=== PATIENT | female | born 1945 | race Caucasian/White ===

== ENCOUNTER → 2020-09-03 08:32 | Outpatient (REF) | payer MEDICARE, MEDICAID, SELFPAY ==
--- NOTE | 2020-09-03 | NM_ITS ---
Lexiscan Myocardial perfusion study Indication: Chest pain, peripheral vascular disease, assess for coronary disease and ischemia Technique: The patient was brought in for a Lexiscan perfusion study on 09/03/2020 and was injected 0.4 mg of Lexiscan intravenously. Within a minute of this injection 25 mCi of sestamibi was given intravenously. Images were obtained using the SPECT gamma camera interlaced with the gating device. Images were obtained in supine position. Resting perfusion study was performed on 09/07/2020. Patient was administered 25 mCi of sestamibi intravenously at rest. Images were then obtained in supine position. Total DLP 62mGy-cm. Images were processed with the software and compared side to side in short axis, horizontal long axis and vertical long axis views. Findings: Raw acquisition was reviewed. The stress perfusion study showed no significant perfusion abnormality. Both uncorrected as well as CT attenuation corrected images were reviewed. In the CT attenuation corrected images, the apex and adjacent anterior and inferior wall appear to have slight reduction in tracer uptake. This is most likely artifactual, as the uncorrected acquisition shows normal perfusion in these areas. The gated study shows normal LV systolic function with calculated LVEF of 72%. LV cavity is normal in size. The gated study shows normal wall thickening and contraction of segments. Resting study shows no significant perfusion abnormality. Gating at rest reveals normal wall motion with ejection fraction at > 75%. The findings are consistent with no reversible or fixed perfusion abnormality. NM/NM naina perf SPECT rest & str Impression: 1. Myocardial perfusion imaging study shows normal myocardial perfusion. No evidence of any ischemia or infarction. 2. Gated LVEF is > 70%. 3. Transient ischemic dilatation not present. EKG component of the test reported separately.
--- NOTE | 2020-09-03 08:53 | CA_ITS ---
Acquisition Time: 2020-09-03 10:38:42 Total Exercise Time: 00:02:00 Test Indications: Chest Pain Medications: ASA SIMVASTATIN OMEPRAZOLE LORATADINE ALBUTEROL Protocol: LEXISCAN Max HR: 123 BPM 83% of Pred: 148 BPM Max BP: 132/072 mmHG Max Work Load: 1.0 METS Pharmacological stress test using Lexiscan while sitting. Pt has a hx of COPD, coughing up white phlemb. Hx of COPD albuterol ordered 2 puffs given before beginning the test. Pt tolerated well, SOB, coughing increased after lexiscan. Pt vasovagal from coughing, mild lightheaded, BP down to 100/40. Improved after Aminophyline 75 mg IV given. Pt's sx improved. EKG without any arrhythmias, non-diagnostic for ischemia. Nuclear images to follow. Test reviewed with DR. Rubio. Referred By: Barber Rubio Overread By: Pio Davey
--- NOTE | 2020-09-03 08:54 | CA_ITS ---
Transthoracic Echocardiogram Patient (Last, First, Middle): Lianne Moreno E Gender: Female Date of : 1945 Age: 75 Procedure Date: 09/03/2020 Procedure Type: Transthoracic Echocardiogram Location: OP Height: 154.94 cm Weight: 60.78 kg BSA: 1.59 m2 Heart Rate: bpm BP: 154 / 62 mmHg Tonal Regulator: Tarah MD: Barber Rubio MD Paginator: Dion Brar MD Symptoms: R07.2 CP Study Quality: Good ECG Rhythm: Sinus Conclusions: - 1. Normal LV systolic function with impaired relaxation filling pattern with mild asymmetric septal hypertrophy without obstruction 2. Mild aortic regurgitation 3. Normal RV systolic pressure 4. No pericardial effusion Findings Left Ventricle Normal left ventricular size, thickness, and systolic function. The visually estimated ejection fraction is between 60-65%. There is no dynamic left ventricular outflow tract obstruction. Spectral Doppler is indicative of an impaired relaxation filling pattern. E/E prime ratio is between 8 and 15 consistent with indeterminate filling pressures. There is mild septal asymmetric hypertrophy. Right Ventricle Normal right ventricular cavity size and systolic function. Atria The left atrium is normal in size. There is no evidence of interatrial shunt. The right atrium is normal in size. Aortic Valve There is mild calcification of the aortic valve. There is no aortic valve stenosis. There is mild aortic valve regurgitation. Mitral Valve There is mild anterior and posterior mitral leaflet thickening. There is mild mitral annular calcification. There is trace mitral valve regurgitation. There is no mitral valve stenosis. Pulmonic Valve The pulmonic valve was not well visualized. Tricuspid Valve Likely normal tricuspid valve structure and function. There is mild tricuspid valve regurgitation. The right ventricular systolic pressure is normal. The right ventricular systolic pressure is 34 mmHg. Normal right atrial pressure. There is no evidence of pulmonary hypertension. Great Vessels All visible segments of the aorta are normal in size. The pulmonary artery was not well visualized. Venous The inferior vena cava is normal in size and collapses greater than 50% with inspiration. Pericardium/Pleural There is no evidence of pericardial effusion. Prior Study Comparison No significant change compared to prior study dated: 02/28/2019. Measurements 2D Linear Measurements RVIDd: 2.58 RVIDd Index: 1.62 IVSd: 0.90 0.6-0.9/0.6-1.0 cm LVIDd: 4.41 3.9-5.3/4.2-5.9 cm LVIDd Index: 2.77 2.4-3.2/2.2-3.1 cm/m2 LVIDs: 3.18 2.0-3.6 cm LVPWd: 1.27 0.7-1.1 cm Ao Root: 2.80 2.1-3.5 cm LA Diam: 3.50 2.7-3.8/3.0-4.0 cm LAIDs Index: 2.20 1.5-2.3 cm/m2 LV Mass: 206.68 67-162/88-224 g LV Mass Index: 129.99 43-95/49-115 g/m2 LVOT Diam: 2.00 3.0+(-)1.3 cm 2D Systolic Function EF 4C: 57.20 >55% EF 2C: 62.80 >55% EF BiP: 60.30 >55% Mitral Valve MV Pk E: 0.74 MV PK A: 0.97 MV Decel Time: 213.00 E/A: 0.80 E'Lateral: 8.49 E'Medial: 5.98 E/E' Med: 12.30 E/E' Lat: 8.70 Aortic Valve AoV Pk Amilcar: 1.42 AoV Mn Amilcar: 1.05 AoV VTI: 0.29 AoV Pk Grad: 8.00 Aov Mn Grad: 5.00 CJ Cont.VTI: 2.55 AI Pk Amilcar: 3.35 AI [place]: 2.85 LVOT LVOT Pk Amilcar: 1.11 LVOT Mn Amilcar: 0.81 LVOT VTI: 0.24 LVOT Pk Grad: 5.00 LVOT Mn Grad: 3.00 LVOT Diam: 2.00 LVOT Area: 3.14 Diastolic Function MV Pk E: 0.74 MV Pk A: 0.97 E/A: 0.80 E'Medial: 5.98 E/E' Med: 12.30 E' Laterial: 8.49 E/E' Lat: 8.70 Tricuspid Valve TR Pk Amilcar: 2.77 TR Pk Grad: 31.00 RA Press: 3.00 RVSP: 34.00 Great Vessels Aorta Ao Root-2D: 2.80 2.0-3.7 cm Ao Asc: 3.10 2.1-3.4 cm Ao Arch: 3.00 Updated in Other Vendor System with Status of Final Dion Brar MD electronically signed on 09/04/2020 12:34:48 PM with status of Final
== END ==
LOC: HO.CARD 08:32
PROVIDERS: Visit Provider Internal Medicine
DX: R07.2 Precordial pain (principal); I73.9 Peripheral vascular disease, unspecified
CPT/HCPCS: 78452; 93017; 93306; A9500; J0280; J2785

== ENCOUNTER 2020-11-27 12:05 | Outpatient (REF) | payer MEDICARE, MEDICAID, SELFPAY ==
--- NOTE | 2020-11-27 12:09 | MM_ITS ---
EXAMINATION: MM SCREENING DIGITAL BREAST TOMOSYNTHESIS, BILATERAL CLINICAL INFORMATION: Screening. Asymptomatic. Status post right breast cancer COMPARISON: Mammography: November 22, 2019 and studies dating back to December 22, 2011 TECHNIQUE: Digital breast tomosynthesis is performed in both the craniocaudal and mediolateral oblique views along with computer-aided detection (CAD). Synthesized 2D images are generated from the tomosynthesis. FINDINGS: The breasts are heterogeneously dense, which may obscure small masses (ACR BI-RADS breast composition Category c). There are no significant masses, abnormal calcifications, or other abnormalities. Postsurgical change again seen within the right breast. MM/MM tomosynthesis screening BI IMPRESSION: There are no significant changes from prior study. ASSESSMENT: BI-RADS 2: Benign RECOMMENDATION: Routine annual mammography screening. This patient's information was entered into a reminder system with a target due date for their next mammogram.
== END 2020-11-27 12:06 | disposition home or self-care (01) ==
LOC: HO.MAMMO 12:05
PROVIDERS: PCP Internal Medicine; Visit Provider Internal Medicine
DX: Z12.31 Encounter for screening mammogram for malignant neoplasm of breast (principal)
CPT/HCPCS: 77063; 77067

== ENCOUNTER 2021-03-08 11:18 | Outpatient (REF) | payer MEDICARE, MEDICAID, SELFPAY ==
[2021-03-08 12:33] LABS: MANUAL DIFF FLAG NO
[2021-03-08 12:40] LABS: Glucose Urine UA NEG (NEG); Leukocyte Esterase Urine 3+ (NEG); Nitrite Urine NEG (NEG); UACC Culture Trigger YES; Urine Blood NEG (NEG); Urine Ketones NEG (NEG); Urine Protein NEG (NEG-TRACE)
[2021-03-08 12:42] LABS: Appearance Urine HAZY; Basophils Percent Auto 0.2 % (0-2); Color Urine YELLOW; Eosinophils Absolute Auto 0.1 X10*3/uL (0.0-0.4); Eosinophils Percent Auto 1.4 % (0-4); Hematocrit 38.9 % (37-47); Hemoglobin 12.8 g/dl (12.0-16.0); Imm Gran Abs Auto 0.02 X10*3/uL (0.00-0.03); Imm Gran Pct Auto 0.4 % (0.0-0.4); Lymphocytes Absolute Auto 1.2 X10*3/uL (1.2-4.9); Lymphocytes Percent Auto 22.8 % (20-40); Mean Corpuscular HGB Conc 32.9 g/dl (31.0-35.0); Mean Corpuscular Hemoglobin 30.2 pg (27.0-33.0); Mean Corpuscular Volume 91.7 fL (80-98); Mean Platelet Volume 8.5 fL (9.4-12.3); Monocytes Absolute Auto 0.5 X10*3/uL (0.1-1.2); Monocytes Percent Auto 10.2 % (2-11); Neutrophils Absolute Auto 3.3 X10*3/uL (2.0-8.3); Platelet Count 293 X10*3/uL (160-400); Red Blood Count 4.24 X10*6/uL (4.20-5.50); Red Cell Distribution Width 12.7 % (11.0-16.0); White Blood Count 5.1 X10*3/uL (4.8-10.8)
[2021-03-08 13:08] LABS: Bacteria Urine TRACE /LPF; RBC Urine 0-2 /HPF (0); Squamous Epithelial Cell Urine TRACE /LPF; WBC Urine 30-49 /HPF (0-4)
[2021-03-08 13:17] LABS: Creatinine Urine 117.51 mg/dL; Microalbum/Creatinine Ratio Ur 8.5 ug/mg cr
[2021-03-08 13:19] LABS: Alanine Aminotransferase 31 U/L (0-31); Albumin Level 4.3 g/dL (3.5-5.0); Alkaline Phosphatase 114 U/L (39-117); Anion Gap 13 (12-20); Aspartate Amino Transferase 25 U/L (5-31); Bilirubin Total 0.9 mg/dL (0.0-1.0); Blood Urea Nitrogen 9 mg/dL (9-16); Calcium 9.4 mg/dL (8.4-10.2); Carbon Dioxide 28 mmol/L (22-29); Chloride 102 mmol/L (96-108); Cholesterol 117 mg/dL; Estimated Glomerular Filt Rate > 60; Glucose Fasting 115 mg/dL (60-99); HDL Cholesterol 46 mg/dL; LDL Cholesterol Calculated 61 mg/dl; Potassium 4.3 mmol/L (3.3-5.1); Sodium 139 mmol/L (135-145); Total Protein 6.7 g/dL (6.5-8.0); Triglycerides 51 mg/dL
[2021-03-08 13:42] LABS: TSH reflex Free T4 0.74 uIU/mL (0.32-4.0); Vitamin D 25-OH Total 26.5 ng/mL (>30)
== END 2021-03-08 11:19 | disposition home or self-care (01) ==
LOC: HO.LAB 11:18
PROVIDERS: PCP Internal Medicine; Visit Provider Internal Medicine
DX: J30.9 Allergic rhinitis, unspecified (principal); E78.00 Pure hypercholesterolemia, unspecified; I10 Essential (primary) hypertension; K21.9 Gastro-esophageal reflux disease without esophagitis; E11.40 Type 2 diabetes mellitus with diabetic neuropathy, unspecified; E55.9 Vitamin D deficiency, unspecified; E66.3 Overweight
CPT/HCPCS: 36415; 80053; 80061; 81001; 81003; 82043; 82306; 84443; 85025; 87086

== ENCOUNTER 2021-03-22 13:48 | Outpatient (REF) | payer MEDICARE, MEDICAID, SELFPAY ==
[2021-03-22 14:07] LABS: COVID-19 Test Negative (Negative)
== END 2021-03-22 13:49 | disposition home or self-care (01) ==
LOC: HO.LAB 13:48
PROVIDERS: Visit Provider Internal Medicine
DX: Z20.822 Contact with and (suspected) exposure to COVID-19 (principal)
CPT/HCPCS: 36415; 87635; C9803

== ENCOUNTER 2021-04-09 14:33 | Outpatient (REF) | payer MEDICARE, MEDICAID, SELFPAY ==
[2021-04-09 15:38] LABS: MANUAL DIFF FLAG NO
[2021-04-09 15:46] LABS: Basophils Percent Auto 0.2 % (0-2); Eosinophils Absolute Auto 0.1 X10*3/uL (0.0-0.4); Eosinophils Percent Auto 1.8 % (0-4); Hematocrit 38.7 % (37-47); Hemoglobin 12.8 g/dl (12.0-16.0); Imm Gran Abs Auto 0.02 X10*3/uL (0.00-0.03); Imm Gran Pct Auto 0.3 % (0.0-0.4); Lymphocytes Absolute Auto 1.3 X10*3/uL (1.2-4.9); Lymphocytes Percent Auto 20.4 % (20-40); Mean Corpuscular HGB Conc 33.1 g/dl (31.0-35.0); Mean Corpuscular Volume 90.8 fL (80-98); Mean Platelet Volume 8.4 fL (9.4-12.3); Monocytes Absolute Auto 0.6 X10*3/uL (0.1-1.2); Monocytes Percent Auto 9.4 % (2-11); Neutrophils Absolute Auto 4.2 X10*3/uL (2.0-8.3); Neutrophils Percent Auto 67.9 % (45-73); Platelet Count 290 X10*3/uL (160-400); Red Blood Count 4.26 X10*6/uL (4.20-5.50); Red Cell Distribution Width 12.6 % (11.0-16.0); White Blood Count 6.1 X10*3/uL (4.8-10.8)
== END 2021-04-09 14:34 | disposition home or self-care (01) ==
LOC: HO.LAB 14:33
PROVIDERS: PCP Internal Medicine; Visit Provider Internal Medicine Pulmonary Disease
DX: J45.909 Unspecified asthma, uncomplicated (principal); J84.9 Interstitial pulmonary disease, unspecified; Z91.09 Other allergy status, other than to drugs and biological substances
CPT/HCPCS: 36415; 82785; 85025; 86003; 99202

== ENCOUNTER 2021-04-26 13:15 | Outpatient (REF) | payer MEDICARE, MEDICAID, SELFPAY ==
--- NOTE | ~2021-04-26 | CT_ITS ---
EXAMINATION: CT CHEST WITHOUT CONTRAST CLINICAL INFORMATION: Interstitial lung disease COMPARISON: None TECHNIQUE: Multidetector volumetric CT imaging of the chest was done. Axial MIP volume rendering provided. Sagittal and coronal reformatted images were obtained. This CT examination was performed using dose optimization techniques as appropriate, variously including the following: *Automated exposure control *Adjustment of mA and/or kV according to patient size (this includes techniques or standardized protocols for targeted exams where dose is matched to indication/reason for exam; i.e. extremities or head) *Use of iterative reconstruction technique DLP: 113 mGy-cm FINDINGS: LUNGS: There are are unremarkable small bilateral pulmonary nodules. Largest pulmonary nodule measures 5 mm in the left lower lobe along the diaphragmatic pleural surface axial image 137 series 11. There are focal increased peripheral interstitial markings seen in the anterior right upper lobe and right middle lobe. Suggestive of changes from previous chest wall radiation. No other evidence of interstitial lung disease is seen. There is no bronchiectasis or emphysema. MEDIASTINUM: The visualized thyroid gland is unremarkable. The heart does not appear enlarged. There is coronary artery and aortic valve calcification. There is no pericardial effusion. There are no enlarged hilar or mediastinal lymph nodes. PLEURA: There is no pleural effusion. No pleural mass or thickening. There is a small left posterior diaphragmatic hernia containing fat. AXILLA: No enlarged axillary lymph nodes are seen. There are postsurgical changes to the right breast. UPPER ABDOMEN: The gallbladder has been removed. OSSEOUS STRUCTURES: There are degenerative changes of the spine. CT/CT chest wo con IMPRESSION: Innumerable small bilateral pulmonary nodules. The largest measures 5 mm in the left lower lobe. Infectious, inflammatory and neoplastic processes should be considered. Probable post radiation change to the peripheral right upper and right middle lobes. Coronary artery and aortic valve calcified lesion. Postsurgical changes to the right breast.
== END 2021-04-26 13:16 | disposition home or self-care (01) ==
LOC: HO.CT 13:15
PROVIDERS: Visit Provider Internal Medicine Pulmonary Disease
DX: J84.9 Interstitial pulmonary disease, unspecified (principal)
CPT/HCPCS: 71250

== ENCOUNTER → 2021-04-30 14:37 | Outpatient (BNVA) | payer MEDICARE, MEDICAID, SELFPAY | PROVIDERS: PCP Internal Medicine; Visit Provider Internal Medicine Pulmonary Disease | DX: J45.909 Unspecified asthma, uncomplicated (principal); J84.9 Interstitial pulmonary disease, unspecified; Z88.0 Allergy status to penicillin; Z88.7 Allergy status to serum and vaccine; Z88.8 Allergy status to other drugs, medicaments and biological substances; Z88.4 Allergy status to anesthetic agent; Z91.030 Bee allergy status; Z91.09 Other allergy status, other than to drugs and biological substances | CPT/HCPCS: 99212 ==

== ENCOUNTER 2021-05-28 09:08 | Outpatient (REF) | payer MEDICARE, MEDICAID, SELFPAY | END 2021-05-28 09:09 | disposition home or self-care (01) | LOC: HO.MDS 09:08 | PROVIDERS: PCP Internal Medicine; Visit Provider Internal Medicine Pulmonary Disease | DX: J45.50 Severe persistent asthma, uncomplicated (principal) | CPT/HCPCS: 96372; J2357 ==

== ENCOUNTER 2021-06-25 14:21 | Outpatient (REF) | payer MEDICARE, MEDICAID, SELFPAY | END 2021-06-25 14:22 | disposition home or self-care (01) | LOC: HO.MDS 14:21 | PROVIDERS: PCP Internal Medicine; Visit Provider Internal Medicine Pulmonary Disease | DX: J45.50 Severe persistent asthma, uncomplicated (principal) | CPT/HCPCS: 96372; J2357 ==

== ENCOUNTER 2021-07-16 14:13 | Outpatient (REF) | payer MEDICARE, MEDICAID, SELFPAY ==
--- NOTE | ~2021-07-16 | MM_ITS ---
EXAMINATION: BONE DENSITOMETRY CLINICAL INDICATION: Asymptomatic menopausal state. COMPARISON: None (current study represents initial baseline exam). TECHNIQUE: Using a [employer] DXA System (software version: 13.1) manufactured by [employer], dual-energy x-ray absorptiometry was performed of the lumbar spine and left hip. The images are of good technical quality. Summary results are attached. FINDINGS: AP SPINE L1-L4: BMD 0.791 g/cm2, Z-score -1.4, T-score -3.2, osteoporosis. LEFT FEMUR, NECK: BMD 0.654 g/cm2, Z-score -0.8, T-score -2.8, osteoporosis. LEFT FEMUR, TOTAL: BMD 0.736 g/cm2, Z-score -0.3, T-score -2.2, osteopenia. IDENTIFIED RISK FACTORS: Rheumatoid arthritis, height loss, secondary osteoporosis, menopause, hysterectomy, bilateral oophorectomy. HISTORY OF FRACTURE: None listed. MEDICATIONS: Vitamin D. MM/XR DEXA axial skeleton IMPRESSION: 1. DIAGNOSIS: Osteoporosis based on the lowest T-score value of -3.2 in the lumbar spine applying World Health Organization criteria. 2. 10-YEAR FRACTURE RISK PREDICTION, FRAX: Major osteoporotic fracture (clinical spine, forearm, hip or shoulder) 14.6%. Hip fracture 5.5%. 3. Treatment Recommendations: NOF guidelines recommend consideration for treatment in postmenopausal women and men age 50 and older presenting with the following: -A hip or vertebral (clinical or morphometric) fracture. -T-score less than or equal to -2.5 at the femoral neck or spine after appropriate evaluation to exclude secondary causes. -Low bone mass at the hip or spine and a 10-year fracture probability by FRAX of greater than or equal to 3% for hip fracture or greater than or equal to 20% for major osteoporotic fracture based on the [place] adapted WHO algorithm. 4. Other Recommendations: All treatment decisions require clinical judgment and consideration of individual patient factors, including patient preferences, comorbidities, previous drug use, risk factors not captured in the FRAX model (e.g. frailty, falls, vitamin D deficiency, increased bone turnover, interval significant decline in bone density) and possible under or overestimation of fracture risk by FRAX. Additional medical evaluation for secondary cause of low bone mineral density may be appropriate. FUTURE SCAN RECOMMENDATION: People with diagnosed cases of osteoporosis or at high risk for fracture should have regular bone mineral density tests. For patients eligible for Medicare, routine testing is allowed once every 2 years. The testing frequency can be increased to one year for patients who have rapidly progressing disease, those who are receiving or discontinuing medical therapy to restore bone mass, or have additional risk factors.
== END 2021-07-16 14:14 | disposition home or self-care (01) ==
LOC: HO.MAMMO 14:13
PROVIDERS: PCP Internal Medicine; Visit Provider Nurse Practitioner Family
DX: Z13.820 Encounter for screening for osteoporosis (principal); M81.0 Age-related osteoporosis without current pathological fracture; M05.9 Rheumatoid arthritis with rheumatoid factor, unspecified; Z78.0 Asymptomatic menopausal state; Z98.890 Other specified postprocedural states; Z90.722 Acquired absence of ovaries, bilateral; Z79.899 Other long term (current) drug therapy
CPT/HCPCS: 77080

== ENCOUNTER 2021-07-26 13:59 | Outpatient (REF) | payer MEDICARE, MEDICAID, SELFPAY | END 2021-07-26 14:00 | disposition home or self-care (01) | LOC: HO.MDS 13:59 | PROVIDERS: PCP Internal Medicine; Visit Provider Internal Medicine Pulmonary Disease | DX: J45.50 Severe persistent asthma, uncomplicated (principal) | CPT/HCPCS: 96372; J2357 ==

== ENCOUNTER 2021-08-23 14:30 | Outpatient (REF) | payer MEDICARE, MEDICAID, SELFPAY | END 2021-08-23 14:31 | disposition home or self-care (01) | LOC: HO.MDS 14:30 | PROVIDERS: PCP Internal Medicine; Visit Provider Internal Medicine Pulmonary Disease | DX: J45.50 Severe persistent asthma, uncomplicated (principal) | CPT/HCPCS: 96372; 96375; J2357 ==

== ENCOUNTER → 2021-09-06 14:55 | Outpatient (BNVA) | payer MEDICARE, MEDICAID, SELFPAY | PROVIDERS: PCP Internal Medicine; Visit Provider Internal Medicine Pulmonary Disease | DX: J45.909 Unspecified asthma, uncomplicated (principal); Z91.09 Other allergy status, other than to drugs and biological substances | CPT/HCPCS: 99212 ==

== ENCOUNTER 2021-09-20 14:02 | Outpatient (REF) | payer MEDICARE, MEDICAID, SELFPAY | END 2021-09-20 14:03 | disposition home or self-care (01) | LOC: HO.MDS 14:02 | PROVIDERS: PCP Internal Medicine; Visit Provider Internal Medicine Pulmonary Disease | DX: J45.50 Severe persistent asthma, uncomplicated (principal) | CPT/HCPCS: 96372; J2357 ==

== ENCOUNTER 2021-10-21 10:59 | Outpatient (REF) | payer MEDICARE, MEDICAID, SELFPAY | END 2021-10-21 11:00 | disposition home or self-care (01) | LOC: HO.MDS 10:59 | PROVIDERS: PCP Internal Medicine; Visit Provider Internal Medicine Pulmonary Disease | DX: J45.50 Severe persistent asthma, uncomplicated (principal) | CPT/HCPCS: 96372; J2357 ==

== ENCOUNTER 2021-11-19 13:09 | Outpatient (REF) | payer MEDICARE, MEDICAID, SELFPAY | END 2021-11-19 13:10 | disposition home or self-care (01) | LOC: HO.MDS 13:09 | PROVIDERS: PCP Internal Medicine; Visit Provider Internal Medicine Pulmonary Disease | DX: J45.50 Severe persistent asthma, uncomplicated (principal) | CPT/HCPCS: 96372; J2357 ==

== ENCOUNTER 2021-12-08 10:00 | Outpatient (REF) | payer MEDICARE, MEDICAID, SELFPAY ==
[2021-12-08 10:31] LABS: MANUAL DIFF FLAG NO
[2021-12-08 11:09] LABS: Basophils Percent Auto 0.2 % (0-2); Eosinophils Absolute Auto 0.1 X10*3/uL (0.0-0.4); Hematocrit 37.7 % (37.0-47.0); Hemoglobin 12.4 g/dl (12.0-16.0); Imm Gran Abs Auto 0.01 X10*3/uL (0.00-0.03); Imm Gran Pct Auto 0.2 % (0.0-0.4); Lymphocytes Absolute Auto 0.9 X10*3/uL (1.2-4.9); Lymphocytes Percent Auto 17.1 % (20-40); Mean Corpuscular HGB Conc 32.9 g/dl (31.0-35.0); Mean Corpuscular Hemoglobin 29.7 pg (27.0-33.0); Mean Corpuscular Volume 90.4 fL (80.0-98.0); Mean Platelet Volume 8.8 fL (9.4-12.3); Monocytes Absolute Auto 0.4 X10*3/uL (0.1-1.2); Monocytes Percent Auto 8.3 % (2-11); Neutrophils Absolute Auto 3.8 x10*3/uL (2.0-8.3); Neutrophils Percent Auto 73.2 % (45-73); Platelet Count 285 X10*3/uL (160-400); Red Blood Count 4.17 X10*6/uL (4.20-5.50); Red Cell Distribution Width 12.6 % (11.0-16.0); White Blood Count 5.2 X10*3/uL (4.8-10.8)
[2021-12-08 11:11] LABS: Appearance Urine CLEAR; Color Urine YELLOW; Glucose Urine UA NEG (NEG); Leukocyte Esterase Urine 1+ (NEG); Nitrite Urine NEG (NEG); Specific Gravity - Urine 1.015 (1.005-1.025); UACC Culture Trigger YES; Urine Blood NEG (NEG); Urine Ketones NEG (NEG); Urine Protein NEG (NEG-TRACE)
[2021-12-08 12:01] LABS: Mucus Urine 1+ /LPF; RBC Urine 0 /HPF (0); Squamous Epithelial Cell Urine 1+ /LPF
[2021-12-08 12:35] LABS: Creatinine Urine 94.28 mg/dL; Microalbum/Creatinine Ratio Ur 8.4 ug/mg cr
[2021-12-08 13:12] LABS: TSH reflex Free T4 0.83 uIU/mL (0.32-4.0); Vitamin D 25-OH Total 25.1 ng/mL (>30)
[2021-12-08 13:30] LABS: Alanine Aminotransferase 21 U/L (0-31); Albumin Level 4.3 g/dL (3.5-5.0); Alkaline Phosphatase 118 U/L (39-117); Anion Gap 13 (12-20); Aspartate Amino Transferase 19 U/L (5-31); Bilirubin Total 0.6 mg/dL (0.0-1.0); Carbon Dioxide 25 mmol/L (22-29); Chloride 103 mmol/L (96-108); Cholesterol 115 mg/dL; Estimated Glomerular Filt Rate > 60; Glucose Fasting 138 mg/dL (60-99); HDL Cholesterol 45 mg/dL; LDL Cholesterol Calculated 61 mg/dl; Sodium 136 mmol/L (135-145); Total Protein 6.9 g/dL (6.5-8.0); Triglycerides 45 mg/dL
[2021-12-08 15:27] LABS: Estimated Average Glucose 148 mg/dL; Hemoglobin A1c % 6.8 %
[2021-12-08 16:05] LABS: Blood Urea Nitrogen 5 mg/dL (9-16); Calcium 9.8 mg/dL (8.4-10.2); Potassium 4.8 mmol/L (3.3-5.1)
== END 2021-12-08 10:01 | disposition home or self-care (01) ==
LOC: HO.LAB 10:00
PROVIDERS: PCP Internal Medicine; Visit Provider Internal Medicine
DX: E78.00 Pure hypercholesterolemia, unspecified (principal); E11.9 Type 2 diabetes mellitus without complications; E55.9 Vitamin D deficiency, unspecified; I10 Essential (primary) hypertension
CPT/HCPCS: 36415; 80053; 80061; 81001; 82043; 82306; 83036; 84443; 85025; 87086

== ENCOUNTER 2022-02-15 13:24 | Outpatient (REF) | payer MEDICARE, MEDICAID, SELFPAY | END 2022-02-15 13:25 | disposition home or self-care (01) | LOC: HO.MDS 13:24 | PROVIDERS: PCP Internal Medicine; Visit Provider Internal Medicine Pulmonary Disease | DX: J45.50 Severe persistent asthma, uncomplicated (principal) | CPT/HCPCS: 96372; J2357 ==

== ENCOUNTER → 2022-03-09 14:57 | Outpatient (BNVA) | payer MEDICARE, MEDICAID, SELFPAY | PROVIDERS: PCP Internal Medicine; Visit Provider Internal Medicine Pulmonary Disease | DX: J45.909 Unspecified asthma, uncomplicated (principal); Z91.09 Other allergy status, other than to drugs and biological substances | CPT/HCPCS: 99212 ==

== ENCOUNTER 2022-03-15 12:59 | Outpatient (REF) | payer MEDICARE, MEDICAID, SELFPAY | END 2022-03-15 13:00 | disposition home or self-care (01) | LOC: HO.MDS 12:59 | PROVIDERS: PCP Internal Medicine; Visit Provider Internal Medicine Pulmonary Disease | DX: J45.50 Severe persistent asthma, uncomplicated (principal) | CPT/HCPCS: 96372; J2357 ==

== ENCOUNTER 2022-04-19 09:55 | Outpatient (REF) | payer MEDICARE, MEDICAID, SELFPAY ==
[2022-04-19 10:08] LABS: MANUAL DIFF FLAG NO
[2022-04-19 11:45] LABS: Basophils Percent Auto 0.2 % (0-2); Eosinophils Absolute Auto 0.1 X10*3/uL (0.0-0.4); Eosinophils Percent Auto 1.3 % (0-4); Hematocrit 37.6 % (37.0-47.0); Hemoglobin 12.4 g/dl (12.0-16.0); Imm Gran Abs Auto 0.02 X10*3/uL (0.00-0.03); Imm Gran Pct Auto 0.4 % (0.0-0.4); Lymphocytes Percent Auto 18.9 % (20-40); Mean Corpuscular Hemoglobin 30.5 pg (27.0-33.0); Mean Corpuscular Volume 92.6 fL (80.0-98.0); Mean Platelet Volume 8.8 fL (9.4-12.3); Monocytes Absolute Auto 0.5 X10*3/uL (0.1-1.2); Monocytes Percent Auto 8.9 % (2-11); Neutrophils Absolute Auto 3.8 x10*3/uL (2.0-8.3); Neutrophils Percent Auto 70.3 % (45-73); Platelet Count 314 X10*3/uL (160-400); Red Blood Count 4.06 X10*6/uL (4.20-5.50); Red Cell Distribution Width 13.1 % (11.0-16.0); White Blood Count 5.4 X10*3/uL (4.8-10.8)
[2022-04-19 11:51] LABS: Appearance Urine CLEAR; Color Urine YELLOW; Glucose Urine UA NEG (NEG); Leukocyte Esterase Urine TRACE (NEG); Nitrite Urine NEG (NEG); PH 7.5 (5.0-8.0); Urine Blood NEG (NEG); Urine Ketones NEG (NEG); Urine Protein NEG (NEG-TRACE)
[2022-04-19 12:08] LABS: RBC Urine 0 /HPF (0); Squamous Epithelial Cell Urine TRACE /LPF; WBC Urine 0-2 /HPF (0-4)
[2022-04-19 12:19] LABS: Creatinine Urine 113.59 mg/dL; Microalbum/Creatinine Ratio Ur 5.2 ug/mg cr
[2022-04-19 12:42] LABS: Vitamin D 25-OH Total 26.6 ng/mL (>30)
[2022-04-19 13:40] LABS: Alanine Aminotransferase 18 U/L (0-31); Albumin Level 4.2 g/dL (3.5-5.0); Alkaline Phosphatase 113 U/L (39-117); Anion Gap 12 (12-20); Aspartate Amino Transferase 16 U/L (5-31); Bilirubin Total 0.4 mg/dL (0.0-1.0); Blood Urea Nitrogen 6 mg/dL (9-16); Calcium 8.9 mg/dL (8.4-10.2); Carbon Dioxide 25 mmol/L (22-29); Chloride 103 mmol/L (96-108); Cholesterol 113 mg/dL; Estimated Glomerular Filt Rate > 60; Glucose Fasting 118 mg/dL (60-99); HDL Cholesterol 49 mg/dL; LDL Cholesterol Calculated 57 mg/dl; Potassium 4.3 mmol/L (3.3-5.1); Sodium 136 mmol/L (135-145); Total Protein 6.6 g/dL (6.5-8.0); Triglycerides 37 mg/dL
[2022-04-19 13:45] LABS: Estimated Average Glucose 146 mg/dL; Hemoglobin A1c % 6.7 %
== END 2022-04-19 09:56 | disposition home or self-care (01) ==
LOC: HO.LAB 09:55
PROVIDERS: PCP Internal Medicine; Visit Provider Internal Medicine
DX: E78.00 Pure hypercholesterolemia, unspecified (principal); E11.9 Type 2 diabetes mellitus without complications; E55.9 Vitamin D deficiency, unspecified; I10 Essential (primary) hypertension
CPT/HCPCS: 36415; 80053; 80061; 81001; 82043; 82306; 83036; 84443; 85025

== ENCOUNTER 2022-06-03 12:31 | Outpatient (REF) | payer MEDICARE, MEDICAID, SELFPAY | END 2022-06-03 12:32 | disposition home or self-care (01) | LOC: HO.MDS 12:31 | PROVIDERS: Visit Provider Internal Medicine Pulmonary Disease | DX: J45.50 Severe persistent asthma, uncomplicated (principal) | CPT/HCPCS: 96372; J2357 ==

== ENCOUNTER 2022-06-25 18:21 | Emergency (ER) | payer MEDICARE, MEDICAID, SELFPAY ==
--- NOTE | ~2022-06-25 | CT_ITS ---
EXAMINATION: CT ABDOMEN AND PELVIS WITH CONTRAST CLINICAL INFORMATION: Left lower quadrant abdominal pain COMPARISON: Chest CT 04/26/2021 TECHNIQUE: Multidetector volumetric images were obtained from the superior aspect of the liver through the pubic symphysis following administration 85 mL of Omnipaque 350 intravenous contrast. Sagittal and coronal reformatted images were obtained on the technologist's workstation. Oral contrast: No This CT examination was performed using dose optimization techniques as appropriate, variously including the following: *Automated exposure control *Adjustment of mA and/or kV according to patient size (this includes techniques or standardized protocols for targeted exams where dose is matched to indication/reason for exam; i.e. extremities or head) *Use of iterative reconstruction technique DLP: 371 mGy-cm FINDINGS: LUNG BASES: Multiple small sub-6 mm bibasilar pulmonary nodules, similar to chest CT 04/18/2021. Mild subsegmental atelectasis at the lung bases and small fat-containing left-sided Bochdalek hernia. Small hiatal hernia. LIVER, GALLBLADDER, AND BILIARY TREE: Normal attenuation. No liver lesion. Status post cholecystectomy. Extra hepatic bile duct is nondilated. Slight prominence of intrahepatic bile ducts likely normal for this patient postcholecystectomy. PANCREAS: Unremarkable. SPLEEN: Unremarkable. ADRENAL GLANDS: Unremarkable. KIDNEYS AND URETERS: Symmetric nephrograms. No renal lesion or calculi. Mild right hydronephrosis and proximal to mid ureterectasis. The distal ureters nondilated. No ureteral calculus. No perinephric stranding or collection. BLADDER: Unremarkable. GASTROINTESTINAL TRACT: Sigmoid diverticulosis. No evidence of acute diverticulitis. No dilated bowel loops. No bowel wall thickening. Moderate amount of formed stool throughout the nondilated colon. Redundancy of the transverse colon looped into the pelvis. Normal appendix. No ascites or free air. ABDOMINAL WALL: Healed midline lower abdominal incision. No hernia. LYMPH NODES: No lymphadenopathy. VASCULAR: Moderate vascular calcifications. No caliber abdominal aorta. PELVIC VISCERA: Status post hysterectomy. OSSEOUS STRUCTURES: No acute fracture or suspicious osseous lesion. Mild multilevel degenerative disc disease. Minimal grade 1 anterolisthesis at L4-L5. Lower lumbar facet arthrosis. CT/CT abdomen pelvis w con IMPRESSION: 1. Sigmoid diverticulosis. No evidence of acute diverticulitis or other acute intra-abdominal process. 2. Moderate amount of formed stool seen throughout the colon. Correlate clinically with signs or symptoms of constipation. 3. Mild dilation the right renal collecting system and proximal to mid right ureter without appreciable obstructing ureteral stone. 4. Numerous small sub-6 mm bilateral pulmonary nodules, similar in appearance to prior chest CT 04/18/2021 suggesting benign etiology.
[2022-06-25 18:28] VITALS: BP 178/65; BP 181/80; PULSE 65; PULSE 67; RESP 16; TEMP 36.9; O2SAT 97; BMI 21.2
--- NOTE | 2022-06-25 19:02 | ED.ABDPAIN ---
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 Although she does report that she was recently on antibiotics on 06/20/2022 for UTI and finished them 2 days ago. She denies any other symptoms related to this. She denies any fevers, chills, dizziness, headache, neck pain/stiffness, trouble swallowing or breathing, chest pain or shortness of breath, dyspnea on exertion, orthopnea, palpitations, paresthesias, radiation of the abdominal pain, flank pain, back pain, dysuria, hematuria, abnormal vaginal discharge, black or bloody stools, diarrhea constipation, rashes or recent travel or sick contacts or any other symptoms complaints or concerns at this time. MD elicited complaint: abdominal pain Onset (ago): hour(s) (Started this morning) Pain Consistency: constant Location: LLQ Severity: moderate Quality: aching and sharp Radiation: none Migration to: no migration Exacerbating factors: nothing Relieving factors: nothing Associated symptoms: denies other symptoms Related Data Home Medications Medication Instructions Recorded Confirmed aspirin 81 mg chewable tablet 1 tab PO DAILY 09/01/20 05/01/22 cholecalciferol (vitamin D3) 50 50 mcg PO DAILY 09/01/20 05/01/22 mcg (2,000 unit) capsule fluticasone propionate 50 1 spray intranasal DAILY 09/01/20 05/01/22 mcg/actuation nasal spray,suspension loratadine 10 mg tablet 10 mg PO DAILY PRN allergy symptoms 09/01/20 05/01/22 tizanidine 4 mg tablet 4 mg PO BEDTIME 09/01/20 05/01/22 albuterol sulfate 2.5 mg/3 mL 2.5 mg continuous nebulization Q6H 03/12/21 05/01/22 (0.083 %) solution for nebulization PRN shortness of breath or wheezing latanoprost 0.005 % eye drops 1 drp ophthalmic (eye) BEDTIME 03/12/21 05/01/22 blood-glucose meter (FreeStyle 04/29/22 05/01/22 Lite Meter kit) Previous Rx's Medication Instructions Recorded albuterol sulfate 90 mcg/actuation 2 puff inhalation Q6H PRN 01/22/21 aerosol inhaler (Ventolin HFA) shortness of breath or wheezing 30 days #8.5 grams omalizumab 150 mg subcutaneous 300 mg subcut Q4W 28 days #1 ea 04/27/21 solution (Xolair) omeprazole 20 mg capsule,delayed 20 mg PO DAILY PRN GERD #90 caps 09/15/21 release tramadol 50 mg tablet 50 mg PO BID-TID PRN pain 30 days 09/15/21 #90 tabs lancets 28 gauge (FreeStyle 28 gauge miscellaneous BID #100 ea 09/19/21 Lancets) FreeStyle TEST STRIPS #100 ea 11/25/21 atorvastatin 40 mg tablet 40 mg PO BEDTIME #90 tabs 01/25/22 blood-glucose meter (FreeStyle #1 ea 04/29/22 Lite Meter kit) sennosides 8.6 mg tablet (Senna See Rx Instructions PO DAILY PRN 04/29/22 Lax) constipation 30 days #60 tabs FreeStyle LANCETS #100 ea 05/01/22 blood sugar diagnostic (FreeStyle #100 ea 05/01/22 Test strips) fluticasone 500 mcg-salmeterol 50 1 ea PO BID #60 ea 05/01/22 mcg/dose blistr powdr for inhalation (Advair Diskus) valacyclovir 500 mg tablet 500 mg PO DAILY #90 tabs 05/01/22 clonazepam 0.25 mg disintegrating 0.25 mg PO BEDTIME PRN anxiety 30 05/18/22 tablet days #30 tabs phenazopyridine 200 mg tablet 200 mg PO TID 3 days #9 tabs 06/20/22 (Pyridium) sulfamethoxazole 800 1 tab PO BID 5 days #10 tabs 06/20/22 mg-trimethoprim 160 mg tablet (Bactrim DS) Allergies Allergy/AdvReac Type Severity Reaction Status Date / Time meperidine [From DEMEROL] Allergy Severe HYPOTENSION Verified 06/20/22 13:13 Penicillins [PENICILLINS] Allergy Severe HIVES,SWELL Verified 06/20/22 13:13 ING influenza virus vaccine, AdvReac Intermediate ASTHMA Verified 06/20/22 13:13 specific EXACERBATION [Influenza Virus Vacc,Specific] Anesthetic Maximum Strength Allergy Severe anaphylaxis Uncoded 06/20/22 13:13 Bee Sting Allergy Unknown unknown Uncoded 06/20/22 13:13 Review of Systems Review of Systems Constitutional : No Weight loss, No Fever, No Chills, No Night Sweats, No Fatigue, No Malaise ENT/Mouth : No Hearing loss, No Ear Pain, No Nasal Congestion, No Sinus Pain, No Hoarseness, No sore throat, No Rhinorrhea, No Swallowing Difficulty Eyes: No Eye Pain, No Swelling, No Redness, No Foreign Body, No Discharge, No Vision Changes Cardiovascular : No Chest Pain, No SOB, No Dyspnea on Exertion, No Orthopnea, No Edema, No Palpitations Respiratory : No Cough, No Sputum, No Wheezing, No Smoke Exposure, No Dyspnea Gastrointestinal : + abdominal pain, No Nausea, No Vomiting, No Diarrhea, No Constipation, No Hematochezia, No Melena Genitourinary : no irregular bleeding, No Dysuria, No Urinary Frequency, No Hematuria, No Urinary Incontinence, No Urgency, No Flank Pain, No Urinary Flow Changes, No Hesitancy Musculoskeletal : No joint pain, No Myalgias, No Joint Swelling Skin : No Skin Lesions, No rash Neuro : No Weakness, No Numbness, No Paresthesias, No Loss of Consciousness, No Dizziness, No Headache Psych : No Anxiety/Panic, No Depression, No SI/HI/AH/VH, No Social Issues, Heme/Lymph: No Bruising, No Bleeding,No Lymphadenopathy Endocrine : No Polyuria, No Polydipsia, No Temperature Intolerance Yes all other systems are reviewed and are negative [facility] Past Medical History Attestation statement: The following information was validated with the patient. Source: old records reviewed, obtained from family and nursing notes reviewed Medical History Allergic rhinitis Anxiety Benign essential hypertension Cellulitis COPD (chronic obstructive pulmonary disease) Depression Diabetes mellitus Diabetic neuropathy Ductal carcinoma in situ of right breast Genital herpes in women GERD (gastroesophageal reflux disease) Nocturnal leg cramps Osteoarthritis of knee Osteoporosis Overweight (BMI 25.0-29.9) Post-menopausal Pure hypercholesterolemia Vitamin D deficiency Surgical History H/O breast surgery History of colonoscopy History of total hysterectomy Family History Family History Father CVD (cardiovascular disease) Stroke Mother Cancer Other Mental health disorder Social History Social History Housing: Apartment Alcohol intake: never Patient Tobacco Use Status: Never used Tobacco Second Hand Smoke Exposure: Yes Advance Directives: No Advance Directives Information Provided: Yes service: No Current occupational status: disabled Cognitive needs: No Hearing needs: Yes Vision needs: Yes Physical Exam ED Vital Signs: Vital Signs - 24 hr 06/25/22 18:28 Temperature 98.4 F Pulse Rate 65 Respiratory Rate 16 Blood Pressure 178/65 H Pulse Oximetry 97 Oxygen Delivery Method Room Air BMI result Body Mass Index 21.2 vital signs have been reviewed as normal and appeared to be correct. Blood pressure 176/65. Heart rate normal. Respiration rate normal. Temperature normal. Oxygen saturation normal. Appearance: Alert. Oriented X3. No acute distress. Head: Normal external exam. Normocephalic. Atraumatic. Eyes: PERRLA. EOMI. Conjunctiva and sclera normal. Eyelids normal. ENT: Pharynx normal. Uvula midline. Moist mucous membranes. No lesions/ulcerations or masses noted on the tongue. Normal voice. No trismus noted. No drooling noted. No muffled voice noted. Neck: Normal inspection. Neck supple. FROM. No adenopathy. Thyroid Normal. No meningeal signs. No neck mass noted. CVS: Normal heart rate and rhythm. Heart sound normal. Pulses normal throughout. No murmurs/rales/gallops. Respiratory: No respiratory distress. Painless inspiration. Breath sounds normal. No wheezes/rales/rhonchi noted. Chest nontender. No accessory muscle usage noted or decreased air movement noted. Abdomen: Soft and moderate tenderness up patient to the left lower quadrant with guarding. Bowel sounds normal in all 4 quadrants. No distention noted. No organomegaly noted. No visible injury noted. Negative Rovsing test. Negative obturator's test. Negative psoas test. Negative Corado's test. Back: No CVA tenderness. Full range of motion noted. Nontender. No signs of trauma. Patient neuro intact bilaterally and distally on all 4 extremities. Patient's reflexes intact bilaterally and distally on all 4 extremities. No rashes/lesion/induration/fluctuance or signs of infection noted. Skin: Skin warm and dry. Normal skin color. Normal skin turgor. No rashes/lesions/lacerations noted. Extremities: No lower extremity edema. No calf tenderness is noted. Extremities exhibit normal range of motion and nontender. Neuro: Oriented X 3. No motor deficit. No sensory deficit. Reflexes normal. Normal steady gait. No focal neuro deficits noted. CN's II-XII intact bilaterally? Vascular: + radial pulses/+ 2 distal pedal pulses/+2 dorsalis pedis b/l. Normal cap refill. No cyanosis noted to upper extremity nails and lower extremity toes nails. 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 Although she does report that she was recently on antibiotics on 06/20/2022 for UTI and finished them 2 days ago. Plan: Labs, UA, COVID swab, CT scan abdomen pelvis with IV contrast. Provide a L of IV fluids with 4 mg of Zofran and some Toradol and re-evaluate. Reevaluation(s) Reevaluation #1: - labs reviewed patient with white blood cell count 4000. - Mild anemia with an H&H of 11.9/34.2. - sodium 126. - chloride 95. - BUN 6. - random glucose 123 - Otherwise all other labs are within normal limits. - UA within normal limits no evidence of UTI. - CT scan of abdomen and pelvis with IV contrast pending at this time. - will recheck basic metabolic panel at this time. - Sign out to LEANN Carbone pending repeat basic metabolic panel and CT scan of abdomen and pelvis with IV contrast pending. Time: 21:13 MDM - Abdominal Pain Medical Records Attestation: I reviewed the patient's medical records. Lab Data Attestation: I reviewed the patient's lab results. Result diagrams: 06/25/22 19:22 06/25/22 19:22 Labs: Lab Results 06/25/22 06/25/22 06/25/22 Range/Units 19:22 19:22 19:22 WBC 4.4 L (4.8-10.8) X10*3/uL RBC 3.94 L (4.20-5.50) X10*6/uL Hgb 11.9 L (12.0-16.0) g/dl Hct 34.2 L (37.0-47.0) % MCV 86.8 (80.0-98.0) fL MCH 30.2 (27.0-33.0) pg MCHC 34.8 (31.0-35.0) g/dl RDW 12.4 (11.0-16.0) % Plt Count 292 (160-400) X10*3/uL MPV 7.9 L (9.4-12.3) fL Immature Gran % (Auto) 0.7 H (0.0-0.4) % Neut % (Auto) 54.8 (45-73) % Lymph % (Auto) 24.7 (20-40) % [place] % (Auto) 17.6 H (2-11) % Eos % (Auto) 2.0 (0-4) % Baso % (Auto) 0.2 (0-2) % Lymph # (Auto) 1.1 L (1.2-4.9) X10*3/uL [place] # (Auto) 0.8 (0.1-1.2) X10*3/uL Eos # (Auto) 0.1 (0.0-0.4) X10*3/uL Baso # (Auto) 0.0 (0.0-0.2) X10*3/uL Abs Immat Gran (auto) 0.03 (0.00-0.03) X10*3/uL Absolute Neuts (auto) 2.4 (2.0-8.3) x10*3/uL Absolute Nucleated RBC 0.000 (0.0-0.012) X10*3/uL Nucleated RBC % (auto) 0.0 (0.0-0.2) /100WBC PT 10.9 (10.0-13.1) SEC INR 1.0 (0.9-1.1) Sodium 126 L (135-145) mmol/L Potassium 4.1 (3.3-5.1) mmol/L Chloride 95 L (96-108) mmol/L Carbon Dioxide 22 (22-29) mmol/L Anion Gap 13 (12-20) BUN 6 L (9-16) mg/dL Creatinine 0.64 (0.5-1.4) mg/dL Estim Creat Clear Calc 64.5 Estimated GFR > 60 Random Glucose 123 H (60-115) mg/dL Calcium 8.8 (8.4-10.2) mg/dL Magnesium 2.0 (1.6-2.6) mg/dL Total Bilirubin 0.5 (0.0-1.0) mg/dL AST 18 (5-31) U/L ALT 16 (0-31) U/L Alkaline Phosphatase 110 (39-117) U/L Total Protein 6.5 (6.5-8.0) g/dL Albumin 4.2 (3.5-5.0) g/dL Lipase 30 (8-78) U/L Urine Color Urine Appearance Urine pH (5.0-8.0) Ur Specific [place] (1.005-1.025) Urine Protein (Neg-Trace) mg/dL Urine Glucose (UA) (Negative) mg/dL Urine Ketones (Negative) mg/dL Urine Blood (Negative) Urine Nitrite (Negative) Ur Leukocyte Esterase (Negative) 06/25/22 Range/Units 19:22 WBC (4.8-10.8) X10*3/uL RBC (4.20-5.50) X10*6/uL Hgb (12.0-16.0) g/dl Hct (37.0-47.0) % MCV (80.0-98.0) fL MCH (27.0-33.0) pg MCHC (31.0-35.0) g/dl RDW (11.0-16.0) % Plt Count (160-400) X10*3/uL MPV (9.4-12.3) fL Immature Gran % (Auto) (0.0-0.4) % Neut % (Auto) (45-73) % Lymph % (Auto) (20-40) % Lawrence % (Auto) (2-11) % Eos % (Auto) (0-4) % Baso % (Auto) (0-2) % Lymph # (Auto) (1.2-4.9) X10*3/uL [place] # (Auto) (0.1-1.2) X10*3/uL Eos # (Auto) (0.0-0.4) X10*3/uL Baso # (Auto) (0.0-0.2) X10*3/uL Abs Immat Gran (auto) (0.00-0.03) X10*3/uL Absolute Neuts (auto) (2.0-8.3) x10*3/uL Absolute Nucleated RBC (0.0-0.012) X10*3/uL Nucleated RBC % (auto) (0.0-0.2) /100WBC PT (10.0-13.1) SEC INR (0.9-1.1) Sodium (135-145) mmol/L Potassium (3.3-5.1) mmol/L Chloride (96-108) mmol/L Carbon Dioxide (22-29) mmol/L Anion Gap (12-20) BUN (9-16) mg/dL Creatinine (0.5-1.4) mg/dL Estim Creat Clear Calc Estimated GFR Random Glucose (60-115) mg/dL Calcium (8.4-10.2) mg/dL Magnesium (1.6-2.6) mg/dL Total Bilirubin (0.0-1.0) mg/dL AST (5-31) U/L ALT (0-31) U/L Alkaline Phosphatase (39-117) U/L Total Protein (6.5-8.0) g/dL Albumin (3.5-5.0) g/dL Lipase (8-78) U/L Urine Color Yellow Urine Appearance Clear Urine pH 7.0 (5.0-8.0) Ur Specific [place] <= 1.005 (1.005-1.025) Urine Protein Negative (Neg-Trace) mg/dL Urine Glucose (UA) Negative (Negative) mg/dL Urine Ketones Negative (Negative) mg/dL Urine Blood Negative (Negative) Urine Nitrite Negative (Negative) Ur Leukocyte Esterase Negative (Negative) Critical Care Time Critical Care Time Critical Care Time: Yes Total Critical Care Time: 60 Attestation: I personally attest to this time spent taking care of the patient Discharge Plan Discharge Clinical Impression: Abdominal pain, acute, left lower quadrant, Acute hyponatremia Patient Disposition: Still a Patient Prescriptions: No Action albuterol sulfate [Ventolin HFA] 90 mcg/actuation HFA aerosol inhaler 2 puff inhalation Q6H PRN (Reason: shortness of breath or wheezing) 30 Days Qty: 8.5 5RF Xolair 150 mg recon soln 300 mg subcut Q4W 28 Days Qty: 1 12RF Rx Instructions: requires multiple injection sites; do not exceed 150 mg per injection site (DME) FreeStyle TEST STRIPS See Rx Instructions .Route .MEDSUPPLY Qty: 100 12RF Rx Instructions: As directed atorvastatin 40 mg tablet 40 mg PO BEDTIME Qty: 90 1RF clonazepam 0.25 mg tablet,disintegrating 0.25 mg PO BEDTIME PRN (Reason: anxiety) 30 Days Qty: 30 0RF Rx Instructions: administer 30 minutes before bedtime latanoprost 0.005 % drops 1 drp ophthalmic (eye) BEDTIME tramadol 50 mg tablet 50 mg PO BID-TID PRN (Reason: pain) 30 Days Qty: 90 0RF Rx Instructions: Take ONLY NEEDED for pain omeprazole 20 mg capsule,delayed release(DR/EC) 20 mg PO DAILY PRN (Reason: GERD) Qty: 90 3RF lancets [FreeStyle Lancets] 28 gauge misc 28 gauge miscellaneous BID Qty: 100 3RF tizanidine 4 mg tablet 4 mg PO BEDTIME aspirin 81 mg tablet,chewable 1 tab PO DAILY loratadine 10 mg tablet 10 mg PO DAILY PRN (Reason: allergy symptoms) cholecalciferol (vitamin D3) 50 mcg (2,000 unit) capsule 50 mcg PO DAILY fluticasone propionate 50 mcg/actuation spray,suspension 1 spray intranasal DAILY Rx Instructions: administer into each nostril albuterol sulfate 2.5 mg /3 mL (0.083 %) solution for nebulization 2.5 mg continuous nebulization Q6H PRN (Reason: shortness of breath or wheezing) (DME) blood-glucose meter [FreeStyle Lite Meter] Kit See Rx Instructions .Route Rx Instructions: As directed- To test Blood sugar sennosides [Senna Lax] 8.6 mg tablet See Rx Instructions PO DAILY PRN (Reason: constipation) 30 Days Qty: 60 3RF Rx Instructions: Take 1 to 2 tablets orally daily PRN; (DME) blood-glucose meter [FreeStyle Lite Meter] Kit See Rx Instructions .ROUTE .MEDSUPPLY Qty: 1 0RF Rx Instructions: As directed TWICE A DAY (DME) FreeStyle Test Strip See Rx Instructions .Route Qty: 100 3RF Rx Instructions: test bs twice a day fluticasone propion-salmeterol [Advair Diskus] 500-50 mcg/dose blister with device 1 ea PO BID Qty: 60 6RF (DME) FreeStyle LANCETS See Rx Instructions .Route .MEDSUPPLY Qty: 100 12RF Rx Instructions: As directed valacyclovir 500 mg tablet 500 mg PO DAILY Qty: 90 0RF sulfamethoxazole-trimethoprim [Bactrim DS] 800-160 mg tablet 1 tab PO BID 5 Days Qty: 10 0RF phenazopyridine [Pyridium] 200 mg tablet 200 mg PO TID 3 Days Qty: 9 0RF
[2022-06-25 19:35] LABS: MANUAL DIFF FLAG NO
[2022-06-25 19:39] LABS: Basophils Percent Auto 0.2 % (0-2); Eosinophils Absolute Auto 0.1 X10*3/uL (0.0-0.4); Hematocrit 34.2 % (37.0-47.0); Hemoglobin 11.9 g/dl (12.0-16.0); Imm Gran Abs Auto 0.03 X10*3/uL (0.00-0.03); Imm Gran Pct Auto 0.7 % (0.0-0.4); Lymphocytes Absolute Auto 1.1 X10*3/uL (1.2-4.9); Lymphocytes Percent Auto 24.7 % (20-40); Mean Corpuscular HGB Conc 34.8 g/dl (31.0-35.0); Mean Corpuscular Hemoglobin 30.2 pg (27.0-33.0); Mean Corpuscular Volume 86.8 fL (80.0-98.0); Mean Platelet Volume 7.9 fL (9.4-12.3); Monocytes Absolute Auto 0.8 X10*3/uL (0.1-1.2); Monocytes Percent Auto 17.6 % (2-11); Neutrophils Absolute Auto 2.4 x10*3/uL (2.0-8.3); Neutrophils Percent Auto 54.8 % (45-73); Platelet Count 292 X10*3/uL (160-400); Red Blood Count 3.94 X10*6/uL (4.20-5.50); Red Cell Distribution Width 12.4 % (11.0-16.0); White Blood Count 4.4 X10*3/uL (4.8-10.8)
[2022-06-25 19:41] LABS: Appearance Urine Clear; Color Urine Yellow; Glucose Urine UA Negative (Negative); Leukocyte Esterase Urine Negative (Negative); Nitrite Urine Negative (Negative); Specific Gravity - Urine <= 1.005 (1.005-1.025); Urine Blood Negative (Negative); Urine Ketones Negative (Negative); Urine Protein Negative (Neg-Trace)
[2022-06-25 19:44] LABS: Prothrombin Time 10.9 SEC (10.0-13.1)
[2022-06-25] MEDS: 0.9 % Sodium Chloride 1,000 ML 999 ML IVCONT (19:48)
[2022-06-25] MEDS: ondansetron HCL 4 MG/2 ML VIAL IVPUSH (19:48)
[2022-06-25] MEDS: Ketorolac Tromethamine 30 MG/ML VIAL IVPUSH (19:48)
[2022-06-25 19:58] LABS: Alanine Aminotransferase 16 U/L (0-31); Albumin Level 4.2 g/dL (3.5-5.0); Alkaline Phosphatase 110 U/L (39-117); Anion Gap 13 (12-20); Aspartate Amino Transferase 18 U/L (5-31); Bilirubin Total 0.5 mg/dL (0.0-1.0); Blood Urea Nitrogen 6 mg/dL (9-16); Calcium 8.8 mg/dL (8.4-10.2); Carbon Dioxide 22 mmol/L (22-29); Chloride 95 mmol/L (96-108); Creatinine Clr Calc Pharmacy 64.5; Estimated Glomerular Filt Rate > 60; Glucose Random 123 mg/dL (60-115); Lipase 30 U/L (8-78); Potassium 4.1 mmol/L (3.3-5.1); Sodium 126 mmol/L (135-145); Total Protein 6.5 g/dL (6.5-8.0)
[2022-06-25] MEDS: iohexoL 350 MG/ML 100 ML INFUS..BTL IV (20:38)
[2022-06-25 21:52] LABS: COVID-19 Test Negative (Negative); IDNOW Serial# 55D5AD1C
[2022-06-26 01:06] LABS: Anion Gap 12 (12-20); Blood Urea Nitrogen 4 mg/dL (9-16); Calcium 8.5 mg/dL (8.4-10.2); Carbon Dioxide 21 mmol/L (22-29); Chloride 103 mmol/L (96-108); Creatinine Clr Calc Pharmacy 67.7; Estimated Glomerular Filt Rate > 60; Glucose Random 116 mg/dL (60-115); Potassium 4.3 mmol/L (3.3-5.1); Sodium 132 mmol/L (135-145)
[2022-06-26] MEDS: polyethylene glycoL 3350 17 GM POWD.PACK PO (02:56)
[2022-06-26 02:59] VITALS: BP 142/91; PULSE 63; RESP 18; O2SAT 97
== END 2022-06-26 03:03 | disposition home or self-care (01) ==
PROVIDERS: Physician Assistant Medical; Emergency Provider Emergency Medicine
DX: K59.00 Constipation, unspecified (principal); R10.32 Left lower quadrant pain; E87.1 Hypo-osmolality and hyponatremia; Z20.822 Contact with and (suspected) exposure to COVID-19; E11.9 Type 2 diabetes mellitus without complications; I10 Essential (primary) hypertension
CPT/HCPCS: 36415; 74177; 80048; 80053; 81003; 83690; 83735; 85025; 85610; 87635; 96361; 96374; 96375; 99284; J1885; J2405; Q9967

== ENCOUNTER 2022-07-01 12:30 | Outpatient (REF) | payer MEDICARE, MEDICAID, SELFPAY | END 2022-07-01 12:31 | disposition home or self-care (01) | LOC: HO.MDS 12:30 | PROVIDERS: Visit Provider Internal Medicine Pulmonary Disease | DX: J45.50 Severe persistent asthma, uncomplicated (principal) | CPT/HCPCS: 96372; J2357 ==

== ENCOUNTER 2022-08-05 11:35 | Outpatient (REF) | payer MEDICARE, MEDICAID, SELFPAY | END 2022-08-05 11:36 | disposition home or self-care (01) | LOC: HO.MDS 11:35 | PROVIDERS: Visit Provider Internal Medicine Pulmonary Disease | DX: J45.50 Severe persistent asthma, uncomplicated (principal) | CPT/HCPCS: 96372; J2357 ==

== ENCOUNTER 2022-08-19 14:09 | Emergency (ER) | payer MEDICARE, MEDICAID, SELFPAY ==
--- NOTE | ~2022-08-19 | XR_ITS ---
EXAMINATION: XR CHEST CLINICAL INFORMATION: Chest pain. COMPARISON: None TECHNIQUE: Frontal view of the chest was obtained. FINDINGS: The lungs are well-expanded and clear acute process. The heart size and pulmonary vascularity is normal no gross pulmonary abnormality seen. XR/XR chest 1V IMPRESSION: Unremarkable chest exam.
--- NOTE | 2022-08-19 14:21 | ECG_ITS ---
Test Reason : JOSE PAIN Blood Pressure : / mmHG Vent. Rate : 064 BPM Atrial Rate : 064 BPM P-R Int : 162 ms QRS Dur : 086 ms QT Int : 372 ms P-R-T Axes : 070 032 050 degrees QTc Int : 383 ms Normal sinus rhythm Normal ECG When compared with ECG of 26-FEB-2019 15:49, No significant change was found Referred By: Krystal Santo Electronically Signed By:TERRENCE CHRISTY MD
--- NOTE | 2022-08-19 14:23 | ED.CHESTPAIN ---
HPI - Chest Pain General Chief Complaint: Chest Pain Stated Complaint: chest pain Time Seen by Provider: 08/19/22 14:21 Source: patient and EMS Mode of arrival: EMS Limitations: no limitations History of Present Illness HPI narrative: 77 yo female with history of DM with neuropathy, GERD, COPD, depression, anxiety, HTN, HLD, GERD who presents to the ER from home via EMS c/o sharp, non-radiating left sided chest pain that started this morning at 7am when she woke up. She states she also has had a slight cough today and SOB. She states the pain has been constant since she woke up. It is worse with palpation and deep breaths. No nausea, diaphoresis, abdominal pain, fever, chills, sick contact. She received ASA en route. MD complaint: chest pain Onset (ago): hour(s) (8) Timing of current episode: constant Onset: during rest Pain location: left chest Pain radiation: none Severity: moderate Pain scale (0-10): 6 Quality: sharp Relieving factors: nothing Exacerbating factors: inspiration and other (palpation) Associated symptoms: dyspnea and cough Treatment prior to arrival: aspirin Risk Factors Coronary artery disease risk factors: diabetes, hyperlipidemia and hypertension Thoracic aortic dissection risk factors: none Related Data Home Medications Medication Instructions Recorded Confirmed aspirin 81 mg chewable tablet 1 tab PO DAILY 09/01/20 05/01/22 cholecalciferol (vitamin D3) 50 50 mcg PO DAILY 09/01/20 05/01/22 mcg (2,000 unit) capsule fluticasone propionate 50 1 spray intranasal DAILY 09/01/20 05/01/22 mcg/actuation nasal spray,suspension loratadine 10 mg tablet 10 mg PO DAILY PRN allergy symptoms 09/01/20 05/01/22 tizanidine 4 mg tablet 4 mg PO BEDTIME 09/01/20 05/01/22 albuterol sulfate 2.5 mg/3 mL 2.5 mg continuous nebulization Q6H 03/12/21 05/01/22 (0.083 %) solution for nebulization PRN shortness of breath or wheezing latanoprost 0.005 % eye drops 1 drp ophthalmic (eye) BEDTIME 03/12/21 05/01/22 blood-glucose meter (FreeStyle 04/29/22 05/01/22 Lite Meter kit) Previous Rx's Medication Instructions Recorded albuterol sulfate 90 mcg/actuation 2 puff inhalation Q6H PRN 01/22/21 aerosol inhaler (Ventolin HFA) shortness of breath or wheezing 30 days #8.5 grams omalizumab 150 mg subcutaneous 300 mg subcut Q4W 28 days #1 ea 04/27/21 solution (Xolair) omeprazole 20 mg capsule,delayed 20 mg PO DAILY PRN GERD #90 caps 09/15/21 release tramadol 50 mg tablet 50 mg PO BID-TID PRN pain 30 days 09/15/21 #90 tabs lancets 28 gauge (FreeStyle 28 gauge miscellaneous BID #100 ea 09/19/21 Lancets) FreeStyle TEST STRIPS #100 ea 11/25/21 blood-glucose meter (FreeStyle #1 ea 04/29/22 Lite Meter kit) sennosides 8.6 mg tablet (Senna See Rx Instructions PO DAILY PRN 04/29/22 Lax) constipation 30 days #60 tabs FreeStyle LANCETS #100 ea 05/01/22 blood sugar diagnostic (FreeStyle #100 ea 05/01/22 Test strips) fluticasone 500 mcg-salmeterol 50 1 ea PO BID #60 ea 05/01/22 mcg/dose blistr powdr for inhalation (Advair Diskus) valacyclovir 500 mg tablet 500 mg PO DAILY #90 tabs 05/01/22 phenazopyridine 200 mg tablet 200 mg PO TID 3 days #9 tabs 06/20/22 (Pyridium) sulfamethoxazole 800 1 tab PO BID 5 days #10 tabs 06/20/22 mg-trimethoprim 160 mg tablet (Bactrim DS) polyethylene glycol 3350 17 17 g PO DAILY 30 days #510 grams 06/26/22 gram/dose oral powder (Miralax) clonazepam 0.25 mg disintegrating 0.25 mg PO BEDTIME PRN anxiety 30 07/20/22 tablet days #30 tabs atorvastatin 40 mg tablet 40 mg PO BEDTIME #90 tabs 07/25/22 Allergies Allergy/AdvReac Type Severity Reaction Status Date / Time meperidine [From DEMEROL] Allergy Severe HYPOTENSION Verified 06/20/22 13:13 Penicillins [PENICILLINS] Allergy Severe HIVES,SWELL Verified 06/20/22 13:13 ING influenza virus vaccine, AdvReac Intermediate ASTHMA Verified 06/20/22 13:13 specific EXACERBATION [Influenza Virus Vacc,Specific] Anesthetic Maximum Strength Allergy Severe anaphylaxis Uncoded 06/20/22 13:13 Bee Sting Allergy Unknown unknown Uncoded 06/20/22 13:13 Review of Systems Review of Systems: Constitutional: No Fever, No Chills ENT/Mouth: No sore throat, No Rhinorrhea, No Swallowing Difficulty Cardiovascular: + Chest Pain, + SOB, No Orthopnea, No Edema Respiratory: No Cough, No Sputum, No Wheezing, No dyspnea Gastrointestinal: No Nausea, No Vomiting, No Diarrhea, No abdominal Pain, No Hematochezia, No Melena Musculoskeletal: No joint pain, No Myalgias Skin: No Skin Lesions, No rash Neuro: No Weakness, No Numbness, No Dizziness, No Headache Psych: No Anxiety/Panic, No Depression Heme/Lymph: No Bruising, No Lymphadenopathy Endocrine: No Polyuria, No Polydipsia PMFSH Past Medical History Medical History Allergic rhinitis Anxiety Benign essential hypertension Cellulitis COPD (chronic obstructive pulmonary disease) Depression Diabetes mellitus Diabetic neuropathy Ductal carcinoma in situ of right breast Genital herpes in women GERD (gastroesophageal reflux disease) Nocturnal leg cramps Osteoarthritis of knee Osteoporosis Overweight (BMI 25.0-29.9) Post-menopausal Pure hypercholesterolemia Vitamin D deficiency Surgical History H/O breast surgery History of colonoscopy History of total hysterectomy Family History Family History Father CVD (cardiovascular disease) Stroke Mother Cancer Other Mental health disorder Social History Social History Housing: Apartment Alcohol intake: never Patient Tobacco Use Status: Never used Tobacco Second Hand Smoke Exposure: Yes Advance Directives: No Advance Directives Information Provided: Yes service: No Current occupational status: disabled Cognitive needs: No Hearing needs: Yes Vision needs: Yes Physical Exam Vital Signs: Vital Signs: Last Vital Signs Temp 98 F 08/19/22 14:25 Pulse 62 08/19/22 15:58 Resp 16 08/19/22 15:58 BP 190/69 H 08/19/22 15:58 Pulse Ox 96 10/21/22 15:58 O2 Del Method 08/19/22 15:58 BMI result Body Mass Index 25.1 Appearance: Alert. Oriented X3. No acute distress. Eyes: Pupils equal, round and reactive to light. ENT: Pharynx normal. Neck: Normal inspection. Neck supple. CVS: Normal heart rate and rhythm. Pulses normal. Respiratory: No respiratory distress. Breath sounds normal. Tenderness under left breast over lower ribs, no crepitus. no rash or skin changes. Abdomen: Soft and nontender. +BS x4 Skin: Skin warm and dry. Normal skin color. Normal skin turgor. No rashes. Extremities: No lower extremity edema. Neuro: Oriented X 3. No motor deficit. No sensory deficit. Course Course Course Narrative: 77 yo female with history of HTN, HLD, DM w/ neuropathy who presents to the ER with constant 6/10, non-radiating left sided chest pain that started this morning. Reproducible on exam. EKG wtihout ischemic changes. Will get labs and XR. Tylenol ordered for suspected MSK pain. Doubt ACS or PE. Reevaluation(s) Reevaluation #1: Troponin <3.5. Pain started 8 hours ago, no need to repeat. On reassessment her pain is much improved after tylenol. Most likely musculoskeletal pain, stable for d/c home. return precautions discussed. MDM - Chest Pain Medical Records Data Attestation: I reviewed the patient's medical records. Lab Data Attestation: I reviewed the patient's lab results. Result diagrams: 08/19/22 14:57 08/19/22 14:57 Labs: Lab Results 08/19/22 08/19/22 08/19/22 Range/Units 14:57 14:57 14:57 WBC 5.2 (4.8-10.8) X10*3/uL RBC 3.99 L (4.20-5.50) X10*6/uL Hgb 12.1 (12.0-16.0) g/dl Hct 36.6 L (37.0-47.0) % MCV 91.7 (80.0-98.0) fL MCH 30.3 (27.0-33.0) pg MCHC 33.1 (31.0-35.0) g/dl RDW 13.0 (11.0-16.0) % Plt Count 253 (160-400) X10*3/uL MPV 8.1 L (9.4-12.3) fL Immature Gran % (Auto) 0.4 (0.0-0.4) % Neut % (Auto) 71.8 (45-73) % Lymph % (Auto) 16.4 L (20-40) % [place] % (Auto) 10.0 (2-11) % Eos % (Auto) 1.2 (0-4) % Baso % (Auto) 0.2 (0-2) % Lymph # (Auto) 0.9 L (1.2-4.9) X10*3/uL [place] # (Auto) 0.5 (0.1-1.2) X10*3/uL Eos # (Auto) 0.1 (0.0-0.4) X10*3/uL Baso # (Auto) 0.0 (0.0-0.2) X10*3/uL Abs Immat Gran (auto) 0.02 (0.00-0.03) X10*3/uL Absolute Neuts (auto) 3.7 (2.0-8.3) x10*3/uL Absolute Nucleated RBC 0.000 (0.0-0.012) X10*3/uL Nucleated RBC % (auto) 0.0 (0.0-0.2) /100WBC PT (10.0-13.1) SEC INR (0.9-1.1) APTT (26.0-36.4) SEC Sodium 136 (135-145) mmol/L Potassium 4.7 (3.3-5.1) mmol/L Chloride 100 (96-108) mmol/L Carbon Dioxide 27 (22-29) mmol/L Anion Gap 14 (12-20) BUN 9 D (9-16) mg/dL Creatinine 0.65 (0.5-1.4) mg/dL Estim Creat Clear Calc 61.4 Estimated GFR > 60 Random Glucose 125 H (60-115) mg/dL Calcium 9.2 D (8.4-10.2) mg/dL Magnesium 2.2 (1.6-2.6) mg/dL Total Bilirubin 0.4 (0.0-1.0) mg/dL Direct Bilirubin 0.2 (0.0-0.5) mg/dL AST 13 (5-31) U/L ALT 14 (0-31) U/L Alkaline Phosphatase 114 (39-117) U/L Troponin I High Sens (<3.5-17.0) ng/L B-Natriuretic Peptide (<100) pg/mL Total Protein 6.4 L (6.5-8.0) g/dL Albumin 4.1 (3.5-5.0) g/dL COVID-19 ([facility]AYA) Negative (Negative) COVID-19 Clin Com See Note 08/19/22 08/19/22 Range/Units 14:57 14:57 WBC (4.8-10.8) X10*3/uL RBC (4.20-5.50) X10*6/uL Hgb (12.0-16.0) g/dl Hct (37.0-47.0) % MCV (80.0-98.0) fL MCH (27.0-33.0) pg MCHC (31.0-35.0) g/dl RDW (11.0-16.0) % Plt Count (160-400) X10*3/uL MPV (9.4-12.3) fL Immature Gran % (Auto) (0.0-0.4) % Neut % (Auto) (45-73) % Lymph % (Auto) (20-40) % [place] % (Auto) (2-11) % Eos % (Auto) (0-4) % Baso % (Auto) (0-2) % Lymph # (Auto) (1.2-4.9) X10*3/uL [place] # (Auto) (0.1-1.2) X10*3/uL Eos # (Auto) (0.0-0.4) X10*3/uL Baso # (Auto) (0.0-0.2) X10*3/uL Abs Immat Gran (auto) (0.00-0.03) X10*3/uL Absolute Neuts (auto) (2.0-8.3) x10*3/uL Absolute Nucleated RBC (0.0-0.012) X10*3/uL Nucleated RBC % (auto) (0.0-0.2) /100WBC PT 11.5 (10.0-13.1) SEC INR 1.0 (0.9-1.1) APTT 29.1 (26.0-36.4) SEC Sodium (135-145) mmol/L Potassium (3.3-5.1) mmol/L Chloride (96-108) mmol/L Carbon Dioxide (22-29) mmol/L Anion Gap (12-20) BUN (9-16) mg/dL Creatinine (0.5-1.4) mg/dL Estim Creat Clear Calc Estimated GFR Random Glucose (60-115) mg/dL Calcium (8.4-10.2) mg/dL Magnesium (1.6-2.6) mg/dL Total Bilirubin (0.0-1.0) mg/dL Direct Bilirubin (0.0-0.5) mg/dL AST (5-31) U/L ALT (0-31) U/L Alkaline Phosphatase (39-117) U/L Troponin I High Sens < 3.5 (<3.5-17.0) ng/L B-Natriuretic Peptide 43 (<100) pg/mL Total Protein (6.5-8.0) g/dL Albumin (3.5-5.0) g/dL COVID-19 ([facility]ORAYA) (Negative) COVID-19 Clin Com ECG Data ECG #1: Attestation: I personally reviewed and interpreted this ECG as follows: ECG interpretation date: 08/19/22 ECG interpretation time: 15:07 Prior ECG tracings: available for review Interpretation: Normal sinus rhythm, ventricular rate 64 beats per minute, normal OR interval, normal QTC, no ST segment elevations or depressions. No T-wave inversions or ischemic changes. Scores Heart Score History: -0- slightly suspicious ECG: -0- normal Age: -2- > or = 65 Risk factory: -1- 1 or 2 risk factors Troponin: -0- < or = normal limit Score: 3 Risk: 1.7% Discharge Plan Discharge Clinical Impression: Atypical chest pain Patient Disposition: Home, Self-Care Instructions: Chest Pain (ED), Chest Pain (DC) Additional Instructions: Your chest x-ray was normal. Your EKG was normal. Your lab workup was normal. Your pain is most likely muscular given how tender it is. It is unlikely to be cardiac. Recommend tylenol and motrin for the pain Follow up with your doctor next week. If you develop new or worsening symptoms call 911 or come back to the ER for further evaluation. Prescriptions: No Action albuterol sulfate [Ventolin HFA] 90 mcg/actuation HFA aerosol inhaler 2 puff inhalation Q6H PRN (Reason: shortness of breath or wheezing) 30 Days Qty: 8.5 5RF Xolair 150 mg recon soln 300 mg subcut Q4W 28 Days Qty: 1 12RF Rx Instructions: requires multiple injection sites; do not exceed 150 mg per injection site (DME) FreeStyle TEST STRIPS See Rx Instructions .Route .MEDSUPPLY Qty: 100 12RF Rx Instructions: As directed clonazepam 0.25 mg tablet,disintegrating 0.25 mg PO BEDTIME PRN (Reason: anxiety) 30 Days Qty: 30 0RF Rx Instructions: administer 30 minutes before bedtime atorvastatin 40 mg tablet 40 mg PO BEDTIME Qty: 90 1RF polyethylene glycol 3350 [Miralax] 17 gram/dose powder 17 g PO DAILY 30 Days Qty: 510 2RF latanoprost 0.005 % drops 1 drp ophthalmic (eye) BEDTIME tramadol 50 mg tablet 50 mg PO BID-TID PRN (Reason: pain) 30 Days Qty: 90 0RF Rx Instructions: Take ONLY NEEDED for pain omeprazole 20 mg capsule,delayed release(DR/EC) 20 mg PO DAILY PRN (Reason: GERD) Qty: 90 3RF lancets [FreeStyle Lancets] 28 gauge misc 28 gauge miscellaneous BID Qty: 100 3RF tizanidine 4 mg tablet 4 mg PO BEDTIME aspirin 81 mg tablet,chewable 1 tab PO DAILY loratadine 10 mg tablet 10 mg PO DAILY PRN (Reason: allergy symptoms) cholecalciferol (vitamin D3) 50 mcg (2,000 unit) capsule 50 mcg PO DAILY fluticasone propionate 50 mcg/actuation spray,suspension 1 spray intranasal DAILY Rx Instructions: administer into each nostril albuterol sulfate 2.5 mg /3 mL (0.083 %) solution for nebulization 2.5 mg continuous nebulization Q6H PRN (Reason: shortness of breath or wheezing) (DME) blood-glucose meter [FreeStyle Lite Meter] Kit See Rx Instructions .Route Rx Instructions: As directed- To test Blood sugar sennosides [Senna Lax] 8.6 mg tablet See Rx Instructions PO DAILY PRN (Reason: constipation) 30 Days Qty: 60 3RF Rx Instructions: Take 1 to 2 tablets orally daily PRN; (DME) blood-glucose meter [FreeStyle Lite Meter] Kit See Rx Instructions .ROUTE .MEDSUPPLY Qty: 1 0RF Rx Instructions: As directed TWICE A DAY (DME) FreeStyle Test Strip See Rx Instructions .Route Qty: 100 3RF Rx Instructions: test bs twice a day fluticasone propion-salmeterol [Advair Diskus] 500-50 mcg/dose blister with device 1 ea PO BID Qty: 60 6RF (DME) FreeStyle LANCETS See Rx Instructions .Route .MEDSUPPLY Qty: 100 12RF Rx Instructions: As directed valacyclovir 500 mg tablet 500 mg PO DAILY Qty: 90 0RF sulfamethoxazole-trimethoprim [Bactrim DS] 800-160 mg tablet 1 tab PO BID 5 Days Qty: 10 0RF phenazopyridine [Pyridium] 200 mg tablet 200 mg PO TID 3 Days Qty: 9 0RF Referrals: Jose Juan Rendon MD [Primary Care Provider] -
[2022-08-19 14:25] VITALS: BP 155/51; PULSE 70; RESP 14; TEMP 36.6; O2SAT 97; BMI 25.1
[2022-08-19 15:05] LABS: MANUAL DIFF FLAG NO
[2022-08-19 15:08] LABS: Basophils Percent Auto 0.2 % (0-2); Eosinophils Absolute Auto 0.1 X10*3/uL (0.0-0.4); Eosinophils Percent Auto 1.2 % (0-4); Hematocrit 36.6 % (37.0-47.0); Hemoglobin 12.1 g/dl (12.0-16.0); Imm Gran Abs Auto 0.02 X10*3/uL (0.00-0.03); Imm Gran Pct Auto 0.4 % (0.0-0.4); Lymphocytes Absolute Auto 0.9 X10*3/uL (1.2-4.9); Lymphocytes Percent Auto 16.4 % (20-40); Mean Corpuscular HGB Conc 33.1 g/dl (31.0-35.0); Mean Corpuscular Hemoglobin 30.3 pg (27.0-33.0); Mean Corpuscular Volume 91.7 fL (80.0-98.0); Mean Platelet Volume 8.1 fL (9.4-12.3); Monocytes Absolute Auto 0.5 X10*3/uL (0.1-1.2); Neutrophils Absolute Auto 3.7 x10*3/uL (2.0-8.3); Neutrophils Percent Auto 71.8 % (45-73); Platelet Count 253 X10*3/uL (160-400); Red Blood Count 3.99 X10*6/uL (4.20-5.50); White Blood Count 5.2 X10*3/uL (4.8-10.8)
[2022-08-19 15:12] LABS: Prothrombin Time 11.5 SEC (10.0-13.1)
[2022-08-19 15:15] LABS: Partial Thromboplastin Time 29.1 SEC (26.0-36.4)
[2022-08-19 15:27] LABS: Alanine Aminotransferase 14 U/L (0-31); Albumin Level 4.1 g/dL (3.5-5.0); Alkaline Phosphatase 114 U/L (39-117); Anion Gap 14 (12-20); Aspartate Amino Transferase 13 U/L (5-31); Bilirubin Direct 0.2 mg/dL (0.0-0.5); Bilirubin Total 0.4 mg/dL (0.0-1.0); Blood Urea Nitrogen 9 mg/dL (9-16); Calcium 9.2 mg/dL (8.4-10.2); Carbon Dioxide 27 mmol/L (22-29); Chloride 100 mmol/L (96-108); Creatinine Clr Calc Pharmacy 61.4; Estimated Glomerular Filt Rate > 60; Glucose Random 125 mg/dL (60-115); Magnesium 2.2 mg/dL (1.6-2.6); Potassium 4.7 mmol/L (3.3-5.1); Sodium 136 mmol/L (135-145); Total Protein 6.4 g/dL (6.5-8.0)
[2022-08-19 15:30] LABS: COVID-19 Test Negative (Negative)
[2022-08-19 15:34] LABS: B Type Natriuretic Peptide 43 pg/mL (<100); Troponin-I High Sensitivity < 3.5 ng/L (<3.5-17.0)
[2022-08-19] MEDS: Acetaminophen 325 MG TABLET 975 MG PO (15:53)
[2022-08-19 15:58] VITALS: BP 190/69; PULSE 62; RESP 16; O2SAT 96
[2022-08-19 17:46] VITALS: BP 166/74; PULSE 71; RESP 18; O2SAT 97
== END 2022-08-19 17:47 | disposition home or self-care (01) ==
PROVIDERS: Physician Assistant; Emergency Provider Emergency Medicine; PCP Internal Medicine
DX: R07.89 Other chest pain (principal); I10 Essential (primary) hypertension; E78.5 Hyperlipidemia, unspecified; R06.02 Shortness of breath; Z20.822 Contact with and (suspected) exposure to COVID-19; Z79.82 Long term (current) use of aspirin; Z79.899 Other long term (current) drug therapy; Z79.02 Long term (current) use of antithrombotics/antiplatelets
CPT/HCPCS: 36415; 71045; 80048; 80076; 83735; 83880; 84484; 85025; 85610; 85730; 87635; 93005; 99284; 99285

== ENCOUNTER 2022-09-02 13:47 | Outpatient (REF) | payer MEDICARE, MEDICAID, SELFPAY | END 2022-09-02 13:48 | disposition home or self-care (01) | LOC: HO.MDS 13:47 | PROVIDERS: Visit Provider Internal Medicine Pulmonary Disease | DX: J45.50 Severe persistent asthma, uncomplicated (principal) | CPT/HCPCS: 96372; J2357 ==

== ENCOUNTER 2022-09-30 13:37 | Outpatient (REF) | payer MEDICARE, MEDICAID, SELFPAY | END 2022-09-30 13:38 | disposition home or self-care (01) | LOC: HO.MDS 13:37 | PROVIDERS: Visit Provider Internal Medicine Pulmonary Disease | DX: J45.50 Severe persistent asthma, uncomplicated (principal) | CPT/HCPCS: 96372; J2357 ==

== ENCOUNTER → 2022-10-11 15:18 | Outpatient (BNVA) | payer MEDICARE, MEDICAID, SELFPAY | PROVIDERS: PCP Internal Medicine; Visit Provider Internal Medicine Pulmonary Disease | DX: J45.909 Unspecified asthma, uncomplicated (principal); Z91.09 Other allergy status, other than to drugs and biological substances; Z79.899 Other long term (current) drug therapy | CPT/HCPCS: 99212 ==

== ENCOUNTER 2022-10-28 13:41 | Outpatient (REF) | payer MEDICARE, MEDICAID, SELFPAY | END 2022-10-28 13:42 | disposition home or self-care (01) | LOC: HO.MDS 13:41 | PROVIDERS: Visit Provider Internal Medicine Pulmonary Disease | DX: J45.50 Severe persistent asthma, uncomplicated (principal) | CPT/HCPCS: 96372; J2357 ==

== ENCOUNTER 2022-11-30 08:29 | Outpatient (REF) | payer MEDICARE, MEDICAID, SELFPAY ==
[2022-11-30 08:49] LABS: MANUAL DIFF FLAG NO
[2022-11-30 09:18] LABS: Basophils Percent Auto 0.4 % (0-2); Eosinophils Absolute Auto 0.1 X10*3/uL (0.0-0.4); Hematocrit 38.8 % (37.0-47.0); Hemoglobin 12.8 g/dl (12.0-16.0); Imm Gran Abs Auto 0.05 X10*3/uL (0.00-0.03); Imm Gran Pct Auto 0.9 % (0.0-0.4); Lymphocytes Absolute Auto 0.9 X10*3/uL (1.2-4.9); Lymphocytes Percent Auto 16.2 % (20-40); Mean Corpuscular Hemoglobin 29.9 pg (27.0-33.0); Mean Corpuscular Volume 90.7 fL (80.0-98.0); Mean Platelet Volume 8.7 fL (9.4-12.3); Monocytes Absolute Auto 0.5 X10*3/uL (0.1-1.2); Monocytes Percent Auto 8.7 % (2-11); Neutrophils Percent Auto 71.8 % (45-73); Platelet Count 283 X10*3/uL (160-400); Red Blood Count 4.28 X10*6/uL (4.20-5.50); Red Cell Distribution Width 12.3 % (11.0-16.0); White Blood Count 5.5 X10*3/uL (4.8-10.8)
[2022-11-30 09:31] LABS: Estimated Average Glucose 137 mg/dL; Hemoglobin A1c % 6.4 %
[2022-11-30 09:37] LABS: Appearance Urine Clear; Color Urine Yellow; Glucose Urine UA Negative (Negative); Leukocyte Esterase Urine Trace (Negative); Nitrite Urine Negative (Negative); Specific Gravity - Urine 1.015 (1.005-1.025); UMIC TRIGGER UACC YES; Urine Blood Negative (Negative); Urine Ketones Negative (Negative); Urine Protein Negative (Neg-Trace)
[2022-11-30 09:42] LABS: Bacteria Urine None Seen (None Seen); Hyaline Casts Urine 0-2 /LPF (0-2); RBC Urine 0-2 /HPF (0-2); Squamous Epithelial Cell Urine 0-2 /HPF (0-2); WBC Urine 0-5 /HPF (0-5)
[2022-11-30 09:52] LABS: Creatinine Urine 95.77 mg/dL; Microalbumin Urine < 5.0 mg/L
[2022-11-30 09:52] LABS: Alanine Aminotransferase 15 U/L (0-31); Albumin Level 4.1 g/dL (3.5-5.0); Alkaline Phosphatase 115 U/L (39-117); Anion Gap 13 (12-20); Aspartate Amino Transferase 17 U/L (5-31); Bilirubin Total 0.8 mg/dL (0.0-1.0); Blood Urea Nitrogen 9 mg/dL (9-16); Calcium 9.3 mg/dL (8.4-10.2); Carbon Dioxide 25 mmol/L (22-29); Chloride 102 mmol/L (96-108); Cholesterol 128 mg/dL; Estimated Glomerular Filt Rate > 60; Glucose Fasting 124 mg/dL (60-99); HDL Cholesterol 45 mg/dL; LDL Cholesterol Calculated 73 mg/dl; Potassium 4.7 mmol/L (3.3-5.1); Sodium 135 mmol/L (135-145); Total Protein 6.7 g/dL (6.5-8.0); Triglycerides 52 mg/dL
[2022-11-30 10:09] LABS: TSH reflex Free T4 0.75 uIU/mL (0.32-4.0); Vitamin D 25-OH Total 29.4 ng/mL (>30)
== END 2022-11-30 08:30 | disposition home or self-care (01) ==
LOC: HO.LAB 08:29
PROVIDERS: PCP Internal Medicine; Visit Provider Internal Medicine
DX: I10 Essential (primary) hypertension (principal); E11.9 Type 2 diabetes mellitus without complications; E55.9 Vitamin D deficiency, unspecified; E78.00 Pure hypercholesterolemia, unspecified
CPT/HCPCS: 36415; 80053; 80061; 81001; 82043; 82306; 83036; 84443; 85025

== ENCOUNTER 2022-12-01 13:27 | Outpatient (REF) | payer MEDICARE, MEDICAID, SELFPAY | END 2022-12-01 13:28 | disposition home or self-care (01) | LOC: HO.MDS 13:27 | PROVIDERS: Visit Provider Internal Medicine Pulmonary Disease | DX: J45.50 Severe persistent asthma, uncomplicated (principal) | CPT/HCPCS: 96372; J2357 ==

== ENCOUNTER 2023-01-02 13:36 | Outpatient (REF) | payer MEDICARE, MEDICAID, SELFPAY | END 2023-01-02 13:37 | disposition home or self-care (01) | LOC: HO.MDS 13:36 | PROVIDERS: Visit Provider Internal Medicine Pulmonary Disease | DX: J45.50 Severe persistent asthma, uncomplicated (principal) | CPT/HCPCS: 96372; J2357 ==

== ENCOUNTER 2023-01-30 14:48 | Outpatient (REF) | payer MEDICARE, MEDICAID, SELFPAY | END 2023-01-30 14:49 | disposition home or self-care (01) | LOC: HO.MDS 14:48 | PROVIDERS: Visit Provider Internal Medicine Pulmonary Disease | DX: J45.50 Severe persistent asthma, uncomplicated (principal) | CPT/HCPCS: 96372; J2357 ==

== ENCOUNTER 2023-03-07 09:57 | Outpatient (REF) | payer MEDICARE, MEDICAID, SELFPAY ==
[2023-03-07 10:08] LABS: MANUAL DIFF FLAG NO
[2023-03-07 10:33] LABS: Basophils Percent Auto 0.2 % (0-2); Eosinophils Absolute Auto 0.2 X10*3/uL (0.0-0.4); Eosinophils Percent Auto 3.1 % (0-4); Hematocrit 40.7 % (37.0-47.0); Hemoglobin 13.3 g/dl (12.0-16.0); Imm Gran Abs Auto 0.02 X10*3/uL (0.00-0.03); Imm Gran Pct Auto 0.3 % (0.0-0.4); Lymphocytes Percent Auto 17.4 % (20-40); Mean Corpuscular HGB Conc 32.7 g/dl (31.0-35.0); Mean Corpuscular Hemoglobin 29.8 pg (27.0-33.0); Mean Corpuscular Volume 91.3 fL (80.0-98.0); Mean Platelet Volume 8.4 fL (9.4-12.3); Monocytes Absolute Auto 0.5 X10*3/uL (0.1-1.2); Monocytes Percent Auto 8.4 % (2-11); Neutrophils Absolute Auto 4.1 x10*3/uL (2.0-8.3); Neutrophils Percent Auto 70.6 % (45-73); Platelet Count 308 X10*3/uL (160-400); Red Blood Count 4.46 X10*6/uL (4.20-5.50); Red Cell Distribution Width 12.6 % (11.0-16.0); White Blood Count 5.9 X10*3/uL (4.8-10.8)
[2023-03-07 11:00] LABS: Estimated Average Glucose 134 mg/dL; Hemoglobin A1c % 6.3 %
[2023-03-07 11:20] LABS: Appearance Urine Clear; Color Urine Yellow; Glucose Urine UA Negative (Negative); Leukocyte Esterase Urine Small (1+) (Negative); Nitrite Urine Positive (Negative); PH 7.5 (5.0-9.0); UMIC TRIGGER UACC YES; Urine Blood Negative (Negative); Urine Ketones Negative (Negative); Urine Protein Negative (Neg-Trace)
[2023-03-07 11:25] LABS: Bacteria Urine 4+ (None Seen); Hyaline Casts Urine 0-2 /LPF (0-2); RBC Urine 0-2 /HPF (0-2); Squamous Epithelial Cell Urine 0-2 /HPF (0-2); UACC Culture Trigger YES; WBC Urine 21-50 /HPF (0-5)
[2023-03-07 12:45] LABS: Alanine Aminotransferase 21 U/L (0-31); Albumin Level 4.2 g/dL (3.5-5.0); Alkaline Phosphatase 103 U/L (39-117); Anion Gap 10 (12-20); Aspartate Amino Transferase 18 U/L (5-31); Bilirubin Total 0.6 mg/dL (0.0-1.0); Blood Urea Nitrogen 6 mg/dL (9-16); Calcium 9.4 mg/dL (8.4-10.2); Carbon Dioxide 29 mmol/L (22-29); Chloride 103 mmol/L (96-108); Cholesterol 123 mg/dL; Estimated Glomerular Filt Rate > 60; Glucose Fasting 117 mg/dL (60-99); HDL Cholesterol 48 mg/dL; LDL Cholesterol Calculated 62 mg/dl; Potassium 4.8 mmol/L (3.3-5.1); Sodium 137 mmol/L (135-145); TSH reflex Free T4 1.07 uIU/mL (0.32-4.0); Total Protein 6.6 g/dL (6.5-8.0); Triglycerides 66 mg/dL; Vitamin D 25-OH Total 31.9 ng/mL (>30)
[2023-03-07 12:55] LABS: Creatinine Urine 57.01 mg/dL; Microalbumin Urine < 5.0 mg/L
== END 2023-03-07 09:58 | disposition home or self-care (01) ==
LOC: HO.LAB 09:57
PROVIDERS: PCP Internal Medicine; Visit Provider Internal Medicine
DX: E11.9 Type 2 diabetes mellitus without complications (principal); I10 Essential (primary) hypertension; E55.9 Vitamin D deficiency, unspecified; E78.00 Pure hypercholesterolemia, unspecified; R82.90 Unspecified abnormal findings in urine
CPT/HCPCS: 36415; 80053; 80061; 81001; 82043; 82306; 83036; 84443; 85025; 87086; 87088; 87186

== ENCOUNTER 2023-03-24 14:37 | Outpatient (REF) | payer MEDICARE, MEDICAID, SELFPAY | END 2023-03-24 14:38 | disposition home or self-care (01) | LOC: HO.MDS 14:37 | PROVIDERS: Visit Provider Internal Medicine Pulmonary Disease | DX: J45.50 Severe persistent asthma, uncomplicated (principal) | CPT/HCPCS: 96372; J2357 ==

== ENCOUNTER → 2023-04-04 13:52 | Outpatient (BNVA) | payer MEDICARE, MEDICAID, SELFPAY | PROVIDERS: PCP Internal Medicine; Visit Provider Nurse Practitioner Family | DX: J45.909 Unspecified asthma, uncomplicated (principal); Z91.09 Other allergy status, other than to drugs and biological substances; Z79.899 Other long term (current) drug therapy | CPT/HCPCS: 99212 ==

== ENCOUNTER 2023-04-21 13:03 | Outpatient (REF) | payer MEDICARE, MEDICAID, SELFPAY | END 2023-04-21 13:04 | disposition home or self-care (01) | LOC: HO.MDS 13:03 | PROVIDERS: Visit Provider Internal Medicine Pulmonary Disease | DX: J45.50 Severe persistent asthma, uncomplicated (principal) | CPT/HCPCS: 96372; J2357 ==

== ENCOUNTER 2023-05-19 12:43 | Outpatient (REF) | payer MEDICARE, MEDICAID, SELFPAY | END 2023-05-19 12:44 | disposition home or self-care (01) | LOC: HO.MDS 12:43 | PROVIDERS: Visit Provider Internal Medicine Pulmonary Disease | DX: J45.50 Severe persistent asthma, uncomplicated (principal) | CPT/HCPCS: 96372; J2357 ==

== ENCOUNTER 2023-06-30 13:15 | Outpatient (REF) | payer MEDICARE, MEDICAID, SELFPAY | END 2023-06-30 13:16 | disposition home or self-care (01) | LOC: HO.MDS 13:15 | PROVIDERS: Visit Provider Internal Medicine Pulmonary Disease | DX: J45.50 Severe persistent asthma, uncomplicated (principal) | CPT/HCPCS: 96372; J2357 ==

== ENCOUNTER 2023-07-18 15:48 | Outpatient (AMB) | payer MEDICARE, MEDICAID, SELFPAY ==
--- NOTE | 2023-07-18 15:49 | MHC.PC.OV ---
Vital Signs 07/18/23 15:50 Height 5 ft 1 in Weight 121 lb 6 oz BMI 22.9 BP 144/82 H Blood Pressure Location Lt brachial Position Sitting Pulse 65 Pulse Source Pulse Oximeter Pulse Oximetry (%) 97 Oxygen Delivery Method Room Air Intake Visit Reasons: 4 MONTH F/U Manager Gallery Required: No Accompanied by: Self / Same As Patient Allergies meperidine [From DEMEROL] Allergy (Severe, Verified 07/18/23 16:16) HYPOTENSION Penicillins [PENICILLINS] Allergy (Severe, Verified 07/18/23 16:16) HIVES,SWELLING influenza virus vaccine, specific [Influenza Virus Vacc,Specific] Adverse Reaction (Intermediate, Verified 07/18/23 16:16) ASTHMA EXACERBATION Anesthetic Maximum Strength Allergy (Severe, Uncoded 07/18/23 16:16) anaphylaxis Bee Sting Allergy (Unknown, Uncoded 07/18/23 16:16) unknown Medication List - Last Reconciled 07/18/23 by Jose Juan Rendon MD albuterol sulfate 2.5 mg continuous nebulization Q6H PRN albuterol sulfate 90 mcg/actuation (Ventolin HFA) 2 puffs inhalation Q6H PRN 30 days aspirin 1 tab PO DAILY atorvastatin 40 mg PO BEDTIME blood pressure monitor As directed blood sugar diagnostic (FreeStyle Test strips) test bs once a day blood-glucose meter (FreeStyle Lite Meter kit) As directed- To test Blood sugar blood-glucose meter (FreeStyle Lite Meter kit) As directed ONCE A DAY cholecalciferol (vitamin D3) 50 mcg PO DAILY clonazepam 0.25 mg PO BEDTIME PRN 30 days fluticasone propion-salmeterol 500-50 mcg/dose (Advair Diskus) 1 ea PO BID fluticasone propionate 50 mcg/actuation 1 spray intranasal DAILY [FreeStyle LANCETS As directed] [FreeStyle TEST STRIPS As directed] lancets (FreeStyle Lancets) 28 gauge miscellaneous .QD latanoprost 0.005% 1 drp ophthalmic (eye) BEDTIME loratadine 10 mg PO DAILY PRN omalizumab (Xolair) 300 mg subcut Q4W 28 days omeprazole 20 mg PO DAILY PRN polyethylene glycol 3350 (Miralax) 17 grams PO DAILY 30 days sennosides (Senna Lax) Take 1 to 2 tablets orally daily PRN; 30 days valacyclovir 500 mg PO DAILY Tobacco use date assessed: 07/18/23 Fall risk assessment: 1 Fall in past year Last assessed Fall Risk: 07/18/23 Dental Screening Dental Screen Date: 07/18/23 Did you have a dental visit in the last 12 months?: No Did you have a dental problem in the last 6 months where you did not have access to dental care?: No Was dental information given to patient?: No HPI 4 MONTH F/U HPI Details Patient comes in today for her follow up visit States that she feels okay She denies any headaches or dizziness at present - states that she gets dizzy only when she gets up too fast so she usually gets up and holds onto something to steady herself and wait for a few seconds before she starts moving Denies any chest pains, no SOB No nausea/vomiting, no abdominal pain No change in bowel habits noted Patient did not get her follow up labs done prior to her visit today as she supposedly had a lot of labs done when she was admitted overnight for observation at [facility] last month when she was brought to the ER there following an episode of increased dizziness leading to a fall Recalls that she felt very dizzy when she stood up too quickly and ended up falling with her chest wall hitting the back of a commode She ended up getting a head CT and CTA as well and all of her tests supposedly came back normal She was also reportedly advised at the time to stop taking her Atorvastatin but no one is able to provide information on why this medication was stopped Also relates experiencing increased sharp pains often on her right hand/palm at the base of the 4th (ring) finger; does not recall any recent injury or trauma to her hand Will need her Clonazepam Rx refilled today [facility] Medical History Osteoporosis Post-menopausal Cellulitis Overweight (BMI 25.0-29.9) Depression Anxiety Nocturnal leg cramps Vitamin D deficiency Genital herpes in women Ductal carcinoma in situ of right breast Osteoarthritis of knee GERD (gastroesophageal reflux disease) Allergic rhinitis Diabetic neuropathy COPD (chronic obstructive pulmonary disease) Benign essential hypertension Pure hypercholesterolemia Diabetes mellitus Surgical History History of colonoscopy History of total hysterectomy H/O breast surgery Family History Father CVD (cardiovascular disease) Stroke Mother Cancer Other Mental health disorder Social History Housing: Apartment Alcohol intake: never Patient Tobacco Use Status: Never used Tobacco e-Cigarette/Vaping Use: Never Used Second Hand Smoke Exposure: Yes service: No Current occupational status: disabled Cognitive needs: No Hearing needs: Yes Vision needs: Yes Questionnaire PHQ-9 Over the last 2 weeks, how often have you been bothered by any of the following problems? 1. Little interest or pleasure in doing things: not at all 2. Feeling down, depressed, or hopeless: not at all 3. Trouble falling or staying asleep, or sleeping too much: not at all 4. Feeling tired or having little energy: not at all 5. Poor appetite or overeating: not at all 6. Feeling bad about yourself - or that you are a failure or have let yourself or your family down: not at all 7. Trouble concentrating on things, such as reading the newspaper or watching television: not at all 8. Moving or speaking so slowly that other people could have noticed. Or the opposite - being so fidgety or restless that you have been moving around a lot more than usual: not at all 9. Thoughts that you would be better off or of hurting yourself in some way: not at all Total score: 0 Depression Screening Interpretation: Negative 28811 - PHQ-9 Billing: Yes Source: Developed by Drs. Leonides Hamm, Rehana Tello, Harjinder Buitrago and colleagues, with an educational ronel from [employer]. Thrive Questionnaire Date Thrive assessed: 07/18/23 I am a: Patient What is your living situation today?: I have a steady place to live Within the past 12 months, did the food you bought not last and you didn't have the money to get more?: Never true Within the past 12 months, did you worry whether your food would run out before you got money to buy more?: Never true Do you have trouble paying for medicines?: No Do you have trouble getting transportation to medical appointments?: No Do you have trouble paying your heating and electricity bill?: No Do you have trouble taking care of your child, family member or friend?: No Do you have trouble with day-to-day activities such as bathing, preparing meals, shopping, managing finances, etc.?: No Are you currently unemployed and looking for a job?: No Are you interested in more education?: No Please select the resources that you would like help with: None Currently or been in a relationship where the following occur: no concerns reported AUDIT C Alcohol Use Questionnaire (AUDIT-C) 1. How often do you have a drink containing alcohol?: Never 3. How often do you have six or more drinks on one occasion?: Never Total Score: 0 Score Reviewed/Action Taken: Yes ESTEBAN-7 AMB Questionnaire ESTEBAN-7 Date ESTEBAN - 7 assessed: 07/18/23 Feeling nervous, anxious, or on edge: 0 = Not at all Not being able to stop or control worryin = Not at all Worrying too much about different things: 0 = Not at all Trouble relaxin = Not at all Being so restless that it is hard to sit still: 0 = Not at all Becoming easily annoyed or irritable: 0 = Not at all Feeling afraid as if something awful might happen: 0 = Not at all Total ESTEBAN-7 score (0-4 normal; 5-9 mild; 10-14 moderate; 15-21 severe): 0 Source: Developed by Drs. Leonides Hamm, Rehana Tello, Harjinder Buitrago and colleagues, with an educational roenl from [employer]. Review of Systems Const Reports fatigue, Denies fever(s) and Denies headache(s) ENT Denies dysphagia, Reports dizziness (only when she gets up too quickly), Denies otalgia, Denies headache(s), Denies neck pain, Denies odynophagia and Denies sore throat Card Denies chest pain, Denies palpitations and Denies dyspnea Resp Denies cough and Denies dyspnea GI Denies abdominal pain, Reports constipation (on and off), Denies dysphagia, Denies heartburn, Denies diarrhea, Denies nausea, Denies odynophagia and Denies vomiting Denies difficulty voiding, Denies nocturia and Denies dysuria Musc Reports arthralgias (on right hand, at the base of the 4th finger) and Denies neck pain Skin/Breast Denies rash Neuro Reports dizziness (only when she gets up too quickly) and Denies headache(s) Endo Reports fatigue and Denies palpitations Physical exam (Primary Care) Vital Signs: Last Vital Signs Pulse 65 07/18/23 15:50 BP 144/82 H 07/18/23 15:50 Pulse Ox 97 07/18/23 15:50 Oxygen Delivery Method Room Air 07/18/23 15:50 BMI result Body Mass Index 22.9 Tobacco/Smoking Status: Tobacco use Status Tobacco use date assessed 07/18/23 07/18/23 15:57 Patient Tobacco Use Status Never used Tobacco 07/18/23 15:50 e-Cigarette/Vaping Use Never Used 07/18/23 15:50 PHQ-9: PHQ-9 Score PHQ-9: Total score 0 07/18/23 16:20 Depression Screening Interpretation: Negative Thrive Assessment: Date of Thrive Assessment Date Thrive assessed 07/18/23 07/18/23 15:57 Currently or been in a relationship where the following occur: no concerns reported Const General: no acute distress and alert HENMT Ears: TM's normal bilaterally and EAC's normal Throat: Yes posterior oropharynx normal and Yes tonsils normal (no TP congestion) Neck Neck: Yes no lymphadenopathy and Yes supple Resp Auscultation: clear to auscultation bilaterally, no rales and no wheezes Cardio Rate: regular rate Rhythm: regular rhythm Heart sounds: no murmurs GI Palpation (GI): Soft to palpation and nontender Auscultation: normal bowel sounds Extrem General: Yes no clubbing, cyanosis or edema Right upper extremity: Extremity exam: right hand Details: tenderness Location: of the 4th digit Location: at the MCP joint Assessment and Plan Assessment & Plan (1) Pure hypercholesterolemia: Code(s): E78.00 - Pure hypercholesterolemia, unspecified Plan: Did not get her follow up labs done for this visit as she was admitted briefly to [facility] a few weeks ago and states that she had a lot of blood tests done back then Reinforced low cholesterol diet Continue Atorvastatin 40 mg QD Will recheck her labs and fasting lipids in 4 months for follow-up (2) Diabetes mellitus: Code(s): E11.9 - Type 2 diabetes mellitus without complications Qualifiers: Diabetes mellitus complication detail: with polyneuropathy Diabetes mellitus complication status: with neurologic complications Diabetes mellitus exterminator termite insulin use: without skilled nursing use Diabetes mellitus type: type 2 Qualified Code(s): E11.42 - Type 2 diabetes mellitus with diabetic polyneuropathy Plan: HgbA1c was at 6.3% when last checked a few months ago in February 2023 - goal is <7.0% Reinforced diabetic diet Patient is still not on any medications for her diabetes and prefers to keep it that way; would like to continue with diet modification alone (3) Benign essential hypertension: Code(s): I10 - Essential (primary) hypertension Plan: Reinforced low-sodium diet - goal is systolic BP of at least 130 to 140 mm or less Patient is reminded to continue monitoring her blood pressure regularly (4) COPD (chronic obstructive pulmonary disease): Code(s): J44.9 - Chronic obstructive pulmonary disease, unspecified Qualifiers: COPD type: unspecified COPD Qualified Code(s): J44.9 - Chronic obstructive pulmonary disease, unspecified Plan: Continue Advair Diskus 500-50 mcg 1 inhalation BID. ProAir HFA 2 puffs 4 times a day as needed and Xolair injections 300 mg Q 4 weeks Patient also has Albuterol solution that she uses with her updraft machine when needed Patient states that her symptoms have improved significantly with Xolair injections 300 mg SQ every 4 weeks Follow-up with pulmonary as scheduled (5) Diabetic neuropathy: Code(s): E11.40 - Type 2 diabetes mellitus with diabetic neuropathy, unspecified Qualifiers: Diabetes mellitus complication detail: diabetic polyneuropathy Diabetes mellitus type: type 2 Qualified Code(s): E11.42 - Type 2 diabetes mellitus with diabetic polyneuropathy Plan: States that her neuropathic symptoms have remained stable and tolerable - no intervention is needed for now (6) Allergic rhinitis: Code(s): J30.9 - Allergic rhinitis, unspecified Qualifiers: Allergic rhinitis seasonality: unspecified Allergic rhinitis trigger: unspecified Qualified Code(s): J30.9 - Allergic rhinitis, unspecified Plan: Continue Fluticasone 50 mcg nasal spray QD PRN and Loratadine 10 mg QD PRN (7) GERD (gastroesophageal reflux disease): Code(s): K21.9 - Gastro-esophageal reflux disease without esophagitis Qualifiers: Esophagitis presence: without esophagitis Qualified Code(s): K21.9 - Gastro-esophageal reflux disease without esophagitis Plan: Dietary? restrictions reinforced Continue Omeprazole 20 mg QD (8) Osteoarthritis of knee: Code(s): M17.10 - Unilateral primary osteoarthritis, unspecified knee Qualifiers: Laterality: unspecified laterality Osteoarthritis type: primary Qualified Code(s): M17.10 - Unilateral primary osteoarthritis, unspecified knee Plan: Continue Tramadol 50 mg TID PRN Follow-up with Orthopedics as scheduled (9) Right hand pain: Code(s): M79.641 - Pain in right hand Plan: Advised that the painful area on her right hand may likely be due to osteoarthritis changes or may be due to Dupuytren's contracture Will send her for x-rays of the right hand for further evaluation Advised that we may need to refer her to orthopedics for further management depending on how her x-rays come out and if her symptoms get worse (10) 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 Code(s): D05.11 - Intraductal carcinoma in situ of right breast Plan: S/P Tx with Tamoxifen x 5 years Follow-up with Oncology as scheduled for continuing surveillance (11) Osteoporosis: Code(s): M81.0 - Age-related osteoporosis without current pathological fracture Qualifiers: Osteoporosis type: age-related Presence of current pathological fracture: without current pathological fracture Qualified Code(s): M81.0 - Age-related osteoporosis without current pathological fracture Plan: BMD done in June 2021 revealed (+) osteoporosis, with a T score of -3.2 Patient encouraged to continue with daily calcium and vitamin-D supplements Reinforced fall precautions To consider treatment of her osteoporosis with oral bisphosphonates but patient is concerned about side effects due to her pre-existing GI issues, including GERD; is also concerned about other treatment options and the potential side effects - would like to think about this for now and hold off on Rx (12) Vitamin D deficiency: Code(s): E55.9 - Vitamin D deficiency, unspecified Plan: Continue Vitamin D3 2000 units QD (13) Nocturnal leg cramps: Code(s): G47.62 - Sleep related leg cramps Plan: Continue Tizanidine 4 mg daily at bedtime as needed (14) Constipation: Code(s): K59.00 - Constipation, unspecified Qualifiers: Constipation type: unspecified constipation type Qualified Code(s): K59.00 - Constipation, unspecified Plan: Reinforced increased oral fluids and dietary fiber Continue Senna 8.6 mg 1 to 2 tablets QD PRN (15) Genital herpes in women: Code(s): A60.09 - Herpesviral infection of other urogenital tract Plan: She remains on chronic suppressive Tx with Valacyclovir 500mg QD - 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 0.25 mg 1/2 to 1 tablet once a day at bedtime as needed (17) Depression: Code(s): F32.9 - Major depressive disorder, single episode, unspecified Qualifiers: Depression Type: unspecified Qualified Code(s): F32.A - Depression, unspecified Plan: Folow up with Psychiatry as scheduled Plan Follow up in 4 months Orders: Orders XR hand RT min 3V Today M79.641 - Pain in right hand Comprehensive [place]. Panel Fast 4 Months E78.00 - Pure hypercholesterolemia, unspecified Lipid Panel 4 Months E78.00 - Pure hypercholesterolemia, unspecified TSH reflex Free T4 4 Months E78.00 - Pure hypercholesterolemia, unspecified Microalbumin, Random (w Creat) 4 Months E11.9 - Type 2 diabetes mellitus without complications Hemoglobin A1c 4 Months E11.9 - Type 2 diabetes mellitus without complications Complete Blood Count Auto Diff 4 Months I10 - Essential (primary) hypertension UA CC w/rflx Micro + Cult 4 Months R30.0 - Dysuria Vitamin D 25-OH Total 4 Months E55.9 - Vitamin D deficiency, unspecified Medications: Refilled clonazepam administer 30 minutes before bedtime 0.25 mg PO BEDTIME 30 days PRN 30 tabs 1RF anxiety F41.9 - Anxiety disorder, unspecified Coding Level of Care Code Est Pt Level 4 (17355) Diagnoses Pure hypercholesterolemia E78.00 Type 2 diabetes mellitus with diabetic polyneuropathy, without long-term current use of insulin E11.42 Diabetes mellitus complication detail: with polyneuropathy Diabetes mellitus complication status: with neurologic complications Diabetes mellitus skilled nursing insulin use: without exterminator termite use Diabetes mellitus type: type 2 Benign essential hypertension I10 Chronic obstructive pulmonary disease, unspecified COPD type J44.9 COPD type: unspecified COPD Diabetic polyneuropathy associated with type 2 diabetes mellitus E11.42 Diabetes mellitus complication detail: diabetic polyneuropathy Diabetes mellitus type: type 2 Allergic rhinitis, unspecified seasonality, unspecified trigger J30.9 Allergic rhinitis seasonality: unspecified Allergic rhinitis trigger: unspecified Gastroesophageal reflux disease without esophagitis K21.9 Esophagitis presence: without esophagitis Primary osteoarthritis of knee, unspecified laterality M17.10 Laterality: unspecified laterality Osteoarthritis type: primary Right hand pain M79.641 Ductal carcinoma in situ of right breast D05.11 Age-related osteoporosis without current pathological fracture M81.0 Osteoporosis type: age-related Presence of current pathological fracture: without current pathological fracture Vitamin D deficiency E55.9 Nocturnal leg cramps G47.62 Constipation, unspecified constipation type K59.00 Constipation type: unspecified constipation type Genital herpes in women A60.09 Anxiety F41.9 Depression, unspecified depression type F32.A Depression Type: unspecified
[2023-07-18 15:50] VITALS: BP 144/82; PULSE 65; O2SAT 97; BMI 22.9
== END 2023-07-18 16:28 | disposition home or self-care (01) ==
PROVIDERS: PCP Internal Medicine; Visit Provider Internal Medicine
DX: E78.00 Pure hypercholesterolemia, unspecified (principal); E11.42 Type 2 diabetes mellitus with diabetic polyneuropathy; I10 Essential (primary) hypertension; K21.9 Gastro-esophageal reflux disease without esophagitis
CPT/HCPCS: 99214

== ENCOUNTER 2023-07-28 13:30 | Outpatient (REF) | payer MEDICARE, MEDICAID, SELFPAY | END 2023-07-28 13:31 | disposition home or self-care (01) | LOC: HO.MDS 13:30 | PROVIDERS: Visit Provider Internal Medicine Pulmonary Disease | DX: J45.50 Severe persistent asthma, uncomplicated (principal) | CPT/HCPCS: 96372; J2357 ==

== ENCOUNTER 2023-08-22 17:00 | Outpatient (AMB) | payer MEDICARE, MEDICAID, SELFPAY ==
[2023-08-22 17:01] VITALS: BP 124/78; PULSE 85; O2SAT 97; BMI 22.9
--- NOTE | 2023-08-22 17:01 | MHC.PC.OV ---
Vital Signs 08/22/23 17:01 Height 5 ft 1 in Weight 121 lb 6 oz BMI 22.9 BP 124/78 Blood Pressure Location Lt brachial Position Sitting Pulse 85 Pulse Source Pulse Oximeter Pulse Oximetry (%) 97 Oxygen Delivery Method Room Air Intake Visit Reasons: Janell 08/18/23 Fall Injured Head Cotton Chopper Required: No Accompanied by: Self / Same As Patient Allergies meperidine [From DEMEROL] Allergy (Severe, Verified 08/23/23 03:34) HYPOTENSION Penicillins [PENICILLINS] Allergy (Severe, Verified 08/23/23 03:34) HIVES,SWELLING influenza virus vaccine, specific [Influenza Virus Vacc,Specific] Adverse Reaction (Intermediate, Verified 08/23/23 03:34) ASTHMA EXACERBATION Anesthetic Maximum Strength Allergy (Severe, Uncoded 08/23/23 03:34) anaphylaxis Bee Sting Allergy (Unknown, Uncoded 08/23/23 03:34) unknown Medication List - Last Reconciled 08/23/23 by Jose Juan Rendon MD albuterol sulfate 2.5 mg continuous nebulization Q6H PRN albuterol sulfate 90 mcg/actuation (Ventolin HFA) 2 puffs inhalation Q6H PRN 30 days aspirin 1 tab PO DAILY atorvastatin 40 mg PO BEDTIME blood pressure monitor As directed blood sugar diagnostic (FreeStyle Test strips) test bs once a day blood-glucose meter (FreeStyle Lite Meter kit) As directed- To test Blood sugar blood-glucose meter (FreeStyle Lite Meter kit) As directed ONCE A DAY cholecalciferol (vitamin D3) 50 mcg PO DAILY clonazepam 0.25 mg PO BEDTIME PRN 30 days fluticasone propion-salmeterol 500-50 mcg/dose (Advair Diskus) 1 ea PO BID fluticasone propionate 50 mcg/actuation 1 spray intranasal DAILY [FreeStyle LANCETS As directed] [FreeStyle TEST STRIPS As directed] lancets (FreeStyle Lancets) 28 gauge miscellaneous .QD latanoprost 0.005% 1 drp ophthalmic (eye) BEDTIME loratadine 10 mg PO DAILY PRN omalizumab (Xolair) 300 mg subcut Q4W 28 days omeprazole 20 mg PO DAILY PRN polyethylene glycol 3350 (Miralax) 17 grams PO DAILY 30 days sennosides (Senna Lax) Take 1 to 2 tablets orally daily PRN; 30 days valacyclovir 500 mg PO DAILY Tobacco use date assessed: 08/22/23 Fall risk assessment: 2 + Falls in past year Last assessed Fall Risk: 08/22/23 Dental Screening Dental Screen Date: 08/22/23 Did you have a dental visit in the last 12 months?: No Did you have a dental problem in the last 6 months where you did not have access to dental care?: No Was dental information given to patient?: Patient has dentist HPI Applegénesis 08/18/23 Fall Injured Head HPI Details Patient comes in today for her HDF follow up visit She reportedly tripped and fell, hitting the left side of her forehead a few days ago while trying to go up some stairs and EMS was called Patient was brought to the ER and underwent some workups, including CT of the head and cervical spine, as well as some labs, all of which came back normal Imaging studies did not show any acute injury It was noted that the patient has had several recent falls and reports experiencing intermittent dizziness for some time now She was discharged back home after her negative workups, was reinforced on fall precautions and instructed to follow-up with her PCP UVALDO as patient did not wish to stay overnight at the hospital for observation Patient's family was also asked to work with her PCP on helping to increase patient's RESEARCH ASSISTANT MEMBER hours at nighttime as she still lives alone in her own apartment and has expressed her wishes in the past that she does not want to move into an assisted living facility or a snf - she currently receives RESEARCH ASSISTANT MEMBER help for 18 hours during the day and 2 hours at night Patient's daughter adds that they have reminded patient multiple times to not use the stairs unassisted but states that she often keeps forgetting to do so States that her mother has been getting more more forgetful lately She is currently reportedly still experiencing occasional dizziness and some lingering pain over the left side of her forehead where she hit her head when she fell but otherwise feels okay Denies any chest pains, no shortness of breath No nausea/ vomiting, no abdominal pain No change in bowel habits noted [facility] Medical History Osteoporosis Post-menopausal Cellulitis Overweight (BMI 25.0-29.9) Depression Anxiety Nocturnal leg cramps Vitamin D deficiency Genital herpes in women Ductal carcinoma in situ of right breast Osteoarthritis of knee GERD (gastroesophageal reflux disease) Allergic rhinitis Diabetic neuropathy COPD (chronic obstructive pulmonary disease) Benign essential hypertension Pure hypercholesterolemia Diabetes mellitus Surgical History History of colonoscopy History of total hysterectomy H/O breast surgery Family History Father CVD (cardiovascular disease) Stroke Mother Cancer Other Mental health disorder Social History Housing: Apartment Alcohol intake: never Patient Tobacco Use Status: Never used Tobacco e-Cigarette/Vaping Use: Never Used Second Hand Smoke Exposure: Yes service: No Current occupational status: disabled Cognitive needs: No Hearing needs: Yes Vision needs: Yes Questionnaire PHQ-9 Over the last 2 weeks, how often have you been bothered by any of the following problems? 1. Little interest or pleasure in doing things: not at all 2. Feeling down, depressed, or hopeless: not at all 3. Trouble falling or staying asleep, or sleeping too much: not at all 4. Feeling tired or having little energy: not at all 5. Poor appetite or overeating: not at all 6. Feeling bad about yourself - or that you are a failure or have let yourself or your family down: not at all 7. Trouble concentrating on things, such as reading the newspaper or watching television: not at all 8. Moving or speaking so slowly that other people could have noticed. Or the opposite - being so fidgety or restless that you have been moving around a lot more than usual: not at all 9. Thoughts that you would be better off or of hurting yourself in some way: not at all Total score: 0 Depression Screening Interpretation: Negative Depression Screening Done: Yes 20515 - PHQ-9 Billing: Yes Source: Developed by Drs. Leonides Hamm, Rehana Tello, Harjinder Buitrago and colleagues, with an educational ronel from [employer]. Thrive Questionnaire Date Thrive assessed: 08/22/23 I am a: Patient What is your living situation today?: I have a steady place to live Within the past 12 months, did the food you bought not last and you didn't have the money to get more?: Never true Within the past 12 months, did you worry whether your food would run out before you got money to buy more?: Never true Do you have trouble paying for medicines?: No Do you have trouble getting transportation to medical appointments?: No Do you have trouble paying your heating and electricity bill?: No Do you have trouble taking care of your child, family member or friend?: No Do you have trouble with day-to-day activities such as bathing, preparing meals, shopping, managing finances, etc.?: No Are you currently unemployed and looking for a job?: No Are you interested in more education?: No Please select the resources that you would like help with: None Currently or been in a relationship where the following occur: no concerns reported AUDIT C Alcohol Use Questionnaire (AUDIT-C) 1. How often do you have a drink containing alcohol?: Never 3. How often do you have six or more drinks on one occasion?: Never Total Score: 0 Score Reviewed/Action Taken: Yes ESTEBAN-7 AMB Questionnaire ESTEBAN-7 Date ESTEBAN - 7 assessed: 08/22/23 Feeling nervous, anxious, or on edge: 0 = Not at all Not being able to stop or control worryin = Not at all Worrying too much about different things: 0 = Not at all Trouble relaxin = Not at all Being so restless that it is hard to sit still: 0 = Not at all Becoming easily annoyed or irritable: 0 = Not at all Feeling afraid as if something awful might happen: 0 = Not at all Total ESTEBAN-7 score (0-4 normal; 5-9 mild; 10-14 moderate; 15-21 severe): 0 Source: Developed by Drs. Leonides Hamm, Rehana Tello, Harjinder Buitrago and colleagues, with an educational ronel from [employer]. Review of Systems Const Denies chills, Reports fatigue, Denies fever(s) and Reports headache(s) (on the left side of her forehead) ENT Denies dysphagia, Reports dizziness (when she gets up too quickly), Denies otalgia, Reports headache(s) (on the left side of her forehead), Denies neck pain, Denies odynophagia and Denies sore throat Card Denies chest pain, Denies palpitations and Denies dyspnea Resp Denies cough and Denies dyspnea GI Denies abdominal pain, Reports constipation (on and off), Denies dysphagia, Denies diarrhea, Denies nausea, Denies odynophagia and Denies vomiting Denies difficulty voiding, Denies nocturia and Denies dysuria Musc Reports arthralgias (on right hand, at the base of the 4th finger) and Denies neck pain Skin/Breast Denies rash Neuro Reports dizziness (when she gets up too quickly) and Reports headache(s) (on the left side of her forehead) Endo Reports fatigue and Denies palpitations Physical exam (Primary Care) Vital Signs: Last Vital Signs Pulse 85 08/22/23 17:01 BP 124/78 08/22/23 17:01 Pulse Ox 97 08/22/23 17:01 Oxygen Delivery Method Room Air 08/22/23 17:01 BMI result Body Mass Index 22.9 Tobacco/Smoking Status: Tobacco use Status Tobacco use date assessed 08/22/23 08/22/23 17:11 Patient Tobacco Use Status Never used Tobacco 08/22/23 17:11 e-Cigarette/Vaping Use Never Used 08/22/23 17:11 PHQ-9: PHQ-9 Score PHQ-9: Total score 0 08/22/23 17:30 Depression Screening Interpretation: Negative Thrive Assessment: Date of Thrive Assessment Date Thrive assessed 08/22/23 08/22/23 17:11 Currently or been in a relationship where the following occur: no concerns reported Const General: no acute distress and alert [facility] Head: Yes normal to inspection, No contusion and No hematoma Ears: TM's normal bilaterally and EAC's normal Throat: Yes posterior oropharynx normal and Yes tonsils normal (no TP congestion) Neck Neck: Yes no lymphadenopathy and Yes supple Resp Auscultation: clear to auscultation bilaterally, no rales and no wheezes Cardio Rate: regular rate Rhythm: regular rhythm Heart sounds: no murmurs GI Palpation (GI): Soft to palpation and nontender Auscultation: normal bowel sounds Extrem General: Yes no clubbing, cyanosis or edema Right upper extremity: Extremity exam: right hand Details: tenderness Location: of the 4th digit Location: at the MCP joint Assessment and Plan Assessment & Plan (1) Status post fall: Comment: occurred on 08/18/2023 Code(s): Z91.81 - History of falling Plan: Fall occurred a few days ago on 08/18/2023 Patient was brought by EMS to the ER at [facility] for further evaluation following her fall Workups done in the ER, including CT of the head and cervical spine, chest x-rays and labs, all came back normal/ negative for acute injuries Patient reportedly hit the left side of her forehead when she fell but exam was normal with no significant findings, and she is currently only experiencing some minimal tenderness over the left side of the forehead with no other acute symptoms (2) Unsteady gait: Code(s): R26.81 - Unsteadiness on feet Plan: Patient has been noted to be very unsteady over the past few years and has fallen a few times recently - this is most likely multifactorial, including her neuropathy, age, frailty and overall generalized weakness She uses a walker all the time now when ambulating and has been advised by family multiple times not to try navigating stairs on her own but patient reportedly often forgets her instructions She currently has RESEARCH ASSISTANT MEMBER services of 18 hours during the day and 2 hours at night and her daughters are looking to try to get her more hours at night as patient lives alone in her own apartment and does not wish to move out to an assisted living facility or a snf Have discussed with patient's daughter that despite patient's wishes, if she continues to experience frequent falls, it may be getting to a point were patient is no longer safe to be living on her own even with RESEARCH ASSISTANT MEMBER services Fall precautions reinforced to family Will refer her to Neurology for further evaluation and management of her unsteady gait, frequent falls and apparently progressing memory impairment (3) Orthostasis: Code(s): I95.1 - Orthostatic hypotension Plan: Have reminded patient and her daughter to make sure that she stays adequately hydrated to help minimize her symptoms Have also reminded patient to avoid abrupt and rapid changes in position, which can trigger her symptoms often She is currently not on any medications that can affect her blood pressure (4) Memory impairment: Code(s): R41.3 - Other amnesia Plan: Will refer patient to neurology for further evaluation and management Plan Follow up as scheduled in October 2023 Orders: Referrals Neurology Referral R26.81 - Unsteadiness on feet, R29.6 - Repeated falls, R41.3 - Other amnesia Coding Level of Care Code Est Pt Level 3 (67652) Diagnoses Status post fall Z91.81 Unsteady gait R26.81 Orthostasis I95.1 Memory impairment R41.3
== END 2023-08-22 17:32 | disposition home or self-care (01) ==
PROVIDERS: PCP Internal Medicine; Visit Provider Internal Medicine
DX: Z91.81 History of falling (principal); R26.81 Unsteadiness on feet; I95.1 Orthostatic hypotension; R41.3 Other amnesia
CPT/HCPCS: 99213

== ENCOUNTER 2023-08-25 13:21 | Outpatient (REF) | payer MEDICARE, MEDICAID, SELFPAY | END 2023-08-25 13:22 | disposition home or self-care (01) | LOC: HO.MDS 13:21 | PROVIDERS: Visit Provider Internal Medicine Pulmonary Disease | DX: J45.50 Severe persistent asthma, uncomplicated (principal) | CPT/HCPCS: 96372; J2357 ==

== ENCOUNTER 2023-10-11 12:25 | Outpatient (REF) | payer MEDICARE, MEDICAID, SELFPAY | END 2023-10-11 12:26 | disposition home or self-care (01) | LOC: HO.MDS 12:25 | PROVIDERS: Visit Provider Internal Medicine Pulmonary Disease | DX: J45.50 Severe persistent asthma, uncomplicated (principal) | CPT/HCPCS: 96372; J2357 ==

== ENCOUNTER 2023-10-18 13:22 | Outpatient (AMB) | payer MEDICARE, MEDICAID, SELFPAY ==
[2023-10-18 13:44] VITALS: BP 132/72; PULSE 71; O2SAT 97; BMI 23.5
--- NOTE | 2023-10-18 13:44 | A.OFFVIS_ITS ---
Intake Vital Signs 10/18/23 13:44 Height 5 ft 1 in Weight 124 lb 8.979 oz BMI 23.5 BP 132/72 Blood Pressure Location Rt brachial Position Sitting Pulse 71 Pulse Source Doppler Pulse Oximetry (%) 97 Oxygen Delivery Method Room Air Intake Visit Reasons: asthma Allergies meperidine [From DEMEROL] Allergy (Severe, Verified 10/18/23 13:48) HYPOTENSION Penicillins [PENICILLINS] Allergy (Severe, Verified 10/18/23 13:48) HIVES,SWELLING influenza virus vaccine, specific [Influenza Virus Vacc,Specific] Adverse Reaction (Intermediate, Verified 10/18/23 13:48) ASTHMA EXACERBATION Anesthetic Maximum Strength Allergy (Severe, Uncoded 08/23/23 03:34) anaphylaxis Bee Sting Allergy (Unknown, Uncoded 08/23/23 03:34) unknown HPI asthma HPI Details 78-year-old lady, lifetime nonsmoker, fo llowed for underlying 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 She continues to use Xolair, Advair 500, and duo nebs with good control of her symptoms. No significant changes since the last visit. She denies any exacerbations. [facility] Medical History Osteoporosis Post-menopausal Cellulitis Overweight (BMI 25.0-29.9) Depression Anxiety Nocturnal leg cramps Vitamin D deficiency Genital herpes in women Ductal carcinoma in situ of right breast Osteoarthritis of knee GERD (gastroesophageal reflux disease) Allergic rhinitis Diabetic neuropathy COPD (chronic obstructive pulmonary disease) Benign essential hypertension Pure hypercholesterolemia Diabetes mellitus Surgical History History of colonoscopy History of total hysterectomy H/O breast surgery Family History Father CVD (cardiovascular disease) Stroke Mother Cancer Other Mental health disorder Social History Housing: Apartment Alcohol intake: never Patient Tobacco Use Status: Never used Tobacco e-Cigarette/Vaping Use: Never Used Second Hand Smoke Exposure: Yes service: No Current occupational status: disabled Cognitive needs: No Hearing needs: Yes Vision needs: Yes Review of Systems Const Denies daytime sleepiness, Denies excessive sweating, Denies fatigue, Denies fever(s), Denies lethargy, Denies malaise, Denies night sweats, Denies snoring and Denies weight loss Eyes Denies blurry vision and Denies itchy eyes ENT Denies nasal congestion, Denies post nasal drip, Denies sinus pain, Denies sinus pressure and Denies other ( Thrush) Card Denies chest pain, Denies pedal edema, Denies dyspnea, Denies orthopnea and Denies paroxysmal nocturnal dyspnea Resp Denies cough, Denies hemoptysis, Denies excessive phlegm production, Denies dyspnea, Denies snoring and Denies wheezing GI Denies abdominal pain and Denies heartburn Musc Denies myalgias, Denies arthralgias and Denies joint swelling Skin/Breast Denies rash Neuro Denies memory loss and Denies seizure-like activity Psych Denies abnormal sleep pattern, Denies anxiety and Denies memory loss Endo Denies excessive sweating, Denies fatigue and Denies heat intolerance Iggy/Lymph Denies easy bruising Aller/Immun Denies itchy eyes, Denies seasonal rhinorrhea and Denies wheezing Physical Exam Vital Signs: Last Vital Signs Pulse 71 10/18/23 13:44 BP 132/72 10/18/23 13:44 Pulse Ox 97 10/18/23 13:44 Oxygen Delivery Method Room Air 10/18/23 13:44 BMI result Body Mass Index 23.5 Const General: no acute distress and alert Nutritional Appearance: not obese Orientation/consciousness: Other orientation findings ( oriented) HEENT Head: Yes atraumatic Eyes General: appearance normal, both eyes and all related structures Sclerae: sclerae normal EOM: EOMs intact bilaterally Neck Neck: Yes supple Lymphatic: no lymphadenopathy noted Resp Effort & Inspection: normal respiratory effort and no use of accessory muscles Auscultation: clear to auscultation bilaterally Cardio Rate: regular rate Rhythm: regular rhythm Heart sounds: no gallops, no murmurs and no rubs Skin General skin exam: other ( warm) Extrem General: No clubbing, No cyanosis and No edema Assessment & Plan Assessment & Plan (1) Asthma: Code(s): J45.909 - Unspecified asthma, uncomplicated Plan: Well controlled on Xolair, Advair, and albuterol MDI. Continue current regimen. (2) Environmental allergies: Code(s): Z91.09 - Other allergy status, other than to drugs and biological substances Plan: Excellent control on Xolair. Continue current regimen. Coding Level of Care Code Est Pt Level 4 (11657) Diagnoses Asthma J45.909 Environmental allergies Z91.09
== END 2023-10-18 13:58 | disposition home or self-care (01) ==
PROVIDERS: PCP Internal Medicine; Visit Provider Internal Medicine Pulmonary Disease
DX: J45.909 Unspecified asthma, uncomplicated (principal); Z91.09 Other allergy status, other than to drugs and biological substances
CPT/HCPCS: 99214

== ENCOUNTER → 2023-10-18 13:22 | Outpatient (BNVA) | payer MEDICARE, MEDICAID, SELFPAY | PROVIDERS: PCP Internal Medicine; Visit Provider Internal Medicine Pulmonary Disease | DX: J45.909 Unspecified asthma, uncomplicated (principal); Z91.09 Other allergy status, other than to drugs and biological substances | CPT/HCPCS: 99212 ==

== ENCOUNTER 2023-11-02 09:32 | Outpatient (AMB) | payer MEDICARE, MEDICAID, SELFPAY ==
--- NOTE | 2023-11-02 10:11 | MHC.OFFVIS ---
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 Automotive Tire Technician Required: Yes Automotive Tire Technician Name: Daughter- Angelica Allergies meperidine [From DEMEROL] Allergy (Severe, Verified 11/02/23 10:11) HYPOTENSION Penicillins [PENICILLINS] Allergy (Severe, Verified 11/02/23 10:11) HIVES,SWELLING influenza virus vaccine, specific [Influenza Virus Vacc,Specific] Adverse Reaction (Intermediate, Verified 11/02/23 10:11) ASTHMA EXACERBATION Anesthetic Maximum Strength Allergy (Severe, Uncoded 11/02/23 10:11) anaphylaxis Bee Sting Allergy (Unknown, Uncoded 11/02/23 10:11) unknown HPI HPI Comments History of Present Illness Details 78 y/o female patient presents for new in-person visit for memory loss. Pt's daughter reports that patient has increased forgetfulness. It has been many years and her memory has been worsened. She keeps forgetting the conversation, asking same question over and over. Pt can be anxious because she feels she is going to be lost. She has smart TV, and sometimes she thinks that the TV talking to her. She also saw an victoria in the [place] and tried to take a picture, but it happened one time. Pt has hx of depression and anxiety. 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 Pt does not drive, she left car in in the parking lot with engine running, and also felt she is not confident to drive. Pt has high blood pressure, but not all the time. She mostly stay in her home, not socially active. She has arthritis and does not move or exercise. She sleeps ok, but sometimes having disrupted sleep, wakes up several times at night. She snores sometimes. Lab result reviewed. [facility] Medical History Osteoporosis Post-menopausal Cellulitis Overweight (BMI 25.0-29.9) Depression Anxiety Nocturnal leg cramps Vitamin D deficiency Genital herpes in women Ductal carcinoma in situ of right breast Osteoarthritis of knee GERD (gastroesophageal reflux disease) Allergic rhinitis Diabetic neuropathy COPD (chronic obstructive pulmonary disease) Benign essential hypertension Pure hypercholesterolemia Diabetes mellitus Surgical History History of colonoscopy History of total hysterectomy H/O breast surgery Family History Father CVD (cardiovascular disease) Stroke Mother Cancer Other Mental health disorder Social History Housing: Apartment Alcohol intake: never Patient Tobacco Use Status: Never used Tobacco e-Cigarette/Vaping Use: Never Used Second Hand Smoke Exposure: Yes service: No Current occupational status: disabled Cognitive needs: No Hearing needs: Yes Vision needs: Yes Review of Systems Const All systems reviewed & are unremarkable except as noted in HPI and below Physical Exam Vital Signs: Last Vital Signs Pulse 75 11/02/23 10:12 Resp 17 11/02/23 10:12 BP 138/76 11/02/23 10:12 Pulse Ox 96 11/02/23 10:12 Oxygen Delivery Method Room Air 11/02/23 10:12 BMI result Body Mass Index 23.5 Const General: cooperative Nutritional Appearance: average body habitus Limitations: ambulation with cane Neck Neck: Yes full ROM and Yes supple Resp Effort & Inspection: normal respiratory effort and able to speak in complete sentences Neuro General: moves all extremities Gait exam (Neuro): Assisted gait required Motor exam (neuro): 5/5 motor strength present throughout, Pronator motor function not present and no tremor noted Deep tendon reflexes (DTR's): Right brachioradialis reflex intensity grade: 3+, Left brachioradialis reflex intensity grade: 3+, Right patellar reflex intensity grade: 3+ and Left patellar reflex intensity grade: 2+ Orientation Where are we (state) (county) (town or city) (hospital) (floor)?: state, town or city and hospital/clinic Registration Name of 3 unrelated objects clearly and slowly, then ask patient to repeat all 3 of them. (1st repeat determines score. Make sure they can repeat all three): object 1 and object 2 Language Show patient a wristwatch & ask what it is. Repeat for pencil.: watch and pencil Ask the patient to repeat the phrase 'No ifs, ands, or buts' after you.: incorrect Ask the patient to 'take a piece of paper with their right hand' 'fold paper in half' 'place paper on floor': take paper in right hand, fold paper in half and place paper on floor Print the sentence 'CLOSE YOUR EYES' on a piece. If patient actually closes eyes then score.: followed written direction Give patient a blank piece of paper & ask to write a sentence. Score if it contains a noun & verb.: sentence contains subject and verb Score Score: 12 Assessment & Plan Assessment & Plan (1) Memory impairment: Code(s): R41.3 - Other amnesia Plan Advised patient to start memantine taper. Start memantine 7 mg, daily for two weeks and increase 7 mg every two weeks until reach to 28 mg. Encouraged patient to increase social, physical and cognitive activities and well balanced diet. Medications: New memantine Start after finishing memantine 14 mg. 21 mg PO DAILY 14 ea 0RF 14 days memantine Start after finishing memantine 21 mg. 28 mg PO DAILY 90 ea 1RF 90 days memantine 7 mg PO DAILY 14 ea 0RF 14 days memantine Start after finishing memantine 7 mg. 14 mg PO DAILY 14 ea 0RF 14 days Coding Level of Care Code New Pt Level 4 (55651) Diagnoses Memory impairment R41.3
[2023-11-02 10:12] VITALS: BP 138/76; PULSE 75; RESP 17; O2SAT 96; BMI 23.5
== END 2023-11-02 10:58 | disposition home or self-care (01) ==
PROVIDERS: PCP Internal Medicine; Visit Provider Nurse Practitioner Family
DX: R41.3 Other amnesia (principal)
CPT/HCPCS: 99204

== ENCOUNTER → 2023-11-02 09:32 | Outpatient (BNVA) | payer MEDICARE, MEDICAID, SELFPAY | PROVIDERS: PCP Internal Medicine; Visit Provider Nurse Practitioner Family | DX: R41.3 Other amnesia (principal) | CPT/HCPCS: 99202 ==

== ENCOUNTER 2023-11-10 11:25 | Outpatient (REF) | payer MEDICARE, MEDICAID, SELFPAY ==
--- NOTE | ~2023-11-10 | XR_ITS ---
EXAMINATION: XR HAND, RIGHT CLINICAL INFORMATION: Right hand pain COMPARISON: None available. TECHNIQUE: PA, lateral, and oblique views of the right hand. FINDINGS: Diffuse demineralization. Diffuse mild interphalangeal joint space narrowings. Benign-appearing sclerotic density for proximal phalanx distally. Alignment is maintained. No fractures or dislocations. XR/XR hand RT min 3V IMPRESSION:. Mild degenerative type changes. No acute bony pathology.
[2023-11-10 11:51] LABS: MANUAL DIFF FLAG NO
[2023-11-10 13:34] LABS: Basophils Percent Auto 0.3 % (0-2); Eosinophils Absolute Auto 0.2 X10*3/uL (0.0-0.4); Eosinophils Percent Auto 2.1 % (0-4); Hematocrit 38.8 % (37.0-47.0); Imm Gran Abs Auto 0.02 X10*3/uL (0.00-0.03); Imm Gran Pct Auto 0.2 % (0.0-0.4); Lymphocytes Absolute Auto 1.5 X10*3/uL (1.2-4.9); Mean Corpuscular HGB Conc 33.5 g/dl (31.0-35.0); Mean Corpuscular Hemoglobin 30.9 pg (27.0-33.0); Mean Corpuscular Volume 92.2 fL (80.0-98.0); Mean Platelet Volume 8.6 fL (9.4-12.3); Monocytes Absolute Auto 0.7 X10*3/uL (0.1-1.2); Monocytes Percent Auto 8.1 % (2-11); Neutrophils Absolute Auto 6.6 x10*3/uL (2.0-8.3); Neutrophils Percent Auto 73.3 % (45-73); Platelet Count 338 X10*3/uL (160-400); Red Blood Count 4.21 X10*6/uL (4.20-5.50); Red Cell Distribution Width 12.8 % (11.0-16.0)
[2023-11-10 14:02] LABS: Appearance Urine Cloudy; Color Urine Yellow; Glucose Urine UA Negative (Negative); Leukocyte Esterase Urine Small (1+) (Negative); Nitrite Urine Positive (Negative); UMIC TRIGGER UACC YES; Urine Blood Negative (Negative); Urine Ketones Negative (Negative); Urine Protein Negative (Neg-Trace)
[2023-11-10 14:16] LABS: Estimated Average Glucose 123 mg/dL; Hemoglobin A1c % 5.9 % (<6.0)
[2023-11-10 14:20] LABS: Bacteria Urine 4+ (None Seen); Hyaline Casts Urine 0-2 /LPF (0-2); RBC Urine 0-2 /HPF (0-2); Squamous Epithelial Cell Urine 0-2 /HPF (0-2); UACC Culture Trigger YES
[2023-11-10 14:34] LABS: Alanine Aminotransferase 16 U/L (0-31); Albumin Level 4.3 g/dL (3.5-5.0); Alkaline Phosphatase 88 U/L (39-117); Anion Gap 10 (12-20); Aspartate Amino Transferase 14 U/L (5-31); Bilirubin Total 0.5 mg/dL (0.0-1.0); Blood Urea Nitrogen 8 mg/dL (9-16); Calcium 9.4 mg/dL (8.4-10.2); Carbon Dioxide 29 mmol/L (22-29); Chloride 100 mmol/L (96-108); Cholesterol 220 mg/dL (<200); Estimated Glomerular Filt Rate > 60; Glucose Fasting 104 mg/dL (60-99); HDL Cholesterol 55 mg/dL (>40); LDL Cholesterol Calculated 148 mg/dL (<100); Potassium 4.2 mmol/L (3.3-5.1); Sodium 135 mmol/L (135-145); Total Protein 7.1 g/dL (6.5-8.0); Triglycerides 88 mg/dL (<150)
[2023-11-10 14:49] LABS: Creatinine Urine 138.12 mg/dL; Microalbum/Creatinine Ratio Ur 7.2 ug/mg cr (<30)
[2023-11-10 14:52] LABS: TSH reflex Free T4 1.04 uIU/mL (0.32-4.0); Vitamin D 25-OH Total 32.4 ng/mL (>30)
== END 2023-11-10 11:26 | disposition home or self-care (01) ==
LOC: HO.XRAY 11:25
PROVIDERS: PCP Internal Medicine; Visit Provider Internal Medicine
DX: M79.641 Pain in right hand (principal); I10 Essential (primary) hypertension; E78.00 Pure hypercholesterolemia, unspecified; E11.9 Type 2 diabetes mellitus without complications; E55.9 Vitamin D deficiency, unspecified; R30.0 Dysuria
CPT/HCPCS: 36415; 73130; 80053; 80061; 81001; 81003; 82043; 82306; 82570; 83036; 84443; 85025; 87086; 87088; 87186

== ENCOUNTER 2023-11-22 12:23 | Outpatient (AMB) | payer MEDICARE, MEDICAID, SELFPAY ==
[2023-11-22 12:33] VITALS: BP 138/64; PULSE 87; O2SAT 98; BMI 23.0
--- NOTE | 2023-11-22 12:33 | A.OFFPC_ITS ---
Vital Signs 11/22/23 12:33 Height 5 ft 1 in Weight 122 lb BMI 23.0 BP 138/64 Blood Pressure Location Lt brachial Position Sitting Pulse 87 Pulse Source Pulse Oximeter Pulse Oximetry (%) 98 Oxygen Delivery Method Room Air Intake Visit Reasons: 4 month f/u Wage Hand Required: No Accompanied by: Self / Same As Patient Allergies meperidine [From DEMEROL] Allergy (Severe, Verified 11/22/23 12:53) HYPOTENSION Penicillins [PENICILLINS] Allergy (Severe, Verified 11/22/23 12:53) HIVES,SWELLING influenza virus vaccine, specific [Influenza Virus Vacc,Specific] Adverse Reaction (Intermediate, Verified 11/22/23 12:53) ASTHMA EXACERBATION Anesthetic Maximum Strength Allergy (Severe, Uncoded 11/22/23 12:53) anaphylaxis Bee Sting Allergy (Unknown, Uncoded 11/22/23 12:53) unknown Medication List - Last Reconciled 11/22/23 by Jose Juan Rendon MD albuterol sulfate 2.5 mg continuous nebulization Q6H PRN albuterol sulfate 90 mcg/actuation 2 puffs PO Q6H PRN aspirin 1 tab PO DAILY atorvastatin 40 mg PO BEDTIME blood pressure monitor As directed blood sugar diagnostic (FreeStyle Test strips) test bs once a day blood-glucose meter (FreeStyle Lite Meter kit) As directed- To test Blood sugar blood-glucose meter (FreeStyle Lite Meter kit) As directed ONCE A DAY cholecalciferol (vitamin D3) 50 mcg PO DAILY clonazepam 0.25 mg PO BEDTIME PRN 30 days fluticasone propion-salmeterol 500-50 mcg/dose (Advair Diskus) 1 ea PO BID fluticasone propionate 50 mcg/actuation 1 spray intranasal DAILY [FreeStyle LANCETS As directed] [FreeStyle TEST STRIPS As directed] lancets (FreeStyle Lancets) 28 gauge miscellaneous .QD latanoprost 0.005% 1 drp ophthalmic (eye) BEDTIME loratadine 10 mg PO DAILY PRN memantine 21 mg PO DAILY 14 days memantine 28 mg PO DAILY 90 days memantine 7 mg PO DAILY 14 days memantine 14 mg PO DAILY 14 days omalizumab (Xolair) 300 mg subcut Q4W 28 days omeprazole 20 mg PO DAILY PRN polyethylene glycol 3350 (Miralax) 17 grams PO DAILY 30 days sennosides (Senna Lax) Take 1 to 2 tablets orally daily PRN; 30 days valacyclovir 500 mg PO DAILY Tobacco use date assessed: 11/22/23 Fall risk assessment: No Falls in past year Last assessed Fall Risk: 11/22/23 Dental Screening Dental Screen Date: 11/22/23 Did you have a dental visit in the last 12 months?: No Did you have a dental problem in the last 6 months where you did not have access to dental care?: No Was dental information given to patient?: No HPI 4 month f/u HPI Details Patient comes in today for her follow up visit States that she feels okay Still has occasional headaches (often left-sided) and on and off dizziness She denies any chest pains, no increased SOB No nausea/vomiting, no abdominal pain No change in bowel habits noted Her daughter states that she needs all of her Rx refilled Patient was seen by neurology a couple of weeks ago and was started on Memantine Had her follow up labs done a couple of weeks ago - to discuss her results [facility] Medical History Osteoporosis Post-menopausal Cellulitis Overweight (BMI 25.0-29.9) Depression Anxiety Nocturnal leg cramps Vitamin D deficiency Genital herpes in women Ductal carcinoma in situ of right breast Osteoarthritis of knee GERD (gastroesophageal reflux disease) Allergic rhinitis Diabetic neuropathy COPD (chronic obstructive pulmonary disease) Benign essential hypertension Pure hypercholesterolemia Diabetes mellitus Surgical History History of colonoscopy History of total hysterectomy H/O breast surgery Family History Father CVD (cardiovascular disease) Stroke Mother Cancer Other Mental health disorder Social History Housing: Apartment Alcohol intake: never Patient Tobacco Use Status: Never used Tobacco e-Cigarette/Vaping Use: Never Used Second Hand Smoke Exposure: Yes service: No Current occupational status: disabled Cognitive needs: No Hearing needs: Yes Vision needs: Yes Questionnaire PHQ-9 Over the last 2 weeks, how often have you been bothered by any of the following problems? 1. Little interest or pleasure in doing things: not at all 2. Feeling down, depressed, or hopeless: not at all 3. Trouble falling or staying asleep, or sleeping too much: not at all 4. Feeling tired or having little energy: not at all 5. Poor appetite or overeating: not at all 6. Feeling bad about yourself - or that you are a failure or have let yourself or your family down: not at all 7. Trouble concentrating on things, such as reading the newspaper or watching television: not at all 8. Moving or speaking so slowly that other people could have noticed. Or the opposite - being so fidgety or restless that you have been moving around a lot more than usual: not at all 9. Thoughts that you would be better off or of hurting yourself in some way: not at all Total score: 0 Depression Screening Interpretation: Negative Depression Screening Done: Yes 98613 - PHQ-9 Billing: Yes Source: Developed by Drs. Leonides Hamm, Rehana Tello, Harjinder Buitrago and colleagues, with an educational ronel from [employer]. Thrive Questionnaire Date Thrive assessed: 11/22/23 I am a: Patient What is your living situation today?: I have a steady place to live Within the past 12 months, did the food you bought not last and you didn't have the money to get more?: Never true Within the past 12 months, did you worry whether your food would run out before you got money to buy more?: Never true Do you have trouble paying for medicines?: No Do you have trouble getting transportation to medical appointments?: No Do you have trouble paying your heating and electricity bill?: No Do you have trouble taking care of your child, family member or friend?: No Do you have trouble with day-to-day activities such as bathing, preparing meals, shopping, managing finances, etc.?: No Are you currently unemployed and looking for a job?: No Are you interested in more education?: No Please select the resources that you would like help with: None Currently or been in a relationship where the following occur: no concerns reported THRIVE Score: 0 AUDIT C Alcohol Use Questionnaire (AUDIT-C) 1. How often do you have a drink containing alcohol?: Never 3. How often do you have six or more drinks on one occasion?: Never Total Score: 0 Score Reviewed/Action Taken: Yes ESTEBAN-7 AMB Questionnaire ESTEBAN-7 Date ESTEBAN - 7 assessed: 11/22/23 Feeling nervous, anxious, or on edge: 0 = Not at all Not being able to stop or control worryin = Not at all Worrying too much about different things: 0 = Not at all Trouble relaxin = Not at all Being so restless that it is hard to sit still: 0 = Not at all Becoming easily annoyed or irritable: 0 = Not at all Feeling afraid as if something awful might happen: 0 = Not at all Total ESTEBAN-7 score (0-4 normal; 5-9 mild; 10-14 moderate; 15-21 severe): 0 Source: Developed by Drs. Leonides Hamm, Rehana Tello, Harjinder Buitrago and colleagues, with an educational ronel from [employer]. Review of Systems Const Denies chills, Reports fatigue, Denies fever(s) and Reports headache(s) (occasionally, on the left side of her forehead) ENT Denies dysphagia, Reports dizziness (when she gets up too quickly), Denies otalgia, Reports headache(s) (occasionally, on the left side of her forehead), Denies neck pain, Denies odynophagia and Denies sore throat Card Denies chest pain, Denies palpitations and Denies dyspnea Resp Denies cough and Denies dyspnea GI Denies abdominal pain, Reports constipation (on and off), Denies dysphagia, Denies diarrhea, Denies nausea, Denies odynophagia and Denies vomiting Denies difficulty voiding, Denies nocturia and Denies dysuria Musc Reports arthralgias (on right hand, at the base of the 4th finger) and Denies neck pain Skin/Breast Denies rash Neuro Reports confusion (on and off), Reports dizziness (when she gets up too quickly), Reports headache(s) (occasionally, on the left side of her forehead) and Reports memory loss Psych Reports confusion (on and off), Reports auditory hallucinations, Reports memory loss and Reports visual hallucinations Endo Reports fatigue and Denies palpitations Physical exam (Primary Care) Vital Signs: Last Vital Signs Pulse 87 11/22/23 12:33 BP 138/64 01/24/24 12:33 Pulse Ox 98 11/22/23 12:33 Oxygen Delivery Method Room Air 11/22/23 12:33 BMI result Body Mass Index 23.0 Tobacco/Smoking Status: Tobacco use Status Tobacco use date assessed 11/22/23 11/22/23 12:34 Patient Tobacco Use Status Never used Tobacco 11/22/23 12:34 e-Cigarette/Vaping Use Never Used 11/22/23 12:34 PHQ-9: PHQ-9 Score PHQ-9: Total score 0 11/27/23 12:12 Depression Screening Interpretation: Negative Thrive Assessment: Date of Thrive Assessment Date Thrive assessed 11/22/23 11/22/23 12:34 Currently or been in a relationship where the following occur: no concerns reported Const General: confusion (on and off) Orientation/consciousness: confusion (on and off) HENMT Ears: TM's normal bilaterally and EAC's normal Throat: Yes posterior oropharynx normal and Yes tonsils normal (no TP congestion) Neck Neck: Yes no lymphadenopathy and Yes supple Resp Auscultation: clear to auscultation bilaterally, no rales and no wheezes Cardio Rate: regular rate Rhythm: regular rhythm Heart sounds: no murmurs GI Palpation (GI): Soft to palpation and nontender Auscultation: normal bowel sounds General: Yes no CVA tenderness Back/Spine/Pelvis Back: no CVA tenderness Skin Rashes: no rashes Neuro General: confusion (on and off) Extrem General: Yes no clubbing, cyanosis or edema Right upper extremity: Extremity exam: right hand Details: tenderness Location: of the 4th digit Location: at the MCP joint Results Reviewed Results Reviewed: Laboratory Tests 03/07/23 03/07/23 03/07/23 10:06 10:06 10:06 WBC Hgb Hct Plt Count Sodium Potassium Creatinine Estimated GFR Fasting Glucose Hemoglobin A1c % Calcium AST ALT Triglycerides 66 Cholesterol 123 LDL Cholesterol, Calc 62 HDL Cholesterol 48 25-OH Vitamin D Total TSH Ur Specific [place] Urine Protein Urine Glucose (UA) Urine Blood Urine Nitrite Ur Leukocyte Esterase Microalb/Creat Ratio 11/10/23 11/10/23 11/10/23 11:41 11:48 11:48 WBC 9.0 Hgb 13.0 Hct 38.8 Plt Count 338 Sodium 135 Potassium 4.2 Creatinine 0.60 Estimated GFR > 60 Fasting Glucose 104 H Hemoglobin A1c % 5.9 Calcium 9.4 AST 14 ALT 16 Triglycerides 88 Cholesterol 220 H LDL Cholesterol, Calc 148 H HDL Cholesterol 25-OH Vitamin D Total TSH Ur Specific [place] 1.020 Urine Protein Negative Urine Glucose (UA) Negative Urine Blood Negative Urine Nitrite Positive H Ur Leukocyte Esterase Small (1+) H Microalb/Creat Ratio 7.2 11/10/23 11/10/23 11:48 11:48 WBC Hgb Hct Plt Count Sodium Potassium Creatinine Estimated GFR Fasting Glucose Hemoglobin A1c % Calcium AST ALT Triglycerides Cholesterol LDL Cholesterol, Calc HDL Cholesterol 55 25-OH Vitamin D Total 32.4 TSH 1.04 Ur Specific [place] Urine Protein Urine Glucose (UA) Urine Blood Urine Nitrite Ur Leukocyte Esterase Microalb/Creat Ratio Assessment and Plan Assessment & Plan (1) Pure hypercholesterolemia: Code(s): E78.00 - Pure hypercholesterolemia, unspecified Plan: Results of her labs done a couple of weeks ago reviewed and discussed with patient - have cautioned patient and her daughter that patient's cholesterol levels have increased significantly from previous with her LDL cholesterol now at 148 mg/dl (was at 62 mg/dl back in February 2023) Reinforced low cholesterol diet She was on Atorvastatin 40 mg QD previously but this was apparently stopped by [facility] last year - unclear why but I assume it is either to help address her polypharmacy or they surmise that Atorvastatin was contributing to her frequent falls Will start her back for now on Atorvastatin 20 mg QD Will recheck her labs and fasting lipids in 4 months for follow-up (2) Diabetes mellitus: Code(s): E11.9 - Type 2 diabetes mellitus without complications Qualifiers: Diabetes mellitus complication detail: with polyneuropathy Diabetes mellitus complication status: with neurologic complications Diabetes mellitus terminal gauger supervisor insulin use: without terminal gauger supervisor use Diabetes mellitus type: type 2 Qualified Code(s): E11.42 - Type 2 diabetes mellitus with diabetic polyneuropathy Plan: HgbA1c was at 5.9% on her labs done a couple of weeks ago (was at 6.3% back in February 2023 - goal is <7.0% Reinforced diabetic diet Patient is still not on any medications for her diabetes and prefers to keep it that way; would like to continue with diet modification alone (3) Benign essential hypertension: Code(s): I10 - Essential (primary) hypertension Plan: Reinforced low-sodium diet - goal is systolic BP of at least 130 to 140 mm or less Patient's daughter is reminded to continue monitoring patient's blood pressure regularly (4) COPD (chronic obstructive pulmonary disease): Code(s): J44.9 - Chronic obstructive pulmonary disease, unspecified Qualifiers: COPD type: unspecified COPD Qualified Code(s): J44.9 - Chronic obstructive pulmonary disease, unspecified Plan: Continue Advair Diskus 500-50 mcg 1 inhalation BID. ProAir HFA 2 puffs 4 times a day as needed and Xolair injections 300 mg Q 4 weeks Patient also has Albuterol solution that she uses with her [employer] machine when needed Patient states that her symptoms have improved significantly with Xolair injections 300 mg SQ every 4 weeks Follow-up with pulmonary as scheduled (5) Diabetic neuropathy: Code(s): E11.40 - Type 2 diabetes mellitus with diabetic neuropathy, unspecified Qualifiers: Diabetes mellitus complication detail: diabetic polyneuropathy Diabetes mellitus type: type 2 Qualified Code(s): E11.42 - Type 2 diabetes mellitus with diabetic polyneuropathy Plan: States that her neuropathic symptoms have remained stable and tolerable - no additional intervention is needed at this time (6) Allergic rhinitis: Code(s): J30.9 - Allergic rhinitis, unspecified Qualifiers: Allergic rhinitis seasonality: unspecified Allergic rhinitis trigger: unspecified Qualified Code(s): J30.9 - Allergic rhinitis, unspecified Plan: Continue Fluticasone 50 mcg nasal spray QD PRN and Loratadine 10 mg QD PRN (7) GERD (gastroesophageal reflux disease): Code(s): K21.9 - Gastro-esophageal reflux disease without esophagitis Qualifiers: Esophagitis presence: without esophagitis Qualified Code(s): K21.9 - Gastro-esophageal reflux disease without esophagitis Plan: Dietary? restrictions reinforced Continue Omeprazole 20 mg QD (8) Osteoarthritis of knee: Code(s): M17.10 - Unilateral primary osteoarthritis, unspecified knee Qualifiers: Laterality: unspecified laterality Osteoarthritis type: primary Qualified Code(s): M17.10 - Unilateral primary osteoarthritis, unspecified knee Plan: Continue Tramadol 50 mg TID PRN Follow-up with Orthopedics as scheduled (9) Right hand pain: Code(s): M79.641 - Pain in right hand Plan: X-rays of the right hand done a couple of weeks ago revealed (+) OA changes Advised that we can consider referring her to orthopedics for further management if her symptoms get worse but advised that there is really not much else that can be done for OA of smaller joints other than cortisone injections, which may not be appropriate for her hand (10) 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 Code(s): D05.11 - Intraductal carcinoma in situ of right breast Plan: S/P Tx with Tamoxifen x 5 years Follow-up with Oncology as scheduled for continuing surveillance (11) Osteoporosis: Code(s): M81.0 - Age-related osteoporosis without current pathological fracture Qualifiers: Osteoporosis type: age-related Presence of current pathological fracture: without current pathological fracture Qualified Code(s): M81.0 - Age- related osteoporosis without current pathological fracture Plan: BMD done in June 2021 revealed (+) osteoporosis, with a T score of -3.2 Patient encouraged to continue with daily calcium and vitamin-D supplements Reinforced fall precautions To consider treatment of her osteoporosis with oral bisphosphonates but patient is concerned about side effects due to her pre-existing GI issues, including GERD; is also concerned about other treatment options and the potential side effects - would like to hold off on Rx (12) Vitamin D deficiency: Code(s): E55.9 - Vitamin D deficiency, unspecified Plan: Continue Vitamin D3 2000 units QD (13) Nocturnal leg cramps: Code(s): G47.62 - Sleep related leg cramps Plan: Continue Tizanidine 4 mg daily at bedtime as needed (14) Constipation: Code(s): K59.00 - Constipation, unspecified Qualifiers: Constipation type: unspecified constipation type Qualified Code(s): K59.00 - Constipation, unspecified Plan: Reinforced increased oral fluids and dietary fiber Continue Senna 8.6 mg 1 to 2 tablets QD PRN (15) Genital herpes in women: Code(s): A60.09 - Herpesviral infection of other urogenital tract Plan: She remains on chronic suppressive Tx with Valacyclovir 500mg QD - 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 (16) Unsteady gait: Code(s): R26.81 - Unsteadiness on feet Plan: Patient has been noted to be very unsteady over the past few years and has fallen a few times recently - this is most likely multifactorial, including her neuropathy, age, frailty and overall generalized weakness She uses a walker all the time now when ambulating and has been advised by family multiple times not to try navigating stairs on her own but patient reportedly often forgets her instructions She 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 has COUNT ROOM CLERK services of 18 hours during the day and 2 hours at night Patient lives alone in her own apartment and does not wish to move out to an assisted living facility or a retirement Fall precautions reinforced to family She has been referred to Neurology for further evaluation and management of her unsteady gait, frequent falls and apparently progressing memory impairment but it does not look like she has been seen yet (17) Orthostasis: Code(s): I95.1 - Orthostatic hypotension Plan: Have reminded patient and her daughter to make sure that she stays adequately hydrated to help minimize her symptoms Have also reminded patient to avoid abrupt and rapid changes in position, which can trigger her symptoms often She is currently not on any medications that can affect her blood pressure (18) Anxiety: Code(s): F41.9 - Anxiety disorder, unspecified Plan: Continue Clonazepam? 0.25 mg 1/2 to 1 tablet once a day at bedtime as needed (19) Depression: Code(s): F32.9 - Major depressive disorder, single episode, unspecified Qualifiers: Depression Type: unspecified Qualified Code(s): F32.A - Depression, unspecified Plan: Folow up with Psychiatry as scheduled Plan Follow up in 4 months Orders: Orders Complete Blood Count Auto Diff 4 Months D64.9 - Anemia, unspecified Lipid Panel 4 Months E78.00 - Pure hypercholesterolemia, unspecified TSH reflex Free T4 4 Months E78.00 - Pure hypercholesterolemia, unspecified UA CC w/rflx Micro + Cult 4 Months R30.0 - Dysuria Microalbumin, Random (w Creat) 4 Months E11.9 - Type 2 diabetes mellitus without complications Vitamin D 25-OH Total 4 Months E55.9 - Vitamin D deficiency, unspecified Comprehensive [place]. Panel Fast 4 Months E78.00 - Pure hypercholesterolemia, unspecified Hemoglobin A1c 4 Months E11.9 - Type 2 diabetes mellitus without complications Vitamin B12 and Folate 4 Months E53.8 - Deficiency of other specified B group vitamins Medications: Changed From atorvastatin 40 mg PO BEDTIME 90 tabs 1RF To atorvastatin 20 mg PO BEDTIME 90 days 90 tabs 1RF Coding Level of Care Code Est Pt Level 4 (41711) Diagnoses Pure hypercholesterolemia E78.00 Type 2 diabetes mellitus with diabetic polyneuropathy, without long-term current use of insulin E11.42 Diabetes mellitus complication detail: with polyneuropathy Diabetes mellitus complication status: with neurologic complications Diabetes mellitus intermediate insulin use: without intermediate use Diabetes mellitus type: type 2 Benign essential hypertension I10 Chronic obstructive pulmonary disease, unspecified COPD type J44.9 COPD type: unspecified COPD Diabetic polyneuropathy associated with type 2 diabetes mellitus E11.42 Diabetes mellitus complication detail: diabetic polyneuropathy Diabetes mellitus type: type 2 Allergic rhinitis, unspecified seasonality, unspecified trigger J30.9 Allergic rhinitis seasonality: unspecified Allergic rhinitis trigger: unspecified Gastroesophageal reflux disease without esophagitis K21.9 Esophagitis presence: without esophagitis Primary osteoarthritis of knee, unspecified laterality M17.10 Laterality: unspecified laterality Osteoarthritis type: primary Right hand pain M79.641 Ductal carcinoma in situ of right breast D05.11 Age-related osteoporosis without current pathological fracture M81.0 Osteoporosis type: age-related Presence of current pathological fracture: without current pathological fracture Vitamin D deficiency E55.9 Nocturnal leg cramps G47.62 Constipation, unspecified constipation type K59.00 Constipation type: unspecified constipation type Genital herpes in women A60.09 Unsteady gait R26.81 Orthostasis I95.1 Anxiety F41.9 Depression, unspecified depression type F32.A Depression Type: unspecified
== END 2023-11-22 13:26 | disposition home or self-care (01) ==
PROVIDERS: PCP Internal Medicine; Visit Provider Internal Medicine
DX: E78.00 Pure hypercholesterolemia, unspecified (principal); E11.42 Type 2 diabetes mellitus with diabetic polyneuropathy; I10 Essential (primary) hypertension; J44.9 Chronic obstructive pulmonary disease, unspecified; J30.9 Allergic rhinitis, unspecified; K21.9 Gastro-esophageal reflux disease without esophagitis; M17.10 Unilateral primary osteoarthritis, unspecified knee; M79.641 Pain in right hand; D05.11 Intraductal carcinoma in situ of right breast; M81.0 Age-related osteoporosis without current pathological fracture; E55.9 Vitamin D deficiency, unspecified; G47.62 Sleep related leg cramps; K59.00 Constipation, unspecified; A60.09 Herpesviral infection of other urogenital tract; R26.81 Unsteadiness on feet; I95.1 Orthostatic hypotension; F41.9 Anxiety disorder, unspecified; F32.A Depression, unspecified
CPT/HCPCS: 99214

== ENCOUNTER 2023-11-23 11:47 | Outpatient (REF) | payer MEDICARE, MEDICAID, SELFPAY | END 2023-11-23 11:48 | disposition home or self-care (01) | LOC: HO.MDS 11:47 | PROVIDERS: Visit Provider Internal Medicine Pulmonary Disease | DX: J45.50 Severe persistent asthma, uncomplicated (principal) | CPT/HCPCS: 96372; J2357 ==

== ENCOUNTER 2023-12-21 14:30 | Outpatient (REF) | payer MEDICARE, MEDICAID, SELFPAY | END 2023-12-21 14:31 | disposition home or self-care (01) | LOC: HO.MDS 14:30 | PROVIDERS: Visit Provider Internal Medicine Pulmonary Disease | DX: J45.50 Severe persistent asthma, uncomplicated (principal) | CPT/HCPCS: 96372; J2357 ==

== ENCOUNTER 2024-01-18 13:31 | Outpatient (REF) | payer MEDICARE, MEDICAID, SELFPAY ==
[2024-01-18 13:34] VITALS: BP 185/81; PULSE 90; RESP 16; TEMP 36.8; O2SAT 98
[2024-01-18] MEDS: Omalizumab 150 MG/ML SYRINGE 300 MG SUBCUT (13:37)
== END 2024-01-18 13:32 | disposition home or self-care (01) ==
LOC: HO.MDS 13:31
PROVIDERS: Visit Provider Internal Medicine Pulmonary Disease
DX: J45.50 Severe persistent asthma, uncomplicated (principal)
CPT/HCPCS: 96372; J2357

== ENCOUNTER 2024-02-28 15:17 | Outpatient (AMB) | payer MEDICARE, MEDICAID, SELFPAY ==
[2024-02-28 15:20] VITALS: BP 140/60; PULSE 75; O2SAT 96; BMI 22.9
--- NOTE | 2024-02-28 15:20 | MHC.PC.OV ---
Vital Signs 02/28/24 15:20 Height 5 ft Weight 117 lb 8.102 oz BMI 22.9 BP 140/60 H Blood Pressure Location Lt brachial Position Sitting Pulse 75 Pulse Source Pulse Oximeter Pulse Oximetry (%) 96 Oxygen Delivery Method Room Air Intake Visit Reasons: 02/17 [facility] chest pain Intake Note: Patient is here to follow-up after a visit the emergency department at [facility] on 02/18/24 for chest pain Building Service Worker Required: No Allergies meperidine [From DEMEROL] Allergy (Severe, Verified 02/28/24 16:08) HYPOTENSION Penicillins [PENICILLINS] Allergy (Severe, Verified 02/28/24 16:08) HIVES,SWELLING influenza virus vaccine, specific [Influenza Virus Vacc,Specific] Adverse Reaction (Intermediate, Verified 02/28/24 16:08) ASTHMA EXACERBATION Anesthetic Maximum Strength Allergy (Severe, Uncoded 02/28/24 16:08) anaphylaxis Bee Sting Allergy (Unknown, Uncoded 02/28/24 16:08) unknown Medication List - Last Reconciled 02/28/24 by Jose Juan Rendon MD albuterol sulfate 2.5 mg continuous nebulization Q6H PRN albuterol sulfate 90 mcg/actuation 2 puffs PO Q6H PRN aspirin 1 tab PO DAILY atorvastatin 20 mg PO BEDTIME 90 days blood pressure monitor As directed blood sugar diagnostic (FreeStyle Test strips) test bs once a day blood-glucose meter (FreeStyle Lite Meter kit) As directed- To test Blood sugar blood-glucose meter (FreeStyle Lite Meter kit) As directed ONCE A DAY cholecalciferol (vitamin D3) 50 mcg PO DAILY clonazepam 0.25 mg PO BEDTIME PRN 30 days fluticasone propion-salmeterol 500-50 mcg/dose (Advair Diskus) 1 ea PO BID fluticasone propionate 50 mcg/actuation 1 spray intranasal DAILY [FreeStyle LANCETS As directed] [FreeStyle TEST STRIPS As directed] lancets (FreeStyle Lancets) 28 gauge miscellaneous .QD latanoprost 0.005% 1 drp ophthalmic (eye) BEDTIME loratadine 10 mg PO DAILY PRN memantine 21 mg PO DAILY 14 days memantine 28 mg PO DAILY 90 days memantine 7 mg PO DAILY 14 days memantine 14 mg PO DAILY 14 days omalizumab (Xolair) 300 mg subcut Q4W 28 days omeprazole 20 mg PO DAILY PRN polyethylene glycol 3350 (Miralax) 17 grams PO DAILY 30 days sennosides (Senna Lax) Take 1 to 2 tablets orally daily PRN; 30 days valacyclovir 500 mg PO DAILY Tobacco use date assessed: 02/28/24 Fall risk assessment: No Falls in past year Last assessed Fall Risk: 02/28/24 Dental Screening Dental Screen Date: 11/22/23 HPI 02/17 [facility] chest pain HPI Details Patient comes in today for her HDF follow up visit She was apparently brought to the ER at [facility] early last week after reportedly waking up around 4 am in the morning that day with chest pressure and discomfort that was radiating into her left arm as well as some associated SOB Work ups done in the ER, including labs and EKG, were all negative and patient was discharged back home with instructions to follow up with her PCP Patient states that she has not had any further recurrence of her symptoms since her ER visit and that she currently feels okay Her ACCOUNTING CLERK states that patient still has on and off episodes of confusion and according to patient's daughter, she has been exhibiting some unusual behaviors more and more often, wherein she would empty out her closets and pile up her clothes in front of her closet Her family also feels that her dementia is slowly getting worse, as she is now getting more and more forgetful, repeats the same questions over and over during conversations and often gets lost on the topic of the conversation She also seems to always be afraid of getting lost so she rarely goes out of her house and never on her own She also has not been driving for a while now, since she left her car running in the parking lot about 1 to 2 years ago and she has lost confidence in her own driving since Her daughter us requesting for a letter from our office indicating that her mother has dementia as she would like to use this to file a report with her local police department to alert them that her mother has dementia, in case assistance is needed from the local authorities in the future Paitent denies any headaches or dizziness Denies any SOB No nausea/vomiting, no abdominal pain No change in bowel habits noted She needs her Valacyclovir Rx refilled [facility] Medical History (Updated 02/29/24 @ 06:15 by Jose Juan Rendon MD) Dementia Osteoporosis Post-menopausal Cellulitis Overweight (BMI 25.0-29.9) Depression Anxiety Nocturnal leg cramps Vitamin D deficiency Genital herpes in women Ductal carcinoma in situ of right breast Osteoarthritis of knee GERD (gastroesophageal reflux disease) Allergic rhinitis Diabetic neuropathy COPD (chronic obstructive pulmonary disease) Benign essential hypertension Pure hypercholesterolemia Diabetes mellitus Surgical History History of colonoscopy History of total hysterectomy H/O breast surgery Family History Father CVD (cardiovascular disease) Stroke Mother Cancer Other Mental health disorder Social History Housing: Apartment Alcohol intake: never Patient Tobacco Use Status: Never used Tobacco e-Cigarette/Vaping Use: Never Used Second Hand Smoke Exposure: Yes service: No Current occupational status: disabled Cognitive needs: No Hearing needs: Yes Vision needs: Yes Questionnaire Thrive Questionnaire Date Thrive assessed: 11/22/23 AUDIT C Alcohol Use Questionnaire (AUDIT-C) 1. How often do you have a drink containing alcohol?: Never 3. How often do you have six or more drinks on one occasion?: Never Total Score: 0 Score Reviewed/Action Taken: Yes ESTEBAN-7 AMB Questionnaire ESTEBAN-7 Date ESTEBAN - 7 assessed: 11/22/23 Source: Developed by Drs. Leonides Hamm, Rehana Tello, Harjinder Buitrago and colleagues, with an educational ronel from [employer]. Review of Systems Const Denies chills, Reports fatigue, Denies fever(s) and Denies headache(s) ENT Denies dysphagia, Denies dizziness, Denies otalgia, Denies headache(s), Denies neck pain, Denies odynophagia and Denies sore throat Card Denies chest pain, Denies palpitations and Denies dyspnea Resp Denies cough and Denies dyspnea GI Denies abdominal pain, Reports constipation (on and off), Denies dysphagia, Denies diarrhea, Denies nausea, Denies odynophagia and Denies vomiting Denies difficulty voiding, Denies nocturia and Denies dysuria Musc Denies back pain, Reports arthralgias (on right hand, at the base of the 4th finger) and Denies neck pain Skin/Breast Denies rash Neuro Reports as per HPI, Reports behavioral changes, Reports confusion (on and off but per family, has been progressing), Denies dizziness, Denies headache(s) and Reports memory loss Psych Reports as per HPI, Reports anxiety, Reports behavioral changes, Reports confusion (on and off but per family, has been progressing), Reports auditory hallucinations, Reports memory loss and Reports visual hallucinations Endo Reports fatigue and Denies palpitations Physical exam (Primary Care) Vital Signs: Last Vital Signs Pulse 75 02/28/24 15:20 BP 140/60 H 02/28/24 15:20 Pulse Ox 96 02/28/24 15:20 Oxygen Delivery Method Room Air 02/28/24 15:20 BMI result Body Mass Index 22.9 Tobacco/Smoking Status: Tobacco use Status Tobacco use date assessed 02/28/24 02/28/24 15:22 Patient Tobacco Use Status Never used Tobacco 02/28/24 15:22 e-Cigarette/Vaping Use Never Used 02/28/24 15:22 Thrive Assessment: Date of Thrive Assessment Date Thrive assessed 11/22/23 02/28/24 15:22 Const General: confusion (on and off but per family, has been progressing) Orientation/consciousness: confusion (on and off but per family, has been progressing) HENMT Ears: TM's normal bilaterally and EAC's normal Throat: Yes posterior oropharynx normal and Yes tonsils normal (no TP congestion) Neck Neck: Yes no lymphadenopathy and Yes supple Resp Auscultation: clear to auscultation bilaterally, no rales and no wheezes Cardio Rate: regular rate Rhythm: regular rhythm Heart sounds: no murmurs GI Palpation (GI): Soft to palpation and nontender Auscultation: normal bowel sounds General: Yes no CVA tenderness Back/Spine/Pelvis Back: no CVA tenderness Skin Rashes: no rashes Neuro General: confusion (on and off but per family, has been progressing) Extrem General: Yes no clubbing, cyanosis or edema Right upper extremity: Extremity exam: right hand Details: tenderness Location: of the 4th digit Location: at the MCP joint Results AMB Hemoglobin A1c AMB Hemoglobin A1c 6.7 % Last Edit by JACQUES Obrien on 02/28/24 15:36 Results Reviewed Results Reviewed: Laboratory Last Values Hgb A1c (Clinic) 6.7 % (4.0-6.0) H 02/28/24 15:06 Assessment and Plan Assessment & Plan (1) Chest pressure: Code(s): R07.89 - Other chest pain Plan: Her recent symptoms were unlikely cardiac in origin as her work ups done at the ER at [facility] were all negative Patient states that she has not had any recurrence of her symptoms since (2) Dementia: Code(s): F03.90 - Unspecified dementia, unspecified severity, without behavioral disturbance, psychotic disturbance, mood disturbance, and anxiety Qualifiers: Dementia type: unspecified type Dementia severity: moderate Dementia behavioral or psychological symptom: with other behavioral disturbance Qualified Code(s): F03.B18 - Unspecified dementia, moderate, with other behavioral disturbance Plan: Likely Alzheimer's, based on her current symptoms She was seen by neurology back in October 2023 and scored a 12 on her Mini-mental exam, consistent with moderate to severe dementia and has been started on a trial of Memantine taper, which in patient's case, is likely not going to help much She no longer drives, has a ACCOUNTING CLERK who helps with most of her ADLs and daily needs, and patient's family is aware that she is not to be left on her own attended for any period of time Follow up with neurology as scheduled (3) Pure hypercholesterolemia: Code(s): E78.00 - Pure hypercholesterolemia, unspecified Plan: Reinforced low cholesterol diet She was on Atorvastatin 40 mg QD previously but this was apparently stopped by [facility] last year - unclear why but I assume it is either to help address her polypharmacy or they surmise that Atorvastatin was contributing to her frequent falls She was started back on Atorvastatin 20 mg QD at her last visit Will recheck her labs and fasting lipids as scheduled in a few weeks for follow-up (4) Diabetes mellitus: Code(s): E11.9 - Type 2 diabetes mellitus without complications Qualifiers: Diabetes mellitus type: type 2 Diabetes mellitus superintendent marine [employer] insulin use: without assisted use Diabetes mellitus complication status: with neurologic complications Diabetes mellitus complication detail: with polyneuropathy Qualified Code(s): E11.42 - Type 2 diabetes mellitus with diabetic polyneuropathy Plan: In-office HgbA1c done today is at 6.7% Her HgbA1c was at 5.9% on her labs done a few months ago and was at 6.3% last year in February 2023 - goal is <7.0% Reinforced diabetic diet Patient is still not on any medications for her diabetes and prefers to keep it that way; would like to continue with diet modification alone (5) Benign essential hypertension: Code(s): I10 - Essential (primary) hypertension Plan: Reinforced low-sodium diet - goal is systolic BP of at least 130 to 140 mm or less Patient's daughter is reminded to continue monitoring patient's blood pressure regularly (6) COPD (chronic obstructive pulmonary disease): Code(s): J44.9 - Chronic obstructive pulmonary disease, unspecified Qualifiers: COPD type: unspecified COPD Qualified Code(s): J44.9 - Chronic obstructive pulmonary disease, unspecified Plan: Continue Advair Diskus 500-50 mcg 1 inhalation BID. ProAir HFA 2 puffs 4 times a day as needed and Xolair injections 300 mg Q 4 weeks Patient also has Albuterol solution that she uses with her updraft machine when needed Patient states that her symptoms have improved significantly with Xolair injections 300 mg SQ every 4 weeks Follow-up with pulmonary as scheduled (7) Allergic rhinitis: Code(s): J30.9 - Allergic rhinitis, unspecified Qualifiers: Allergic rhinitis trigger: unspecified Allergic rhinitis seasonality: unspecified Qualified Code(s): J30.9 - Allergic rhinitis, unspecified Plan: Continue Fluticasone 50 mcg nasal spray QD PRN and Loratadine 10 mg QD PRN (8) GERD (gastroesophageal reflux disease): Code(s): K21.9 - Gastro-esophageal reflux disease without esophagitis Qualifiers: Esophagitis presence: without esophagitis Qualified Code(s): K21.9 - Gastro-esophageal reflux disease without esophagitis Plan: Dietary? restrictions reinforced Continue Omeprazole 20 mg QD (9) Osteoarthritis of knee: Code(s): M17.10 - Unilateral primary osteoarthritis, unspecified knee Qualifiers: Osteoarthritis type: primary Laterality: unspecified laterality Qualified Code(s): M17.10 - Unilateral primary osteoarthritis, unspecified knee Plan: Continue Tramadol 50 mg TID PRN Follow-up with Orthopedics as scheduled (10) 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 Code(s): D05.11 - Intraductal carcinoma in situ of right breast Plan: S/P Tx with Tamoxifen x 5 years Follow-up with Oncology as scheduled for continuing surveillance (11) Osteoporosis: Code(s): M81.0 - Age-related osteoporosis without current pathological fracture Qualifiers: Osteoporosis type: age-related Presence of current pathological fracture: without current pathological fracture Qualified Code(s): M81.0 - Age-related osteoporosis without current pathological fracture Plan: BMD done in June 2021 revealed (+) osteoporosis, with a T score of -3.2 Patient encouraged to continue with daily calcium and vitamin-D supplements Reinforced fall precautions To consider treatment of her osteoporosis with oral bisphosphonates but patient was concerned about side effects due to her pre-existing GI issues, including GERD; she was also concerned about other treatment options and the potential side effects and asked to hold off on Rx (12) Vitamin D deficiency: Code(s): E55.9 - Vitamin D deficiency, unspecified Plan: Continue Vitamin D3 2000 units QD (13) Nocturnal leg cramps: Code(s): G47.62 - Sleep related leg cramps Plan: Continue Tizanidine 4 mg daily at bedtime as needed (14) Constipation: Code(s): K59.00 - Constipation, unspecified Qualifiers: Constipation type: unspecified constipation type Qualified Code(s): K59.00 - Constipation, unspecified Plan: Reinforced increased oral fluids and dietary fiber Continue Senna 8.6 mg 1 to 2 tablets QD PRN (15) Genital herpes in women: Code(s): A60.09 - Herpesviral infection of other urogenital tract Plan: She remains on chronic suppressive Tx with Valacyclovir 500mg QD - 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 (16) Unsteady gait: Code(s): R26.81 - Unsteadiness on feet Plan: Patient has been noted to be very unsteady over the past few years and has fallen a few times recently - this is most likely multifactorial, including her neuropathy, age, frailty and overall generalized weakness She uses a walker all the time now when ambulating and has been advised by family multiple times not to try navigating stairs on her own but patient reportedly often forgets her instructions She currently has ACCOUNTING CLERK services of 18 hours during the day and 2 hours at night Patient lives alone in her own apartment and does not wish to move out to an assisted living facility or a halfway Fall precautions reinforced to family (17) Anxiety: Code(s): F41.9 - Anxiety disorder, unspecified Plan: Continue Clonazepam? 0.25 mg 1/2 to 1 tablet once a day at bedtime as needed (18) Depression: Code(s): F32.9 - Major depressive disorder, single episode, unspecified Qualifiers: Depression Type: unspecified Qualified Code(s): F32.A - Depression, unspecified Plan: Folow up with Psychiatry as scheduled Plan Follow up as scheduled in a few weeks Orders: Orders AMB Hemoglobin A1c 02/28/24 E11.42 - Type 2 diabetes mellitus with diabetic polyneuropathy Medications: Refilled valacyclovir 500 mg PO DAILY 90 tabs 1RF Coding Level of Care Code Est Pt Level 4 (76811) Diagnoses Chest pressure R07.89 Moderate dementia with other behavioral disturbance, unspecified dementia type F03.B18 Dementia type: unspecified type Dementia severity: moderate Dementia behavioral or psychological symptom: with other behavioral disturbance Pure hypercholesterolemia E78.00 Type 2 diabetes mellitus with diabetic polyneuropathy, without long-term current use of insulin E11.42 Diabetes mellitus type: type 2 Diabetes mellitus superintendent [employer] insulin use: without assisted use Diabetes mellitus complication status: with neurologic complications Diabetes mellitus complication detail: with polyneuropathy Benign essential hypertension I10 Chronic obstructive pulmonary disease, unspecified COPD type J44.9 COPD type: unspecified COPD Allergic rhinitis, unspecified seasonality, unspecified trigger J30.9 Allergic rhinitis trigger: unspecified Allergic rhinitis seasonality: unspecified Gastroesophageal reflux disease without esophagitis K21.9 Esophagitis presence: without esophagitis Primary osteoarthritis of knee, unspecified laterality M17.10 Osteoarthritis type: primary Laterality: unspecified laterality Ductal carcinoma in situ of right breast D05.11 Age-related osteoporosis without current pathological fracture M81.0 Osteoporosis type: age-related Presence of current pathological fracture: without current pathological fracture Vitamin D deficiency E55.9 Nocturnal leg cramps G47.62 Constipation, unspecified constipation type K59.00 Constipation type: unspecified constipation type Genital herpes in women A60.09 Unsteady gait R26.81 Anxiety F41.9 Depression, unspecified depression type F32.A Depression Type: unspecified
== END 2024-02-28 16:10 | disposition home or self-care (01) ==
PROVIDERS: PCP Internal Medicine; Visit Provider Internal Medicine
DX: R07.89 Other chest pain (principal); F03.B18 Unspecified dementia, moderate, with other behavioral disturbance; E11.42 Type 2 diabetes mellitus with diabetic polyneuropathy; J44.9 Chronic obstructive pulmonary disease, unspecified; E78.00 Pure hypercholesterolemia, unspecified; I10 Essential (primary) hypertension; J30.9 Allergic rhinitis, unspecified; K21.9 Gastro-esophageal reflux disease without esophagitis; D05.11 Intraductal carcinoma in situ of right breast; M81.0 Age-related osteoporosis without current pathological fracture
CPT/HCPCS: 83036; 99214

== ENCOUNTER 2024-03-22 09:09 | Outpatient (REF) | payer MEDICARE, MEDICAID, SELFPAY ==
[2024-03-22 09:28] LABS: MANUAL DIFF FLAG NO
[2024-03-22 09:39] LABS: Basophils Percent Auto 0.1 % (0-2); Eosinophils Absolute Auto 0.2 X10*3/uL (0.0-0.4); Eosinophils Percent Auto 1.9 % (0-4); Hematocrit 41.2 % (37.0-47.0); Hemoglobin 13.9 g/dl (12.0-16.0); Imm Gran Abs Auto 0.02 X10*3/uL (0.00-0.03); Imm Gran Pct Auto 0.3 % (0.0-0.4); Lymphocytes Absolute Auto 1.3 X10*3/uL (1.2-4.9); Lymphocytes Percent Auto 15.9 % (20-40); Mean Corpuscular HGB Conc 33.7 g/dl (31.0-35.0); Mean Corpuscular Hemoglobin 31.1 pg (27.0-33.0); Mean Corpuscular Volume 92.2 fL (80.0-98.0); Monocytes Absolute Auto 0.6 X10*3/uL (0.1-1.2); Monocytes Percent Auto 7.7 % (2-11); Neutrophils Absolute Auto 5.8 x10*3/uL (2.0-8.3); Neutrophils Percent Auto 74.1 % (45-73); Platelet Count 283 X10*3/uL (160-400); Red Blood Count 4.47 X10*6/uL (4.20-5.50); Red Cell Distribution Width 12.7 % (11.0-16.0); White Blood Count 7.8 X10*3/uL (4.8-10.8)
[2024-03-22 10:02] LABS: Estimated Average Glucose 143 mg/dL; Hemoglobin A1c % 6.6 % (<6.0)
[2024-03-22 10:26] LABS: Alanine Aminotransferase 23 U/L (0-31); Albumin Level 4.4 g/dL (3.5-5.0); Alkaline Phosphatase 96 U/L (39-117); Anion Gap 13 (12-20); Aspartate Amino Transferase 16 U/L (5-31); Bilirubin Total 0.7 mg/dL (0.0-1.0); Blood Urea Nitrogen 9 mg/dL (9-16); Calcium 9.9 mg/dL (8.4-10.2); Carbon Dioxide 28 mmol/L (22-29); Chloride 100 mmol/L (96-108); Cholesterol 141 mg/dL (<200); Estimated Glomerular Filt Rate > 60; Glucose Fasting 138 mg/dL (60-99); HDL Cholesterol 52 mg/dL (>40); LDL Cholesterol Calculated 72 mg/dL (<100); Potassium 4.6 mmol/L (3.3-5.1); Sodium 136 mmol/L (135-145); Total Protein 7.3 g/dL (6.5-8.0); Triglycerides 87 mg/dL (<150)
[2024-03-22 10:42] LABS: TSH reflex Free T4 0.92 uIU/mL (0.32-4.0); Vitamin D 25-OH Total 28.6 ng/mL (>30)
[2024-03-22 10:52] LABS: Appearance Urine Cloudy; Color Urine Yellow; Glucose Urine UA Negative (Negative); Leukocyte Esterase Urine Large (3+) (Negative); Nitrite Urine Positive (Negative); PH 7.5 (5.0-9.0); UMIC TRIGGER UACC YES; Urine Blood Negative (Negative); Urine Ketones Negative (Negative); Urine Protein Negative (Neg-Trace)
[2024-03-22 11:11] LABS: Bacteria Urine 4+ (None Seen); Hyaline Casts Urine 0-2 /LPF (0-2); RBC Urine 0-2 /HPF (0-2); Squamous Epithelial Cell Urine 0-2 /HPF (0-2); UACC Culture Trigger YES; WBC Urine 21-50 /HPF (0-5)
[2024-03-22 11:11] LABS: Folate 13.7 ng/mL (> or = 4.0); Vitamin B12 991 pg/mL (200-900)
[2024-03-22 11:18] LABS: Microalbum/Creatinine Ratio Ur 9.3 ug/mg cr (<30)
== END 2024-03-22 09:10 | disposition home or self-care (01) ==
LOC: HO.LAB 09:09
PROVIDERS: PCP Internal Medicine; Visit Provider Internal Medicine
DX: E78.00 Pure hypercholesterolemia, unspecified (principal); E11.9 Type 2 diabetes mellitus without complications; E53.8 Deficiency of other specified B group vitamins; D64.9 Anemia, unspecified; E55.9 Vitamin D deficiency, unspecified; R30.0 Dysuria
CPT/HCPCS: 36415; 80053; 80061; 81001; 82043; 82306; 82570; 82607; 82746; 83036; 84443; 85025; 87086; 87088; 87186

== ENCOUNTER 2024-05-22 13:56 | Outpatient (AMB) | payer MEDICARE, MEDICAID, SELFPAY ==
[2024-05-22 14:09] VITALS: BP 150/70; PULSE 67; O2SAT 98; BMI 22.1
--- NOTE | 2024-05-22 14:09 | MHC.PC.OV ---
Vital Signs 05/22/24 14:09 Height 5 ft Weight 113 lb BMI 22.1 BP 150/70 H Blood Pressure Location Lt brachial Position Sitting Pulse 67 Pulse Source Pulse Oximeter Pulse Oximetry (%) 98 Oxygen Delivery Method Room Air Intake Visit Reasons: 4 month f/u Color Mixer: Present Accompanied by: Daughter Allergies meperidine [From DEMEROL] Allergy (Severe, Verified 05/22/24 14:45) HYPOTENSION Penicillins [PENICILLINS] Allergy (Severe, Verified 05/22/24 14:45) HIVES,SWELLING influenza virus vaccine, specific [Influenza Virus Vacc,Specific] Adverse Reaction (Intermediate, Verified 05/22/24 14:45) ASTHMA EXACERBATION Anesthetic Maximum Strength Allergy (Severe, Uncoded 05/22/24 14:45) anaphylaxis Bee Sting Allergy (Unknown, Uncoded 05/22/24 14:45) unknown Medication List - Last Reconciled 05/22/24 by Jose Juan Rendon MD albuterol sulfate 2.5 mg continuous nebulization Q6H PRN albuterol sulfate 90 mcg/actuation 2 puffs PO Q6H PRN aspirin 81 mg PO DAILY atorvastatin 20 mg PO BEDTIME 90 days blood pressure monitor As directed blood sugar diagnostic (FreeStyle Test strips) test bs once a day blood-glucose meter (FreeStyle Lite Meter kit) As directed- To test Blood sugar blood-glucose meter (FreeStyle Lite Meter kit) As directed ONCE A DAY cholecalciferol (vitamin D3) 50 mcg PO DAILY clonazepam 0.25 mg PO BEDTIME PRN 30 days fluticasone propion-salmeterol 500-50 mcg/dose (Advair Diskus) 1 ea PO BID fluticasone propionate 50 mcg/actuation 1 spray intranasal DAILY [FreeStyle LANCETS As directed] [FreeStyle TEST STRIPS As directed] lancets (FreeStyle Lancets) 28 gauge miscellaneous .QD latanoprost 0.005% 1 drp ophthalmic (eye) BEDTIME loratadine 10 mg PO DAILY PRN memantine 28 mg PO DAILY 90 days omalizumab (Xolair) 300 mg subcut Q4W 28 days omeprazole 20 mg PO DAILY PRN polyethylene glycol 3350 (Miralax) 17 grams PO DAILY 30 days sennosides (Senna Lax) Take 1 to 2 tablets orally daily PRN; 30 days valacyclovir 500 mg PO DAILY Tobacco use date assessed: 02/28/24 Fall risk assessment: No Falls in past year Last assessed Fall Risk: 05/22/24 Dental Screening Dental Screen Date: 11/22/23 HPI 4 month f/u HPI Details Patient comes in today for her follow up visit - is accompanied as usual by her daughter today States that she currently feels okay Her daughter states that patient still has on and off confusion but her previous erratic behaviors appear to have subsided somewhat over the past few months Patient denies any headaches or dizziness Denies any chest pains on increased SOB lately No nausea/vomiting, no abdominal pain No change in bowel habits noted Needs her Clonazepam Rx refilled today; also needs a new Rx for adult pull-ups She had her follow up labs done a couple of months ago - to discuss her results FOR[facility] Medical History Dementia Osteoporosis Post-menopausal Cellulitis Overweight (BMI 25.0-29.9) Depression Anxiety Nocturnal leg cramps Vitamin D deficiency Genital herpes in women Ductal carcinoma in situ of right breast Osteoarthritis of knee GERD (gastroesophageal reflux disease) Allergic rhinitis Diabetic neuropathy COPD (chronic obstructive pulmonary disease) Benign essential hypertension Pure hypercholesterolemia Diabetes mellitus Surgical History History of colonoscopy History of total hysterectomy H/O breast surgery Family History Father CVD (cardiovascular disease) Stroke Mother Cancer Other Mental health disorder Social History Housing: Apartment Alcohol intake: never Patient Tobacco Use Status: Never used Tobacco e-Cigarette/Vaping Use: Never Used Second Hand Smoke Exposure: Yes service: No Current occupational status: disabled Cognitive needs: No Hearing needs: Yes Vision needs: Yes Questionnaire Thrive Questionnaire Date Thrive assessed: 11/22/23 ESTEBAN-7 AMB Questionnaire ESTEBAN-7 Date ESTEBAN - 7 assessed: 11/22/23 Source: Developed by Drs. Leonides Hamm, Rehana Tello, Harjinder Buitrago and colleagues, with an educational ronel from [employer]. Review of Systems Const Denies chills, Reports fatigue, Denies fever(s) and Denies headache(s) ENT Denies dysphagia, Denies dizziness, Denies otalgia, Denies headache(s), Denies neck pain, Denies odynophagia and Denies sore throat Card Denies chest pain, Denies palpitations and Denies dyspnea Resp Denies cough and Denies dyspnea GI Denies abdominal pain, Reports constipation (on and off), Denies dysphagia, Reports fecal incontinence (at times, per daughter), Denies diarrhea, Denies nausea, Denies odynophagia and Denies vomiting Denies difficulty voiding, Denies nocturia, Denies dysuria and Reports urinary incontinence Musc Denies back pain, Denies arthralgias and Denies neck pain Skin/Breast Denies rash Neuro Reports as per HPI, Reports behavioral changes (although these have improved from previous), Reports confusion (on and off ), Denies dizziness, Denies headache(s) and Reports memory loss Psych Reports as per HPI, Reports anxiety, Reports behavioral changes (although these have improved from previous), Reports confusion (on and off ), Reports auditory hallucinations, Reports memory loss and Reports visual hallucinations Endo Reports fatigue and Denies palpitations Physical exam (Primary Care) Vital Signs: Last Vital Signs Pulse 67 05/22/24 14:09 BP 150/70 H 05/22/24 14:09 Pulse Ox 98 05/22/24 14:09 Oxygen Delivery Method Room Air 05/22/24 14:09 BMI result Body Mass Index 22.1 Tobacco/Smoking Status: Tobacco use Status Tobacco use date assessed 02/28/24 05/22/24 14:10 Patient Tobacco Use Status Never used Tobacco 05/22/24 14:10 e-Cigarette/Vaping Use Never Used 05/22/24 14:10 Thrive Assessment: Date of Thrive Assessment Date Thrive assessed 11/22/23 05/22/24 14:10 Const General: comfortable, no acute distress and confusion (on and off ) Orientation/consciousness: confusion (on and off ) HENMT Ears: TM's normal bilaterally and EAC's normal Throat: Yes posterior oropharynx normal and Yes tonsils normal (no TP congestion) Neck Neck: Yes no lymphadenopathy and Yes supple Thyroid: Thyroid normal Resp Auscultation: clear to auscultation bilaterally, no rales and no wheezes Cardio Rate: regular rate Rhythm: regular rhythm Heart sounds: no murmurs GI Palpation (GI): Soft to palpation and nontender Auscultation: normal bowel sounds General: Yes no CVA tenderness Back/Spine/Pelvis Back: no CVA tenderness Thoracic/Lumbar Spine: No lumbar spinal tenderness Skin Rashes: no rashes Neuro General: confusion (on and off ) Extrem General: Yes no clubbing, cyanosis or edema Results Reviewed Results Reviewed: Laboratory Tests 03/22/24 03/22/24 09:27 09:30 WBC 7.8 Hgb 13.9 Hct 41.2 Plt Count 283 Sodium 136 Potassium 4.6 Creatinine 0.63 Estimated GFR > 60 Fasting Glucose 138 H Hemoglobin A1c % 6.6 H Calcium 9.9 AST 16 ALT 23 Triglycerides 87 Cholesterol 141 LDL Cholesterol, Calc 72 HDL Cholesterol 52 Vitamin B12 991 H 25-OH Vitamin D Total 28.6 L TSH 0.92 Ur Specific [place] 1.010 Urine Protein Negative Urine Glucose (UA) Negative Urine Blood Negative Urine Nitrite Positive H Ur Leukocyte Esterase Large (3+) H Microalb/Creat Ratio 9.3 Assessment and Plan Assessment & Plan (1) Pure hypercholesterolemia: Code(s): E78.00 - Pure hypercholesterolemia, unspecified Plan: Results of her labs done a couple of months ago reviewed and discussed with patient and her daughter - her cholesterol numbers have improved again significantly from previous now that she is back on her meds (her Atorvastatin 40 mg QD was apparently stopped by [facility] last year) Continue Atorvastatin 20 mg QD Will recheck her labs and fasting lipids in 4 months for follow-up (2) Diabetes mellitus: Code(s): E11.9 - Type 2 diabetes mellitus without complications Qualifiers: Diabetes mellitus type: type 2 Diabetes mellitus ferry terminal supervisor insulin use: without ferry terminal supervisor use Diabetes mellitus complication status: with neurologic complications Diabetes mellitus complication detail: with polyneuropathy Qualified Code(s): E11.42 - Type 2 diabetes mellitus with diabetic polyneuropathy Plan: Her HgbA1c was at 6.6% on her labs done a couple of months ago (was at 5.9% earlier this year) - goal is <7.0% Reinforced diabetic diet Patient is still not on any medications for her diabetes and would like to continue with diet modification alone for now Have advised them that her HgbA1c has been progressively increasing over the past year - she was at 5.3% about a year ago and is now at 6.6% Advised that if this goes up further at her next appt, then we will really need to consider starting her on Rx for her blood sugar Will recheck her FBS and HgbA1c in 4 months for follow up (3) Benign essential hypertension: Code(s): I10 - Essential (primary) hypertension Plan: Reinforced low-sodium diet - goal is systolic BP of at least 130 to 140 mm or less Patient's daughter is reminded to continue monitoring patient's blood pressure regularly (4) COPD (chronic obstructive pulmonary disease): Code(s): J44.9 - Chronic obstructive pulmonary disease, unspecified Qualifiers: COPD type: unspecified COPD Qualified Code(s): J44.9 - Chronic obstructive pulmonary disease, unspecified Plan: Continue Advair Diskus 500-50 mcg 1 inhalation BID. ProAir HFA 2 puffs 4 times a day as needed; she was also on Xolair injections 300 mg Q 4 weeks but patient has refused to go get her shots recently Patient also has Albuterol solution that she uses with her [employer] machine when needed Her respiratory symptoms have improved significantly with Xolair injections 300 mg SQ every 4 weeks over the past couple of years and patient is advised to REconsider getting them again regularly Follow-up with pulmonary as scheduled (5) Diabetic neuropathy: Code(s): E11.40 - Type 2 diabetes mellitus with diabetic neuropathy, unspecified Qualifiers: Diabetes mellitus type: type 2 Diabetes mellitus complication detail: diabetic polyneuropathy Qualified Code(s): E11.42 - Type 2 diabetes mellitus with diabetic polyneuropathy Plan: States that her neuropathic symptoms have remained stable and tolerable - no additional intervention is needed at this time (6) Dementia: Code(s): F03.90 - Unspecified dementia, unspecified severity, without behavioral disturbance, psychotic disturbance, mood disturbance, and anxiety Qualifiers: Dementia type: unspecified type Dementia severity: moderate Dementia behavioral or psychological symptom: with other behavioral disturbance Qualified Code(s): F03.B18 - Unspecified dementia, moderate, with other behavioral disturbance Plan: She was referred to and seen by neurology a few months ago and has been started on Memantine ER - is currently on Memantine ER 28 mg QD She was also experiencing some visual and auditory hallucinations a few months ago with her declining cognition but these seem to have calmed down a lot recently Follow up [facility] as scheduled (7) Allergic rhinitis: Code(s): J30.9 - Allergic rhinitis, unspecified Qualifiers: Allergic rhinitis trigger: unspecified Allergic rhinitis seasonality: unspecified Qualified Code(s): J30.9 - Allergic rhinitis, unspecified Plan: Continue Fluticasone 50 mcg nasal spray QD PRN and Loratadine 10 mg QD PRN (8) GERD (gastroesophageal reflux disease): Code(s): K21.9 - Gastro-esophageal reflux disease without esophagitis Qualifiers: Esophagitis presence: without esophagitis Qualified Code(s): K21.9 - Gastro-esophageal reflux disease without esophagitis Plan: Dietary? restrictions reinforced Continue Omeprazole 20 mg QD (9) Osteoarthritis of knee: Code(s): M17.10 - Unilateral primary osteoarthritis, unspecified knee Qualifiers: Osteoarthritis type: primary Laterality: unspecified laterality Qualified Code(s): M17.10 - Unilateral primary osteoarthritis, unspecified knee Plan: Continue Tramadol 50 mg TID PRN Follow-up with Orthopedics as scheduled (10) 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 Code(s): D05.11 - Intraductal carcinoma in situ of right breast Plan: S/P Tx with Tamoxifen x 5 years Follow-up with Oncology as scheduled for continuing surveillance (11) Osteoporosis: Code(s): M81.0 - Age-related osteoporosis without current pathological fracture Qualifiers: Osteoporosis type: age-related Presence of current pathological fracture: without current pathological fracture Qualified Code(s): M81.0 - Age-related osteoporosis without current pathological fracture Plan: BMD done in June 2021 revealed (+) osteoporosis, with a T score of -3.2 Patient encouraged to continue with daily calcium and vitamin-D supplements Reinforced fall precautions To consider treatment of her osteoporosis with oral bisphosphonates but patient is concerned about side effects due to her pre-existing GI issues, including GERD; is also concerned about other treatment options and the potential side effects - would like to hold off on Rx (12) Vitamin D deficiency: Code(s): E55.9 - Vitamin D deficiency, unspecified Plan: Continue Vitamin D3 2000 units QD (13) Nocturnal leg cramps: Code(s): G47.62 - Sleep related leg cramps Plan: Continue Tizanidine 4 mg daily at bedtime as needed (14) Constipation: Code(s): K59.00 - Constipation, unspecified Qualifiers: Constipation type: unspecified constipation type Qualified Code(s): K59.00 - Constipation, unspecified Plan: Reinforced increased oral fluids and dietary fiber Continue Senna 8.6 mg 1 to 2 tablets QD PRN (15) Genital herpes in women: Code(s): A60.09 - Herpesviral infection of other urogenital tract Plan: She remains on chronic suppressive Tx with Valacyclovir 500mg QD - 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 (16) Unsteady gait: Code(s): R26.81 - Unsteadiness on feet Plan: Patient has been noted to be very unsteady over the past few years and has fallen a few times recently - this is most likely multifactorial, including her neuropathy, age, frailty and overall generalized weakness She uses a walker all the time now when ambulating and has been advised by family multiple times not to try navigating stairs on her own but patient reportedly often forgets her instructions She currently has [employer] services of 18 hours during the day and 2 hours at night Patient lives alone in her own apartment and does not wish to move out to an assisted living facility or a alf Fall precautions reinforced to family (17) Orthostasis: Code(s): I95.1 - Orthostatic hypotension Plan: Have reminded patient and her daughter to make sure that she stays adequately hydrated to help minimize her symptoms Have also reminded patient to avoid abrupt and rapid changes in position, which can trigger her symptoms often She is currently not on any medications that can affect her blood pressure (18) Anxiety: Code(s): F41.9 - Anxiety disorder, unspecified Plan: Continue Clonazepam? 0.25 mg 1/2 to 1 tablet once a day at bedtime as needed - Rx refilled (19) Depression: Code(s): F32.9 - Major depressive disorder, single episode, unspecified Qualifiers: Depression Type: unspecified Qualified Code(s): F32.A - Depression, unspecified Plan: Folow up with Psychiatry as scheduled Plan Follow up in 4 months Orders: Orders Hemoglobin A1c 4 Months E11.9 - Type 2 diabetes mellitus without complications TSH reflex Free T4 4 Months E78.00 - Pure hypercholesterolemia, unspecified Vitamin B12 and Folate 4 Months E53.8 - Deficiency of other specified B group vitamins Erythrocyte Sedimentation Rate 4 Months M79.7 - Fibromyalgia Complete Blood Count Auto Diff 4 Months D64.9 - Anemia, unspecified Lipid Panel 4 Months E78.00 - Pure hypercholesterolemia, unspecified Comprehensive [place]. Panel Fast 4 Months E78.00 - Pure hypercholesterolemia, unspecified UA CC w/rflx Micro + Cult 4 Months R30.0 - Dysuria Microalbumin, Random (w Creat) 4 Months E11.9 - Type 2 diabetes mellitus without complications Vitamin D 25-OH Total 4 Months E55.9 - Vitamin D deficiency, unspecified Medications: New [ADULT PULL-UPS (medium)] As directed 100 ea 12RF F03.B18 - Unspecified dementia, moderate, with other behavioral disturbance, R15.9 - Full incontinence of feces, R32 - Unspecified urinary incontinence Refilled clonazepam administer 30 minutes before bedtime 0.25 mg PO BEDTIME 30 days PRN 30 tabs 1RF anxiety F41.9 - Anxiety disorder, unspecified Coding Level of Care Code Est Pt Level 4 (20837) Complex EM visit Add On G2211 Diagnoses Pure hypercholesterolemia E78.00 Type 2 diabetes mellitus with diabetic polyneuropathy, without long-term current use of insulin E11.42 Diabetes mellitus type: type 2 Diabetes mellitus ferry terminal supervisor insulin use: without ferry terminal supervisor use Diabetes mellitus complication status: with neurologic complications Diabetes mellitus complication detail: with polyneuropathy Benign essential hypertension I10 Chronic obstructive pulmonary disease, unspecified COPD type J44.9 COPD type: unspecified COPD Diabetic polyneuropathy associated with type 2 diabetes mellitus E11.42 Diabetes mellitus type: type 2 Diabetes mellitus complication detail: diabetic polyneuropathy Moderate dementia with other behavioral disturbance, unspecified dementia type F03.B18 Dementia type: unspecified type Dementia severity: moderate Dementia behavioral or psychological symptom: with other behavioral disturbance Allergic rhinitis, unspecified seasonality, unspecified trigger J30.9 Allergic rhinitis trigger: unspecified Allergic rhinitis seasonality: unspecified Gastroesophageal reflux disease without esophagitis K21.9 Esophagitis presence: without esophagitis Primary osteoarthritis of knee, unspecified laterality M17.10 Osteoarthritis type: primary Laterality: unspecified laterality Ductal carcinoma in situ of right breast D05.11 Age-related osteoporosis without current pathological fracture M81.0 Osteoporosis type: age-related Presence of current pathological fracture: without current pathological fracture Vitamin D deficiency E55.9 Nocturnal leg cramps G47.62 Constipation, unspecified constipation type K59.00 Constipation type: unspecified constipation type Genital herpes in women A60.09 Unsteady gait R26.81 Orthostasis I95.1 Anxiety F41.9 Depression, unspecified depression type F32.A Depression Type: unspecified
== END 2024-05-22 14:56 | disposition home or self-care (01) ==
PROVIDERS: PCP Internal Medicine; Visit Provider Internal Medicine
DX: E78.00 Pure hypercholesterolemia, unspecified (principal); E11.42 Type 2 diabetes mellitus with diabetic polyneuropathy; J44.9 Chronic obstructive pulmonary disease, unspecified; F03.B18 Unspecified dementia, moderate, with other behavioral disturbance; I10 Essential (primary) hypertension; J30.9 Allergic rhinitis, unspecified; K21.9 Gastro-esophageal reflux disease without esophagitis; D05.11 Intraductal carcinoma in situ of right breast; M81.0 Age-related osteoporosis without current pathological fracture; E55.9 Vitamin D deficiency, unspecified; G47.62 Sleep related leg cramps
CPT/HCPCS: 99214; G2211

== ENCOUNTER 2024-07-04 14:24 | Outpatient (AMB) | payer MEDICARE, MEDICAID, SELFPAY ==
[2024-07-04 14:27] VITALS: BP 132/67; PULSE 74; O2SAT 98; BMI 22.8
--- NOTE | 2024-07-04 14:27 | MHC.OFFVIS ---
Vital Signs 07/04/24 14:27 Height 5 ft Weight 116 lb 13.52 oz BMI 22.8 BP 132/67 Blood Pressure Location Rt brachial Position Sitting Pulse 74 Pulse Source Doppler Pulse Oximetry (%) 98 Oxygen Delivery Method Room Air Intake Visit Reasons: asthma Allergies meperidine [From DEMEROL] Allergy (Severe, Verified 05/22/24 14:45) HYPOTENSION Penicillins [PENICILLINS] Allergy (Severe, Verified 05/22/24 14:45) HIVES,SWELLING influenza virus vaccine, specific [Influenza Virus Vacc,Specific] Adverse Reaction (Intermediate, Verified 05/22/24 14:45) ASTHMA EXACERBATION Anesthetic Maximum Strength Allergy (Severe, Uncoded 05/22/24 14:45) anaphylaxis Bee Sting Allergy (Unknown, Uncoded 05/22/24 14:45) unknown HPI HPI asthma: Details: 79-year-old lady, lifetime nonsmoker, followed for underlying 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 She previously has been using Xolair, Advair 500, and duo nebs with good control of her symptoms, however over the last 2 months secondary to depressive episode she did not want to get out of the house and stop his Xolair injections with worsening control her symptoms. At this time she wants to restart her Xolair. She denies any acute exacerbations. [facility] Medical History Dementia Osteoporosis Post-menopausal Cellulitis Overweight (BMI 25.0-29.9) Depression Anxiety Nocturnal leg cramps Vitamin D deficiency Genital herpes in women Ductal carcinoma in situ of right breast Osteoarthritis of knee GERD (gastroesophageal reflux disease) Allergic rhinitis Diabetic neuropathy COPD (chronic obstructive pulmonary disease) Benign essential hypertension Pure hypercholesterolemia Diabetes mellitus Surgical History History of colonoscopy History of total hysterectomy H/O breast surgery Family History Father CVD (cardiovascular disease) Stroke Mother Cancer Other Mental health disorder Social History Housing: Apartment Alcohol intake: never Patient Tobacco Use Status: Never used Tobacco e-Cigarette/Vaping Use: Never Used Second Hand Smoke Exposure: Yes service: No Current occupational status: disabled Cognitive needs: No Hearing needs: Yes Vision needs: Yes Review of Systems Const Denies daytime sleepiness, Denies excessive sweating, Denies fatigue, Denies fever(s), Denies lethargy, Denies malaise, Denies night sweats, Denies snoring and Denies weight loss Eyes Denies blurry vision and Denies itchy eyes ENT Denies nasal congestion, Denies post nasal drip, Denies sinus pain, Denies sinus pressure and Denies other ( Thrush) Card Denies chest pain, Denies pedal edema, Denies dyspnea, Reports dyspnea on exertion, Denies orthopnea and Denies paroxysmal nocturnal dyspnea Resp Denies cough, Denies hemoptysis, Denies excessive phlegm production, Denies dyspnea, Reports dyspnea on exertion, Denies snoring and Denies wheezing GI Denies abdominal pain and Denies heartburn Musc Denies myalgias, Denies arthralgias and Denies joint swelling Skin/Breast Denies rash Neuro Denies memory loss and Denies seizure-like activity Psych Denies abnormal sleep pattern, Denies anxiety and Denies memory loss Endo Denies excessive sweating, Denies fatigue and Denies heat intolerance Iggy/Lymph Denies easy bruising Aller/Immun Denies itchy eyes, Denies seasonal rhinorrhea and Denies wheezing Physical Exam Vital Signs: Last Vital Signs Pulse 74 07/04/24 14:27 BP 132/67 07/04/24 14:27 Pulse Ox 98 07/04/24 14:27 Oxygen Delivery Method Room Air 07/04/24 14:27 BMI result Body Mass Index 22.8 Const General: no acute distress and alert Nutritional Appearance: not obese Orientation/consciousness: Other orientation findings ( oriented) HEENT Head: Yes atraumatic Eyes General: appearance normal, both eyes and all related structures Sclerae: sclerae normal EOM: EOMs intact bilaterally Neck Neck: Yes supple Lymphatic: no lymphadenopathy noted Resp Effort & Inspection: normal respiratory effort and no use of accessory muscles Auscultation: clear to auscultation bilaterally Cardio Rate: regular rate Rhythm: regular rhythm Heart sounds: no gallops, no murmurs and no rubs Skin General skin exam: other ( warm) Extrem General: No clubbing, No cyanosis and No edema Assessment & Plan Assessment & Plan (1) Asthma: Code(s): Galina45.909 - Unspecified asthma, uncomplicated Category: Medical Plan: Suboptimally controlled of Xolair. Restart Xolair. Continue Advair and albuterol MDI/nebs. (2) Environmental allergies: Code(s): Z91.09 - Other allergy status, other than to drugs and biological substances Category: Medical Plan: Poor control of Xolair. Expect to improve after restarting Xolair. Coding Level of Care Code Est Pt Level 4 (84202) Diagnoses Asthma J45.909 Environmental allergies Z91.09
== END 2024-07-04 14:42 | disposition home or self-care (01) ==
PROVIDERS: PCP Internal Medicine; Visit Provider Internal Medicine Pulmonary Disease
DX: J45.909 Unspecified asthma, uncomplicated (principal); Z91.09 Other allergy status, other than to drugs and biological substances
CPT/HCPCS: 99214

== ENCOUNTER → 2024-07-04 14:24 | Outpatient (BNVA) | payer MEDICARE, MEDICAID, SELFPAY | PROVIDERS: PCP Internal Medicine; Visit Provider Internal Medicine Pulmonary Disease | DX: J45.909 Unspecified asthma, uncomplicated (principal); Z91.09 Other allergy status, other than to drugs and biological substances | CPT/HCPCS: 99212 ==

== ENCOUNTER 2024-07-15 14:00 | Outpatient (AMB) | payer MEDICARE, MEDICAID, SELFPAY ==
[2024-07-15 14:03] VITALS: PULSE 75; O2SAT 98; BMI 22.7
--- NOTE | 2024-07-15 14:03 | A.OFFVIS_ITS ---
Vital Signs 07/15/24 14:03 Height 5 ft Weight 116 lb BMI 22.7 Pulse 75 Pulse Source Pulse Oximeter Pulse Oximetry (%) 98 Oxygen Delivery Method Room Air Intake Visit Reasons: Follow Up Intake Note: Patient presents for follow up. Patient forgets everything she forgets she leaves stove on. Allergies meperidine [From DEMEROL] Allergy (Severe, Verified 07/15/24 14:07) HYPOTENSION Penicillins [PENICILLINS] Allergy (Severe, Verified 07/15/24 14:07) HIVES,SWELLING influenza virus vaccine, specific [Influenza Virus Vacc,Specific] Adverse Reaction (Intermediate, Verified 07/15/24 14:07) ASTHMA EXACERBATION Anesthetic Maximum Strength Allergy (Severe, Uncoded 07/15/24 14:07) anaphylaxis Bee Sting Allergy (Unknown, Uncoded 07/15/24 14:07) unknown Medication List - Last Reconciled 07/15/24 by SOFIE Gonzalez [ADULT PULL-UPS (medium) As directed] albuterol sulfate 2.5 mg continuous nebulization Q6H PRN albuterol sulfate 90 mcg/actuation 2 puffs PO Q6H PRN aspirin 81 mg PO DAILY atorvastatin 20 mg PO BEDTIME 90 days blood pressure monitor As directed blood sugar diagnostic (FreeStyle Test strips) test bs once a day blood-glucose meter (FreeStyle Lite Meter kit) As directed- To test Blood sugar blood-glucose meter (FreeStyle Lite Meter kit) As directed ONCE A DAY cholecalciferol (vitamin D3) 50 mcg PO DAILY clonazepam 0.25 mg PO BEDTIME PRN 30 days fluticasone propion-salmeterol 500-50 mcg/dose (Advair Diskus) 1 ea PO BID fluticasone propionate 50 mcg/actuation 1 spray intranasal DAILY [FreeStyle LANCETS As directed] [FreeStyle TEST STRIPS As directed] lancets (FreeStyle Lancets) 28 gauge miscellaneous .QD latanoprost 0.005% 1 drp ophthalmic (eye) BEDTIME loratadine 10 mg PO DAILY PRN memantine 28 mg PO DAILY omalizumab (Xolair) 300 mg subcut Q4W 28 days omeprazole 20 mg PO DAILY PRN polyethylene glycol 3350 (Miralax) 17 grams PO DAILY 30 days sennosides (Senna Lax) Take 1 to 2 tablets orally daily PRN; 30 days valacyclovir 500 mg PO DAILY HPI Comments Details: 79-yr-old female presents for f/u visit. Pt is accompanied by her dtr Angelica, who asists w/ hsitory. Dtr notes that pt has had memory issues ofr many yrs, sicne atleats 1999, however the memory issues are becoming worse. Pt and dtr note she is easily forgetting things, repeating herself. Pt has started telling her dtr stories that do not make sense- as if she is mixing up other family member's stories w/ her own. Pt told her dtr she was a twin- but dtr is confident that she was not- states she was a full-term 9lb baby. Pt may try to cook while no one is with her, but she still tries to cook and will forget that she is cooking. She will forget that her dtr has asked her to wait before trying to walk down her stairs. 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 She is having difficulty swallowing her meds- opening up capsules or chewing her pills. States difficulty with swallowing foods and solids as well. Has been losing weight. Dtr has cameras to supervise her. Dtr clarifies previous mention of seizure dx- pt had a fall which was possible attributed to seizure. Pt also is prone to not right in space dizziness with movement. Tried vestibular tx ~ 4 yrs ago but worsened dizziness so stopped. After a fall last yr, work-up revealed a chronic right cerebellar lacunar infarct. Pt's mother and her siblings all have memory difficulties. 05/2023, MRI Brain W/O Contrast, 1. No acute/subacute infarct, mass, hemorrhage, or other acute intracranial abnormality. 2. Possible small chronic lacunar infarct in the right cerebellar hemisphere. Mild scattered T2/FLAIR hyperintense foci in the white matter, nonspecific but most likely reflecting chronic small vessel disease. 05/2023, CT Angio Head Hyperacute Stroke, CT Angio Neck Hyperacute Stroke, 1. There is no large vessel occlusion or high-grade stenosis in the [place]. 2. Narrowing of both subclavian artery origins, moderate on the right and severe on the left. 3. Nonspecific right upper lobe lung nodule. [facility] Medical History Dementia Osteoporosis Post-menopausal Cellulitis Overweight (BMI 25.0-29.9) Depression Anxiety Nocturnal leg cramps Vitamin D deficiency Genital herpes in women Ductal carcinoma in situ of right breast Osteoarthritis of knee GERD (gastroesophageal reflux disease) Allergic rhinitis Diabetic neuropathy COPD (chronic obstructive pulmonary disease) Benign essential hypertension Pure hypercholesterolemia Diabetes mellitus Surgical History History of colonoscopy History of total hysterectomy H/O breast surgery Family History Father CVD (cardiovascular disease) Stroke Mother Cancer Other Mental health disorder Social History Housing: Apartment Alcohol intake: never Patient Tobacco Use Status: Never used Tobacco e-Cigarette/Vaping Use: Never Used Second Hand Smoke Exposure: Yes service: No Current occupational status: disabled Cognitive needs: No Hearing needs: Yes Vision needs: Yes Physical Exam Vital Signs: Last Vital Signs Pulse 75 07/15/24 14:03 Pulse Ox 98 07/15/24 14:03 Oxygen Delivery Method Room Air 07/15/24 14:03 BMI result Body Mass Index 22.7 Const General: cooperative and no acute distress Orientation/consciousness: oriented to person Resp Effort & Inspection: normal respiratory effort and able to speak in complete sentences Neuro Other: Pt unable to state date or whwere we are or what this type of building/clinic is for. Dizziness upon standing. General: oriented to person Cranial nerves: Yes CN's II-XII intact bilaterally Psych Appearance: grossly normal Mental Status: mental status grossly normal Speech and movement: Normal speech and movement present Affect: normal affect Attitude: cooperative Assessment & Plan Assessment & Plan (1) Dementia: Code(s): F03.90 - Unspecified dementia, unspecified severity, without behavioral disturbance, psychotic disturbance, mood disturbance, and anxiety Category: Medical Qualifiers: Dementia type: unspecified type Dementia severity: moderate Dementia behavioral or psychological symptom: with other behavioral disturbance Qualified Code(s): F03.B18 - Unspecified dementia, moderate, with other behavioral disturbance (2) Difficulty swallowing: Code(s): R13.10 - Dysphagia, unspecified Category: Medical (3) Vertigo: Code(s): R42 - Dizziness and giddiness Category: Medical Plan Continue supportive care- pt likely needs more DIALYSIS CHIEF EQUIPMENT TECHNICIAN hrs or supervised care. Pt should not cook on her own. Continue Menatine ER 28mg qd. EEG to assess for epileptic etiologies of cognitive difficulties. Labs to round out cognitive dysfunction work-up. Will refer for Fl barium swallow and STORES DESPATCH HAND eval & tx for difficulty swallowing. Upon review/completion of above- consider referring abck for vestibular eval & tx. Pt to follow-up in 6 months or sooner prn. Orders: Orders HIV Ab/Ag Today F03.B18 - Unspecified dementia, moderate, with other behavioral disturbance FL barium swallow Today F03.B18 - Unspecified dementia, moderate, with other behavioral disturbance, R13.10 - Dysphagia, unspecified EEG electroencephalogram Today F03.B18 - Unspecified dementia, moderate, with other behavioral disturbance CRP High Sensitivity Today F03.B18 - Unspecified dementia, moderate, with other behavioral disturbance Syphilis Screen Today F03.B18 - Unspecified dementia, moderate, with other behavioral disturbance Referrals Speech and Hearing Referral F03.B18 - Unspecified dementia, moderate, with other behavioral disturbance, R13.10 - Dysphagia, unspecified Coding Level of Care Code Est Pt Level 4 (60087) Diagnoses Moderate dementia with other behavioral disturbance, unspecified dementia type F03.B18 Dementia type: unspecified type Dementia severity: moderate Dementia behavioral or psychological symptom: with other behavioral disturbance Difficulty swallowing R13.10 Vertigo R42
== END 2024-07-15 15:19 | disposition home or self-care (01) ==
PROVIDERS: PCP Internal Medicine; Visit Provider Nurse Practitioner Family
DX: F03.B18 Unspecified dementia, moderate, with other behavioral disturbance (principal); R13.10 Dysphagia, unspecified; R42 Dizziness and giddiness
CPT/HCPCS: 99214

== ENCOUNTER → 2024-07-15 14:00 | Outpatient (BNVA) | payer MEDICARE, MEDICAID, SELFPAY | PROVIDERS: PCP Internal Medicine; Visit Provider Nurse Practitioner Family | DX: F03.B18 Unspecified dementia, moderate, with other behavioral disturbance (principal); R42 Dizziness and giddiness; R13.10 Dysphagia, unspecified | CPT/HCPCS: 99212 ==

== ENCOUNTER 2024-09-02 13:59 | Outpatient (REF) | payer MEDICARE, MEDICAID, SELFPAY ==
--- NOTE | ~2024-09-02 | FL_ITS ---
EXAMINATION: Modified Barium Swallow CLINICAL INFORMATION: Dysphagia COMPARISON: None TECHNIQUE: Modified barium swallow was performed under lateral fluoroscopy with patient in standing position. Barium mixed with solids and liquids of different consistencies was administered by the speech pathologist. Examination was recorded in the fluoroscopy suite. FINDINGS: No laryngeal penetration or aspiration was observed during this examination. FLUOROSCOPY TIME: 3 minutes 18 seconds Number of Spot Images: N/A DOSE AREA PRODUCT: 1751 uGy-m2 (microgray-meter squared) FL/FL Modified Barium Swallow IMPRESSION: No laryngeal penetration or aspiration was observed during this examination. Refer to the speech therapy report for further clarification This procedure was performed by Jamie Sam PA-C, and supervised by Dr. Kerr Electronically signed by: Chris Kerr MD 09/03/2024 12:40 PM [facility]
--- NOTE | 2024-09-03 11:23 | MHC.SL.IMP ---
Date of Plan of Treatment: 09/02/24 Onset of Symptoms/Illness: 09/02/23 Date Treatment Started: 09/02/24 Admitting Diagnosis: Dysphagia Primary Speech & Language Diagnosis: R13.12 Oropharyngeal Phase Dysphagia Reason for Today's Visit: 37973 Modified Barium Swallow Study Pre-evaluation Dietary Consistencies: Regular Pre-evaluation Liquid Consistency: Thin Pre-evaluation Medication Administration: Opening capsules/chewing pills Medical History: Modified Barium Swallow Study Fluoroscopic Evaluation of Swallowing Function CPT Code 33145 Evaluation Year: 2023 Reason for Study: Difficulty swallowing Referring Physician: Melia CARRIZALES Evaluating Clinician: Rula Paniagua MA, CCC-SR. SOCIAL MEDIA & MOBILE MANAGER Study Number: 1 Patient Name: Lianne Perkins Status: Outpatient, Ambulatory/Assisted Age: 79 Gender: Female Medical History Medical History Dementia Osteoporosis Post-menopausal Cellulitis Overweight (BMI 25.0-29.9) Depression Anxiety Nocturnal leg cramps Vitamin D deficiency Genital herpes in women Ductal carcinoma in situ of right breast Osteoarthritis of knee GERD (gastroesophageal reflux disease) Allergic rhinitis Diabetic neuropathy COPD (chronic obstructive pulmonary disease) Benign essential hypertension Pure hypercholesterolemia Diabetes mellitus Surgical History History of colonoscopy History of total hysterectomy H/O breast surgery Current (pre-evaluation) Intake/Diet: Route: PO Diet Grade: Regular Liquid Consistencies: Thin Pre-Study Functional Oral Intake Scale (FOIS): 7- Total oral intake with no restrictions Pain: None reported at time of study SUBJECTIVE: Patient is a 79 year old female referred for a modified barium swallow study by Melia CARRIZALES from the [facility] in [place]. Patient was accompanied to this exam by her daughter, Angelica, who assisted in providing background information. Patient reports she has been losing weight unintentionally and has difficulty swallowing her meds. She has been chewing her meds and opening capsules in order to swallow them. She also reports choking on solids and liquids, with her daughter adding that patient has a tendency to ?eat quickly? and ?needs to slow down.? Patient denies odynophagia, but describes discomfort and globus sensation in her throat after swallowing. Patient is on a cardiac diet, but does not otherwise modify textures. Patient and her daughter report these difficulties have been present for over a year and deny having been seen by a speech pathologist in the past for this concern. Pertinent medical history includes dementia, COPD, GERD, allergic rhinitis, and diabetes mellitus. Food and Liquid Trials: Oral Impairment: Lip Closure: 0=No labial escape Oral Impairment: Tongue Control During Bolus Hold: Did not test Oral Impairment: Bolus Preparation/Mastication: 1=Slow prolonged chewing/mashing with complete re-collection Oral Impairment: Bolus Transport/Lingual Motion: 2=Slowed tongue motion Oral Impairment: Oral Residue: 2=Residue collection on oral structures Oral Impairment:Initiation of Pharyngeal Swallow: 1=Bolus head in valleculae Pharyngeal Impairment: Soft Palate Elevation: 0=No bolus between soft palate (SP)/pharyngeal wall (PW) Pharyngeal Impairment: Laryngeal Elevation: 1=Partial thyroid cartilage/arytenoids to epiglottic petiole movement Pharyngeal Impairment: Anterior Hyoid Excursion: 1=Partial anterior movement Pharyngeal Impairment: Epiglottic Movement: 0=Complete inversion Pharyngeal Impairment: Laryngeal Vestibular Closure:: 0=Complete: no air/contrast in laryngeal vestibule Pharyngeal Impairment: Pharyngeal Stripping Wave: 0=Present: complete Pharyngeal Impairment: Pharyngeal Contraction: Did not test Pharyngeal Impairment: Pharyngoesophageal Segment Openin=Partial distention/partial duration: partial obstruction of flow Pharyngeal Impairment: Tongue Base (TB) Retraction: 2=Narrow column of contrast/air between TB and posterior PW Pharyngeal Impairment: Pharyngeal Residue: 2=Collection of residue within or on pharyngeal structures Pharyngeal Impairment: Esophageal Clearance Upright Position: Did not test Impressions and Recommendations Clinical Observations: OBJECTIVE: Time-out: performed at 15:00 Evaluation Start: 14:30; Stop: 14:35 Patient Positioning: Seated 70-90 degrees Viewing Planes: LATERAL ONLY Contrast: MBSImP? Standardized Protocol using commercially prepared, standardized Barium viscosities, including: Varibar? THIN LIQUID (40% w/v, <15 cps) , Varibar? PUDDING (40% w/v, <2386-5337 cps) , 1/2 Shortbread Cookie (1 x1 x.25 ) MBSImP ID: [id number] MBSImP Results: Lip closure for intraoral bolus containment resulted in no labial escape. Tongue control during bolus hold could not be assessed due to logistical reasons not related to physiologic impairment. Bolus preparation and mastication resulted in slow, prolonged chewing/mashing but with complete re-collection. Bolus transport/lingual motion was with slowed tongue motion. Oral residue was a collection on oral structures. Initiation of the pharyngeal swallow occurred when the bolus head was in the valleculae. Soft palate elevation resulted in no bolus between the soft palate and the pharyngeal wall. Laryngeal elevation was decreased, with partial superior movement of the thyroid cartilage/partial approximation of the arytenoids to the epiglottic petiole. Anterior hyoid excursion demonstrated partial anterior movement. Epiglottic movement resulted in complete inversion. Laryngeal vestibular closure was complete, as indicated by no air or contrast within the laryngeal vestibule at the height of the swallow. Pharyngeal stripping wave was present and complete. Pharyngeal contraction could not be determined due to logistical reasons not related to physiologic impairment. Pharyngoesophageal segment opening demonstrated partial distension/partial duration, with partial obstruction of bolus flow. Tongue base retraction allowed a narrow column of contrast or air between the retracted tongue base and the posterior pharyngeal wall. Pharyngeal residue was a collection of residue within or on pharyngeal structures. Esophageal clearance in the upright position could not be assessed due to logistical reasons not related to physiologic impairment. Oral Impairment Score: 6 (absence of score, component 2) Pharyngeal Impairment Score: 7 (absence of score, component 13) Esophageal Impairment Score: --- (absence of score, component 17) Laryngeal Penetration and Aspiration: Neither penetration nor aspiration was observed in today's study with Cookie, Pudding-thick, Thin. ASSESSMENT: Clinician Assessment: This exam was conducted by the speech pathologist and the radiologist. Patient was seated upright at 90 degrees for lateral view only. She trialed thin (individual cup sips, rapid cup sips), puree, soft solid, and regular solid textures. Patient demonstrated adequate labial seal with no anterior escape. Mastication was slowed and prolonged. Posterior lingual movement also slowed at times as well. There was mild lingual residue, which was reduced with dry swallows or a liquid wash. Pharyngeal swallow trigger initiated as the bolus head reached the valleculae. No evidence of nasopharyngeal reflux. Partial laryngeal elevation. Complete epiglottic inversion. Complete laryngeal vestibular closure with good airway protection. No evidence of aspiration or penetration during this exam. There was mild collection of residue on the tongue base and in the valleculae, which effectively cleared with liquid wash. Partial distention and partial duration noted through the pharyngoesophageal segment opening. Patient refused to swallow whole barium pill, stated, she?d ?have to chew it? and ?cannot do it.? Patient coughing throughout trials with exam showing no evidence of aspiration or penetration. Patient also complained of globus at the end of the exam, though she evidenced good oral and pharyngeal clearance with strategies. The following compensatory strategies have not been used until today's study, but when employed, improved swallowing function: Liquid Wash decreased Oral Residue, Pharyngeal Residue Additional Swallow(s) per Bolus decreased Oral Residue, Pharyngeal Residue Liquid Intake Recommendation: Thin Liquid Intake Strategies: Small Sips, Double Swallow Dietary Recommendations: Regular Medication Administration: Crushed with Puree Please contact the pharmacy regarding appropriate crushable or liquid drug formulations that are available whenever modified delivery is recommended. Compensatory Strategies Recommended: Sitting Upright (90 deg), Double Swallow, Small Bites and Sips, Alternate Liquids/Solids, Rate of Ingestion Change, Avoid Specific Foods Recommendation for Speech Therapy: NA:Typical Evaluation Text Comment: Intake Recommendations: Route: PO Diet Grade: Regular Liquid Consistencies: Thin Post-Study Functional Oral Intake Scale (FOIS): 6- Total oral intake with no special preparation, but must avoid specific foods or liquid items Mildly slowed oral phase. Good airway protection. No evidence of aspiration or penetration during this exam. Mild residue in the oral and pharyngeal cavities mostly cleared with dry swallows and liquid wash. Recommend patient continue on regular texture diet, but avoid foods which are tougher or more difficult to chew, thin liquids, with pills crushed in puree. Patient is advised to take small bites, chew food well, employ dry swallow between bites and alternate with sips of liquid. Patient to remain upright during PO intake and for at least 30 minutes afterwards as a precaution to suspected esophageal dysphagia. Patient may benefit from consult with Lorri given her history of GERD and complaints of globus sensation. Recommendations discussed with the patient and her daughter. Suggested Referrals: The patient might benefit from a referral to: Gastroenterology Reason: Esophageal Dysphagia, Hx GERD, c/o globus Therapy Recommendations: Therapy will be discontinued. Patient is recommended to continue monitoring her dysphagia. If there are any changes or persisting symptoms, consult referring provider, at which point a repeat-assessment may be warranted. Prognosis for Improvement: The prognosis for the patient to meet nutritional needs by mouth is good based on degree of impairment, support system. Timeline to reassess: PRN Clinician - Supplemental, Miscellaneous Communication: It is important to note MBSS objective studies are snapshots in time and Patient function might vary with factors such as time of day or concomitant medical conditions. For this reason, the final treatment plan for this patient should rest with their medical care team. Additional recommendations should be considered with the totality of the Patient in mind. Thank for the opportunity to participate in the care of this patient. If you have any questions about the content of this report, please contact the [facility] at [facility]. Education: Education regarding findings from today's study and plans for therapy were provided to Patient and family/caregiver through Verbal Instruction. Understanding was expressed by the Patient and family/caregiver. Acute Care Registered Nurse Clinician/Clinical Fellow: No Supervisory Statement: N/A Speech Language Pathologist: Rula Paniagua M.A., CCC-SR. SOCIAL MEDIA & MOBILE MANAGER
== END 2024-09-02 14:00 | disposition home or self-care (01) ==
LOC: HO.XRAY 13:59
PROVIDERS: PCP Internal Medicine; Visit Provider Nurse Practitioner Family
DX: R13.10 Dysphagia, unspecified (principal)
CPT/HCPCS: 74230; 92611

== ENCOUNTER → 2024-09-02 14:30 | Outpatient (BNV) | payer MEDICARE, MEDICAID, SELFPAY | PROVIDERS: PCP Internal Medicine; Visit Provider Physician Assistant Surgical | DX: R13.10 Dysphagia, unspecified (principal) | CPT/HCPCS: 74230 ==

== ENCOUNTER 2024-09-19 09:46 | Outpatient (REF) | payer MEDICARE, MEDICAID, SELFPAY ==
--- NOTE | ~2024-09-19 | FL_ITS ---
EXAMINATION: XR FLUOROSCOPY UPPER GI WITH AIR CLINICAL INFORMATION: Dysphagia. Reflux. COMPARISON: None TECHNIQUE: Fluoroscopic air contrast upper GI examination was performed utilizing standard techniques with thin and thick barium and effervescent granules. Numerous spot images were obtained. FINDINGS: Lateral cine images of the oropharynx and hypopharynx demonstrate normal swallow mechanism with normal epiglottic inversion and soft palate elevation. No tracheal penetration, glottic or subglottic aspiration identified. No nasopharyngeal reflux present. Hypopharyngeal structures appear normal without evidence of mass or diverticulum. There was no significant cricopharyngeal achalasia. Dual and single contrast images of the esophagus demonstrate a normal caliber and contour. There is a granular appearance of the esophageal mucosa, suggestive of esophagitis. 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 No masses or ulcerations are seen. Esophageal peristalsis is moderately disorganized. No evidence of hiatus hernia identified. No significant gastroesophageal reflux was seen during the course of the examination and on reflux views. Surgical clips are present in the right upper quadrant. Limited dual contrast contrast images of the stomach demonstrated a normal contour. The gastric rugal folds have a thickened appearance, suggestive of gastritis. Additional imaging of the stomach could not be performed due to patient's inability to lie flat without experiencing severe coughing. Contrast freely passed into the gastric antrum and duodenal bulb without delay. Single and air-contrast images of the duodenal bulb demonstrate no abnormality. The duodenal sweep has a normal appearance, course, and mucosal fold appearance. The imaged proximal jejunum has a normal fold pattern and caliber. FLUOROSCOPY TIME: 3 minutes 5 seconds Number of Spot Images: 7 Number of Cine: 9 DOSE AREA PRODUCT: 1429 uGy-m2 (microgray-meter squared) FL/FL barium swallow with air IMPRESSION: 1. Granular appearance of the esophageal mucosa, suggestive of esophagitis. Recommend correlation with EGD. 2. 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 3. Limited evaluation of esophageal motility demonstrates moderately disorganized peristalsis. 4. Limited evaluation of the stomach due to patient's inability to lie flat without experiencing severe coughing. No obvious hiatal hernia or gastroesophageal reflux was observed. The gastric rugal folds have a thickened appearance, suggestive of gastritis. 5. Status post cholecystectomy. This procedure was performed by Jamie Sam PA-C, and supervised by Dr. Kerr Electronically signed by: Chris Kerr MD 09/19/2024 02:42 [facility]
== END 2024-09-19 09:47 | disposition home or self-care (01) ==
LOC: HO.XRAY 09:46
PROVIDERS: PCP Internal Medicine; Visit Provider Nurse Practitioner Family
DX: R13.10 Dysphagia, unspecified (principal); F03.B18 Unspecified dementia, moderate, with other behavioral disturbance
CPT/HCPCS: 74221

== ENCOUNTER → 2024-09-19 09:48 | Outpatient (BNV) | payer MEDICARE, MEDICAID, SELFPAY | PROVIDERS: PCP Internal Medicine; Visit Provider Physician Assistant Surgical | DX: R13.10 Dysphagia, unspecified (principal) | CPT/HCPCS: 74221 ==

== ENCOUNTER 2024-09-20 12:26 | Outpatient (AMB) | payer MEDICARE, MEDICAID, SELFPAY ==
[2024-09-20 12:51] VITALS: BP 122/62; PULSE 74; O2SAT 96; BMI 22.6
--- NOTE | 2024-09-20 12:51 | MHC.OFFVIS ---
Vital Signs 09/20/24 12:51 Height 5 ft Weight 115 lb 11.883 oz BMI 22.6 BP 122/62 Blood Pressure Location Rt brachial Position Sitting Pulse 74 Pulse Source Doppler Pulse Oximetry (%) 96 Oxygen Delivery Method Room Air Intake Visit Reasons: Asthma Allergies meperidine [From DEMEROL] Allergy (Severe, Verified 07/15/24 14:07) HYPOTENSION Penicillins [PENICILLINS] Allergy (Severe, Verified 07/15/24 14:07) HIVES,SWELLING influenza virus vaccine, specific [Influenza Virus Vacc,Specific] Adverse Reaction (Intermediate, Verified 07/15/24 14:07) ASTHMA EXACERBATION Anesthetic Maximum Strength Allergy (Severe, Uncoded 07/15/24 14:07) anaphylaxis Bee Sting Allergy (Unknown, Uncoded 07/15/24 14:07) unknown HPI HPI Asthma: Details: 79-year-old lady, lifetime nonsmoker, followed for underlying 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 After the last office visit patient was restarted on Xolair with significantly improved symptom control. She also continues to use her Advair and albuterol MDI. She denies any recent exacerbations. [facility], [facility] Medical History Dementia Osteoporosis Post-menopausal Cellulitis Overweight (BMI 25.0-29.9) Depression Anxiety Nocturnal leg cramps Vitamin D deficiency Genital herpes in women Ductal carcinoma in situ of right breast Osteoarthritis of knee GERD (gastroesophageal reflux disease) Allergic rhinitis Diabetic neuropathy COPD (chronic obstructive pulmonary disease) Benign essential hypertension Pure hypercholesterolemia Diabetes mellitus Surgical History History of colonoscopy History of total hysterectomy H/O breast surgery Family History Father CVD (cardiovascular disease) Stroke Mother Cancer Other Mental health disorder Social History Housing: Apartment Alcohol intake: never Patient Tobacco Use Status: Never used Tobacco e-Cigarette/Vaping Use: Never Used Second Hand Smoke Exposure: Yes service: No Current occupational status: disabled Cognitive needs: No Hearing needs: Yes Vision needs: Yes Review of Systems Const Denies daytime sleepiness, Denies excessive sweating, Denies fatigue, Denies fever(s), Denies lethargy, Denies malaise, Denies night sweats, Denies snoring and Denies weight loss Eyes Denies blurry vision and Denies itchy eyes ENT Denies nasal congestion, Denies post nasal drip, Denies sinus pain, Denies sinus pressure and Denies other ( Thrush) Card Denies chest pain, Denies pedal edema, Denies dyspnea, Denies orthopnea and Denies paroxysmal nocturnal dyspnea Resp Denies cough, Denies hemoptysis, Denies excessive phlegm production, Denies dyspnea, Denies snoring and Denies wheezing GI Denies abdominal pain and Denies heartburn Musc Denies myalgias, Denies arthralgias and Denies joint swelling Skin/Breast Denies rash Neuro Denies memory loss and Denies seizure-like activity Psych Denies abnormal sleep pattern, Denies anxiety and Denies memory loss Endo Denies excessive sweating, Denies fatigue and Denies heat intolerance Iggy/Lymph Denies easy bruising Aller/Immun Denies itchy eyes, Denies seasonal rhinorrhea and Denies wheezing Physical Exam Vital Signs: Last Vital Signs Pulse 74 09/20/24 12:51 BP 122/62 09/20/24 12:51 Pulse Ox 96 09/20/24 12:51 Oxygen Delivery Method Room Air 09/20/24 12:51 BMI result Body Mass Index 22.6 Const General: no acute distress and alert Nutritional Appearance: not obese Orientation/consciousness: Other orientation findings ( oriented) HEENT Head: Yes atraumatic Eyes General: appearance normal, both eyes and all related structures Sclerae: sclerae normal EOM: EOMs intact bilaterally Neck Neck: Yes supple Lymphatic: no lymphadenopathy noted Resp Effort & Inspection: normal respiratory effort and no use of accessory muscles Auscultation: clear to auscultation bilaterally Cardio Rate: regular rate Rhythm: regular rhythm Heart sounds: no gallops, no murmurs and no rubs Skin General skin exam: other ( warm) Extrem General: No clubbing, No cyanosis and No edema Assessment & Plan Assessment & Plan (1) Severe persistent asthma: Code(s): J45.50 - Severe persistent asthma, uncomplicated Category: Medical Plan: Well controlled on current regimen of Xolair, Advair, and albuterol MDI. Continue current regimen. (2) Environmental allergies: Code(s): Z91.09 - Other allergy status, other than to drugs and biological substances Category: Medical Plan: Well controlled on Xolair and Singulair. Continue current regimen. Coding Level of Care Code Est Pt Level 4 (90828) Diagnoses Severe persistent asthma J45.50 Environmental allergies Z91.09
== END 2024-09-20 13:03 | disposition home or self-care (01) ==
PROVIDERS: PCP Internal Medicine; Visit Provider Internal Medicine Pulmonary Disease
DX: J45.50 Severe persistent asthma, uncomplicated (principal); Z91.09 Other allergy status, other than to drugs and biological substances
CPT/HCPCS: 99214

== ENCOUNTER → 2024-09-20 12:26 | Outpatient (BNVA) | payer MEDICARE, MEDICAID, SELFPAY | PROVIDERS: PCP Internal Medicine; Visit Provider Internal Medicine Pulmonary Disease | DX: J45.50 Severe persistent asthma, uncomplicated (principal); Z91.09 Other allergy status, other than to drugs and biological substances | CPT/HCPCS: 99212 ==

== ENCOUNTER 2024-11-15 09:47 | Outpatient (REF) | payer MEDICARE, MEDICAID, SELFPAY ==
[2024-11-15 10:26] LABS: MANUAL DIFF FLAG NO
[2024-11-15 11:04] LABS: Basophils Percent Auto 0.4 % (0-2); Eosinophils Absolute Auto 0.1 X10*3/uL (0.0-0.4); Eosinophils Percent Auto 2.1 % (0-4); Hematocrit 38.9 % (37.0-47.0); Hemoglobin 12.9 g/dl (12.0-16.0); Imm Gran Abs Auto 0.02 X10*3/uL (0.00-0.03); Imm Gran Pct Auto 0.4 % (0.0-0.4); Mean Corpuscular HGB Conc 33.2 g/dl (31.0-35.0); Mean Corpuscular Volume 93.5 fL (80.0-98.0); Mean Platelet Volume 8.4 fL (9.4-12.3); Monocytes Absolute Auto 0.5 X10*3/uL (0.1-1.2); Monocytes Percent Auto 8.2 % (2-11); Neutrophils Percent Auto 70.9 % (45-73); Platelet Count 289 X10*3/uL (160-400); Red Blood Count 4.16 X10*6/uL (4.20-5.50); White Blood Count 5.6 X10*3/uL (4.8-10.8)
[2024-11-15 11:06] LABS: Estimated Average Glucose 128 mg/dL; Hemoglobin A1c % 6.1 % (<6.0); Total Hemoglobin (HGBA1C) 3376.5759 umol/L
[2024-11-15 11:15] LABS: Appearance Urine Cloudy; Color Urine Dark Yellow; Glucose Urine UA Negative (Negative); Leukocyte Esterase Urine Large (3+) (Negative); Nitrite Urine Positive (Negative); PH 6.5 (5.0-9.0); UMIC TRIGGER UACC YES; Urine Blood Negative (Negative); Urine Ketones Trace mg/dL (Negative); Urine Protein Trace mg/dL (Neg-Trace)
[2024-11-15 11:18] LABS: Bacteria Urine 4+ (None Seen); RBC Urine 0-2 /HPF (0-2); Squamous Epithelial Cell Urine 0-2 /HPF (0-2); UACC Culture Trigger YES; WBC Urine >50 /HPF (0-5)
[2024-11-15 11:33] LABS: Microalbum/Creatinine Ratio Ur 12.1 ug/mg cr (<30)
[2024-11-15 11:45] LABS: Alanine Aminotransferase 20 U/L (0-31); Albumin Level 4.1 g/dL (3.5-5.0); Alkaline Phosphatase 92 U/L (39-117); Anion Gap 9 (12-20); Aspartate Amino Transferase 18 U/L (5-31); Bilirubin Total 0.5 mg/dL (0.0-1.0); Blood Urea Nitrogen 6 mg/dL (9-16); Calcium 9.4 mg/dL (8.4-10.2); Carbon Dioxide 28 mmol/L (22-29); Chloride 105 mmol/L (96-108); Cholesterol 202 mg/dL (<200); Estimated Glomerular Filt Rate > 60; Glucose Fasting 106 mg/dL (60-99); HDL Cholesterol 52 mg/dL (>40); LDL Cholesterol Calculated 124 mg/dL (<100); Potassium 4.1 mmol/L (3.3-5.1); Sodium 138 mmol/L (135-145); Total Protein 7.3 g/dL (6.5-8.0); Triglycerides 130 mg/dL (<150)
[2024-11-15 11:48] LABS: Erythrocyte Sedimentation Rate 9 MM/HR (0-20)
[2024-11-15 11:58] LABS: Syphilis Screen Nonreactive (Nonreactive)
[2024-11-15 11:59] LABS: HIV AB/AG Nonreactive (Nonreactive); HIV Num 1 0.05 S/CO (0.00-0.99)
[2024-11-15 12:03] LABS: TSH reflex Free T4 0.87 uIU/mL (0.32-4.0)
[2024-11-15 12:09] LABS: Folate 16.6 ng/mL (> or = 4.0); Vitamin B12 938 pg/mL (200-900)
[2024-11-18 10:50] LABS: CRP High Sensitivity 0.9 mg/L
== END 2024-11-15 09:48 | disposition home or self-care (01) ==
LOC: HO.LAB 09:47
PROVIDERS: Nurse Practitioner Family; PCP Internal Medicine; Visit Provider Internal Medicine
DX: F03.B18 Unspecified dementia, moderate, with other behavioral disturbance (principal); E78.00 Pure hypercholesterolemia, unspecified; E11.9 Type 2 diabetes mellitus without complications; E53.8 Deficiency of other specified B group vitamins; M79.7 Fibromyalgia; D64.9 Anemia, unspecified; E55.9 Vitamin D deficiency, unspecified; R30.0 Dysuria
CPT/HCPCS: 36415; 80053; 80061; 81001; 81003; 82043; 82306; 82570; 82607; 82746; 83036; 84443; 85025; 85652; 86141; 86780; 87086; 87088; 87186; 87389

== ENCOUNTER 2024-11-19 12:35 | Outpatient (AMB) | payer MEDICARE, MEDICAID, SELFPAY ==
[2024-11-19 12:40] VITALS: BP 180/90; PULSE 97; O2SAT 94; BMI 21.3
--- NOTE | 2024-11-19 12:40 | MHC.PC.OV ---
Vital Signs 11/19/24 12:40 11/19/24 13:17 Height 5 ft Weight 109 lb 4 oz BMI 21.3 BP 180/90 H 170/98 H Blood Pressure Location Lt brachial Lt brachial Position Sitting Sitting Pulse 97 Pulse Source Pulse Oximeter Pulse Oximetry (%) 94 Oxygen Delivery Method Room Air Intake Visit Reasons: 4mth f/u Payroll Officer Required: No Accompanied by: Self / Same As Patient Allergies meperidine [From DEMEROL] Allergy (Severe, Verified 11/19/24 13:13) HYPOTENSION Penicillins [PENICILLINS] Allergy (Severe, Verified 11/19/24 13:13) HIVES,SWELLING influenza virus vaccine, specific [Influenza Virus Vacc,Specific] Adverse Reaction (Intermediate, Verified 11/19/24 13:13) ASTHMA EXACERBATION Anesthetic Maximum Strength Allergy (Severe, Uncoded 11/19/24 13:13) anaphylaxis Bee Sting Allergy (Unknown, Uncoded 11/19/24 13:13) unknown Medication List - Last Reconciled 11/19/24 by Jose Juan Rendon MD [ADULT PULL-UPS (medium) As directed] albuterol sulfate 2.5 mg continuous nebulization Q6H PRN albuterol sulfate 90 mcg/actuation 2 puffs PO Q6H PRN aspirin 81 mg PO DAILY atorvastatin 20 mg PO BEDTIME 90 days blood pressure monitor As directed blood sugar diagnostic (FreeStyle Test strips) test bs once a day blood-glucose meter (FreeStyle Lite Meter kit) As directed- To test Blood sugar blood-glucose meter (FreeStyle Lite Meter kit) As directed ONCE A DAY cholecalciferol (vitamin D3) 50 mcg PO DAILY clonazepam 0.25 mg PO BEDTIME PRN 30 days fluticasone propion-salmeterol 500-50 mcg/dose (Advair Diskus) 1 ea PO BID fluticasone propionate 50 mcg/actuation 1 spray intranasal DAILY [FreeStyle LANCETS As directed] [FreeStyle TEST STRIPS As directed] lancets (FreeStyle Lancets) 28 gauge miscellaneous .QD latanoprost 0.005% 1 drp ophthalmic (eye) BEDTIME loratadine 10 mg PO DAILY PRN memantine 28 mg PO DAILY omalizumab (Xolair) 300 mg subcut Q4W 28 days omeprazole 20 mg PO DAILY PRN polyethylene glycol 3350 (Miralax) 17 grams PO DAILY 30 days sennosides (Senna Lax) Take 1 to 2 tablets orally daily PRN; 30 days valacyclovir 500 mg PO DAILY Tobacco use date assessed: 11/19/24 Fall risk assessment: No Falls in past year Last assessed Fall Risk: 11/19/24 Dental Screening Dental Screen Date: 11/19/24 Did you have a dental visit in the last 12 months?: No Did you have a dental problem in the last 6 months where you did not have access to dental care?: No Was dental information given to patient?: No HPI 4mth f/u HPI Details Patient comes in today for her follow up visit States that she feels okay although she has been complaining of on and off headaches for a few months now She denies any dizziness She denies any chest pains, no increased SOB No nausea/vomiting, no abdominal pain No change in bowel habits noted Her OVERHEAD CLEANER MAINTAINER states that patient ran out of her Atorvastatin Rx a couple of weeks ago and for unclear reasons, could not get it refilled from her local pharmacy She had her follow up labs done a few days ago - to discuss her results [facility] Medical History Dementia Osteoporosis Post-menopausal Cellulitis Overweight (BMI 25.0-29.9) Depression Anxiety Nocturnal leg cramps Vitamin D deficiency Genital herpes in women Ductal carcinoma in situ of right breast Osteoarthritis of knee GERD (gastroesophageal reflux disease) Allergic rhinitis Diabetic neuropathy COPD (chronic obstructive pulmonary disease) Benign essential hypertension Pure hypercholesterolemia Diabetes mellitus Surgical History History of colonoscopy History of total hysterectomy H/O breast surgery Family History Father CVD (cardiovascular disease) Stroke Mother Cancer Other Mental health disorder Social History Housing: Apartment Alcohol intake: never Patient Tobacco Use Status: Never used Tobacco e-Cigarette/Vaping Use: Never Used Second Hand Smoke Exposure: Yes service: No Current occupational status: disabled Cognitive needs: No Hearing needs: Yes Vision needs: Yes Questionnaire PHQ-9 Over the last 2 weeks, how often have you been bothered by any of the following problems? 1. Little interest or pleasure in doing things: not at all 2. Feeling down, depressed, or hopeless: not at all 3. Trouble falling or staying asleep, or sleeping too much: not at all 4. Feeling tired or having little energy: not at all 5. Poor appetite or overeating: not at all 6. Feeling bad about yourself - or that you are a failure or have let yourself or your family down: not at all 7. Trouble concentrating on things, such as reading the newspaper or watching television: not at all 8. Moving or speaking so slowly that other people could have noticed. Or the opposite - being so fidgety or restless that you have been moving around a lot more than usual: not at all 9. Thoughts that you would be better off or of hurting yourself in some way: not at all Total score: 0 Depression Screening Interpretation: Negative Depression Screening Done: Yes 78500 - PHQ-9 Billing: Yes Source: Developed by Drs. Leonides Hamm, Rehana Tello, Harjinder Buitrago and colleagues, with an educational ronel from [employer]. Thrive Questionnaire Date Thrive assessed: 11/19/24 I am a: Patient What is your living situation today?: I have a steady place to live Within the past 12 months, did the food you bought not last and you didn't have the money to get more?: Never true Within the past 12 months, did you worry whether your food would run out before you got money to buy more?: Never true Do you have trouble paying for medicines?: No Do you have trouble getting transportation to medical appointments?: No Do you have trouble paying your heating and electricity bill?: No Do you have trouble taking care of your child, family member or friend?: No Do you have trouble with day-to-day activities such as bathing, preparing meals, shopping, managing finances, etc.?: No Are you currently unemployed and looking for a job?: No Are you interested in more education?: No Please select the resources that you would like help with: None Currently or been in a relationship where the following occur: No concerns reported THRIVE Score: 0 AUDIT C Alcohol Use Questionnaire (AUDIT-C) 1. How often do you have a drink containing alcohol?: Never 3. How often do you have six or more drinks on one occasion?: Never Total Score: 0 Score Reviewed/Action Taken: Yes ESTEBAN-7 AMB Questionnaire ESTEBAN-7 Date ESTEBAN - 7 assessed: 11/19/24 Feeling nervous, anxious, or on edge: 0 = Not at all Not being able to stop or control worryin = Not at all Worrying too much about different things: 0 = Not at all Trouble relaxin = Not at all Being so restless that it is hard to sit still: 0 = Not at all Becoming easily annoyed or irritable: 0 = Not at all Feeling afraid as if something awful might happen: 0 = Not at all Total ESTEBAN-7 score (0-4 normal; 5-9 mild; 10-14 moderate; 15-21 severe): 0 Source: Developed by Drs. Leonides Hamm, Rehana Tello, Harjinder Buitrago and colleagues, with an educational ronel from [employer]. Review of Systems Const Denies chills, Reports fatigue, Denies fever(s) and Reports headache(s) (on and off) ENT Denies dysphagia, Denies dizziness, Denies otalgia, Reports headache(s) (on and off), Denies neck pain, Denies odynophagia and Denies sore throat Card Denies chest pain, Denies palpitations and Denies dyspnea Resp Denies chest congestion, Denies cough and Denies dyspnea GI Denies abdominal pain, Reports constipation (on and off), Denies dysphagia, Reports fecal incontinence (at times, per daughter), Denies diarrhea, Denies nausea, Denies odynophagia and Denies vomiting Denies difficulty voiding, Denies nocturia, Denies dysuria and Reports urinary incontinence Musc Denies back pain, Denies arthralgias and Denies neck pain Skin/Breast Denies rash Neuro Reports as per HPI, Reports behavioral changes (but improved from previous), Reports confusion (on and off ), Denies dizziness, Reports headache(s) (on and off) and Reports memory loss Psych Reports anxiety, Reports behavioral changes (but improved from previous), Reports confusion (on and off ), Reports auditory hallucinations, Reports memory loss and Reports visual hallucinations Endo Reports fatigue and Denies palpitations Physical exam (Primary Care) Vital Signs: Last Vital Signs Pulse 97 11/19/24 12:40 BP 170/98 H 11/19/24 13:17 Pulse Ox 94 11/19/24 12:40 Oxygen Delivery Method Room Air 11/19/24 12:40 BMI result Body Mass Index 21.3 Tobacco/Smoking Status: Tobacco use Status Tobacco use date assessed 11/19/24 11/19/24 12:44 Patient Tobacco Use Status Never used Tobacco 11/19/24 12:44 e-Cigarette/Vaping Use Never Used 11/19/24 12:44 PHQ-9: PHQ-9 Score PHQ-9: Total score 0 11/19/24 13:43 Depression Screening Interpretation: Negative Thrive Assessment: Date of Thrive Assessment Date Thrive assessed 11/19/24 11/19/24 12:44 Currently or been in a relationship where the following occur: No concerns reported Const General: no acute distress and confusion (on and off ) Orientation/consciousness: confusion (on and off ) HENMT Ears: TM's normal bilaterally and EAC's normal Throat: Yes posterior oropharynx normal and Yes tonsils normal (no TP congestion) Neck Neck: Yes supple and No lymphadenopathy Thyroid: Thyroid normal Resp Auscultation: clear to auscultation bilaterally, no rales and no wheezes Cardio Rate: regular rate Rhythm: regular rhythm Heart sounds: no murmurs GI Palpation (GI): Soft to palpation and nontender Auscultation: normal bowel sounds General: Yes no CVA tenderness Back/Spine/Pelvis Back: no CVA tenderness Thoracic/Lumbar Spine: No lumbar spinal tenderness Skin Rashes: no rashes Neuro General: confusion (on and off ) Extrem General: Yes no clubbing, cyanosis or edema Results Reviewed Results Reviewed: Laboratory Tests 11/15/24 11/15/24 10:22 10:23 WBC 5.6 Hgb 12.9 Hct 38.9 Plt Count 289 ESR 9 Sodium 138 Potassium 4.1 Creatinine 0.64 Estimated GFR > 60 Fasting Glucose 106 H Hemoglobin A1c % 6.1 H Calcium 9.4 AST 18 ALT 20 Triglycerides 130 Cholesterol 202 H LDL Cholesterol, Calc 124 H HDL Cholesterol 52 Vitamin B12 938 H 25-OH Vitamin D Total 37.0 TSH 0.87 Ur Specific [place] 1.020 Urine Protein Trace Urine Glucose (UA) Negative Urine Nitrite Positive H Ur Leukocyte Esterase Large (3+) H Urine RBC 0-2 Urine WBC >50 H Microalb/Creat Ratio 12.1 Coding Level of Care Code Est Pt Level 4 (97283) Complex EM visit Add On G2211 Diagnoses Pure hypercholesterolemia E78.00 Type 2 diabetes mellitus with diabetic polyneuropathy, without long-term current use of insulin E11.42 Diabetes mellitus complication detail: with polyneuropathy Diabetes mellitus complication status: with neurologic complications Diabetes mellitus extermination supervisor insulin use: without halfway use Diabetes mellitus type: type 2 Benign essential hypertension I10 Chronic obstructive pulmonary disease, unspecified COPD type J44.9 COPD type: unspecified COPD Diabetic polyneuropathy associated with type 2 diabetes mellitus E11.42 Diabetes mellitus complication detail: diabetic polyneuropathy Diabetes mellitus type: type 2 Moderate dementia with other behavioral disturbance, unspecified dementia type F03.B18 Dementia behavioral or psychological symptom: with other behavioral disturbance Dementia severity: moderate Dementia type: unspecified type Allergic rhinitis, unspecified seasonality, unspecified trigger J30.9 Allergic rhinitis seasonality: unspecified Allergic rhinitis trigger: unspecified Gastroesophageal reflux disease without esophagitis K21.9 Esophagitis presence: without esophagitis Primary osteoarthritis of knee, unspecified laterality M17.10 Laterality: unspecified laterality Osteoarthritis type: primary Ductal carcinoma in situ of right breast D05.11 Age-related osteoporosis without current pathological fracture M81.0 Osteoporosis type: age-related Presence of current pathological fracture: without current pathological fracture Vitamin D deficiency E55.9 Severe persistent asthma, unspecified whether complicated J45.50 Asthma severity: severe Asthma persistence: persistent Asthma complication type: unspecified Nocturnal leg cramps G47.62 Constipation, unspecified constipation type K59.00 Constipation type: unspecified constipation type Genital herpes in women A60.09 Unsteady gait R26.81 Orthostasis I95.1 Anxiety F41.9 Depression, unspecified depression type F32.A Depression Type: unspecified Additional Codes PHQ-9 - 07077 - PHQ-9 Billing: Yes ([id number]) Assessment & Plan Assessment & Plan (1) Pure hypercholesterolemia: Code(s): E78.00 - Pure hypercholesterolemia, unspecified Category: Medical Plan: Results of her labs done a few days ago reviewed and discussed with patient - she is cautioned that her cholesterol levels have increased significantly from previous Patient reportedly ran out of her Rx a couple of weeks ago and for unclear reasons, could not get her Rx refilled Will start her back on Atorvastatin 20 mg QD - new Rx sent Will have her recheck her labs and fasting lipids in 3 months for follow up (2) Diabetes mellitus: Code(s): E11.9 - Type 2 diabetes mellitus without complications Category: Medical Qualifiers: Diabetes mellitus complication detail: with polyneuropathy Diabetes mellitus complication status: with neurologic complications Diabetes mellitus halfway insulin use: without extermination supervisor use Diabetes mellitus type: type 2 Qualified Code(s): E11.42 - Type 2 diabetes mellitus with diabetic polyneuropathy Plan: Her HgbA1c was at 6.1% on her recent labs (was at 6.6% a few months ago) - goal is at least <7.0% but ideally <6.5% Reinforced diabetic diet Patient is still not on any medications for her diabetes and would like to continue with diet modification alone for now Have reminded them that her HgbA1c has increased over the past couple of years - she was at 5.3% a couple of years ago and is now at 6.1% Advised that if this goes up any further, we will need to reconsider her stance regarding Tx for her blood sugar Will recheck her FBS and HgbA1c in 3 months for follow up (3) Benign essential hypertension: Code(s): I10 - Essential (primary) hypertension Category: Medical Plan: Reinforced low-sodium diet - goal is systolic BP of at least 130 to 140 mm or less Her blood pressure appears significantly elevated more often than not over the past 6 months so we will go ahead and start her on Amlodipine 2.5 mg QD Patient's daughter is reminded to continue monitoring patient's blood pressure regularly (4) COPD (chronic obstructive pulmonary disease): Code(s): J44.9 - Chronic obstructive pulmonary disease, unspecified Category: Medical Qualifiers: COPD type: unspecified COPD Qualified Code(s): J44.9 - Chronic obstructive pulmonary disease, unspecified Plan: Continue Advair Diskus 500-50 mcg 1 inhalation BID. ProAir HFA 2 puffs 4 times a day as needed; she was also on Xolair injections 300 mg Q 4 weeks but patient has refused to go get her shots recently Patient also has Albuterol solution that she uses with her [employer] machine when needed Her respiratory symptoms have improved significantly with Xolair injections 300 mg SQ every 4 weeks over the past couple of years and patient is advised to REconsider getting them again regularly Follow-up with pulmonary as scheduled (5) Diabetic neuropathy: Code(s): E11.40 - Type 2 diabetes mellitus with diabetic neuropathy, unspecified Category: Medical Qualifiers: Diabetes mellitus complication detail: diabetic polyneuropathy Diabetes mellitus type: type 2 Qualified Code(s): E11.42 - Type 2 diabetes mellitus with diabetic polyneuropathy Plan: Patient states that her neuropathic symptoms have remained stable and tolerable and no additional intervention is needed at this time (6) Dementia: Code(s): F03.90 - Unspecified dementia, unspecified severity, without behavioral disturbance, psychotic disturbance, mood disturbance, and anxiety Category: Medical Qualifiers: Dementia behavioral or psychological symptom: with other behavioral disturbance Dementia severity: moderate Dementia type: unspecified type Qualified Code(s): F03.B18 - Unspecified dementia, moderate, with other behavioral disturbance Plan: She was referred to and seen by neurology a few months ago and was started on Memantine ER - she is currently still on Memantine ER 28 mg QD She was also experiencing some visual and auditory hallucinations a few months ago with her declining cognition but these seem to have calmed down a lot lately Follow up [facility] neurology as scheduled (7) Allergic rhinitis: Code(s): J30.9 - Allergic rhinitis, unspecified Category: Medical Qualifiers: Allergic rhinitis seasonality: unspecified Allergic rhinitis trigger: unspecified Qualified Code(s): J30.9 - Allergic rhinitis, unspecified Plan: Continue Fluticasone 50 mcg nasal spray QD PRN and Loratadine 10 mg QD PRN (8) GERD (gastroesophageal reflux disease): Code(s): K21.9 - Gastro-esophageal reflux disease without esophagitis Category: Medical Qualifiers: Esophagitis presence: without esophagitis Qualified Code(s): K21.9 - Gastro-esophageal reflux disease without esophagitis Plan: Dietary? 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 Code(s): D05.11 - Intraductal carcinoma in situ of right breast Category: Medical Plan: S/P Tx with Tamoxifen x 5 years Follow-up with Oncology as scheduled for continuing surveillance (11) Osteoporosis: Code(s): M81.0 - Age-related osteoporosis without current pathological fracture Category: Medical Qualifiers: Osteoporosis type: age-related Presence of current pathological fracture: without current pathological fracture Qualified Code(s): M81.0 - Age-related osteoporosis without current pathological fracture Plan: BMD done in June 2021 revealed (+) osteoporosis, with a T score of -3.2 Patient is again encouraged to continue with daily calcium and vitamin-D supplements Reinforced fall precautions To consider treatment of her osteoporosis with oral bisphosphonates but patient is concerned about side effects due to her pre-existing GI issues, including GERD; is also concerned about other treatment options and the potential side effects - would like to hold off on Rx She will need repeat BMD ordered at her next follow up appt in the spring (12) Vitamin D deficiency: Code(s): E55.9 - Vitamin D deficiency, unspecified Category: Medical Plan: Continue Vitamin D3 2000 units QD (13) Asthma: Code(s): J45.909 - Unspecified asthma, uncomplicated Category: Medical Qualifiers: Asthma severity: severe Asthma persistence: persistent Asthma complication type: unspecified Qualified Code(s): J45.50 - Severe persistent asthma, uncomplicated Plan: Patient's asthma appears well controlled on her current regimen that includes Xolair injections 300 mg Q 4 weeks, Advair Diskus 500-50 mcg 1 inhalation BID and Albuterol inhaler PRN Follow up with pulmonary as scheduled (14) Nocturnal leg cramps: Code(s): G47.62 - Sleep related leg cramps Category: Medical Plan: Continue Tizanidine 4 mg daily at bedtime as needed (15) Constipation: Code(s): K59.00 - Constipation, unspecified Category: Medical Qualifiers: Constipation type: unspecified constipation type Qualified Code(s): K59.00 - Constipation, unspecified Plan: Reinforced increased oral fluids and dietary fiber Continue Senna 8.6 mg 1 to 2 tablets QD PRN (16) Genital herpes in women: Code(s): A60.09 - Herpesviral infection of other urogenital tract Category: Medical Plan: 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 She remains on chronic suppressive Tx with Valacyclovir 500mg QD (17) Unsteady gait: Code(s): R26.81 - Unsteadiness on feet Category: Medical Plan: Patient has been noted to be very unsteady over the past few years and has fallen a few times recently - this is most likely multifactorial, including her neuropathy, age, frailty and overall generalized weakness She uses a walker all the time now when ambulating and has been advised by her family multiple times not to try navigating stairs on her own but patient reportedly often forgets her instructions She currently has OVERHEAD CLEANER MAINTAINER services for 18 hours during the day and 2 hours at night Patient lives alone in her own apartment and does not wish to move out to an assisted living facility or a senior living Fall precautions reinforced to family (18) Orthostasis: Code(s): I95.1 - Orthostatic hypotension Category: Medical Plan: Have reminded patient and her daughter to make sure that she stays adequately hydrated to help minimize her symptoms Have also reminded patient to avoid abrupt and rapid changes in position, which can trigger her symptoms often (19) Anxiety: Code(s): F41.9 - Anxiety disorder, unspecified Category: Medical Plan: Continue Clonazepam? 0.25 mg 1/2 to 1 tablet once a day at bedtime as needed (20) Depression: Code(s): F32.9 - Major depressive disorder, single episode, unspecified Category: Medical Qualifiers: Depression Type: unspecified Qualified Code(s): F32.A - Depression, unspecified Plan: Folow up with Psychiatry as scheduled Plan Follow up in 3 months Orders: Orders Complete Blood Count Auto Diff 3 Months D64.9 - Anemia, unspecified Vitamin D 25-OH Total 3 Months E55.9 - Vitamin D deficiency, unspecified Hemoglobin A1c 3 Months E11.9 - Type 2 diabetes mellitus without complications Comprehensive [place]. Panel Fast 3 Months E78.00 - Pure hypercholesterolemia, unspecified Lipid Panel 3 Months E78.00 - Pure hypercholesterolemia, unspecified TSH reflex Free T4 3 Months E78.00 - Pure hypercholesterolemia, unspecified Microalbumin, Random (w Creat) 3 Months E11.9 - Type 2 diabetes mellitus without complications UA CC w/rflx Micro + Cult 3 Months R30.0 - Dysuria Medications: New amlodipine 2.5 mg PO DAILY 90 days 90 tabs 1RF Refilled atorvastatin 20 mg PO BEDTIME 90 days 90 tabs 3RF
[2024-11-19 13:17] VITALS: BP 170/98
--- OUTSIDE RECORDS SUMMARY | 2024-11-19 14:10 | XMS_ITS | Encounter Summary ---
Author Organization [facility] Address [address] [place] [address] Care Team Providers Care Chief Operator Synthesis Name Role Phone Unavailable Primary Care Provider Unavailabl e Encounter Details Date Type Department Care Team (Latest Contact Info) Description 06/18/2019 Abstract [facility] CONVERSIONS Dental, Provider, DDS Social History Tobacco Use Types Packs/Day Years Used Date Smoking Tobacco: Never Assessed Comments Unknown Sex and Gender Information Value Date Recorded Sex Assigned at Female 08/29/2022 10:16 AM EDT Legal Sex Female 10:16 AM EDT Gender Identity Female 08/29/2022 10:16 AM EDT Sexual Orientation Straight 08/29/2022 10 :16 AM EDT documented as of this encounter Plan of Treatment Not on file documented as of this encounter Visit Diagnoses Not on filedocumented in this encounter
--- OUTSIDE RECORDS SUMMARY | 2024-11-19 14:10 | XMS_ITS | Clinical Summary ---
Author Organization [employer] [facility] ity Address [address] [place] [address] Care Team Providers Care Creative Services Specialist Name Role Phone Jose Juan Rendon MD Primary Care Provider Social History Tobacco Use Types Packs/Day Years Used Date Smoking Tobacco: Never Smokeless Tobacco: Never Alcohol Use Standard Drinks/Week Comments Not Asked 0 (1 standard drink = 0.6 oz pur e alcohol) Sex and Gender Information Value Date Recorded Sex Assigned at Not on file Gender Identity Not on file Sexual Orientation Not on file Obstetrics History Last Filed Vital Signs Vital Sign Reading Time Taken Comments Blood Pressure 146/70 12/25/2023 9:06 AM EST Pulse 64 12/25/2023 9:06 AM EST Temperature - - Respiratory Rate - - Oxygen Saturation - - Inhaled Oxygen Concentration - - Weight 54.4 kg (120 lb) 12/25/2023 9:06 AM EST Height 152.4 cm (5') 12/25/2023 9:06 AM EST Body Mass Index 23.44 12/25/2023 9:06 AM EST Plan of Treatment Health Maintenance Due Date Last Done Comments Diabetes: Annual GFR (Glomer ular Filtration Rate) 1946 Diabetes: Annual Foot Exam 1956 Diabetes: Annual Retina Eye Exam 1956 DTaP,Tdap,and Td Vaccines (1 - Tdap) 1965 Zoster Vaccines (1 of 2) 1996 Pneumococcal Vaccine: 65+ Ye ars (1 of 1 - PCV) 2011 RSV Immunization Patients 60 + Years Old (1 - 1-dose 75+ series) 2021 Cholesterol Screening (Lipid Panel) 11/24/2023 Depression Screening 11/24/2023 Falls Risk Assessment 11/24/2023 Hepatitis C Screening 11/24/2023 Osteoporosis Screening (Bone Density Screening) 11/24/2023 Social Influencers of Health Screening 11/24/2023 Diabetes: Annual Urine Albumin-Creatinine Ratio (uACR) 05/23/2024 Diabetes: Blood Sugar Contro l Test (HGBA1C) 05/23/2024 COVID-19 Vaccine ( - 2023-2 5 season) 2024 Influenza Vaccine (#1) 2024 HIB Vaccines Aged Out No longer eligi ble based on patient's age to complete this topic HPV Vaccines Aged Out No longer eligi ble based on patient's age to complete this topic Hepatitis A Vaccines Aged Out No long er eligible based on patient's age to complete this topic Hepatitis B Vaccines Aged Out No long er eligible based on patient's age to complete this topic IPV Vaccines Aged Out No longer eligi ble based on patient's age to complete this topic MMR Vaccines Aged Out No longer eligi ble based on patient's age to complete this topic Meningococcal ACWY Vaccine Aged Out N o longer eligible based on patient's age to complete this topic RSV Immunization Patients Un shwetha 20 months Aged Out No longer eligible b ased on patient's age to complete this topic Varicella Vaccines Aged Out No longer eligible based on patient's age to complete this topic Advance Directives Documents on File Type Date Recorded 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
--- OUTSIDE RECORDS SUMMARY | 2024-11-19 14:10 | XMS_ITS | Encounter Summary ---
Author Organization [facility] Address [address] [facility] 7t [place] [address] Care Team Providers Care Encapsulator Name Role Phone Unavailable Primary Care Provider Unavailabl e Encounter Details Date Type Department Care Team (Latest Contact Info) Description 08/02/2021 Abstract HHC CONVERSIONS Dental, Provider, DDS Social [...]
--- OUTSIDE RECORDS SUMMARY | 2024-11-19 14:10 | XMS_ITS | Clinical Summary ---
Author Organization [employer] [facility] Address [address] [facility] 7[address] [place] [address] Care Team Providers Care Dean For Student Affairs Name Role Phone Unavailable Primary Care Provider Unavailabl e Social History Tobacco Use Types Packs/Day Years Used Date Smoking Tobacco: Never Assessed Comments Unknown Sex and Gender Information Value Date Recorded Sex Assigned at Female 08/29/2022 10:16 AM EDT Legal Sex Female 10:16 AM EDT Gender Identity Female 08/29/2022 10:16 AM EDT Sexual Orientation Straight 08/29/2022 10 :16 AM EDT Plan of Treatment Health Maintenance Due Date Last Done Comments Depression Screening 1946 Alcohol/Substance Use Screening 1958 Tobacco Screening 1958 DTaP/Tdap/Td Vaccines (1 - Tdap) 1965 Zoster Vaccines (1 of 2) 1996 Pneumococcal Vaccine: 65+ Ye ars (1 of 1 - PCV) 2011 RSV Patients and Pa tients Aged 60 years or older (1 - 1-dose 75+ series) 2021 COVID-19 Vaccine ( - 2023-2 5 season) [...] patient's age to complete this topic Meningococcal Vaccine Aged Out No edgar alexander eligible based on patient's age to complete this topic RSV under 20 months Aged Out No longe r eligible based on patient's age to complete this topic Rotavirus Vaccines Aged Out No longer eligible based on patient's age to complete this topic
== END 2024-11-19 13:24 | disposition home or self-care (01) ==
PROVIDERS: PCP Internal Medicine; Visit Provider Internal Medicine
DX: E78.00 Pure hypercholesterolemia, unspecified (principal); E11.42 Type 2 diabetes mellitus with diabetic polyneuropathy; I10 Essential (primary) hypertension; J44.9 Chronic obstructive pulmonary disease, unspecified; F03.B18 Unspecified dementia, moderate, with other behavioral disturbance; J30.9 Allergic rhinitis, unspecified; K21.9 Gastro-esophageal reflux disease without esophagitis; M17.10 Unilateral primary osteoarthritis, unspecified knee; D05.11 Intraductal carcinoma in situ of right breast; M81.0 Age-related osteoporosis without current pathological fracture; E55.9 Vitamin D deficiency, unspecified; J45.50 Severe persistent asthma, uncomplicated; G47.62 Sleep related leg cramps; K59.00 Constipation, unspecified; A60.09 Herpesviral infection of other urogenital tract; R26.81 Unsteadiness on feet; I95.1 Orthostatic hypotension; F41.9 Anxiety disorder, unspecified; F32.A Depression, unspecified

== ENCOUNTER → 2024-11-19 12:35 | Outpatient (BNVA) | payer MEDICARE, MEDICAID, SELFPAY | PROVIDERS: PCP Internal Medicine; Visit Provider Internal Medicine | DX: E78.00 Pure hypercholesterolemia, unspecified (principal); E11.42 Type 2 diabetes mellitus with diabetic polyneuropathy; I10 Essential (primary) hypertension; J44.9 Chronic obstructive pulmonary disease, unspecified; F03.B18 Unspecified dementia, moderate, with other behavioral disturbance; J30.9 Allergic rhinitis, unspecified; K21.9 Gastro-esophageal reflux disease without esophagitis; M17.10 Unilateral primary osteoarthritis, unspecified knee; D05.11 Intraductal carcinoma in situ of right breast; M81.0 Age-related osteoporosis without current pathological fracture; E55.9 Vitamin D deficiency, unspecified; J45.50 Severe persistent asthma, uncomplicated; G47.62 Sleep related leg cramps; A60.09 Herpesviral infection of other urogenital tract; R26.81 Unsteadiness on feet; I95.1 Orthostatic hypotension; F41.9 Anxiety disorder, unspecified; F32.A Depression, unspecified | CPT/HCPCS: 96127; 99212 ==

== ENCOUNTER 2024-12-18 13:39 | Outpatient (AMB) | payer MEDICARE, MEDICAID, SELFPAY ==
--- OUTSIDE RECORDS SUMMARY | 2024-12-18 14:01 | XMS_ITS | Encounter Summary ---
Author Organization [facility] Address [address] [facility] [address] [place] [address] Care Team Providers Care Night Auditor Name Role Phone Unavailable Primary Care Provider [...]
--- OUTSIDE RECORDS SUMMARY | 2024-12-18 14:01 | XMS_ITS | Clinical Summary ---
Author Organization [facility] [employer] [facility] Address [address] [facility] 7[address] [place] [address] Care Team Providers Care Foot Cutter Name Role Phone Unavailable Primary Care Provider [...] 1958 DTaP/Tdap/Td Vaccines (1 - Tdap) 1965 Pneumococcal Vaccine: 50+ Ye ars (1 of 1 - PCV) 1996 Zoster Vaccines (1 of 2) 1996 RSV Patients and Pa tients Aged 60 years or older (1 - 1-dose 75+ series) 2021 COVID-19 Vaccine (2023-2 5 season) 2024 Influenza Vaccine (#1) 2024 [...]
--- OUTSIDE RECORDS SUMMARY | 2024-12-18 14:01 | XMS_ITS | Encounter Summary ---
Author Organization [facility] Address [address] [facility] [address] [place] [address] Care Team Providers Care Staff Analyst Name Role Phone Unavailable Primary Care Provider [...]
--- OUTSIDE RECORDS SUMMARY | 2024-12-18 14:02 | XMS_ITS | Encounter Summary ---
Author Organization [facility] Address [address] [place] [address] Care Team Providers Care Windows Server Specialist Name Role Phone Jose Juan Rendon MD Primary Care Provider + [phone] Encounter Details Date Type Department Care Team (Latest Contact Info) Description 11/26/2024 Lab Requisition [facility] - Main Lab [address] [facility] [place] [address] Eva Ivan MD [address] [place] [phone] Other seizures (CMS/HCC); Type 2 diabetes mellitus without complications (CMS/HCC); Unspecified convulsions (CMS/HCC); Chronic obstructive pulmonary disease, unspecified (CMS/HCC); Essential (primary) hypertension Social History Tobacco Use Types Packs/Day Years Used Date Smoking Tobacco: Never Smokeless Tobacco: Never Alcohol Use Standard Drinks/Week Comments Not Asked 0 (1 standard drink = 0.6 oz pur e alcohol) Comments Unknown Sex and Gender Information Value Date Recorded Sex Assigned at Female 11/23/2024 7:49 AM EST Legal Sex Female 9:14 PM EST Gender Identity Female 11/23/2024 7:49 AM EST Sexual Orientation Straight 11/23/2024 7: 49 AM EST documented as of this encounter Functional Status * Are you deaf or do you have serious difficulty hearing? Answer Date of Assessment Author No 11/23/2024 5:33 AM EST Jena Aguayo RN * Are you blind or do you have serious difficulty seeing, even when wearing glasses? Answer Date of Assessment Author No 11/23/2024 5:33 AM EST Jena Aguayo RN * Do you have serious difficulty walking or climbing stairs? Answer Date of Assessment Author No 11/23/2024 5:33 AM Jena Kwon RN * Do you have serious difficulty dressing or bathing? Answer Date of Assessment Author No 11/23/2024 5:33 AM Jena Kwon RN * Because of a physical, mental, or emotional condition, do you have serious difficulty doing errandsalone such as visiting the doctor? Answer Date of Assessment Author No 11/23/2024 5:33 AM Jena Kwon RN documented as of this encounter Mental Status * Because of a physical, mental, or emotional condition, do you have serious difficulty concentrating, remembering, or making decisions? (5 years old or older) Answer Entry Date Author No 11/23/2024 5:33 AM Jena Kwon RN documented in this encounter Plan of Treatment Not on file documented as of this encounter Procedures Procedure Name Priority Date/Time Associated Diagnosis Comments COMPLETE BLOOD COUNT Routine 11/26/2024 5:00 AM EST Other seizures (CMS/HCC) Type 2 diabetes mellitus without complications (CMS/HCC) Unspecified convulsions (CMS/HCC) Chronic obstructive pulmonary disease, unspecified (CMS/HCC) Essential (primary) hypertension HEMOGLOBIN A1C Routine 11/26/2024 5:00 AM EST Other seizures (CMS/HCC) Type 2 diabetes mellitus without complications (CMS/HCC) Unspecified convulsions (CMS/HCC) Chronic obstructive pulmonary disease, unspecified (CMS/HCC) Essential (primary) hypertension BASIC METABOLIC PANEL Routine 11/26/2024 5:00 AM EST Other seizures (CMS/HCC) Type 2 diabetes mellitus without complications (CMS/HCC) Unspecified convulsions (CMS/HCC) Chronic obstructive pulmonary disease, unspecified (CMS/HCC) Essential (primary) hypertension documented in this encounter Results * Hemoglobin A1c (11/26/2024 5:00 AM EST) [facility] Signature Hemoglobin A1C 6.3 <6.5 % LAB CHEMISTRY METHOD 11/26/2024 1:54 PM EST [facility] Mean Bld Glu Estim. 134 mg/dL LAB CHEMISTRY METHOD 11/26/2024 1:54 PM [facility] Blood Venous blood specimen / Unknown Venipuncture / Unknown 11/26/2024 5:00 AM EST 11/26/2024 10:13 AM EST us Eva Ivan MD LAB BLOOD ORDERABLES Final Resu lt [facility] [address] [place] [address], [place] [phone] * (ABNORMAL) Basic metabolic panel (11/26/2024 5:00 AM EST) Sodium 132(L) 133 - 145 mmol/L LAB CHEMISTRY METHOD 11/26/2024 10:58 AM [facility] Potassium 5.1 3.5 - 5.5 mmol/L LAB CHEMISTRY METHOD 11/26/2024 10:58 AM [facility] Chloride 101 96 - 110 mmol/L LAB CHEMISTRY METHOD 11/26/2024 10:58 AM [facility] CO2 28 21 - 32 mmol/L LAB CHEMISTRY METHOD 11/26/2024 10:58 AM [facility] Anion Gap 3 3 - 11 LAB CHEMISTRY METHOD 11/26/2024 10:58 AM [facility] Glucose 102(H) 70 - 100 mg/dL LAB CHEMISTRY METHOD 11/26/2024 10:58 AM [facility] BUN 10 5 - 25 mg/dL LAB CHEMISTRY METHOD 11/26/2024 10:58 AM [facility] Creatinine 0.52 0.50 - 1.10 mg/dL LAB CHEMISTRY METHOD 11/26/2024 10:58 AM [facility] eGFR 95 >=60 mL/min/1. 73m2 LAB CHEMISTRY METHOD 11/26/2024 10:58 AM [facility] Comment:Calculation based on the??Chronic Kidney Disease Epidemiology Collaboration (CKD-EPI) equation refit??without adjustment for race. BUN/Creatinine Ratio 19.2 LAB CHEMISTRY METHOD 11/26/2024 10:58 AM [facility] Calcium 8.5 8.5 - 10.5 mg/dL LAB CHEMISTRY METHOD 11/26/2024 10:58 AM [facility] Blood Venous blood specimen / Unknown Venipuncture / Unknown 11/26/2024 5:00 AM EST 11/26/2024 10:13 AM EST us Eva Ivan MD LAB BLOOD ORDERABLES Final Resu lt [facility] [address] [place] [address], [place] [phone] * (ABNORMAL) Complete blood count (11/26/2024 5:00 AM EST) WBC 4.9 4.8 - 10.8 K/mcL LAB HEMETOLOGY METHOD 11/26/2024 11:11 AM [facility] RBC 3.70(L) 3.80 - 4.80 M/mcL LAB HEMETOLOGY METHOD 11/26/2024 11:11 AM [facility] Hemoglobin 11.4(L) 11.5 - 16.0 g/dL LAB HEMETOLOGY METHOD 11/26/2024 11:11 AM [facility] Hematocrit 35.5 35.0 - 47.0 % LAB HEMETOLOGY METHOD 11/26/2024 11:11 AM [facility] MCV 96.2 79.0 - 98.0 FL LAB HEMETOLOGY METHOD 11/26/2024 11:11 AM [facility] MCH 30.9 27.0 - 32.0 pcg LAB HEMETOLOGY METHOD 11/26/2024 11:11 AM [facility] MCHC 32.1 32.0 - 37.0 g/dL LAB HEMETOLOGY METHOD 11/26/2024 11:11 AM EST [facility] RDW 13.0 11.0 - 15.0 % LAB HEMETOLOGY METHOD 11/26/2024 11:11 AM [facility] Platelets 269 130 - 400 K/mcL LAB HEMETOLOGY METHOD 11/26/2024 11:11 AM [facility] MPV 9.1 7.0 - 11.0 FL LAB HEMETOLOGY METHOD 11/26/2024 11:11 AM EST [facility] NRBC 0.0 <1.0 % LAB HEMETOLOGY METHOD 11/26/2024 11:11 AM [facility] NRBC Absolute 0.00 <0.10 K/mcL LAB HEMETOLOGY METHOD 11/26/2024 11:11 AM [facility] Blood Venous blood specimen / Unknown Venipuncture / Unknown 11/26/2024 5:00 AM EST 11/26/2024 10:13 AM EST us Eva Ivan MD LAB BLOOD ORDERABLES Final Resu lt [facility] [address] [place] [address], documented in this encounter Visit Diagnoses Diagnosis Other seizures (CMS/HCC) Type 2 diabetes mellitus without complications (CMS/HCC) Unspecified convulsions (CMS/HCC) Chronic obstructive pulmonary disease, unspecified (CMS/HCC) Essential (primary) hypertension Unspecified essential hypertension documented in this encounter Care Teams Windows Server Specialist Relationship Specialty Start Date End Date Jose Juan Rendon MD [address] [place] [address] [facility] [place] PCP - General 01/29/24 documented as of this encounter
--- OUTSIDE RECORDS SUMMARY | 2024-12-18 14:02 | XMS_ITS | Clinical Summary ---
Author Organization [facility] Address [address] [place] [address] Phone Care Team Providers Care Dial Lathe Operator Name Role Phone Jose Juan Rendon MD Primary Care Provider + [phone] Allergies Active Allergy Reactions Criticality Noted Date Comments Meperidine Low blood pressure 11/23/2024 Penicillins Unknown 11/23/2024 Medications amLODIPine (NORVASC) 2.5 mg tablet Take 1 tablet (2.5 mg total) by mouth 1 (one) time each day. for 90 days 11/19/19 25 Active atorvastatin (LIPITOR) 20 mg tablet Take 1 tablet (20 mg total) by mouth at bedtime. 11/19/19 25 Active clonazePAM (KlonoPIN) 0.25 mg disintegrating tablet Dissolve 1 tablet (0.25 mg total) on top of the tongue at bedtime. 30 min before bedtime. Max Daily Amount: 0.25 mg Active omalizumab (XOLAIR) 150 mg injection Inject 150 mg under the skin every 28 (twenty-eight) days. Per daughter Angelica Active albuterol HFA (PROAIR HFA ; PROVENTIL HFA ; VENTOLIN HFA) 90 mcg/actuation inhaler Inhale 2 puffs by mouth every 6 (six) hours if needed for wheezing. Per daughter Angelica Active memantine (NAMENDA XR) 28 mg extended release capsule Take 1 capsule (28 mg total) by mouth 1 (one) time each day. 09/28/20 24 Active valACYclovir (VALTREX) 500 mg tablet Take 1 tablet (500 mg total) by mouth 1 (one) time each day. Per daughter Angelica Active omeprazole (PriLOSEC) [address] capsule Take 1 capsule (20 mg total) by mouth 1 (one) time each day. Per daughter Angelica 10/04/20 24 Active aspirin 81 mg EC tablet Take 1 tablet (81 mg total) by mouth 1 (one) time each day. Active cholecalciferol (VITAMIN D-3) 50 mcg (2,000 unit) tabletIndications: vitamin D deficiency Take 1 tablet (2,000 Units total) by mouth 1 (one) time each day. Per daughter Angelica Active latanoprost (XALATAN) 0.005 % ophthalmic solution Administer 1 drop into both eyes at bedtime. at bedtime 09/12/20 24 Active cephalexin (KEFLEX) 500 mg capsule Take 1 capsule (500 mg total) by mouth 3 (three) times a day for 4 days. 12 capsule 11/25/19 25 025 Encounters Date Type Department Care Team Description 11/26/2024 Lab Requisition [facility] - Main Lab [address] [place] [id number] Eva Ivan MD Other seizures (CMS/HCC); Type 2 diabetes mellitus without complications (CMS/HCC); Unspecified convulsions (CMS/HCC); Chronic obstructive pulmonary disease, unspecified (CMS/HCC); Essential (primary) hypertension 11/23/2024 4:07 AM EST - 11/25/2024 3:24 PM EST [facility] Emergency [address] [place] [id number] Tim Saleem MD Patel, Parth B, MD Dunbar, Kevin F, MD Cheng, Megan Hearn, DO Failure to thrive in adult (Primary Dx); Acute UTI (urinary tract infection) Discharge Disposition: Home or Self Care from Last 3 Months Surgical History Surgery Date Site/Laterality Comments HYSTERECTOMY GALLBLADDER SURGERY N/A Medical History Medical History Date Comments Arthritis Vascular dementia (CMS/HCC) Asthma Diabetes mellitus (CMS/HCC) Hypertension Osteoarthritis COPD (chronic obstructive pulmonary disease) (CM S/HCC) Seizures (CMS/HCC) Stroke (CMS/HCC) Cancer (CMS/HCC) Depression Anxiety Social History Tobacco Use Types Packs/Day Years [...] Orientation Straight 11/23/2024 7: 49 AM EST Obstetrics History Last Filed Vital Signs Vital Sign Reading Time Taken Comments Blood Pressure 127/59 11/25/2024 9:25 AM EST Pulse 77 11/25/2024 9:25 AM EST Temperature 36.7 ??C (98.1 ??F) 11/25/2024 9:25 AM ES T Respiratory Rate 16 11/25/2024 9:25 AM EST Oxygen Saturation 97% 11/25/2024 9:25 AM EST Inhaled Oxygen Concentration - - Weight 56.7 kg (125 lb) 11/23/2024 9:40 AM EST Height 152.4 cm (5') 11/23/2024 9:40 AM EST Body Mass Index 24.41 11/23/2024 9:40 AM EST Plan of Treatment Health Maintenance Due Date Last Done Comments Diabetes: Annual Foot Exam 1956 Diabetes: Annual Retina Eye Exam 1955 Pneumococcal Vaccine: 50+ Years (1 of 2 - PCV) 1965 Zoster Vaccines (1 of 2) 1996 RSV Immunization Patients 60 + Years Old (1 - 1-dose 75+ series) 2021 Cholesterol Screening (Lipid Panel) 11/24/2023 Depression Screening 11/24/2023 Falls Risk Assessment 11/24/2023 Hepatitis C Screening 11/24/2023 Medicare Annual Wellness Visit 11/24/2023 Osteoporosis Screening (Bone Density Screening) 11/24/2023 Social Influencers of Health Screening 11/24/2023 Diabetes: Annual Urine Albumin-Creatinine Ratio (uACR) 05/23/2024 COVID-19 Vaccine ( - 2023-2 5 season) 2024 Influenza Vaccine (#1) 2024 DTaP,Tdap,and Td Vaccines (2 - Td or Tdap) 04/05/2025 04/05/2015 Diabetes: Blood Sugar Contro l Test (HGBA1C) 05/26/2025 11/26/2024 Diabetes: Annual GFR (Glomerular Filtration Rate) 11/26/2025 11/26/2024, 11/23/2024 Hypertension/CHF/CAD Annual BMP Blood Test 11/26/2025 11/26/2024, 11/23/2024 HIB Vaccines Aged Out No longer eligi [...] patient's age to complete this topic Meningococcal B Vacine Aged Out No lo nger eligible based on patient's age to complete this topic RSV Immunization Patients Under 20 months Aged Out No longer eligible b ased on patient's age to complete this topic Varicella Vaccines Aged Out No longer eligible based on patient's age to complete this topic Procedures Procedure Name Priority Date/Time Associated Diagnosis Comments HEMOGLOBIN A1C Routine 11/26/2024 5:00 AM EST Other seizures (CMS/HCC) Type 2 diabetes mellitus without complications (CMS/HCC) Unspecified convulsions (CMS/HCC) Chronic obstructive pulmonary disease, unspecified (CMS/HCC) Essential (primary) hypertension BASIC METABOLIC PANEL Routine 11/26/2024 5:00 AM EST Other seizures (CMS/HCC) Type 2 diabetes mellitus without complications (CMS/HCC) Unspecified convulsions (CMS/HCC) Chronic obstructive pulmonary disease, unspecified (CMS/HCC) Essential (primary) hypertension COMPLETE BLOOD COUNT Routine 11/26/2024 5:00 AM EST Other seizures (CMS/HCC) Type 2 diabetes mellitus without complications (CMS/HCC) Unspecified convulsions (CMS/HCC) Chronic obstructive pulmonary disease, unspecified (CMS/HCC) Essential (primary) hypertension POCT GLUCOSE BLOOD Routine 11/23/2024 12 :17 PM EST RESPIRATORY VIRUS PANEL MOLECULAR STUDY STAT 11/23/2024 9:52 AM EST POCT GLUCOSE BLOOD Routine 11/23/2024 9: [address] CHEST/ABDOMEN/PELVIS W CONTRAST STAT 11/23/2024 6:[address] CERVICAL SPINE WO CONTRAST STAT 11/23/2024 5:[address] HEAD WO CONTRAST STAT 11/23/2024 5 :40 AM EST OROZCO URINE CULTURE TUBE STAT 11/23/2024 5:25 AM EST URINALYSIS WITH REFLEX MICROSCOPIC AND CULTURE STAT 11/23/2024 5:25 AM EST URINALYSIS WITH REFLEX MICROSCOPIC AND CULTURE STAT 11/23/2024 5:25 AM EST CULTURE URINE STAT 11/23/2024 5:25 AM EST ECG 12-LEAD STAT 11/23/2024 5:21 AM EST CBC WITH AUTO DIFFERENTIAL STAT 11/23/2024 4:23 AM EST CREATINE KINASE STAT 11/23/2024 4:23 AM EST MAGNESIUM STAT 11/23/2024 4:23 AM EST LIPASE STAT 11/23/2024 4:23 AM EST COMPREHENSIVE METABOLIC PANEL STAT 11/23/2024 4:23 AM EST CBC AND DIFFERENTIAL STAT 11/23/2024 4:23 AM EST TROPONIN I HIGH SENSITIVITY STAT 11/23/2024 4:23 AM EST ECG 12-LEAD STAT 11/23/2024 4:17 AM EST ECG ANNOTATED 11/23/2024 from Last 3 Months Results * (ABNORMAL) Complete blood count (11/26/2024 5:00 AM EST) WBC 4.9 4.8 - 10.8 K/mcL LAB HEMETOLOGY METHOD 11/26/2024 11:11 AM [facility] RBC 3.70(L) 3.80 - 4.80 M/mcL LAB HEMETOLOGY METHOD 11/26/2024 11:11 AM [facility] Hemoglobin 11.4(L) 11.5 - 16.0 g/dL LAB HEMETOLOGY METHOD 11/26/2024 11:11 AM [facility] Hematocrit 35.5 35.0 - 47.0 % LAB HEMETOLOGY METHOD 11/26/2024 11:11 AM [facility] MCV 96.2 79.0 - 98.0 FL LAB HEMETOLOGY METHOD 11/26/2024 11:11 AM [facility] MCH 30.9 27.0 - 32.0 pcg LAB HEMETOLOGY METHOD 11/26/2024 11:11 AM [facility] MCHC 32.1 32.0 - 37.0 g/dL LAB HEMETOLOGY METHOD 11/26/2024 11:11 AM [facility] RDW 13.0 11.0 - 15.0 % LAB HEMETOLOGY METHOD 11/26/2024 11:11 AM [facility] Platelets 269 130 - 400 K/mcL LAB HEMETOLOGY METHOD 11/26/2024 11:11 AM [facility] MPV 9.1 7.0 - 11.0 FL LAB HEMETOLOGY METHOD 11/26/2024 11:11 AM [facility] NRBC 0.0 <1.0 % LAB HEMETOLOGY METHOD 11/26/2024 11:11 AM EST [facility] NRBC Absolute 0.00 <0.10 K/mcL LAB HEMETOLOGY METHOD 11/26/2024 11:11 AM EST [facility] Blood Venous blood specimen / Unknown Venipuncture / Unknown 11/26/2024 5:00 AM EST 11/26/2024 10:13 AM EST us Eva Ivan MD LAB BLOOD ORDERABLES Final Resu lt Performing Organization Address [facility]/ZIP Co de Phone Number [facility] [address] [place] [address], [place] [phone] * Hemoglobin A1c (11/26/2024 5:00 AM EST) Hemoglobin A1C 6.3 <6.5 % LAB CHEMISTRY METHOD 11/26/2024 1:54 PM EST [facility] Mean Bld Glu Estim. 134 mg/dL LAB CHEMISTRY METHOD 11/26/2024 1:54 PM EST [facility] Blood Venous blood specimen / Unknown Venipuncture / Unknown 11/26/2024 5:00 AM EST 11/26/2024 10:13 AM EST us Eva Ivan MD LAB BLOOD ORDERABLES Final Resu lt Performing Organization Address [facility]/ZIP Co de Phone Number [facility] [address] [place] [address], [place] [phone] * (ABNORMAL) Basic metabolic panel (11/26/2024 5:00 AM EST) Sodium 132(L) 133 - 145 mmol/L LAB CHEMISTRY METHOD 11/26/2024 10:58 AM EST [facility] Potassium 5.1 3.5 - 5.5 mmol/L LAB CHEMISTRY METHOD 11/26/2024 10:58 AM EST [facility] Chloride 101 96 - 110 mmol/L LAB CHEMISTRY METHOD 11/26/2024 10:58 AM [facility] CO2 28 21 - 32 mmol/L LAB CHEMISTRY METHOD 11/26/2024 10:58 AM [facility] Anion Gap 3 3 - 11 LAB CHEMISTRY METHOD 11/26/2024 10:58 AM [facility] Glucose 102(H) 70 - 100 mg/dL LAB CHEMISTRY METHOD 11/26/2024 10:58 AM [facility] BUN 10 5 - 25 mg/dL LAB CHEMISTRY METHOD 11/26/2024 10:58 AM [facility] Creatinine 0.52 0.50 - 1.10 mg/dL LAB CHEMISTRY METHOD 11/26/2024 10:58 AM [facility] eGFR 95 >=60 mL/min/1. 73m2 LAB CHEMISTRY METHOD 11/26/2024 10:58 AM [facility] Comment:Calculation based on the??Chronic Kidney Disease Epidemiology Collaboration (CKD-EPI) equation refit??without adjustment for race. BUN/Creatinine Ratio 19.2 LAB CHEMISTRY METHOD 11/26/2024 10:58 AM [facility] Calcium 8.5 8.5 - 10.5 mg/dL LAB CHEMISTRY METHOD 11/26/2024 10:58 AM [facility] Blood Venous blood specimen / Unknown Venipuncture / Unknown 11/26/2024 5:00 AM EST 11/26/2024 10:13 AM EST us Eva Ivan MD LAB BLOOD ORDERABLES Final Resu lt [facility] [address] [place] [address], * (ABNORMAL) POCT Glucose, blood (11/23/2024 12:17 PM EST) Only the most recent of2 resultswithin the time period is included. [facility] Glucose POCT 211(H) 70 - 100 mg/dL 11/23/2024 12:18 PM EST [facility] Blood Capillary blood specimen / Unknown 11/23/2024 12:17 PM EST 11/23/2024 12:19 PM EST us Tim Saleem MD LAB POINT OF CARE T EST DOCKED DEVICE UNSOLICITED RESULTS Final Result [facility] [address] [place] [address], * Respiratory virus panel molecular study (11/23/2024 9:52 AM EST) [facility] Adenovirus Detection by PCR Not Detected Not Detected LAB MICROBIOLOGY METHOD 11/23/2024 11:05 AM [facility] Influenza A PCR Not Detected Not Detected LAB MICROBIOLOGY METHOD 11/23/2024 11:05 AM [facility] Influenza B PCR Not Detected Not Detected LAB MICROBIOLOGY METHOD 11/23/2024 11:05 AM [facility] Coronavirus 229E Not Detected Not Detected LAB MICROBIOLOGY METHOD 11/23/2024 11:05 AM [facility] Coronavirus HKU1 Not Detected Not Detected LAB MICROBIOLOGY METHOD 11/23/2024 11:05 AM [facility] Coronavirus OC43 Not Detected Not Detected LAB MICROBIOLOGY METHOD 11/23/2024 11:05 AM [facility] Coronavirus NL63 Not Detected Not Detected LAB MICROBIOLOGY METHOD 11/23/2024 11:05 AM [facility] Parainfluenza Virus 1 Not Detected Not Detected LAB MICROBIOLOGY METHOD 11/23/2024 11:05 AM [facility] Parainfluenza Virus 2 Not Detected Not Detected LAB MICROBIOLOGY METHOD 11/23/2024 11:05 AM [facility] Parainfluenza Virus 3 Not Detected Not Detected LAB MICROBIOLOGY METHOD 11/23/2024 11:05 AM [facility] Parainfluenza Virus 4 Not Detected Not Detected LAB MICROBIOLOGY METHOD 11/23/2024 11:05 AM [facility] RSV PCR Not Detected Not Detected LAB MICROBIOLOGY METHOD 11/23/2024 11:05 AM [facility] Human Metapneumovirus A and B Not Detected Not Detected LAB MICROBIOLOGY METHOD 11/23/2024 11:05 AM [facility] Rhinovirus/Entero virus Not Detected Not Detected LAB MICROBIOLOGY METHOD 11/23/2024 11:05 AM [facility] Bordetella pertussis Not Detected Not Detected LAB MICROBIOLOGY METHOD 11/23/2024 11:05 AM [facility] Bordetella parapertussis Not Detected Not Detected LAB MICROBIOLOGY METHOD 11/23/2024 11:05 AM [facility] Mycoplasma pneumo by PCR Not Detected Not Detected LAB MICROBIOLOGY METHOD 11/23/2024 11:05 AM [facility] Chlamydia pneumoniae Not Detected Not Detected LAB MICROBIOLOGY METHOD 11/23/2024 11:05 AM [facility] SARS COV-2 Not Detected Not Detected LAB MICROBIOLOGY METHOD 11/23/2024 11:05 AM [facility] Swab Both anterior nares / Unknown Non-blood Collection / Unknown 11/23/2024 9:52 AM EST 11/23/2024 10:07 AM [facility] - 11/23/2024 11:05 AM EST Testing was performed using the [employer] Respiratory Pathogen PCR Assay. All results must be correlated with the clinical findings. Results should not be used as the sole basis for diagnosis. False Negative results may occur from the presence of sequence variants in the region targeted by the assay or the presence of inhibitors. Results may be affected by concurrent antiviral/antimicrobial therapy or levels of organisms that are below the limit of detection. us Tim Saleem MD LAB MICROBIOLOGY - GENERAL ORDERABLES Final Result [facility] [address] [place] [address], * CT Chest/Abdomen/Pelvis w Contrast (11/23/2024 6:15 AM EST) Anatomical Region Laterality Modality Body Computed Tomogra phy 11/23/2024 6:55 AM EST Addenda Addendum by Emmett Hayes MD on 11/23/2024 6:57 AM EST ADDENDUM: Post cholecystectomy. No significant biliary dilatation. This document has been electronically signed by: Emmett Hayes MD on 11/23/2024 06:57:33 Impressions 11/23/2024 6:55 AM EST Impression: 1. Normal caliber thoracic aorta. No evidence of mediastinal hematoma. Calcified coronary artery disease. Less than 5 mm bilateral pulmonary nodules consider annual follow-up if patient is high-risk. Minimal pleural-parenchymal scarring right middle lobe. 2. No evidence of solid organ injury. No free air fluid or evidence of bowel injury. 3. Osseous structures intact. This document has been electronically signed by: Emmett Hayes MD on 11/23/2024 06:55:54 Narrative 11/23/2024 6:[address] chest, abdomen and pelvis with IV contrast Comparison: None Findings: Normal heart size. No pericardial effusion. Calcified coronary artery disease. Normal caliber thoracic aorta. No evidence of mediastinal hematoma or pneumomediastinum. Subsegmental dependent atelectasis.Less than 5 mm pulmonary nodules predominantly in the lung bases consider annual follow-up if patient is high-risk. No airspace disease. No pneumothorax or pleural effusion. Pleural thickening right anterior lateral chest wall. Central airways are patent. No chest wall masses or fluid collections. Liver normal size, contour . No focal hepatic lesions. Physiologic distention of the gallbladder. Homogeneous enhancement of the pancreas and spleen. Normal adrenal glands. Symmetrical renal excretion. Normal caliber abdominal aorta. No free air. No free fluid demonstrated. No CT evidence of bowel injury. Increased stool burden. No intraperitoneal, retroperitoneal, pelvic or inguinal masses or abnormal fluid collections. Normal distention of the urinary bladder. No vertebral body compression fractures or spondylolisthesis. No rib fractures demonstrated. Osseous pelvic structures intact. Procedure Note Emmett Hayes MD - 11/23/2024 CT chest, abdomen and pelvis with IV contrast Comparison: None Findings: Normal heart size. No pericardial effusion. Calcified coronary artery disease. Normal caliber thoracic aorta. No evidence of mediastinal hematoma or pneumomediastinum. Subsegmental dependent atelectasis.Less than 5 mm pulmonary nodules predominantly in the lung bases consider annual follow-up if patient is high-risk. No airspace disease. No pneumothorax or pleural effusion. Pleural thickening right anterior lateral chest wall. Central airways are patent. No chest wall masses or fluid collections. Liver normal size, contour . No focal hepatic lesions. Physiologic distention of the gallbladder. Homogeneous enhancement of the pancreasand spleen. Normal adrenal glands. Symmetrical renal excretion. Normal caliber abdominal aorta. No free air. No free fluid demonstrated. No CT evidence of bowel injury. Increased stool burden. No intraperitoneal, retroperitoneal, pelvic or inguinal masses or abnormal fluid collections. Normal distention of the urinary bladder. No vertebral body compression fractures or spondylolisthesis. No rib fractures demonstrated. Osseous pelvic structures intact. IMPRESSION: Impression: 1. Normal caliber thoracic aorta. No evidence of mediastinal hematoma. Calcified coronary artery disease. Less than 5 mm bilateral pulmonary nodules consider annual follow-up if patient is high-risk. Minimal pleural-parenchymal scarring right middle lobe. 2. No evidence of solid organ injury. No free air fluid or evidence of bowel injury. 3. Osseous structures intact. This document has been electronically signed by: Emmett Hayes MD on 11/23/2024 06:55:54 Chris LEONG [facility] CT PROCEDURES Edited Result - Final * CT Cervical Spine wo Contrast (11/23/2024 5:40 AM EST) Anatomical Region Laterality Modality Spine, C-spine Computed Tomogra phy 11/23/2024 6:02 AM EST Narrative 11/23/2024 6:[address] cervical spine without intravenous contrast Comparison: None Findings: Craniocervical junction: No occipital condylar fractures. No evidence of atlantooccipital dissociation. The anterior and posterior arch and lateral masses of C1 are intact. Odontoid and atlanto-dental interval intact. The pars interarticularis of C2 is intact. There is normal vertebral body heights with no evidence of compression fracture. Degenerative spondylolisthesis C3-C4, C4-C5 and C5-C6. No locked or perched facets. No spinous process fractures. Lordotic curvature is preserved. The retropharyngeal soft tissues are not widened. Segmental analysis as below (MR is more accurate in the evaluation of disc herniation and central canal pathology): C2-C3: No herniation or stenosis. C3-C4: Uncovertebral body spurs and degenerative facet arthropathy C4-C5: Uncovertebral body spurs and degenerative facet arthropathy C5-C6: Uncovertebral body spurs C6-C7: Uncovertebral body spurs C7-T1: No herniation or stenosis. The bones are without evidence of lytic or blastic lesion. Lung apices are unremarkable. Impression: 1. Negative CT cervical spine for acute process. This document has been electronically signed by: Emmett Hayes MD on 11/23/2024 06:02:08 Procedure Note Emmett Hayes MD - 11/23/2024 CT cervical spine without intravenous contrast Comparison: None Findings: Craniocervical junction: No occipital condylar fractures. No evidence of atlantooccipital dissociation. The anterior and posterior arch andlateral masses of C1 are intact. Odontoid and atlanto-dental interval intact.The pars interarticularis of C2 is intact. There is normal vertebral body heights with no evidence of compression fracture. Degenerative spondylolisthesis C3-C4, C4-C5 and C5-C6. Nolocked or perched facets. No spinous process fractures. Lordotic curvature is preserved. The retropharyngeal soft tissues arenot widened. Segmental analysis as below (MR is more accurate in the evaluation ofdisc herniation and central canal pathology): C2-C3: No herniation or stenosis. C3-C4: Uncovertebral body spurs and degenerative facet arthropathy C4-C5: Uncovertebral body spurs and degenerative facet arthropathy C5-C6: Uncovertebral body spurs C6-C7: Uncovertebral body spurs C7-T1: No herniation or stenosis. The bones are without evidence of lytic or blastic lesion. Lung apicesare unremarkable. Impression: 1. Negative CT cervical spine for acute process. This document has been electronically signed by: Emmett Hayes MD on 11/23/2024 06:02:[address] PROCEDURES Final Result * CT Head wo Contrast (11/23/2024 5:40 AM EST) Anatomical Region Laterality Modality Head and Neck Computed Tomogra phy 11/23/2024 5:57 AM EST Impressions 11/23/2024 5:57 AM EST Impression: 1. No CT evidence of acute intracranial abnormality. 2. Cerebral volume loss, intracranial atherosclerotic disease and mild sequela of chronic small vessel ischemic disease. This document has been electronically signed by: Emmett Hayes MD on 11/23/2024 05:57:51 Narrative 11/23/2024 5:[address] of the head without intravenous contrast Comparison: None Findings: The ventricles and sulci are prominent, consistent with generalized cerebral parenchymal volume loss. The ventricles are symmetric and the basilar cisterns are intact. Mild periventricular, deep and subcortical white matter hypodensities are nonspecific but statistically reflect the sequela of chronic small vessel ischemic change. No intracranial hemorrhage, extra-axial fluid collection, midline shift or mass-effect is evident. No evidence of acute large vessel or territorial ischemia. Brainstem and cerebellum unremarkable. Vascular calcifications indicate intracranial atherosclerosis. The imaged portion of the paranasal sinuses are clear. No mastoid effusions are demonstrated. The orbital contents are unremarkable. Calvarium is intact. Prominent arachnoid granulation frontal bones. Procedure Note Emmett Hayes MD - 11/23/2024 CT of the head without intravenous contrast Comparison: None Findings: The ventricles and sulci are prominent, consistent with generalized cerebral parenchymal volume loss. The ventricles are symmetric and the basilar cisterns are intact. Mild periventricular, deep and subcortical white matter hypodensities are nonspecific but statistically reflect the sequela of chronic small vessel ischemic change. No intracranial hemorrhage, extra-axial fluid collection, midline shift or mass-effectis evident. No evidence of acute large vessel or territorial ischemia. Brainstem and cerebellum unremarkable. Vascular calcifications indicate intracranial atherosclerosis. The imaged portion of the paranasal sinuses are clear. No mastoid effusions are demonstrated. The orbital contents are unremarkable. Calvarium is intact. Prominent arachnoid granulation frontal bones. IMPRESSION: Impression: 1. No CT evidence of acute intracranial abnormality. 2. Cerebral volume loss, intracranial atherosclerotic disease and mild sequela of chronic small vessel ischemic disease. This document has been electronically signed by: Emmett Hayes MD on 11/23/2024 05:57:51 Chris LEONG [facility] [place] CT PROCEDURES Final Result * (ABNORMAL) Urinalysis with reflex microscopic and culture (11/23/2024 5:25 AM EST) Specific Turner Urine 1.009 1.003 - 1.030 LAB URINALYSIS - AUTOMATED METHOD 11/23/2024 7:53 AM [facility] pH, Urine 8.0 5.0 - 8.0 pH LAB URINALYSIS - AUTOMATED METHOD 11/23/2024 7:53 AM [facility] Leukocytes, Urine Moderate(A) Negative LAB URINALYSIS - AUTOMATED METHOD 11/23/2024 7:53 AM [facility] Nitrite, Urine Positive(A) Negative LAB URINALYSIS - AUTOMATED METHOD 11/23/2024 7:53 AM [facility] Protein, Urine Negative <=Trace mg/dL LAB URINALYSIS - AUTOMATED METHOD 11/23/2024 7:53 AM [facility] Glucose, Urine Negative Negative mg/dL LAB URINALYSIS - AUTOMATED METHOD 11/23/2024 7:53 AM [facility] Ketones, Urine Negative Negative mg/dL LAB URINALYSIS - AUTOMATED METHOD 11/23/2024 7:53 AM [facility] Urobilinogen , Urine 0.2 0.2 - 1.0 mg/dL LAB URINALYSIS - AUTOMATED METHOD 11/23/2024 7:53 AM [facility] Bilirubin, Urine Negative Negative LAB URINALYSIS - AUTOMATED METHOD 11/23/2024 7:53 AM [facility] Blood, Urine Negative Negative LAB URINALYSIS - AUTOMATED METHOD 11/23/2024 7:53 AM [facility] RBC, Urine 1.4 0 - 4 /HPF LAB URINALYSIS - AUTOMATED METHOD 11/23/2024 7:53 AM [facility] WBC, Urine 6.6(H) 0 - 4 /HPF LAB URINALYSIS - AUTOMATED METHOD 11/23/2024 7:53 AM [facility] Squamous Epithelial, Urine 20 0 - 60 /LPF LAB URINALYSIS - AUTOMATED METHOD 11/23/2024 7:53 AM [facility] Bacteria, Urine Many(A) Negative /HPF LAB URINALYSIS - AUTOMATED METHOD 11/23/2024 7:53 AM [facility] Hyaline Casts, Urine 0.0 0 - 3 /LPF LAB URINALYSIS - AUTOMATED METHOD 11/23/2024 7:53 AM [facility] Urine Urinary bladder structure / Unknown Non-blood Collection / Unknown 11/23/2024 5:25 AM EST 11/23/2024 7:01 AM EST us Chris LEONG LAB URINE ORDERABLES Final Resul t Performing Organization Address [facility]/State/[facility] Co de Phone Number [facility] [address] [place] [address], [place] [phone] * Orozco urine culture tube (11/23/2024 5:25 AM EST) Extra Tube Hold for add-ons. 11/23/2024 9:01 AM [facility] Comment:Auto resulted. Urine Urinary bladder structure / Unknown Non-blood Collection / Unknown 11/23/2024 5:25 AM EST 11/23/2024 7:01 AM EST us Chris LEONG LAB URINE ORDERABLES Final Resul t [facility] [address] [place] [address], [place] [phone] * (ABNORMAL) Culture urine (11/23/2024 5:25 AM EST) Culture, Urine >100,000 CFU/mL Klebsiella pneumoniae ssp pneumoniae(A) BRENDA 11/25/2024 10:16 AM EST [facility] Comment: This is an edited result. Previous organism was Gram negative bacilli on 11/24/2024 at 1110 EST. Urine Urinary bladder structure / Unknown Non-blood Collection / Unknown 11/23/2024 5:25 AM EST 11/23/2024 7:53 AM EST Narrative Organism Antibiotic Method Susceptibility Klebsiella pneumoniae ssp pneumoniae Amoxicillin/Clavulanate BRENDA <=2 ug/ml: Susceptible Klebsiella pneumoniae ssp pneumoniae Ampicillin/Sulbactam BRENDA <=2 ug/ml: Susceptible Klebsiella pneumoniae ssp pneumoniae Piperacillin/Tazobactam BRENDA <=4 ug/ml: Susceptible Klebsiella pneumoniae ssp pneumoniae Cefazolin (Urine) BRENDA <=1 ug/ml: Susceptible Klebsiella pneumoniae ssp pneumoniae Cefoxitin BRENDA <=4 ug/ml: Susceptible Klebsiella pneumoniae ssp pneumoniae Ceftazidime BRENDA <=0.5 ug/ml: Susceptible Klebsiella pneumoniae ssp pneumoniae Ceftriaxone BRENDA <=0.25 ug/ml: Susceptible Klebsiella pneumoniae ssp pneumoniae Cefepime BRENDA <=0.12 ug/ml: Susceptible Klebsiella pneumoniae ssp pneumoniae Meropenem BRENDA <=0.25 ug/ml: Susceptible Klebsiella pneumoniae ssp pneumoniae Amikacin BRENDA <=1 ug/ml: Susceptible Klebsiella pneumoniae ssp pneumoniae Gentamicin BRENDA <=1 ug/ml: Susceptible Klebsiella pneumoniae ssp pneumoniae Ciprofloxacin BRENDA <=0.06 ug/ml: Susceptible Klebsiella pneumoniae ssp pneumoniae Levofloxacin BRENDA <=0.12 ug/ml: Susceptible Klebsiella pneumoniae ssp pneumoniae Nitrofurantoin BRENDA 32 ug/ml: Susceptible Klebsiella pneumoniae ssp pneumoniae Trimethoprim/Sulfamethoxazo le BRENDA <=20 ug/ml: Susceptible Chris LEONG LAB MICROBIOLOGY - GENERAL ORDER BESSIE Final Result [facility] [address] [place] [address], * ECG 12 lead (11/23/2024 5:21 AM EST) Only the most recent of2 resultswithin the time period is included. Pathologist [facility] Ventricular Rate ECG 70 BPM GEM[facility] Atrial Rate 70 BPM GEMUSE P-R Interval 150 ms GEMUSE QRS Duration 76 ms GEMUSE Q-T Interval 376 ms GEMUSE QTc 406 ms GEMUSE P Wave [place] 75 degrees GEMUSE R [place] 25 degrees GEMUSE T [place] 48 degrees GEMUSE ECG Interpretation Normal sinus rhythm Normal ECG When compared with ECG of 23-NOV-2024 04:17, (unconfirmed) No significant change was found Confirmed by KORI ANNE ([id number]) on 11/23/2024 4:50:31 PM GEMUSE 11/23/2024 5:21 AM EST 11/23/2024 4:50 PM EST Tim Saleem MD ECG ORDERABLES Final Resul t Performing Organization Address City/[facility]/ZIP Co de Phone Number GEMUSE * Troponin I high sensitivity (11/23/2024 4:23 AM EST) [facility] High Sensitivity Troponin I 10 <=54 ng/L LAB CHEMISTRY METHOD 11/23/2024 5:00 AM EST [facility] Blood Venous blood specimen / Unknown Venipuncture / Unknown 11/23/2024 4:23 AM EST 11/23/2024 4:33 AM EST Narrative [facility] - 11/23/2024 5:00 AM EST High levels of biotin in samples may falsely decrease hsTroponin values. ??Use caution when interpreting hsTroponin results in patients taking biotin who exhibit renal impairment (eGFR <60) or in patients taking more than 20 mg/day of biotin. Tim Saleem MD LAB BLOOD ORDERABLES Final Result [facility] [address] [place] [address], * (ABNORMAL) CBC auto differential (11/23/2024 4:23 AM EST) [facility] WBC 9.0 4.8 - 10.8 K/mcL LAB HEMETOLOGY METHOD 11/23/2024 4:38 AM [facility] RBC 4.30 3.80 - 4.80 M/mcL LAB HEMETOLOGY METHOD 11/23/2024 4:38 AM [facility] Hemoglobin 13.2 11.5 - 16.0 g/dL LAB HEMETOLOGY METHOD 11/23/2024 4:38 AM [facility] Hematocrit 40.3 35.0 - 47.0 % LAB HEMETOLOGY METHOD 11/23/2024 4:38 AM [facility] MCV 94.4 79.0 - 98.0 FL LAB HEMETOLOGY METHOD 11/23/2024 4:38 AM [facility] MCH 30.9 27.0 - 32.0 pcg LAB HEMETOLOGY METHOD 11/23/2024 4:38 AM [facility] MCHC 32.8 32.0 - 37.0 g/dL LAB HEMETOLOGY METHOD 11/23/2024 4:38 AM [facility] RDW 12.7 11.0 - 15.0 % LAB HEMETOLOGY METHOD 11/23/2024 4:38 AM [facility] Platelets 276 130 - 400 K/mcL LAB HEMETOLOGY METHOD 11/23/2024 4:38 AM [facility] MPV 8.3 7.0 - 11.0 FL LAB HEMETOLOGY METHOD 11/23/2024 4:38 AM [facility] NRBC 0.0 <1.0 % LAB HEMETOLOGY METHOD 11/23/2024 4:38 AM [facility] NRBC Absolute 0.00 <0.10 K/mcL LAB HEMETOLOGY METHOD 11/23/2024 4:38 AM [facility] Neutrophils Relative 81.0 % LAB HEMETOLOGY METHOD 11/23/2024 4:38 AM [facility] Lymphocytes Relative 10.2 % LAB HEMETOLOGY METHOD 11/23/2024 4:38 AM [facility] Monocytes Relative 7.0 % LAB HEMETOLOGY METHOD 11/23/2024 4:38 AM [facility] Eosinophils Relative 1.2 % LAB HEMETOLOGY METHOD 11/23/2024 4:38 AM [facility] Basophils Relative 0.2 % LAB HEMETOLOGY METHOD 11/23/2024 4:38 AM [facility] Immature Granulocytes Relative 0.4 % LAB HEMETOLOGY METHOD 11/23/2024 4:38 AM [facility] Neutrophils Absolute 7.32(H) 1.50 - 7.00 K/mcL LAB HEMETOLOGY METHOD 11/23/2024 4:38 AM [facility] Lymphocytes Absolute 0.92(L) 1.00 - 5.00 K/mcL LAB HEMETOLOGY METHOD 11/23/2024 4:38 AM [facility] Monocytes Absolute 0.63 0.20 - 1.00 K/mcL LAB HEMETOLOGY METHOD 11/23/2024 4:38 AM [facility] Eosinophils Absolute 0.11 0.00 - 0.50 K/mcL LAB HEMETOLOGY METHOD 11/23/2024 4:38 AM [facility] Basophils Absolute 0.02 0.00 - 0.20 K/mcL LAB HEMETOLOGY METHOD 11/23/2024 4:38 AM [facility] Immature Granulocytes Absolute 0.04(H) 0.00 - 0.03 K/mcL LAB HEMETOLOGY METHOD 11/23/2024 4:38 AM EST [facility] Blood Venous blood specimen / Unknown Venipuncture / Unknown 11/23/2024 4:23 AM EST 11/23/2024 4:33 AM EST Tim Saleem MD LAB BLOOD ORDERABLES Final Result Performing Organization Address City/[facility]/ZIP Co de Phone Number [facility] [address] [place] [address], [place] [phone] * Magnesium (11/23/2024 4:23 AM EST) Magnesium 2.6 1.9 - 2.6 mg/dL LAB CHEMISTRY METHOD 11/23/2024 5:09 AM EST [facility] Blood Venous blood specimen / Unknown Venipuncture / Unknown 11/23/2024 4:23 AM EST 11/23/2024 4:33 AM EST Tim Saleem MD LAB BLOOD ORDERABLES Final Result Performing Organization Address City/[facility]/ZIP Co de Phone Number [facility] [address] [place] [address], [place] [phone] * Lipase (11/23/2024 4:23 AM EST) Lipase 35 13 - 75 unit/L LAB CHEMISTRY METHOD 11/23/2024 5:09 AM EST [facility] Blood Venous blood specimen / Unknown Venipuncture / Unknown 11/23/2024 4:23 AM EST 11/23/2024 4:33 AM EST Tim Saleem MD LAB BLOOD ORDERABLES Final Result [facility] [address] [place] [address], [place] [phone] * Cardiac Enzymes - CPK (11/23/2024 4:23 AM EST) Total CK 109 22 - 269 unit/L LAB CHEMISTRY METHOD 11/23/2024 5:09 AM [facility] Blood Venous blood specimen / Unknown Venipuncture / Unknown 11/23/2024 4:23 AM EST 11/23/2024 4:33 AM EST us Tim Saleem MD LAB BLOOD ORDERABLES Final Result [facility] [address] [place] [address], [place] [phone] * (ABNORMAL) Comprehensive metabolic panel (11/23/2024 4:23 AM EST) Pathologist [facility] Sodium 135 133 - 145 mmol/L LAB CHEMISTRY METHOD 11/23/2024 5:09 AM [facility] Potassium 4.2 3.5 - 5.5 mmol/L LAB CHEMISTRY METHOD 11/23/2024 5:09 AM [facility] Chloride 103 96 - 110 mmol/L LAB CHEMISTRY METHOD 11/23/2024 5:09 AM [facility] CO2 27 21 - 32 mmol/L LAB CHEMISTRY METHOD 11/23/2024 5:09 AM [facility] Anion Gap 5 3 - 11 LAB CHEMISTRY METHOD 11/23/2024 5:09 AM [facility] Glucose 117(H) 70 - 100 mg/dL LAB CHEMISTRY METHOD 11/23/2024 5:09 AM [facility] BUN 10 5 - 25 mg/dL LAB CHEMISTRY METHOD 11/23/2024 5:09 AM [facility] Creatinine 0.51 0.50 - 1.10 mg/dL LAB CHEMISTRY METHOD 11/23/2024 5:09 AM [facility] eGFR 96 >=60 mL/min/1. 73m2 LAB CHEMISTRY METHOD 11/23/2024 5:09 AM [facility] Comment:Calculation based on the??Chronic Kidney Disease Epidemiology Collaboration (CKD-EPI) equation refit??without adjustment for race. BUN/Creatinine Ratio 19.6 LAB CHEMISTRY METHOD 11/23/2024 5:09 AM [facility] Calcium 9.1 8.5 - 10.5 mg/dL LAB CHEMISTRY METHOD 11/23/2024 5:09 AM [facility] AST (SGOT) 11 10 - 42 unit/L LAB CHEMISTRY METHOD 11/23/2024 5:09 AM [facility] ALT (SGPT) 20 10 - 60 unit/L LAB CHEMISTRY METHOD 11/23/2024 5:09 AM [facility] Alkaline Phosphatase 93 42 - 121 unit/L LAB CHEMISTRY METHOD 11/23/2024 5:09 AM [facility] Total Protein 6.8 6.0 - 8.0 g/dL LAB CHEMISTRY METHOD 11/23/2024 5:09 AM [facility] Albumin 3.8 3.2 - 5.0 g/dL LAB CHEMISTRY METHOD 11/23/2024 5:09 AM [facility] Total Bilirubin 0.5 0.0 - 1.4 mg/dL LAB CHEMISTRY METHOD 11/23/2024 5:09 AM [facility] Blood Venous blood specimen / Unknown Venipuncture / Unknown 11/23/2024 4:23 AM EST 11/23/2024 4:33 AM EST us Tim Saleem MD LAB BLOOD ORDERABLES Final Result [facility] [address] [place] [address], * ECG-Annotated (11/23/2024) us Provider Onbase ECG ORDERABLES Final Result from Last 3 Months Insurance MEDICAID - [place] MEDICARE Advance Directives Documents on File Type Date 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 Do not modify or discontinue any currently active code status orders. Care Teams Dial Lathe Operator Relationship Specialty Start Date End Date Jose Juan Rendon MD [address] [place] [address] Dr [address] [place] PCP - General 01/29/24
--- OUTSIDE RECORDS SUMMARY | 2024-12-18 14:02 | XMS_ITS | Encounter Summary ---
Author Organization [facility] Address [address] [place] [address] Care Team Providers Care Supervisor Agricultural Education Name Role Phone Jose Juan Rendon MD Primary Care Provider + [phone] Reason for Visit * Reason Comments Fall Fall at home for unk nown amount of time, chest pain Encounter Details Date Type Department Care Team ([facility] st Contact Info) Description 11/23/2024 4:07 AM EST - 11/25/2024 3:24 PM EST Emergency [facility] Emergency [address] [place] [id number] Tim Saleem MD [address] [facility] [address] [place] [address] Justin Hagen MD [address] [place] [address] Enrique Waters MD [address] [place] [id number] Megan Wilson DO [address] [place] [address] Failure to thrive in adult (Primary Dx); Acute UTI (urinary tract infection) Discharge Disposition: Home or Self Care Social History Tobacco Use Types Packs/Day Years [...] AM EST documented as of this encounter Last Filed Vital Signs Vital Sign Reading [...] Mass Index 24.41 11/23/2024 9:40 AM EST documented in this encounter Functional Status * Are you deaf or do you have serious difficulty hearing? Answer Date of Assessment Author No 11/23/2024 5:33 AM Jena Kwon RN * Are you blind or do [...] Jena Kwon RN documented in this encounter Medications at Time of Discharge amLODIPine (NORVASC) 2.5 mg tablet Take 1 tablet (2.5 mg total) by mouth 1 (one) time each day. for 90 days 11/19/2024 atorvastatin (LIPITOR) 20 mg tablet Take 1 tablet (20 mg total) by mouth at bedtime. 11/19/2024 latanoprost (XALATAN) 0.005 % ophthalmic solution Administer 1 drop into both eyes at bedtime. at bedtime 09/12/2024 memantine (NAMENDA XR) 28 mg extended release capsule Take 1 capsule (28 mg total) by mouth 1 (one) time each day. 09/28/2024 omeprazole (PriLOSEC) [address] capsule Take 1 capsule (20 mg total) by mouth 1 (one) time each day. Per daughter Angelica 10/04/2024 albuterol HFA (PROAIR HFA ; PROVENTIL HFA ; VENTOLIN HFA) 90 mcg/actuation inhaler Inhale 2 puffs by mouth every 6 (six) hours if needed for wheezing. Per daughter Angelica aspirin 81 mg EC tablet Take 1 tablet (81 mg total) by mouth 1 (one) time each day. cholecalciferol (VITAMIN D-3) 50 mcg (2,000 unit) tabletIndications:v itamin D deficiency Take 1 tablet (2,000 Units total) by mouth 1 (one) time each day. Per daughter Angelica clonazePAM (KlonoPIN) 0.25 mg disintegrating tablet Dissolve 1 tablet (0.25 mg total) on top of the tongue at bedtime. 30 min before bedtime. Max Daily Amount: 0.25 mg omalizumab (XOLAIR) 150 mg injection Inject 150 mg under the skin every 28 (twenty-eight) days. Per daughter Angelica valACYclovir (VALTREX) 500 mg tablet Take 1 tablet (500 mg total) by mouth 1 (one) time each day. Per daughter Angelica cephalexin (KEFLEX) 500 mg capsule Take 1 capsule (500 mg total) by mouth 3 (three) times a day for 4 days. 12 capsule 11/25/2024 documented as of this encounter Ordered Prescriptions Prescription Sig Dispense Quantity Refills Last Filled Start Date End Date cephalexin (KEFLEX) 500 mg capsule Take 1 capsule (500 mg total) by mouth 3 (three) times a day for 4 days. 12 capsule 11/25/2024 documented in this encounter Discharge Disposition Disposition Code Departure Means Destination Comment s Home or Self Care documented in this encounter Progress Notes * Ellen Galvez RN - 11/25/2024 3:15 PM EST [facility]. This RN was able to reach the admissionoffice and they gave a number to this RN to call, [phone]. This RN called the number multiple times but it is saying the number is unavailable. * Jackie Oropeza RN - 11/25/2024 1:43 PM EST 11/25/24 1343 Transportation Transportation at discharge Ambulance What day is the transport expected? 11/25/24 What time is the transport expected? 1500 Final Discharge Disposition [facility] Patient is for 3pm discharge via [facility] for 3pm. Spoke with daughter Angelica and aware. She will also inform he sister of d/c time. Nurse/provider updated. * Cynthia Snell - 11/25/2024 8:33 AM EST Breakfast tray given Cynthia Snell 11/25/24 0833 * Megan Wilson DO - 11/25/2024 8:12 AM EST ED Course as of 11/25/24 1455 Sat Nov 23, [address] head, neck, and chest abdomen pelvis are negative for acute trauma or fracture. The patientwill be removed from her cervical collar. We will await urinalysis results. Patient will be signed out to oncoming provider. [RM] 0728 Received patient in signout family is agreeable to subacute evaluation and does have some nursing care at home however family is concerned that it is not enough given her needs. [JL] 1009 Suggestion of urinary tract infection on urinalysis. Patient be treated with Rocephin [JL] 1521 Failed PT they recommended SNF placement. Social work attempting to place a [place] facility [JL] Oriana Nov 24, 2024 0934 Signout pending placement assessment patient appears to be well. Does have a UTI. Patient is has Keflex ordered. [TC] 1542 Patient is pending placement at this time. Patient will be signed out to oncoming provider. [TC] 2326 No acute events during day time. Patient signed out to Dr. Waters. [PP] [facility] Nov 25, 2024 0813 Patient signed out to me pending placement at this time. [TC] 1332 Patient has a bed in [facility]. Patient will be discharged at 3 PM today. I will plan printout Keflex antibiotic prescription for the patient at this time. To complete her UTI treatment. [TC] ED Course User Index [JL] Tim Saleem MD [PP] Justin Hagen MD [RM] DANG Rivas [TC] Megan Wilson DO Clinical Impressions as of 11/25/24 1455 Failure to thrive in adult Acute UTI (urinary tract infection) Discharge 1. Failure to thrive in adult 2. Acute UTI (urinary tract infection) Procedures Lianne Moreno * Lola Adams RN - 11/24/2024 6:18 PM EST This RN provided susana care, noted skin intact with slight redness between buttocks applied barrier cream. * Lola Adams RN - 11/24/2024 4:12 PM EST Patient had a bowel movent, susana care provided. Patient reposition for comfort, call park within reach. * Lola Adams RN - 11/24/2024 3:11 PM EST Per HCP Angelica do not disclose any of patients care with any other family members that come to visit. * Lola Adams RN - 11/24/2024 1:00 PM EST Patient has a cough. Provider notified * Lola Adams RN - 11/24/2024 11:01 AM EST This Rn provided susana care and applied new brief. * Tori Lenz RN - 11/24/2024 9:43 AM EST Spoke with daughter/HCP Angelica she is accepting of bed offer from [facility] pending MDS approval. MDS faxed to [facility] [phone]. * Megan Wilson DO - 11/24/2024 9:34 AM EST ED Course as of 11/25/24 1332 Sat Nov 23, [address] head, neck, and chest abdomen pelvis are negative for acute trauma or fracture. The patientwill be removed from her cervical collar. We will await urinalysis results. Patient will be signed out to oncoming provider. [RM] 0728 Received patient in signout family is agreeable to subacute evaluation and does have some nursing care at home however family is concerned that it is not enough given her needs. [JL] 1009 Suggestion of urinary tract infection on urinalysis. Patient be treated with Rocephin [JL] 1521 Failed PT they recommended SNF placement. Social work attempting to place a [facility] [JL] Oriana Nov 24, 2024 0934 Signout pending placement assessment patient appears to be well. Does have a UTI. Patient is has Keflex ordered. [TC] 1542 Patient is pending placement at this time. Patient will be signed out to oncoming provider. [TC] 2326 No acute events during day time. Patient signed out to Dr. Waters. [PP] [facility] Nov 25, 2024 0813 Patient signed out to hi pending placement at this time. [TC] 1332 Patient has a bed in ongoing [facility]. Patient will be discharged at 3 PM today. I will plan printout Keflex antibiotic prescription for the patient at this time. To complete her UTI treatment. [TC] ED Course User Index [JL] Tim Saleem MD [PP] Justin Hagen MD [RM] DANG Rivas [TC] Megan Wilson DO Clinical Impressions as of 11/25/24 1332 Failure to thrive in adult Acute UTI (urinary tract infection) Data Unavailable 1. Failure to thrive in adult 2. Acute UTI (urinary tract infection) Procedures Lianne Moreno * SHAHRIAR Hamlin - 11/24/2024 8:40 AM EST Images from the original note were not included. [facility] AD TRAFFICKER BEDSIDE SWALLOW EVALUATION NAME: Lianne Moreno DATE OF : 1945 [facility] RECOMMENDATIONS ASPIRATION RISK: Recommendations: Other (Comment) (Frequent oral care throughout the day, Pt may need MBSS at next level of care if cough becomes more consistent.) Diet Solids Recommendation: IDDSI Level 7 Regular Diet Liquids Recommendation: Thin liquids Liquid Administration Via: Cup, Straw Supervision Level: Set up with meals Compensatory Swallowing Strategies: Upright as possible for all oral intake, Remain upright for 20-30 minutes after meals, Alternate solids and liquids, Small bites/sips, Eat/feed slowly, Slow rate of intake Recommended Medication Route: PO Recommended Medication Administration: One pill at a time Pt ID by: Self, Full Name AD TRAFFICKER Received On: 11/24/24 Military Nurse Required: No TIME IN: 0840 TIME OUT: 0910 TOTAL TIME: 30 min SUBJECTIVE Orders acknowledged/received, chart reviewed, and patient cleared by RN for swallow evaluation. Patient seen at bedside in room. Night RN reporting coughing with all consistencies. AM RN denies swallowing concern. Pt noted to throat clear prior to PO. Pt reports hx of reflux/coughing and throat clearing at baseline. Active Problems: No Active Problems: There are no active problems currently on the Problem List. Please update the Problem List and refresh. Resolved Problems: * No resolved hospital problems. * No admission diagnoses are documented for this encounter. No admission procedures for hospital encounter. PAST MEDICAL HISTORY: Past Medical History: Diagnosis Date Anxiety Arthritis Asthma Cancer ([facility]/HCC) COPD (chronic obstructive pulmonary disease) ([facility]/HCC) Depression Diabetes mellitus ([facility]/HCC) Hypertension Osteoarthritis Seizures ([facility]/HCC) Stroke ([facility]/HCC) Vascular dementia ([facility]/HCC) PAST SURGICAL HISTORY: Past Surgical History: Procedure Laterality Date GALLBLADDER SURGERY N/A HYSTERECTOMY PRIOR LEVEL OF FUNCTIONING: Pt reports she consumes a regular diet/thin liquids at baseline. IMAGING RESULTS: MRI Brain No results found for this or any previous visit. CT Head Results for orders placed during the hospital encounter of 11/23/24 CT Head wo Contrast Narrative CT of the head without intravenous contrast [...] is intact. Prominent arachnoid granulation frontal bones. Impression Impression: 1. No CT evidence of acute intracranial abnormality. 2. Cerebral volume loss, intracranial atherosclerotic disease and mild sequela of chronic small vessel ischemic disease. This document has been electronically signed by: Emmett Hayes MD on 11/23/2024 05:57:51 Chest Portable No results found for this or any previous visit. Chest 2 View No results found for this or any previous visit. Chest CT No results found for this or any previous visit. ALLERGIES: Allergies Allergen Reactions Demerol [Meperidine] Low blood pressure Penicillins Unknown OBJECTIVE VITALS: OXYGEN THERAPY: Oxygen Therapy: None (Room air) PAIN ASSESSMENT: TRACHEOSTOMY: Tracheostomy: No DYSPHAGIA SYMPTOMS REPORTED BY PATIENT: Coughing FEEDING METHOD: Set Up Assistance ENDURANCE DURING MEALS: Good MENTAL STATUS: Alert , Responsive, and Cooperative SWALLOW BASELINE ASSESSMENT: Respiratory Status: Room air Behavior/Cognition: Alert, Cooperative, Pleasant mood Dentition: Adequate Patient Positioning: Upright in bed Baseline Vocal Quality: Within Functional Limits Baseline Comments: Pt demonstrating occasional cough/throat clear prior to PO. CURRENT DIET: Dietary Orders (From admission, onward) Start Ordered 11/23/24 0719 Adult diet [facility]; General; Regular (Order Panel) Diet effective now Question Answer Comment Location [facility] Diet Type (req) General General Diet Regular 11/23/24 0719 MOTOR SPEECH: Labial ROM: Within Functional Limits Labial Symmetry: Within Functional Limits Lingual Appearance: [place] Lingual Symmetry: Within Functional Limits Facial Symmetry: Within Functional Limits Velum: Within Functional Limits Vocal Quality: Within Functional Limits Intelligibility: Intelligible 100% Dysarthria : No CONSISTENCIES ASSESSED: Yes Thin Presentation: Cup, Self Fed Oral: Increased oral transit Pharyngeal: Throat clearing - immediate, Cough - immediate [place]/Mildly Thick Presentation: Cup, Self fed Oral: Increased oral transit Pharyngeal: Within Functional Limits Solid/Regular Presentation: Bite, Self Fed Oral: Impaired Mastication, Oral residue, Increased oral transit (increased mastication time but functional, oral residue that cleared with liquid washes.) Pharyngeal: Throat clearing - delayed AD TRAFFICKER ASSESSMENT: AD TRAFFICKER Assessment Results: At baseline Prognosis: Good Evaluation/Treatment Tolerance: Patient tolerated treatment well Comments: Pt tolerating thin liquids without changes to respiratory status. Inconsistent cough noted which Pt reports is baseline. Possibly related to reflux dx Pt reported. Given Pt's clear pulmonary status, recommend continue thin liquids and regular solids to maximize hydration for UTI recovery.Recommend frequent oral care throughout the day. Patient may need MBSS at next level of care if cough becomes more consistent. Medical Staff Made Aware: Yes Comments: RN and provider messaged. PLAN OF CARE AD TRAFFICKER PLAN AD TRAFFICKER Plan: No skilled AD TRAFFICKER No Skilled AD TRAFFICKER: At baseline function AD TRAFFICKER - Evaluation Status: Complete Diet Recommendations: regular/thin AD TRAFFICKER - OK to Discharge: Yes DISCHARGE RECOMMENDATIONS: Patient may need MBSS at next level of care if cough becomes more consistent. EDUCATION Education Documentation Teach aspiration precautions, taught by SHAHRIAR Hamlin at 11/24/2024 8:40 AM. Learner: Patient Readiness: Acceptance Method: Explanation Response: Verbalizes Understanding Teach proper swallowing techniques, taught by SHAHRIAR Hamlin at 11/24/2024 8:40 AM. Learner: Patient Readiness: Acceptance Method: Explanation Response: Verbalizes Understanding Education Comments No comments found. GOALS Cosigned by SHAHRIAR Hong at 11/24/2024 8:11 PM EST Associated attestation - Georgina Hall SLP - 11/24/2024 8:11 PM EST I attest that I, Regina Hall M.S.,[facility]-AD TRAFFICKER, was physically involved in the ongoing assessment, decision making, and interventions provided during today's patient care session. I have reviewed all documentation for today's 11/24/24, entered by Speech Therapy Fellow, Mireya Silva, and further attest that it is an accurate clinical record of today's encounter, including accurate and appropriatecharges. * Justin Hagen MD - 11/23/2024 11:22 PM EST Lianne Washingtons No acute concerns during my shift from 3 PM to 11 PM. Patient has been signed out to Dr. Waters. Patient is pending placement. * Tori Lenz RN - 11/23/2024 5:21 PM EST Updated [facility] on Saturday 11/25.[facility] [address] [place] [address], [place], [facility] decision. Daughter will review [facility]. [facility] to follow up in AM. * Tori Lenz RN - 11/23/2024 1:38 PM EST [facility] is considering requesting additional information on PMH, surgical hx and home medications. Haiku sent to Dr. Saleem and nurse Clau with request. * Ariadne Johnson PT - 11/23/2024 9:56 AM EST [facility] Physical Therapy Evaluation & Treatment PT Discharge Recommendations: correction facility placement Staff Recommendations for safe patient handlin person assist with wwalker Precautions Medical Precautions: Fall Risk Safety Interventions: Call park within reach, ID band on, Bed alarm, Side rails up x1 RUE Weight Bearing Status: Full LUE Weight Bearing Status: Full RLE Weight Bearing Status: Full LLE Weight Bearing Status: Full Fall prevention education provided including use of call light in hospital, use of appropriate assistive device, safe mobility techniques, and safety measures at home. PT Received On: 11/23/24 PT Start Time: 0730 PT Stop Time: 0815 PT Time Calculation (min): 45 min Precautions Medical Precautions: Fall Risk Safety Interventions: Call park within reach, ID band on, Bed alarm, Side rails up x1 RUE Weight Bearing Status: Full LUE Weight Bearing Status: Full RLE Weight Bearing Status: Full LLE Weight Bearing Status: Full Cognition Overall Cognitive Status: Within Functional Limits Arousal/Alertness: Appropriate responses to stimuli Orientation Level: Oriented X4 Following Commands: Follows all commands and directions without difficulty Safety Judgment: Good awareness of safety precautions Hearing: Intact Vision: Intact Speech: Intact Integumentary: intact History of Present Illness: Patient is a 79 y.o. female admitted to [facility] on 11/23/2024. There is no problem list on file for this patient. No past medical history on file. No past surgical history on file. Social History Home Living Environment: Home Living Type of Home: Apartment Lives With: Alone (has VERIFICATION CLERK help for 21 hrs) Home Adaptive Equipment: Walker - rolling Home Layout: One level Home Access: Elevator (dtr reports the elevator is often down where she lives and pt has to do the stairs) Prior Function Level of [place]: Independent with mobility and functional transfers Ambulation Status: Household ambulator Receives Help From: Family Indoor Mobility Assistance: Independent Stairs Assistance : Independent Prior Device Use: Walker General Assessment 11/23/24 0730 PT Last Visit PT Received On 11/23/24 PT Time Calculation PT Start Time 0730 PT Stop Time 0815 PT Time Calculation (min) 45 min Precautions Medical Precautions Fall Risk Safety Interventions Call park within reach;ID band on;Bed alarm;Side rails up x1 RUE Weight Bearing Status Full LUE Weight Bearing Status Full RLE Weight Bearing Status Full LLE Weight Bearing Status Full Oxygen Therapy Oxygen Therapy None (Room air) Pain Assessment Pain Assessment 0-10 Pain Score 3 Pain Type Acute pain Pain Location Abdomen Pain Orientation Left Cognition Overall Cognitive Status WFL Arousal/Alertness Appropriate responses to stimuli Orientation Level Oriented X4 Following Commands Follows all commands and directions without difficulty Safety Judgment Good awareness of safety precautions Home Living Type of Home Apartment Lives With Alone (has VERIFICATION CLERK help for 21 hrs) Home Adaptive Equipment Walker - rolling Home Layout One level Home Access Elevator (dtr reports the elevator is often down where she lives and pt has to do the stairs) Prior Function Level of [place] Independent with mobility and functional transfers Ambulation Status Household ambulator Receives Help From Family Indoor Mobility Assistance Independent Stairs Assistance Independent Prior Device Use Walker Sensation Light Touch No apparent deficits Perception Inattention/Neglect Appears intact Static Sitting Balance Static Sitting-Level of Assistance Close supervision Static Standing Balance Static Standing-Level of Assistance Contact guard Bed Mobility Rolling Left and Right Assistance Minimum assistance Rolling Left and Right Deficit Steadying;Supervision/safety awareness;Verbal cueing Lying to Sitting Assistance Minimum assistance Lying to Sitting Deficit Verbal cueing;Steadying;Supervision/safety awareness;Increased time to complete Transfers Sit to Stand Assistance Contact guard Sit to Stand Deficit Steadying;Verbal cueing;Supervision/safety awareness;Increased time to complete (pt needed to stand for a few min before feeling safe to amb) Ambulation Walking Assistance Contact guard;Minimum assistance Walking Deficit Steadying;Verbal cueing;Supervision/safety awareness;Increased time to complete;Limited endurance;Impaired balance Device Rolling walker Comments pt amb with step through gait, dec step length B, unsteady gait, pt felt dizzy throughout walk, no nyst[place] seen with head mvmts RUE Assessment RUE Assessment Within Functional Limits LUE Assessment LUE Assessment Within Functional Limits RLE Assessment RLE Assessment Within Functional Limits LLE Assessment LLE Assessment Within Functional Limits PT Assessment PT Assessment Results Decreased strength;Decreased endurance;Impaired gait;Impaired balance;Decreased mobility Prognosis Good Evaluation/Treatment Tolerance Patient limited by fatigue Medical Staff Made Aware Yes Plan PT Discharge Recommendations correction facility placement PT - Evaluation Status Complete PT Evaluation Time Entry PT Evaluation (Moderate) Time Entry 45 Treatment performed during evaluation: None performed ADDITIONAL COMMENTS: Chart reviewed. RN clears pt for session. Pt agrees to participate and presented in in bed upon PT arrival. All lines in place. Gait belt utilized throughout treatment to maximize safety. Medical precautions observed appropriately. Initiated education on the importance of PT, bed mobility safety, Transfer Safety, Ambulation Safety , Therapy Plan of Care, Home Safety, Energy Conservations strategies, and importance of OOB activity . Pt verbalized understanding. EXIT STATUS: Session ended with patient in bed , tray table and call light within reach, and RN made aware. Physical Therapy Assessment/Plan Lianne Moreno is a 79 y.o. female admitted to [facility] on 11/23/2024 for No admission diagnoses are documented for this encounter. . Pt presents with decreased BLE strength, balance deficits, decreased activity tolerance, and far below functional baseline. Pt performed bed mobility Minimalassist, Bedrail, HOB elevated, and Therapist assist, Transfers with Contact guard, FWW and ambulates Minimal assist with FWW 40 ft . Pt will benefit from skilled acute PT during hospital stay to improve the deficits listed above and optimize function. PT recommends correction facility placement when medically stable for safe discharge and to optimize functional mobility and independence. Goals Education Documentation Mobility Training, taught by Ariadne Johnson PT at 11/23/2024 9:56 AM. Learner: Patient Readiness: Acceptance Method: Explanation, Demonstration Response: Verbalizes Understanding, Demonstrated Understanding, Needs Reinforcement Education Comments No comments found. Ariadne Johnson PT * Tori Lenz RN - 11/23/2024 8:37 AM EST Ariadne FERRER is recommending rehab. Agreeable to wide search of area facilities no preferences provided. * Tori Lenz RN - 11/23/2024 8:16 AM EST 11/23/24 0815 Initial Transition Plan Initial Transition Plan Home Health Care Back up Transition Plan Back up Transition plan Home Health Care Discharge Planning Contact (Name, Phone #, Relationship) for DC Planning Angelica De La Rosa daughter [phone] Living Arrangements Alone Type of Residence Private residence Assistive Devices Walker Support Systems Children;Caregiver Medication Coverage Has Med Coverage Under Insurance Plan Yes Medication Affordability No concerns related to payment for meds Met with pt/daughter Angelica in regards to discharge planning, demographics, PCP, insurance reviewed. Pt has VERIFICATION CLERK 21hrs day per week and 14 hrs night per week. [facility]ses [facility]. Pt is not a . Referral made to [facility]. Provided daughter list of area facilities in event rehab is recommended. PT eval pending Ariadne at bedside. Copy of HCP on file liam Dominguez. * Tim Saleem MD - 11/23/2024 7:27 AM EST ED Course as of 12/02/24 0708 Sat Nov 23, [address] head, neck, and chest abdomen pelvis are negative for acute trauma or fracture. The patientwill be removed from her cervical collar. We will await urinalysis results. Patient will be signed out to oncoming provider. [RM] 0728 Received patient in signout family is agreeable to subacute evaluation and does have some nursing care at home however family is concerned that it is not enough given her needs. [JL] 1009 Suggestion of urinary tract infection on urinalysis. Patient be treated with Rocephin [JL] 1521 Failed PT they recommended SNF placement. Social work attempting to place a [place] facility [JL] Oriana Nov 24, 2024 0934 Signout pending placement assessment patient appears to be well. Does have a UTI. Patient is has Keflex ordered. [TC] 1542 Patient is pending placement at this time. Patient will be signed out to oncoming provider. [TC] 2326 No acute events during day time. Patient signed out to Dr. Waters. [PP] MonNov 25, 2024 0813 Patient signed out to me pending placement at this time. [TC] 1332 Patient has a bed in [facility]. Patient will be discharged at 3 PM today. I will plan printout Keflex antibiotic prescription for the patient at this time. To complete her UTI treatment. [TC] ED Course User Index [JL] Tim Saleem MD [PP] Justin Hagen MD [RM] DANG Rivas [TC] Megan Wilson, DO Clinical Impressions as of 12/02/24 0708 Failure to thrive in adult Acute UTI (urinary tract infection) Data Unavailable No diagnosis found. Procedures * Jena Aguayo RN - 11/23/2024 5:51 AM EST Unable to get second troponin from IV line, patient refusing another blood draw at this time. * Jena Aguayo RN - 11/23/2024 4:02 AM EST Per EMS, patient at home alone, called life alert. Patient found on floor, complaint of chest pain,unable to remember fall. Hx dementia, [place]. ASA given. * DANG Rivas - 11/23/2024 3:48 AM EST Emergency Medicine Note Patient Name: Lianne Moreno Initial Evaluation: 11/23/2024 : 1945 Patient's PCP: Jose Juan Rendon MD Emergency Physician: DANG Rivas History of Present Illness Chief Complaint: Chief Complaint Patient presents with Fall Fall at home for unknown amount of time, chest pain HPI: The patient is a 79-year-old female presenting to the ED via EMS after she activated her life alert for a fall. Patient was found alone on the floor by EMS, unknown downtime. Patient was reporting chest pain while on the floor but reports pain has improved since being taken off the floor. The patient is unable to provide any reliable HPI regarding the fall due to a history of dementia. Patient states she does not recall how the fall occurred. The patient arrives to the ED in a cervical collar, patient reports pain and tenderness of the left ribs. Patient's daughter reports patient has had increasing weakness and confusion. ROS: I have performed a ROS with the pertinent positives and negatives documented in the history ofpresent illness. Previous History Past Medical History: Diagnosis Date Anxiety Arthritis Asthma Cancer ([facility]) COPD (chronic obstructive pulmonary disease) ([facility]) Depression Diabetes mellitus ([facility]) Hypertension Osteoarthritis Seizures ([facility]) Stroke ([facility]) Vascular dementia ([facility]) Past Surgical History: Procedure Laterality Date GALLBLADDER SURGERY N/A HYSTERECTOMY Social History Tobacco Use Smoking status: Never Smokeless tobacco: Never No family history on file. is allergic to demerol [meperidine] and penicillins. No current facility-administered medications on file prior to encounter. Current Outpatient Medications on File Prior to Encounter Medication Sig Dispense Refill amLODIPine (NORVASC) 2.5 mg tablet Take 1 tablet (2.5 mg total) by mouth 1 (one) time each day. for90 days atorvastatin (LIPITOR) 20 mg tablet Take 1 tablet (20 mg total) by mouth at bedtime. latanoprost (XALATAN) 0.005 % ophthalmic solution Administer 1 drop into both eyes at bedtime. at bedtime memantine (NAMENDA XR) 28 mg extended release capsule Take 1 capsule (28 mg total) by mouth 1 (one)time each day. omeprazole (PriLOSEC) [address] capsule Take 1 capsule (20 mg total) by mouth 1 (one) time each day.Per daughter Angelica albuterol HFA (PROAIR HFA ; PROVENTIL HFA ; VENTOLIN HFA) 90 mcg/actuation inhaler Inhale 2 puffs by mouth every 6 (six) hours if needed for wheezing. Per daughter Angelica aspirin 81 mg EC tablet Take 1 tablet (81 mg total) by mouth 1 (one) time each day. cholecalciferol (VITAMIN D-3) 50 mcg (2,000 unit) tablet Take 1 tablet (2,000 Units total) by mouth1 (one) time each day. Per daughter Angelica clonazePAM (KlonoPIN) 0.25 mg disintegrating tablet Dissolve 1 tablet (0.25 mg total) on top of thetongue at bedtime. 30 min before bedtime. Max Daily Amount: 0.25 mg omalizumab (XOLAIR) 150 mg injection Inject 150 mg under the skin every 28 (twenty-eight) days. Perdaughter Angelica valACYclovir (VALTREX) 500 mg tablet Take 1 tablet (500 mg total) by mouth 1 (one) time each day. Per daughter Angelica Physical Exam Vitals: 11/24/24 2038 11/25/24 0529 11/25/24 0921 11/25/24 0925 BP: 139/81 127/59 127/59 BP Location: Right arm Right arm Patient Position: Sitting Sitting Pulse: 101 77 Resp: 18 16 Temp: 36.5 ??C (97.7 ??F) 36.7 ??C (98.1 ??F) TempSrc: Oral Oral SpO2: 95% 96% 97% Weight: Height: CONSTITUTIONAL: The patient appears non-toxic, well nourished and in no acute distress. Vital signsreviewed as documented. HEAD: Atraumatic, normocephalic. EYES: EOMs grossly intact, pupils equal, conjunctiva clear, no exudate. ENT: Nares patent, no discharge. Airway patent, no audible stridor, visible mucosa is pink and moist without noted lesions. NECK: Trachea is midline, no obvious masses or gross abnormalities. CHEST: Symmetric movement, normal appearance. Positive tenderness to palpation of the left anterolateral middle ribs, no crepitus, no flail chest. LUNGS: LS present and CTAB, no w/r/r. Non-labored work of breathing. CARDIAC: Regular Rhythm, S1/S2 appreciated, no murmurs, rubs or gallops. ABDOMEN: Abdomen soft x4 quadrants, moderate suprapubic tenderness with grimace however patient denies overt pain. No masses or organomegaly. : Deferred. EXTREMITIES: Normal tone, moves all extremities spontaneously without reported pain. No obvious injury or deformity noted. NEURO: Alert and pleasantly confused, unable to provide reliable HPI, CN II-XII appear grossly intact. Cerebellar Functioning grossly intact. Speech clear and appropriate. PSYCH: normal affect, with appropriate eye contact and fluid, appropriate speech. No reported suicidality or homicidality. SKIN: Warm, dry, color appropriate, normal turgor. No rashes noted. Results Labs Reviewed CULTURE URINE - Abnormal Result Value Culture, Urine (*) Value: >100,000 CFU/mL Klebsiella pneumoniae ssp pneumoniae COMPREHENSIVE METABOLIC PANEL - Abnormal Sodium 135 Potassium 4.2 Chloride 103 CO2 27 Anion Gap 5 Glucose 117 (*) BUN 10 Creatinine 0.51 eGFR 96 BUN/Creatinine Ratio 19.6 Calcium 9.1 AST (SGOT) 11 ALT (SGPT) 20 Alkaline Phosphatase 93 Total Protein 6.8 Albumin 3.8 Total Bilirubin 0.5 CBC WITH AUTO DIFFERENTIAL - Abnormal WBC 9.0 RBC 4.30 Hemoglobin 13.2 Hematocrit 40.3 MCV 94.4 MCH 30.9 MCHC 32.8 RDW 12.7 Platelets 276 MPV 8.3 NRBC 0.0 NRBC Absolute 0.00 Neutrophils Relative 81.0 Lymphocytes Relative 10.2 Monocytes Relative 7.0 Eosinophils Relative 1.2 Basophils Relative 0.2 Immature Granulocytes Relative 0.4 Neutrophils Absolute 7.32 (*) Lymphocytes Absolute 0.92 (*) Monocytes Absolute 0.63 Eosinophils Absolute 0.11 Basophils Absolute 0.02 Immature Granulocytes Absolute 0.04 (*) URINALYSIS WITH REFLEX MICROSCOPIC AND CULTURE - Abnormal Specific Gonzales Urine 1.009 pH, Urine 8.0 Leukocytes, Urine Moderate (*) Nitrite, Urine Positive (*) Protein, Urine Negative Glucose, Urine Negative Ketones, Urine Negative Urobilinogen, Urine 0.2 Bilirubin, Urine Negative Blood, Urine Negative RBC, Urine 1.4 WBC, Urine 6.6 (*) Squamous Epithelial, Urine 20 Bacteria, Urine Many (*) Hyaline Casts, Urine 0.0 POCT GLUCOSE, BLOOD - Abnormal Glucose POCT 117 (*) POCT GLUCOSE, BLOOD - Abnormal Glucose POCT 211 (*) RESPIRATORY VIRUS PANEL MOLECULAR STUDY - Normal Adenovirus Detection by PCR Not Detected Influenza A PCR Not Detected Influenza B PCR Not Detected Coronavirus 229E Not Detected Coronavirus HKU1 Not Detected Coronavirus OC43 Not Detected Coronavirus NL63 Not Detected Parainfluenza Virus 1 Not Detected Parainfluenza Virus 2 Not Detected Parainfluenza Virus 3 Not Detected Parainfluenza Virus 4 Not Detected RSV PCR Not Detected Human Metapneumovirus A and B Not Detected Rhinovirus/Enterovirus Not Detected Bordetella pertussis Not Detected Bordetella parapertussis Not Detected Mycoplasma pneumo by PCR Not Detected Chlamydia pneumoniae Not Detected SARS COV-2 Not Detected Narrative: Testing was performed using the SiVerion Respiratory Pathogen PCR Assay. All results must [...] that are below the limit of detection. TROPONIN I HIGH SENSITIVITY - Normal High Sensitivity Troponin I 10 Narrative: High levels of biotin in samples may falsely decrease hsTroponin values. Use caution when interpreting hsTroponin results in patients taking biotin who exhibit renal impairment (eGFR <60) or in patients taking more than 20 mg/day of biotin. LIPASE - Normal Lipase 35 MAGNESIUM - Normal Magnesium 2.6 CREATINE KINASE - Normal Total CK 109 CBC AND DIFFERENTIAL Narrative: The following orders were created for panel order CBC and differential. Procedure Abnormality Status --------- ------ CBC auto differential[[id number]] Abnormal Final result Please view results for these tests on the individual orders. URINALYSIS WITH REFLEX MICROSCOPIC AND CULTURE Narrative: The following orders were created for panel order Urinalysis with reflex microscopic and culture. Procedure Abnormality Status --------- ------ Urinalysis with reflex m...[[id number]] Abnormal Final result Orozco urine culture tube[[id number]] Final result Please view results for these tests on the individual orders. POCT GLUCOSE, BLOOD Abnormal Labs Reviewed CULTURE URINE - Abnormal; Notable for the following components: Result Value Culture, Urine (*) Value: >100,000 CFU/mL Klebsiella pneumoniae ssp pneumoniae All other components within normal limits COMPREHENSIVE METABOLIC PANEL - Abnormal; Notable for the following components: Glucose 117 (*) All other components within normal limits CBC WITH AUTO DIFFERENTIAL - Abnormal; Notable for the following components: Neutrophils Absolute 7.32 (*) Lymphocytes Absolute 0.92 (*) Immature Granulocytes Absolute 0.04 (*) All other components within normal limits URINALYSIS WITH REFLEX MICROSCOPIC AND CULTURE - Abnormal; Notable for the following components: Leukocytes, Urine Moderate (*) Nitrite, Urine Positive (*) WBC, Urine 6.6 (*) Bacteria, Urine Many (*) All other components within normal limits POCT GLUCOSE, BLOOD - Abnormal; Notable for the following components: Glucose POCT 117 (*) All other components within normal limits POCT GLUCOSE, BLOOD - Abnormal; Notable for the following components: Glucose POCT 211 (*) All other components within normal limits CT Chest/Abdomen/Pelvis w Contrast Final Result Addendum (preliminary) ADDENDUM: Post cholecystectomy. No significant biliary dilatation. This document has been electronically signed by: Emmett Hayes MD on 11/23/2024 06:57:33 Final Impression: 1. Normal caliber thoracic aorta. No [...] by: Emmett Hayes MD on 11/23/2024 06:55:54 CT Head wo Contrast Final Result Impression: 1. No CT evidence of acute intracranial abnormality. 2. Cerebral volume loss, intracranial atherosclerotic disease and mild sequela of chronic small vessel ischemic disease. This document has been electronically signed by: Emmett Hayes MD on 11/23/2024 05:57:51 CT Cervical Spine wo Contrast Final Result I have discussed any resulted incidental/abnormal imaging and/or lab abnormalities with the patientand have instructed them of the need for further evaluation and workup with their primary care doctor. The laboratory results, imaging results and other diagnostic exam results were reviewed in the EMR. EKG Interpretation EKG shows sinus rhythm with a rate of 67, no evidence of acute ischemia, no ST elevation, no ectopy. QTc 412. No old for comparison. Critical Care Time None ? Medical Decision Making Patient is a 79-year-old female presenting to the ED for evaluation after activating life alert fora fall. Circumstances surrounding the fall are unknown, fall was unwitnessed, patient had unknown downtime. A CT head, neck, and chest abdomen pelvis will be ordered due to the patient's unwitnessed fall, dementia, and reports of left chest and suprapubic tenderness. The patient's EKG shows no ischemic process, initial troponin is negative, no leukocytosis, anemia, electrolyte deficiency or RICKEY, CK 109. Urinalysis pending. ED Course as of 11/26/24 0739 [facility] Nov 23, [address] head, neck, and chest abdomen pelvis are negative for acute trauma or fracture. The patientwill be removed from her cervical collar. We will await urinalysis results. Patient will be signed out to oncoming provider. [RM] 0728 Received patient in signout family is agreeable to subacute evaluation and does have some nursing care at home however family is concerned that it is not enough given her needs. [JL] 1009 Suggestion of urinary tract infection on urinalysis. Patient be treated with Rocephin [JL] 1521 Failed PT they recommended SNF placement. Social work attempting to place a [facility] facility [JL] Oriana Nov 24, 2024 0934 Signout pending placement assessment patient appears to be well. Does have a UTI. Patient is has Keflex ordered. [TC] 1542 Patient is pending placement at this time. Patient will be signed out to oncoming provider. [TC] 2326 No acute events during day time. Patient signed out to Dr. Waters. [PP] [facility] Nov 25, 2024 0813 Patient signed out to me pending placement at this time. [TC] 1332 Patient has a bed in [facility]. Patient will be discharged at 3 PM today. I will plan printout Keflex antibiotic prescription for the patient at this time. To complete her UTI treatment. [TC] ED Course User Index [JL] Tim Saleem MD [PP] Justin Hagen MD [RM] DANG Rivas [TC] Megan Wilson, DO Clinical Impressions as of 11/26/24 0739 Failure to thrive in adult Acute UTI (urinary tract infection) Medications sodium chloride 0.9 % flush 10 mL (10 mL intravenous Given 11/23/24 0610) iopamidoL (ISOVUE-370) 370 mg iodine /mL (76 %) injection 90 mL (90 mL intravenous Given 11/23/24 0610) cefTRIAXone (ROCEPHIN) 1 g in sterile water 10 mL IV syringe (1 g intravenous Given 11/23/24 1025) benzonatate (TESSALON) capsule 100 mg (100 mg oral Given 11/24/24 1332) Procedures Procedures Diagnosis 1. Failure to thrive in adult 2. Acute UTI (urinary tract infection) Disposition Discharge ED Prescriptions Medication Sig Dispense Start Date End Date Auth. Provider cephalexin (KEFLEX) 500 mg capsule Take 1 capsule (500 mg total) by mouth 3 (three) times a day for4 days. 12 capsule 11/25/2024 11/29/2024 Megan Wilson, Physician Attestation DANG Rivas 11/23/24 0651 DANG Rivas 11/23/24 0710 DANG Rivas 11/23/24 0737 DANG Rivas 11/24/24 0114 DANG Rivas 11/25/24 0612 DANG Rivas 11/26/24 0739 Cosigned by Judy Moyer MD at 12/03/2024 2:35 PM EST * Enrique Waters MD - 11/23/2024 3:48 AM EST Emergency department progress note: This is a 79-year-old female, currently in subacute status, signout received at [facility]. Patient presented to the emergency department following an unwitnessed fall, unknown details. Medical evaluation, trauma evaluation was reassuring and there is no evidence of a dangerous life-threatening injurious or medical explanation for the event. No apparent dangerous consequence. Family was concerned that the patient required care that exceeded their current needs. Patient was referred to subacute status. Urinalysis was somewhat equivocal, positive for leukocytes and nitrite with reported many bacteria.Patient was empirically treated with 1 g of Rocephin. Patient was seen and evaluated by both physical therapy and case management. Physical therapy determined that the patient was unable to stand on her own, and referred for residential facility placement. PT findings included bilateral decreased strength, balance deficit, decreased activity tolerance, far below her functional baseline. Case management is currently looking for bed placement. Enrique Waters MD 11/24/24 0242 Enrique Waters MD 11/25/24 0555 documented in this encounter Plan of Treatment Not on file documented as of this encounter Procedures Procedure Name Priority Date/Time Associated Diagnosis Comments POCT GLUCOSE BLOOD Routine 11/23/2024 12 :17 PM EST RESPIRATORY VIRUS PANEL MOLECULAR STUDY STAT 11/23/2024 9:52 AM EST POCT GLUCOSE BLOOD Routine 11/23/2024 9: [address] CHEST/ABDOMEN/PELVIS W CONTRAST STAT 11/23/2024 6:[address] CERVICAL SPINE WO CONTRAST STAT 11/23/2024 5:[address] HEAD WO CONTRAST STAT 11/23/2024 5 :40 AM EST URINALYSIS WITH REFLEX MICROSCOPIC AND CULTURE STAT 11/23/2024 5:25 AM EST OROZCO URINE CULTURE TUBE STAT 11/23/2024 5:25 AM EST URINALYSIS WITH REFLEX MICROSCOPIC AND CULTURE STAT 11/23/2024 5:25 AM EST CULTURE URINE STAT 11/23/2024 5:25 AM EST ECG 12-LEAD STAT 11/23/2024 5:21 AM EST TROPONIN I HIGH SENSITIVITY STAT 11/23/2024 4:23 AM EST CBC WITH AUTO DIFFERENTIAL STAT 11/23/2024 4:23 AM EST CBC AND DIFFERENTIAL STAT 11/23/2024 4:23 AM EST MAGNESIUM STAT 11/23/2024 4:23 AM EST LIPASE STAT 11/23/2024 4:23 AM EST CREATINE KINASE STAT 11/23/2024 4:23 AM EST COMPREHENSIVE METABOLIC PANEL STAT 11/23/2024 4:23 AM EST ECG 12-LEAD STAT 11/23/2024 4:17 AM EST ECG ANNOTATED 11/23/2024 documented in this encounter Results * (ABNORMAL) POCT Glucose, blood (11/23/2024 12:17 PM EST) [facility] Glucose POCT 211(H) 70 - 100 mg/dL 11/23/2024 12:18 PM EST [facility] Blood Capillary blood specimen / Unknown 11/23/2024 12:17 PM EST 11/23/2024 12:19 PM EST us Tim Saleem MD LAB POINT OF CARE T EST DOCKED DEVICE UNSOLICITED RESULTS Final Result [facility] [address] [place] [address], [place] [phone] * Respiratory virus panel molecular study (11/23/2024 9:52 AM EST) [facility] Adenovirus Detection by PCR Not Detected Not Detected LAB MICROBIOLOGY METHOD 11/23/2024 11:05 AM [facility] Influenza A PCR Not Detected Not Detected LAB MICROBIOLOGY METHOD 11/23/2024 11:05 AM [facility] Influenza B PCR Not Detected Not Detected LAB MICROBIOLOGY METHOD 11/23/2024 11:05 AM [facility] Coronavirus 229E Not Detected Not Detected LAB MICROBIOLOGY METHOD 11/23/2024 11:05 AM [facility] Coronavirus HKU1 Not Detected Not Detected LAB MICROBIOLOGY METHOD 11/23/2024 11:05 AM [facility] Coronavirus OC43 Not Detected Not Detected LAB MICROBIOLOGY METHOD 11/23/2024 11:05 AM [facility] Coronavirus NL63 Not Detected Not Detected LAB MICROBIOLOGY METHOD 11/23/2024 11:05 AM [facility] Parainfluenza Virus 1 Not Detected Not Detected LAB MICROBIOLOGY METHOD 11/23/2024 11:05 AM [facility] Parainfluenza Virus 2 Not Detected Not Detected LAB MICROBIOLOGY METHOD 11/23/2024 11:05 AM [facility] Parainfluenza Virus 3 Not Detected Not Detected LAB MICROBIOLOGY METHOD 11/23/2024 11:05 AM [facility] Parainfluenza Virus 4 Not Detected Not Detected LAB MICROBIOLOGY METHOD 11/23/2024 11:05 AM [facility] RSV PCR Not Detected Not Detected LAB MICROBIOLOGY METHOD 11/23/2024 11:05 AM [facility] Human Metapneumovirus A and B Not Detected Not Detected LAB MICROBIOLOGY METHOD 11/23/2024 11:05 AM [facility] Rhinovirus/Entero virus Not Detected Not Detected LAB MICROBIOLOGY METHOD 11/23/2024 11:05 AM [facility] Bordetella pertussis Not Detected Not Detected LAB MICROBIOLOGY METHOD 11/23/2024 11:05 AM [facility] Bordetella parapertussis Not Detected Not Detected LAB MICROBIOLOGY METHOD 11/23/2024 11:05 AM EST [facility] Mycoplasma pneumo by PCR Not Detected Not Detected LAB MICROBIOLOGY METHOD 11/23/2024 11:05 AM EST [facility] Chlamydia pneumoniae Not Detected Not Detected LAB MICROBIOLOGY METHOD 11/23/2024 11:05 AM EST [facility] SARS COV-2 Not Detected Not Detected LAB MICROBIOLOGY METHOD 11/23/2024 11:05 AM EST [facility] Swab Both anterior nares / Unknown Non-blood Collection / Unknown 11/23/2024 9:52 AM EST 11/23/2024 10:07 AM EST Narrative [facility] - 11/23/2024 11:05 AM EST Testing was performed using the SiVer[employer] Respiratory Pathogen PCR Assay. All results must [...] LAB MICROBIOLOGY - GENERAL ORDERABLES Final Result [facility] [address] [place] [address], * (ABNORMAL) POCT Glucose, blood (11/23/2024 9:47 AM EST) Glucose POCT 117(H) 70 - 100 mg/dL 11/23/2024 9:48 AM EST [facility] Blood Capillary blood specimen / Unknown 11/23/2024 9:47 AM EST 11/23/2024 9:49 AM EST us Tim Saleem MD LAB POINT OF CARE T EST DOCKED DEVICE UNSOLICITED RESULTS Final Result [facility] [address] [place] [address], * CT Chest/Abdomen/Pelvis w Contrast (11/23/2024 6:15 [...] Hayes MD on 11/23/2024 06:55:[address] PROCEDURES Edited Result - Final * [...] Hayes MD on 11/23/2024 06:02:08 Chris LEONG [facility] CT PROCEDURES Final Result * CT Head [...] Hayes MD on 11/23/2024 05:57:51 Chris LEONG [facility] CT PROCEDURES Final Result * (ABNORMAL) Culture urine (11/23/2024 5:25 AM EST) Culture, Urine >100,000 CFU/mL Klebsiella pneumoniae ssp pneumoniae(A) BRENDA 11/25/2024 10:16 AM EST [facility] Comment: This is an edited result. [...] MICROBIOLOGY - GENERAL ORDER BESSIE Final Result Performing Organization Address [facility]/ZIP Co de Phone Number [facility] [address] [place] [address], [place] [phone] * Orozco urine culture tube (11/23/2024 5:25 AM EST) [facility] Extra Tube Hold for add-ons. 11/23/2024 9:01 AM [facility] Comment:Auto resulted. Urine Urinary bladder structure / Unknown Non-blood Collection / Unknown 11/23/2024 5:25 AM EST 11/23/2024 7:01 AM EST Chris LEONG LAB URINE ORDERABLES Final Resul t Performing Organization Address [facility]/ZIP Co de Phone Number [facility] [address] [place] [address], [place] [phone] * (ABNORMAL) Urinalysis with reflex microscopic and culture (11/23/2024 5:25 AM EST) [facility] Specific Gonzales Urine 1.009 1.003 - 1.030 LAB URINALYSIS - AUTOMATED METHOD 11/23/2024 7:53 AM [facility] pH, Urine 8.0 5.0 - 8.0 pH LAB URINALYSIS - AUTOMATED METHOD 11/23/2024 7:53 AM [facility] Leukocytes, Urine Moderate(A) Negative LAB URINALYSIS - AUTOMATED METHOD 11/23/2024 7:53 AM [facility] Nitrite, Urine Positive(A) Negative LAB URINALYSIS - AUTOMATED METHOD 11/23/2024 7:53 AM [facility] Protein, Urine Negative <=Trace mg/dL LAB URINALYSIS - AUTOMATED METHOD 11/23/2024 7:53 AM [facility] Glucose, Urine Negative Negative mg/dL LAB URINALYSIS - AUTOMATED METHOD 11/23/2024 7:53 AM [facility] Ketones, Urine Negative Negative mg/dL LAB URINALYSIS - AUTOMATED METHOD 11/23/2024 7:53 AM [facility] Urobilinogen , Urine 0.2 0.2 - 1.0 mg/dL LAB URINALYSIS - AUTOMATED METHOD 11/23/2024 7:53 AM [facility] Bilirubin, Urine Negative Negative LAB URINALYSIS - AUTOMATED METHOD 11/23/2024 7:53 AM [facility] Blood, Urine Negative Negative LAB URINALYSIS - AUTOMATED METHOD 11/23/2024 7:53 AM [facility] RBC, Urine 1.4 0 - 4 /HPF LAB URINALYSIS - AUTOMATED METHOD 11/23/2024 7:53 AM [facility] WBC, Urine 6.6(H) 0 - 4 /HPF LAB URINALYSIS - AUTOMATED METHOD 11/23/2024 7:53 AM [facility] Squamous Epithelial, Urine 20 0 - 60 /LPF LAB URINALYSIS - AUTOMATED METHOD 11/23/2024 7:53 AM [facility] Bacteria, Urine Many(A) Negative /HPF LAB URINALYSIS - AUTOMATED METHOD 11/23/2024 7:53 AM [facility] Hyaline Casts, Urine 0.0 0 - 3 /LPF LAB URINALYSIS - AUTOMATED METHOD 11/23/2024 7:53 AM [facility] Urine Urinary bladder structure / Unknown Non-blood Collection / Unknown 11/23/2024 5:25 AM EST 11/23/2024 7:01 AM EST us Chris LEONG LAB URINE ORDERABLES Final Resul t [facility] [address] [place] [address], * ECG 12 lead (11/23/2024 5:21 AM EST) Ventricular Rate ECG 70 BPM GEMUSE Atrial Rate 70 BPM GEMUSE P-R Interval 150 ms GEMUSE QRS Duration 76 ms GEMUSE Q-T Interval 376 ms GEMUSE QTc 406 ms GEMUSE P Wave [place] 75 degrees GEMUSE R [place] 25 degrees GEMUSE T [place] 48 degrees GEMUSE ECG Interpretation Normal sinus rhythm Normal ECG When compared with ECG of 23-NOV-2024 04:17, (unconfirmed) No significant change was found Confirmed by ENRIQUE ANNE ([id number]) on 11/23/2024 4:50:31 PM GEMUSE 11/23/2024 5:21 AM EST 11/23/2024 4:50 PM EST us Tim Saleem MD ECG ORDERABLES Final Resul t GEMUSE * (ABNORMAL) CBC auto differential (11/23/2024 4:23 AM EST) Pathologist [facility] WBC 9.0 4.8 - 10.8 K/mcL LAB HEMETOLOGY METHOD 11/23/2024 4:38 AM [facility] RBC 4.30 3.80 - 4.80 M/mcL LAB HEMETOLOGY METHOD 11/23/2024 4:38 AM [facility] Hemoglobin 13.2 11.5 - 16.0 g/dL LAB HEMETOLOGY METHOD 11/23/2024 4:38 AM [facility] Hematocrit 40.3 35.0 - 47.0 % LAB HEMETOLOGY METHOD 11/23/2024 4:38 AM [facility] MCV 94.4 79.0 - 98.0 FL LAB HEMETOLOGY METHOD 11/23/2024 4:38 AM [facility] MCH 30.9 27.0 - 32.0 pcg LAB HEMETOLOGY METHOD 11/23/2024 4:38 AM [facility] MCHC 32.8 32.0 - 37.0 g/dL LAB HEMETOLOGY METHOD 11/23/2024 4:38 AM [facility] RDW 12.7 11.0 - 15.0 % LAB HEMETOLOGY METHOD 11/23/2024 4:38 AM [facility] Platelets 276 130 - 400 K/mcL LAB HEMETOLOGY METHOD 11/23/2024 4:38 AM [facility] MPV 8.3 7.0 - 11.0 FL LAB HEMETOLOGY METHOD 11/23/2024 4:38 AM [facility] NRBC 0.0 <1.0 % LAB HEMETOLOGY METHOD 11/23/2024 4:38 AM [facility] NRBC Absolute 0.00 <0.10 K/mcL LAB HEMETOLOGY METHOD 11/23/2024 4:38 AM [facility] Neutrophils Relative 81.0 % LAB HEMETOLOGY METHOD 11/23/2024 4:38 AM [facility] Lymphocytes Relative 10.2 % LAB HEMETOLOGY METHOD 11/23/2024 4:38 AM [facility] Monocytes Relative 7.0 % LAB HEMETOLOGY METHOD 11/23/2024 4:38 AM [facility] Eosinophils Relative 1.2 % LAB HEMETOLOGY METHOD 11/23/2024 4:38 AM [facility] Basophils Relative 0.2 % LAB HEMETOLOGY METHOD 11/23/2024 4:38 AM [facility] Immature Granulocytes Relative 0.4 % LAB HEMETOLOGY METHOD 11/23/2024 4:38 AM [facility] Neutrophils Absolute 7.32(H) 1.50 - 7.00 K/mcL LAB HEMETOLOGY METHOD 11/23/2024 4:38 AM EST [facility] Lymphocytes Absolute 0.92(L) 1.00 - 5.00 K/[facility] LAB HEMETOLOGY METHOD 11/23/2024 4:38 AM EST [facility] Monocytes Absolute 0.63 0.20 - 1.00 K/[facility] LAB HEMETOLOGY METHOD 11/23/2024 4:38 AM EST [facility] Eosinophils Absolute 0.11 0.00 - 0.50 K/[facility] LAB HEMETOLOGY METHOD 11/23/2024 4:38 AM EST [facility] Basophils Absolute 0.02 0.00 - 0.20 K/[facility] LAB HEMETOLOGY METHOD 11/23/2024 4:38 AM EST [facility] Immature Granulocytes Absolute 0.04(H) 0.00 - 0.03 K/[facility] LAB HEMETOLOGY METHOD 11/23/2024 4:38 AM EST [facility] Blood Venous blood specimen / Unknown Venipuncture / Unknown 11/23/2024 4:23 AM EST 11/23/2024 4:33 AM EST us Tim Saleem MD LAB BLOOD ORDERABLES Final Result [facility] [address] [place] [address], * Troponin I high sensitivity (11/23/2024 4:23 AM EST) High Sensitivity Troponin I 10 <=54 ng/L LAB CHEMISTRY METHOD 11/23/2024 5:00 AM EST [facility] Blood Venous blood specimen / Unknown Venipuncture / Unknown 11/23/2024 4:23 AM EST 11/23/2024 4:33 AM EST Narrative [facility] - 11/23/2024 5:00 AM EST High levels of biotin in samples may falsely decrease hsTroponin values. ??Use caution when interpreting hsTroponin results in patients taking biotin who exhibit renal impairment (eGFR <60) or in patients taking more than 20 mg/day of biotin. us Tim Saleem MD LAB BLOOD ORDERABLES Final Result Performing Organization Address [facility]/ZIP Co de Phone Number [facility] [address] [place] [address], [place] [phone] * Cardiac Enzymes - CPK (11/23/2024 4:23 AM EST) [facility] Total CK 109 22 - 269 unit/L LAB CHEMISTRY METHOD 11/23/2024 5:09 AM EST [facility] Blood Venous blood specimen / Unknown Venipuncture / Unknown 11/23/2024 4:23 AM EST 11/23/2024 4:33 AM EST us Tim Saleem MD LAB BLOOD ORDERABLES Final Result Performing Organization Address [facility] Co de Phone Number [facility] [address] [place] [address], [place] [phone] * Magnesium (11/23/2024 4:23 AM EST) [facility] Magnesium 2.6 1.9 - 2.6 mg/dL LAB CHEMISTRY METHOD 11/23/2024 5:09 AM EST [facility] Blood Venous blood specimen / Unknown Venipuncture / Unknown 11/23/2024 4:23 AM EST 11/23/2024 4:33 AM EST us Tim Saleem MD LAB BLOOD ORDERABLES Final Result Performing Organization Address City/[facility]/ZIP Co de Phone Number [facility] [address] [place] [address], [place] [phone] * Lipase (11/23/2024 4:23 AM EST) Lipase 35 13 - 75 unit/L LAB CHEMISTRY METHOD 11/23/2024 5:09 AM [facility] Blood Venous blood specimen / Unknown Venipuncture / Unknown 11/23/2024 4:23 AM EST 11/23/2024 4:33 AM EST us Tim Saleem MD LAB BLOOD ORDERABLES Final Result [facility] [address] [place] [address], [place] [phone] * (ABNORMAL) Comprehensive metabolic panel (11/23/2024 4:23 AM EST) Sodium 135 133 - 145 mmol/L LAB CHEMISTRY METHOD 11/23/2024 5:09 AM [facility] Potassium 4.2 3.5 - 5.5 mmol/L LAB CHEMISTRY METHOD 11/23/2024 5:09 AM [facility] Chloride 103 96 - 110 mmol/L LAB CHEMISTRY METHOD 11/23/2024 5:09 AM [facility] CO2 27 21 - 32 mmol/L LAB CHEMISTRY METHOD 11/23/2024 5:09 AM [facility] Anion Gap 5 3 - 11 LAB CHEMISTRY METHOD 11/23/2024 5:09 AM [facility] Glucose 117(H) 70 - 100 mg/dL LAB CHEMISTRY METHOD 11/23/2024 5:09 AM [facility] BUN 10 5 - 25 mg/dL LAB CHEMISTRY METHOD 11/23/2024 5:09 AM [facility] Creatinine 0.51 0.50 - 1.10 mg/dL LAB CHEMISTRY METHOD 11/23/2024 5:09 AM [facility] eGFR 96 >=60 mL/min/1. 73m2 LAB CHEMISTRY METHOD 11/23/2024 5:09 AM [facility] Comment:Calculation based on the??Chronic Kidney Disease Epidemiology Collaboration (CKD-EPI) equation refit??without adjustment for race. BUN/Creatinine Ratio 19.6 LAB CHEMISTRY METHOD 11/23/2024 5:09 AM [facility] Calcium 9.1 8.5 - 10.5 mg/dL LAB CHEMISTRY METHOD 11/23/2024 5:09 AM [facility] AST (SGOT) 11 10 - 42 unit/L LAB CHEMISTRY METHOD 11/23/2024 5:09 AM [facility] ALT (SGPT) 20 10 - 60 unit/L LAB CHEMISTRY METHOD 11/23/2024 5:09 AM [facility] Alkaline Phosphatase 93 42 - 121 unit/L LAB CHEMISTRY METHOD 11/23/2024 5:09 AM [facility] Total Protein 6.8 6.0 - 8.0 g/dL LAB CHEMISTRY METHOD 11/23/2024 5:09 AM [facility] Albumin 3.8 3.2 - 5.0 g/dL LAB CHEMISTRY METHOD 11/23/2024 5:09 AM [facility] Total Bilirubin 0.5 0.0 - 1.4 mg/dL LAB CHEMISTRY METHOD 11/23/2024 5:09 AM [facility] Blood Venous blood specimen / Unknown Venipuncture / Unknown 11/23/2024 4:23 AM EST 11/23/2024 4:33 AM EST us Tim Saleem MD LAB BLOOD ORDERABLES Final Result [facility] [address] [place] [address], * ECG 12 lead (11/23/2024 4:17 AM EST) Ventricular Rate ECG 67 BPM GEMUSE Atrial Rate 67 BPM GEMUSE P-R Interval 146 ms GEMUSE QRS Duration 78 ms GEMUSE Q-T Interval 390 ms GEMUSE QTc 412 ms GEMUSE P Wave [place] 70 degrees GEMUSE R [place] 21 degrees GEMUSE T [place] 40 degrees GEMUSE ECG Interpretation Normal sinus rhythm Normal ECG When compared with ECG of 18-FEB-2024 06:36, ST no longer elevated in Inferior leads Confirmed by ENRIQUE ANNE ([id number]) on 11/23/2024 4:50:26 PM GEMUSE 11/23/2024 4:17 AM EST 11/23/2024 4:50 PM EST Tim Saleem MD ECG ORDERABLES Final Resul t GEMUSE * ECG-Annotated (11/23/2024) us Provider Onbase ECG ORDERABLES Final Result documented in this encounter Visit Diagnoses Diagnosis Failure to thrive in adult- Primary Adult failure to thrive Acute UTI (urinary tract infection) documented in this encounter Administered Medications Inactive Administered Medications - up to 3 most recent administrations Medication Order MAR Action Action Date Dose Rate Site acetaminophen (TYLENOL) tablet 650 mg 650 mg, oral, Every 6 hours PRN, mild pain, moderate pain, Starting on 11/23/24 at 0719, For 7 days amLODIPine (NORVASC) tablet 2.5 mg 2.5 mg, oral, Daily, First dose on 11/23/24 at 1509 Given 11/25/2024 9:21 AM EST 2.5 mg Given 11/24/2024 8:53 AM EST 2.5 mg Given 11/23/2024 4:21 PM EST 2.5 mg aspirin EC tablet 81 mg 81 mg, oral, Daily, First dose on 11/23/24 at 1509, Do not crush, chew, or split. Given 11/25/2024 9:24 AM EST 81 mg Given 11/24/2024 8:53 AM EST 81 mg Given 11/23/2024 4:23 PM EST 81 mg atorvastatin (LIPITOR) tablet 20 mg 20 mg, oral, Nightly, First dose on 11/23/24 at 2100 Given 11/24/2024 8:34 PM EST 20 mg Given 11/23/2024 8:20 PM EST 20 mg benzonatate (TESSALON) capsule 100 mg 100 mg, oral, Once, On 11/24/24 at 1311, For 1 dose, Do not crush or chew. Given 11/24/2024 1:32 PM EST 100 mg cefTRIAXone (ROCEPHIN) 1 g in sterile water 10 mL IV syringe 1 g, intravenous, at 200 mL/hr, Administer over 3 Minutes, Once, On 11/23/24 at 1010, For 1 dose, Do not administer simultaneously with any calcium containing solutions via a Y-site in any patient., Indication: Urinary Tract/Genitourinary Given 11/23/2024 10:25 AM EST 1 g 200 mL/hr cephalexin (KEFLEX) capsule 500 mg 500 mg, oral, 3 times daily, First dose on 11/23/24 at 1523, For 3 days, Indication: Urinary Tract/Genitourinary Given 11/25/2024 2:17 PM EST 500 mg Given 11/25/2024 9:23 AM EST 500 mg Given 11/24/2024 8:34 PM EST 500 mg clonazePAM (KlonoPIN) disintegrating tablet 0.25 mg 0.25 mg, oral, Nightly, First dose on 11/23/24 at 2100, HAZARDOUS Drug Precautions - Low Risk (Category A/NIOSH Group 3) Reproductive Risk Only: - Single pair of ASTM standard D6978 certified chemotherapy gloves - Eye protection (goggles or face shield) required only with a potential for facial contact (i.e. concern for spitting or vomiting of the dose during or after administration) - Staff at reproductive risk (actively trying to conceive, or may be become , and ): chemo certified gown and an N95 respirator required when crushing meds (crushing of tabs allowed only in closed pouches) or opening of capsules only for allowable dosage forms Given 11/24/2024 9:26 PM EST 0.25 mg Given 11/23/2024 8:20 PM EST 0.25 mg iopamidoL (ISOVUE-370) 370 mg iodine /mL (76 %) injection 90 mL 90 mL, intravenous, Once in imaging, Starting on 11/23/24 at 0608, For 1 dose Given 11/23/2024 6:10 AM EST 90 mL latanoprost (XALATAN) 0.005 % ophthalmic solution 1 drop 1 drop, Both Eyes, Nightly, First dose on 11/23/24 at 2100 Given 11/24/2024 10:26 PM EST 1 drop memantine (NAMENDA XR) extended release capsule 28 mg 28 mg, oral, Daily, First dose on 11/23/24 at 1509, Capsule may be opened and contents sprinkled onto applesauce or other soft food such as pudding. Swallow sprinkles whole; do NOT crush or chew. Given 11/25/2024 9:24 AM EST 28 mg Given 11/24/2024 9:24 AM EST 28 mg Given 11/23/2024 5:13 PM EST 28 mg pantoprazole (PROTONIX) EC tablet 40 mg 40 mg, oral, Every morning before breakfast, First dose on 11/24/24 at 0700, Do not crush, chew, or split. Given 11/25/2024 6:57 AM EST 40 mg Given 11/24/2024 7:41 AM EST 40 mg sodium chloride 0.9 % flush 10 mL 10 mL, intravenous, Once, On 11/23/24 at 0609, For 1 dose Given 11/23/2024 6:10 AM EST 10 mL documented in this encounter Historical Medications * This list may reflect changes made after this encounter. latanoprost (XALATAN) 0.005 % ophthalmic solution Administer 1 drop into both eyes at bedtime. at bedtime 09/12/2024 cholecalciferol (VITAMIN D-3) 50 mcg (2,000 unit) tabletIndications:v itamin D deficiency Take 1 tablet (2,000 Units total) by mouth 1 (one) time each day. Per daughter Angelica aspirin 81 mg EC tablet Take 1 tablet (81 mg total) by mouth 1 (one) time each day. omeprazole (PriLOSEC) [address] capsule Take 1 capsule (20 mg total) by mouth 1 (one) time each day. Per daughter Angelica 10/04/2024 valACYclovir (VALTREX) 500 mg tablet Take 1 tablet (500 mg total) by mouth 1 (one) time each day. Per daughter Angelica memantine (NAMENDA XR) 28 mg extended release capsule Take 1 capsule (28 mg total) by mouth 1 (one) time each day. 09/28/2024 albuterol HFA (PROAIR HFA ; PROVENTIL HFA ; VENTOLIN HFA) 90 mcg/actuation inhaler Inhale 2 puffs by mouth every 6 (six) hours if needed for wheezing. Per daughter Angelica omalizumab (XOLAIR) 150 mg injection Inject 150 mg under the skin every 28 (twenty-eight) days. Per daughter Angelica clonazePAM (KlonoPIN) 0.25 mg disintegrating tablet Dissolve 1 tablet (0.25 mg total) on top of the tongue at bedtime. 30 min before bedtime. Max Daily Amount: 0.25 mg atorvastatin (LIPITOR) 20 mg tablet Take 1 tablet (20 mg total) by mouth at bedtime. 11/19/2024 amLODIPine (NORVASC) 2.5 mg tablet Take 1 tablet (2.5 mg total) by mouth 1 (one) time each day. for 90 days 11/19/2024 added in this encounter Active and Recently Administered Medications Times are shown in EST. Scheduled Medication Order 11/23/2024 11/24/2024 11/25/2024 amLODIPine (NORVASC) tablet 2.5 mg 2.5 mg, oral, Daily, First dose on 11/23/24 at 1509 1621 (Given - Provider: Clau Oconnor RN) 0853 (Given - Provider: Lola Adams, BEA) 0921 (Given - Provider: Ellen Galvez RN) aspirin EC tablet 81 mg 81 mg, oral, Daily, First dose on 11/23/24 at 1509, Do not crush, chew, or split. 1623 (Given - Provider: Clau Oconnor RN) 0853 (Given - Provider: Lola Adams RN) 0924 (Given - Provider: Ellen Galvez RN) atorvastatin (LIPITOR) tablet 20 mg 20 mg, oral, Nightly, First dose on 11/23/24 at 2100 2019 (Given - Provider: Blanka Hirsch RN) 2033 (Given - Provider: Mary Cunningham RN) benzonatate (TESSALON) capsule 100 mg (COMPLETED) 100 mg, oral, Once, On 11/24/24 at 1311, For 1 dose, Do not crush or chew. 1332 (Given - Provider: Lola Adams RN) cefTRIAXone (ROCEPHIN) 1 g in sterile water 10 mL IV syringe (COMPLETED) 1 g, intravenous, at 200 mL/hr, Administer over 3 Minutes, Once, On 11/23/24 at 1010, For 1 dose, Do not administer simultaneously with any calcium containing solutions via a Y-site in any patient., Indication: Urinary Tract/Genitourinary 1025 (Given - Provider: Clau Oconnor, BEA) cephalexin (KEFLEX) capsule 500 mg 500 mg, oral, 3 times daily, First dose on 11/23/24 at 1523, For 3 days, Indication: Urinary Tract/Genitourinary 1623 (Given - Provider: Clau Oconnor, BEA)2019 (Given - Provider: Blanka Hirsch, BEA) 0853 (Given - Provider: Lola Adams, BEA)1332 (Given - Provider: Lola Adams RN)2033 (Given - Provider: Mary Cunningham, BEA) 0923 (Given - Provider: Ellen Galvez, BEA)1417 (Given - Provider: Ellen Galvez, BEA) clonazePAM (KlonoPIN) disintegrating tablet 0.25 mg 0.25 mg, oral, Nightly, First dose on 11/23/24 at 2100, HAZARDOUS Drug Precautions - Low Risk (Category A/NIOSH Group 3) Reproductive Risk Only: - Single pair of ASTM standard D6978 certified chemotherapy gloves - Eye protection (goggles or face shield) required only with a potential for facial contact (i.e. concern for spitting or vomiting of the dose during or after administration) - Staff at reproductive risk (actively trying to conceive, or may be become , and ): chemo certified gown and an N95 respirator required when crushing meds (crushing of tabs allowed only in closed pouches) or opening of capsules only for allowable dosage forms 2019 (Given - Provider: Blanka Hirsch RN) 2125 (Given - Provider: Mary Cunningham, BEA) iopamidoL (ISOVUE-370) 370 mg iodine /mL (76 %) injection 90 mL (COMPLETED) 90 mL, intravenous, Once in imaging, Starting on 11/23/24 at 0608, For 1 dose 0610 (Given - Provider: Ann-Marie Mackey) latanoprost (XALATAN) 0.005 % ophthalmic solution 1 drop 1 drop, Both Eyes, Nightly, First dose on 11/23/24 at 2100 2032 (Not Given - Provider: Blanka Hirsch, BEA - Reason: Medication not available) 222 (Given - Provider: Mary Cunningham RN - Comment: Pharmacy just brought med down a few minutes ago.) memantine (NAMENDA XR) extended release capsule 28 mg 28 mg, oral, Daily, First dose on 11/23/24 at 1509, Capsule may be opened and contents sprinkled onto applesauce or other soft food such as pudding. Swallow sprinkles whole; do NOT crush or chew. 1713 (Given - Provider: Clau Oconnor RN) 0924 (Given - Provider: Lola Adams RN) 0924 (Given - Provider: Ellen Galvez RN) pantoprazole (PROTONIX) EC tablet 40 mg 40 mg, oral, Every morning before breakfast, First dose on 11/24/24 at 0700, Do not crush, chew, or split. 0741 (Given - Provider: Lola Adams RN) 0657 (Given - Provider: Jena Aguayo RN) sodium chloride 0.9 % flush 10 mL (COMPLETED) 10 mL, intravenous, Once, On 11/23/24 at 0609, For 1 dose 0610 (Given - Provider: Ann-Marie Mackey) PRN Medication Order 11/23/2024 11/24/2024 11/25/2024 acetaminophen (TYLENOL) tablet 650 mg 650 mg, oral, Every 6 hours PRN, mild pain, moderate pain, Starting on 11/23/24 at 0719, For 7 days albuterol 2.5 mg /3 mL (0.083 %) nebulizer solution 2.5 mg 2.5 mg, nebulization, Every 4 hours PRN, wheezing, Starting on 11/23/24 at 1508 documented in this encounter Orders Medications Ordered That [place] ht Not Have Been Administered Count Last Ordered Date First Ordered Date acetaminophen (TYLENOL) tablet 650 mg 1 albuterol 2.5 mg /3 mL (0.08 3 %) nebulizer solution 2.5 mg 1 11/23/2024 Lab Orders Without Results Count Last Ordered D ate First Ordered Date POCT GLUCOSE, BLOOD 1 11/23/2024 Nursing Count Last Ordered Date First Orde red Date NURSING SWALLOW SCREEN 1 11/23/2024 AD TRAFFICKER Count Last Ordered Date First Orde red Date AD TRAFFICKER SWALLOW EVAL AND TREAT 1 11/23/2024 documented in this encounter Additional Health Concerns Infection Onset Date Last Indicated Resolved Time Respiratory Rule-Out 11/23/2024 11/23/2024 025 11:05 AM EST COVID-19 Rule-Out 11/23/2024 11/23/2024 11/23/2024 11:05 AM EST documented as of this encounter Care Teams Supervisor Agricultural Education Relationship Specialty Start Date End Date Jose Juan Rendon MD [address] [place] [address] Dr [address] [place] PCP - General 01/29/24 documented as of this encounter
[2024-12-18 14:08] VITALS: BP 150/60; PULSE 70; TEMP 36.4; O2SAT 98; BMI 21.5
--- NOTE | 2024-12-18 14:08 | A.OFFPC_ITS ---
Vital Signs 12/18/24 14:08 Height 5 ft Weight 110 lb 2 oz BMI 21.5 BP 150/60 H Blood Pressure Location Lt brachial Position Sitting Pulse 70 Pulse Source Pulse Oximeter Temp 97.5 F Temp Source Temporal Artery Scan Pulse Oximetry (%) 98 Oxygen Delivery Method Room Air Intake Visit Reasons: Discharge Tamminmzuly 12/13 Hydraulic Plumber Helper Required: No Hydraulic Plumber Helper Name: Pt refuse daughter interpret Accompanied by: Mother Allergies meperidine [From DEMEROL] Allergy (Severe, Verified 12/18/24 14:41) HYPOTENSION Penicillins [PENICILLINS] Allergy (Severe, Verified 12/18/24 14:41) HIVES,SWELLING influenza virus vaccine, specific [Influenza Virus Vacc,Specific] Adverse Re action (Intermediate, Verified 12/18/24 14:41) ASTHMA EXACERBATION Anesthetic Maximum Strength Allergy (Severe, Uncoded 12/18/24 14:41) anaphylaxis Bee Sting Allergy (Unknown, Uncoded 12/18/24 14:41) unknown Medication List - Last Reconciled 12/18/24 by ANNIA Murphy [ADULT PULL-UPS (medium) As directed] albuterol sulfate 2.5 mg continuous nebulization Q6H PRN albuterol sulfate 90 mcg/actuation 2 puffs PO Q6H PRN amlodipine 2.5 mg PO DAILY 90 days aspirin 81 mg PO DAILY atorvastatin 20 mg PO BEDTIME 90 days blood pressure monitor As directed blood sugar diagnostic (FreeStyle Test strips) test bs once a day blood-glucose meter (FreeStyle Lite Meter kit) As directed- To test Blood sugar blood-glucose meter (FreeStyle Lite Meter kit) As directed ONCE A DAY cholecalciferol (vitamin D3) 50 mcg PO DAILY clonazepam 0.25 mg PO BEDTIME PRN 30 days fluticasone propion-salmeterol 500-50 mcg/dose (Advair Diskus) 1 ea PO BID fluticasone propionate 50 mcg/actuation 1 spray intranasal DAILY [FreeStyle LANCETS As directed] [FreeStyle TEST STRIPS As directed] lancets (FreeStyle Lancets) 28 gauge miscellaneous .QD latanoprost 0.005% 1 drp ophthalmic (eye) BEDTIME loratadine 10 mg PO DAILY PRN memantine 28 mg PO DAILY omalizumab (Xolair) 300 mg subcut Q4W 28 days omeprazole 20 mg PO DAILY PRN polyethylene glycol 3350 (Miralax) 17 grams PO DAILY 30 days sennosides (Senna Lax) Take 1 to 2 tablets orally daily PRN; 30 days valacyclovir 500 mg PO DAILY Tobacco use date assessed: 11/19/24 Fall risk assessment: 1 Fall in past year Last assessed Fall Risk: 12/18/24 Dental Screening Dental Screen Date: 11/19/24 HPI Discharge Mariela 12/13 HPI Details The patient is a 79 year old female with significant pass medical history of dementia, unsteady gait, frequent falls, constipation, osteoporosis, interstitial lung disease, asthma depression and anxiety The patient is presenting with caregiver for post repair of follow up eval The patient was transferred to [facility] ED due to a fall on 11/23/2024 The patient was found to have a UTI and was treated with keflex in the hospital The patient was sent to rehab for ot/pt. [facility] [employer] reports that stayed there for 2 weeks The discharged with visiting nurses once a week and along with in home therapy (not sure the frequency as yet, they will find out on the first visit Patient denies chest pain, sob, heart palpitation Patient denies stomach pain or change in bowel habits Patient denies dysuria, or urinary frequency The patient already as an appt with dr. Rendon 02/17/25- and labs already ordered-discussed with [employer] to keep that appt [facility] Medical History Dementia Osteoporosis Post-menopausal Cellulitis Overweight (BMI 25.0-29.9) Depression Anxiety Nocturnal leg cramps Vitamin D deficiency Genital herpes in women Ductal carcinoma in situ of right breast Osteoarthritis of knee GERD (gastroesophageal reflux disease) Allergic rhinitis Diabetic neuropathy COPD (chronic obstructive pulmonary disease) Benign essential hypertension Pure hypercholesterolemia Diabetes mellitus Surgical History History of colonoscopy History of total hysterectomy H/O breast surgery Family History Father CVD (cardiovascular disease) Stroke Mother Cancer Other Mental health disorder Social History Housing: Apartment Alcohol intake: never Patient Tobacco Use Status: Never used Tobacco e-Cigarette/Vaping Use: Never Used Second Hand Smoke Exposure: Yes service: No Current occupational status: disabled Cognitive needs: No Hearing needs: Yes Vision needs: Yes Questionnaire PHQ-9 Over the last 2 weeks, how often have you been bothered by any of the following problems? 1. Little interest or pleasure in doing things: not at all 2. Feeling down, depressed, or hopeless: not at all 3. Trouble falling or staying asleep, or sleeping too much: not at all 4. Feeling tired or having little energy: not at all 5. Poor appetite or overeating: not at all 6. Feeling bad about yourself - or that you are a failure or have let yourself or your family down: not at all 7. Trouble concentrating on things, such as reading the newspaper or watching television: not at all 8. Moving or speaking so slowly that other people could have noticed. Or the opposite - being so fidgety or restless that you have been moving around a lot more than usual: not at all 9. Thoughts that you would be better off or of hurting yourself in some way: not at all Total score: 0 Depression Screening Interpretation: Negative Depression Screening Done: Yes 06852 - PHQ-9 Billing: Yes Source: Developed by Drs. Leonides Hamm, Rehana Tello, Harjinder Buitrago and colleagues, with an educational ronel from [employer]. Thrive Questionnaire Date Thrive assessed: 11/19/24 ESTEBAN-7 AMB Questionnaire ESTEBAN-7 Date ESTEBAN - 7 assessed: 11/19/24 Source: Developed by Drs. Leonides Hamm, Harjinder Fernandez and colleagues, with an educational ronel from [employer]. Review of Systems Const Details: Denies chills, Denies fatigue, Denies fever(s), Denies headache(s) and Denies weakness HEENT Denies change in vision, Denies dizziness, Denies headache(s), Denies hearing loss, Denies nasal congestion, Denies sinus pain, Denies sinus pressure and Denies sore throat Card Denies chest pain, Denies lightheadedness, Denies dyspnea and Denies other (palpitations) Resp Denies cough, Denies dyspnea and Denies wheezing GI Denies abdominal pain, Denies melena, Denies hematochezia, Denies change in bowel habits, Denies dyspepsia and Denies nausea, + intermittent constipation and incontinence Denies hematuria and Denies dysuria,+ urinary incontinence Musc Denies abnormal gait, Denies myalgias, Denies arthralgias, Denies numbness and Denies tingling Skin/Breast Denies rash, Denies unusual bruising and Denies wounds Neuro Denies abnormal gait, Denies dizziness, Denies headache(s), Denies memory loss, Denies numbness, Denies Sensory deficit (Neuro), Denies tingling and Denies weakness, +memory impairment Psych Denies anxiety, Denies depression and Denies memory loss Endo Denies cold intolerance, Denies fatigue, Denies heat intolerance, Denies polydipsia and Denies polyuria Iggy/Lymph Denies easy bleeding and Denies easy bruising Aller/Immun Denies wheezing Physical exam (Primary Care) Vital Signs: Last Vital Signs Temp 97.5 F 12/18/24 14:08 Pulse 70 12/18/24 14:08 BP 150/60 H 12/18/24 14:08 Pulse Ox 98 12/18/24 14:08 Oxygen Delivery Method Room Air 12/18/24 14:08 BMI result Body Mass Index 21.5 Tobacco/Smoking Status: Tobacco use Status Tobacco use date assessed 11/19/24 12/18/24 14:11 Patient Tobacco Use Status Never used Tobacco 12/18/24 14:11 e-Cigarette/Vaping Use Never Used 12/18/24 14:11 PHQ-9: PHQ-9 Score PHQ-9: Total score 0 12/19/24 08:33 Depression Screening Interpretation: Negative Thrive Assessment: Date of Thrive Assessment Date Thrive assessed 11/19/24 12/18/24 14:11 Const Other: General: no acute distress, well developed, alert and awake Nutritional Appearance: well nourished Orientation/consciousness: Short-term memory deficit HENMT Head: Yes normocephalic and Yes atraumatic Ears: hearing grossly normal bilaterally and TM's normal bilaterally General nose exam: Normal external nose present and Normal nares present Mouth: Normal oral and palatal mucosa present and moist mucous membranes Eyes Pupils: Equal, round and reactive pupils present and Pupil accommodation reflex normal EOM: EOMs intact bilaterally Neck Neck: Yes normal visual inspection, Yes no lymphadenopathy and Yes trachea midline Lymphatic: no lymphadenopathy noted Resp Effort & Inspection: normal respiratory effort Auscultation: clear to auscultation bilaterally Cardio Rate: regular rate Rhythm: regular rhythm Heart sounds: S1 normal heart sound present, S2 normal heart sound present, no gallops, no murmurs and no rubs GI Palpation (GI): abdomen soft and nontender with palpation Auscultation: normal bowel sounds General: Yes no CVA tenderness Back/Spine/Pelvis Back: no CVA tenderness Cervical Spine: cervical ROM normal and No Cervical spine tenderness Thoracic/Lumbar Spine: thoraco-lumbar ROM normal, No pain with thoraco-lumbar ROM, No thoracic spinal tenderness and No lumbar spinal tenderness Skin General: warm and dry. Normal skin color. Normal skin turgor Lesions: no lesions Rashes: no rashes Trauma: no lacerations or abrasions Wounds: no wounds Nails: normal Neuro General: Short-term memory impairment, gait normal Cranial nerves: Yes Equal, round and reactive pupils present Cognition (Neuro): normal cognition Gait exam (Neuro): Normal gait present Extrem General: Yes normal to inspection, No edema and No calf tenderness Psych Appearance: grossly normal Affect: normal affect Attitude: cooperative Thought process: Normal thought process present Coding Level of Care Code Est Pt Level 4 (15069) Diagnoses Urinary tract infection without hematuria, site unspecified N39.0 Urinary tract infection type: site unspecified Hematuria presence: without hematuria Status post fall Z91.81 Urinary incontinence, unspecified type R32 Urinary Incontinence type: unspecified incontinence Incontinence of feces, unspecified fecal incontinence type R15.9 Fecal incontinence type: unspecified Additional Codes PHQ-9 - 25679 - PHQ-9 Billing: Yes ([id number]) Time Spent (min) 37 Assessment & Plan Assessment & Plan (1) Urinary tract infection: Code(s): N39.0 - Urinary tract infection, site not specified Category: Medical Qualifiers: Urinary tract infection type: site unspecified Hematuria presence: without hematuria Qualified Code(s): N39.0 - Urinary tract infection, site not specified Plan: The patient was transferred to [facility] Emergency room on 11/23/2024 due to fall She was found to have an UTI and was treated The patient was transferred to a short-term rehab for OT/PT The patient was discharged on 12/13-with services for a visiting nurse and in- home OT/PT [employer] with patient, reported that the patient is back to her baseline (2) Status post fall: Comment: occurred on 08/18/2023 Code(s): Z91.81 - History of falling Category: Medical Plan: The patient appears to have history of falls. Probably due to her unsteady gait and urinary tract infection Continue frequent scheduled toileting that is anticipating her needs to decrease incontinence (3) Incontinence of urine: Code(s): R32 - Unspecified urinary incontinence Category: Medical Qualifiers: Urinary Incontinence type: unspecified incontinence Qualified Code(s): R32 - Unspecified urinary incontinence Plan: Continue frequent scheduled toileting that is anticipating her needs to decrease incontinence (4) Incontinence of bowel: Code(s): R15.9 - Full incontinence of feces Category: Medical Qualifiers: Fecal incontinence type: unspecified Qualified Code(s): R15.9 - Full incontinence of feces Plan: Continue frequent scheduled toileting that is anticipating her needs to decrease incontinence
== END 2024-12-18 14:51 | disposition home or self-care (01) ==
PROVIDERS: PCP Internal Medicine
DX: N39.0 Urinary tract infection, site not specified (principal); Z91.81 History of falling; R32 Unspecified urinary incontinence; R15.9 Full incontinence of feces

== ENCOUNTER → 2024-12-18 13:39 | Outpatient (BNVA) | payer MEDICARE, MEDICAID, SELFPAY | PROVIDERS: PCP Internal Medicine | DX: N39.0 Urinary tract infection, site not specified (principal); R32 Unspecified urinary incontinence; R15.9 Full incontinence of feces; Z91.81 History of falling | CPT/HCPCS: 96127; 99212 ==

== ENCOUNTER 2024-12-25 12:22 | Outpatient (RCR) | payer MEDICARE, MEDICAID, SELFPAY ==
--- NOTE | 2025-01-06 12:34 | MHC.SP.ADU ---
Referring provider: Melia CARRIZALES Reason for Referral: Cognitive Impairment Type of Treatment: 73050 Standardized Cognitive Performance Testing, per hour Date of Plan of Treatment: 12/25/24 Onset of Symptoms/Illness: 12/25/99 Date Treatment Started: 12/25/24 Medical Diagnosis: F03.B18 Unspecified dementia, moderate, with other behavioral disturbance Primary Speech Language Diagnosis: R41.841 Cognitive communication disorder Secondary Speech Language Diagnosis: History Lianne Moreno is a 79 year old female with underlying dementia referred for a speech language cognitive evaluation by Melia CARRIZALES of the [facility] office in [place], [place] due to ongoing concerns regarding her memory. Lianne was accompanied to this evaluation by her daughter, Angelica, who assisted in providing background information included in this report. Lianne has FUR FARMER hours with her granddaughter in the morning and her grandson in the afternoon/evening. Angelica also lives close by in [place] and has cameras to supervise Lianne. Lianne has a visiting nurse who comes on s and once a month on . Angelica reports that Lianne has had memory issues for many years, at least since 1999, which have worsened over the past 2-3 years. Lianne easily forgets things, tells stories that do not make sense, and often repeats herself. Note familial history with Lianne's siblings who also have memory issues. Lianne has had hearing aids for years, however, they are broken and she has not worn them in years. Per Angelica, Lianne has been suffering with constant tinnitus. She was recently hospitalized with a UTI. machine hand brought her to [facility], where she stayed the weekend, followed by a 3 week stay at rehab in [place]. She was recently discharged on 12/13, and, per Angelica, is now doing well. Medical History: Other: Medical History Dementia Osteoporosis Post-menopausal Cellulitis Overweight (BMI 25.0-29.9) Depression Anxiety Nocturnal leg cramps Vitamin D deficiency Genital herpes in women Ductal carcinoma in situ of right breast Osteoarthritis of knee GERD (gastroesophageal reflux disease) Allergic rhinitis Diabetic neuropathy COPD (chronic obstructive pulmonary disease) Benign essential hypertension Pure hypercholesterolemia Diabetes mellitus Surgical History History of colonoscopy History of total hysterectomy H/O breast surgery Tests of Cognition: CLQT Clinical Impression: Impaired Observations: Patient was administered the Cognitive Linguistic Quick Test (CLQT) in Turkish. The CLQT is a criterion-referenced assessment used to gain information about an individual?s relative strengths and weaknesses and to identify deficits in cognitive-linguistic skills in individuals aged 18-89 years old. The CLQT generates severity ratings in the following five cognitive domains: Attention, Memory, Language, Executive Functions, and Visuospatial Skills. Patient?s performance on the CLQT is displayed below: Task: Patient?s Score, Criterion Cut Score, Interpretation Personal Facts: 0, 8, Impaired Symbol Cancellation: 0, 10, Impaired Confrontational Namin, 10, Impaired Clock Drawin, 11, Impaired Story Retellin, 5, Impaired Symbol Trails: 2, 6, Impaired Generative Namin, 4, Impaired Design Memory: 2, 4, Impaired Mazes: 0, 4, Impaired Design Generation: 2, 5, Impaired Task scores were summed together based on cognitive domain. Completed Cognitive Domain scores are as follows: Cognitive Domain: Domain Score, Severity Range, Severity Rating Attention: 14, Severe, 1 Memory: 27, Severe, 1 Executive Functions: 5, Severe, 1 Language: 8, Severe, 1 Visuospatial Skills: 14, Severe, 1 Clock Drawin, Moderate Impressions: Patient demonstrated relative strengths in her communication skills. She formulated complete sentences with appropriate semantic and syntactic use. She did exhibit moderate difficulties with naming both during confrontational naming tasks and within spontaneous conversation. She exhibited hesitancy with naming and produced paraphasias, naming target items with other words which were semantically related. She did not appear to be aware of her errors. For example, she named necktie as bracelet. Encouragingly, patient utilized strategies to assist with her word retrieval. She gestured use of a zipper before recalling its label after a short delay. She also described target words when cued with leading questions. Patient was able to attend to simple, short tasks but exhibited difficulty coordinating the demands of more complex tasks or multiple tasks at once. Patient asked for models, clarification, and repetitions of task instructions frequently throughout the assessment. Patient demonstrated significant impairments in all areas assessed with the CLQT, including attention, memory, executive functioning, and visuospatial skills. Patient provided her name, stated that she was born in [place], and shared that she lives on the second floor of an apartment. She could not recall her address, birthdate, or age, stating, I don't remember. She also exhibited difficulty recalling details from a story (immediate recall of new information presented verbally in a paragraph) and recalling visual designs (immediate recall of new visual information). Her daughter endorsed that she struggles day-to-day with remembering new information. Patient exhibited difficulty completing mazes despite directions being repeated several times. [facility] through the task, patient asked for clarification on both mazes and was ultimately unable to complete the task. Patient did not exhibit any unilateral neglect on symbol cancellation tasks, but did cross out the incorrect symbol across the entire page. Patient generally exhibited difficulty on tasks assessing visuospatial awareness and seemed to have difficulty interpreting images (i.e. looked at picture of a train and asked, Is that a hand? ). Question difficulty following directions and/or possibility of a visual deficit. Impressions and Recommendations Summary: On assessment today, Lianne presented with a severe cognitive linguistic impairment, with difficulties in the areas of memory, language, visuospatial awareness, and executive functioning. It is recommended that Lianne and her caregiver(s) return for a trial period of cognitive linguistic therapy. Impact on Daily Function/Activity Limitations: Daily Activities: Moderate Interpersonal Interactions: Moderate Education: Employment: Community: Severe Prognosis for Improvement: Guarded Comment: Dx dementia Recommendation for Speech Therapy: Outpatient Speech Therapy Frequency/Duration: 1x weekly x 8 weeks Date Range for Service Requested: Time to Reassess: PRN Fagot Maker Goals: LTG 1: Lianne will maximize cognitive-language skills to facilitate independence and safety with daily needs and tasks given intermittent assistance from caregivers. Short Term Goals: Goal # : 1.1. Given direction to utilize external aids, Lianne will locate orientation information to decrease confusion in 80% of opportunities. Goal Status: New Goal Goal# : 1.2. Lianne will recall to use a calendar to check daily appointments in 80% of opportunities when provided with minimal cues across 3 consecutive sessions. Goal Status: New Goal Goal # : 1.3. Lianne will identify the appropriate section of her memory logbook to locate target information in 80% of opportunities with minimal cues. Goal Status: New Goal Goal # : 1.4. Lianne will recall sentence level information after a 30 minute delay using the spaced retrieval technique. Goal Status: New Goal Recommended Referrals to be Discussed with Primary Care Provider: Audiological Evaluation Hx hearing loss with broken hearing aids Patient Education: Completed: Yes Patient/Caregiver Education: Described Results of Evaluation Family/Caregivers expressed understanding of results Patient requires further education on strategies Family/Caregivers require further education on strategies Comments/Barriers to Learning: It was a pleasure meeting Lianne and her daughter. Please do not hesitate to contact the [facility] with any questions regarding the content of this report or if we can be of further assistance in Lianne's care. Case Management Director Clinican/Clinical Fellow: No Supervisory Statement: N/A Speech Language Pathologist: Rula Paniagua M.A., CCC-HEALTH PROMOTION OFFICER
== END 2025-01-10 14:55 | disposition still patient (30) ==
LOC: HO.SH 12:22
PROVIDERS: PCP Internal Medicine; Visit Provider Nurse Practitioner Family
DX: R13.10 Dysphagia, unspecified (principal); F03.B18 Unspecified dementia, moderate, with other behavioral disturbance
CPT/HCPCS: 96125

== ENCOUNTER 2025-01-03 15:14 | Outpatient (AMB) | payer MEDICARE, MEDICAID, SELFPAY ==
--- NOTE | 2025-01-03 15:17 | A.OFFVIS_ITS ---
Vital Signs 01/03/25 15:19 Height 5 ft Weight 105 lb 13.15 oz BMI 20.7 BP 160/68 H Blood Pressure Location Lt brachial Position Sitting Pulse 75 Intake Visit Reasons: Dysphagia / Esophagitis without bleeding Intake Note: Lianne presents in the office as a new patient for dysphagia and esophagitis w/u bleeding. CC: She is having issues in her throat with her swallowing. Always has constipation. Jumpbasting Facing Baster Required: Yes Allergies meperidine [From DEMEROL] Allergy (Severe, Verified 01/03/25 15:20) HYPOTENSION Penicillins [PENICILLINS] Allergy (Severe, Verified 01/03/25 15:20) HIVES,SWELLING influenza virus vaccine, specific [Influenza Virus Vacc,Specific] Adverse Reaction (Intermediate, Verified 01/03/25 15:20) ASTHMA EXACERBATION Anesthetic Maximum Strength Allergy (Severe, Uncoded 01/03/25 15:20) anaphylaxis Bee Sting Allergy (Unknown, Uncoded 01/03/25 15:20) unknown HPI Comments Details: 79y.o F with PMH asthma/COPD, HTN, DM, osteoporosis, who is here for difficulty swallowing. Accompanied by daughter Angelica. Reports longstanding hx x many years. Typically with pills. Sometimes hard foods get stuck too which she pushes down with fluids/water. No abd pain, N,V. However has not been able to cope with PO intake due to frequent regurgitation and dysphagia. Lost 10 lbs in 6 months. Mom had esophageal ca. Pt had hx of second hand smoking. No etOH. Barium swallow done: 09/19/24: 1. Granular appearance of the esophageal mucosa, suggestive of esophagitis. Recommend correlation with EGD. 2. 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 3. Limited evaluation of esophageal motility demonstrates moderately disorganized peristalsis. 4. Limited evaluation of the stomach due to patient's inability to lie flat without experiencing severe coughing. No obvious hiatal hernia or gastroesophageal reflux was observed. The gastric rugal folds have a thickened appearance, suggestive of gastritis. 5. Status post cholecystectomy. Started on omeprazole 20 by pcp. however takes it with food at noon time. Has never had an EGD. Last colo 2013 - no polyps. [facility] Medical History Dementia Osteoporosis Post-menopausal Cellulitis Overweight (BMI 25.0-29.9) Depression Anxiety Nocturnal leg cramps Vitamin D deficiency Genital herpes in women Ductal carcinoma in situ of right breast Osteoarthritis of knee GERD (gastroesophageal reflux disease) Allergic rhinitis Diabetic neuropathy COPD (chronic obstructive pulmonary disease) Benign essential hypertension Pure hypercholesterolemia Diabetes mellitus Surgical History History of colonoscopy History of total hysterectomy H/O breast surgery Family History Father CVD (cardiovascular disease) Stroke Mother Cancer Other Mental health disorder Social History Housing: Apartment Alcohol intake: never Patient Tobacco Use Status: Never used Tobacco e-Cigarette/Vaping Use: Never Used Second Hand Smoke Exposure: Yes service: No Current occupational status: disabled Cognitive needs: No Hearing needs: Yes Vision needs: Yes Review of Systems Const All systems reviewed & are unremarkable except as noted in HPI and below Physical Exam Vital Signs: Last Vital Signs Pulse 75 01/03/25 15:19 BP 160/68 H 01/03/25 15:19 BMI result Body Mass Index 20.7 No apparent distress Nonicteric Abdomen soft, nondistended Alert and oriented x3, normal gait Assessment & Plan Assessment & Plan (1) Esophagitis: Code(s): K20.90 - Esophagitis, unspecified without bleeding Category: Medical (2) Difficulty swallowing: Code(s): R13.10 - Dysphagia, unspecified Category: Medical (3) 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 Recommend egd for luminal eval +/- dilation. However pt would like to not proceed at this time despite reported burden of sx. Office contact info was handed to her if she changed her mind. Medications: Changed From amlodipine 2.5 mg PO DAILY 90 days 90 tabs 1RF To amlodipine 2.5 mg PO BID 90 days 180 tabs 1RF Coding Level of Care Code New Pt Level 4 (77850) Diagnoses Esophagitis K20.90 Difficulty swallowing R13.10 Esophageal web Q39.4
[2025-01-03 15:19] VITALS: BP 160/68; PULSE 75; BMI 20.7
--- OUTSIDE RECORDS SUMMARY | 2025-01-03 16:49 | XMS_ITS | Clinical Summary ---
Author Organization Formerly [facility], [facility] [employer] [facility] Address [address] [place] [address] Care Team Providers Care Senior Science Consultant Name Role Phone Unavailable Primary Care Provider [...]
--- OUTSIDE RECORDS SUMMARY | 2025-01-03 16:49 | XMS_ITS | Clinical Summary ---
Author Organization Unknown Care Team Providers Care Box Coverer Hand Name Role Phone ERMIAS PADILLA, ROSALBA Unavailable Unavailable TAMELA RN, ADMISSION NURSE, BRETT Unavail able Unavailable Payers Payer Name Policy Type Policy Number Effective Date Expira tion Date MEDICARE - [place] [id number] MEDICAID [facility] [id number] Problems Condition Name Condition Details Condition Category Status Onset Date Resolution Date Last Treatment Date Treating Clinician Comments ESSENTIAL (PRIMARY) HYPERTENSION Active 10-30 00:00: 00 CHRONIC OBSTRUCTIVE PULMONARY DISEASE, UNSPECIFIED Active 10-30 00:00: 00 TYPE 2 DIABETES MELLITUS WITHOUT COMPLICATION S Active 10-30 00:00: 00 EPILEPSY, UNSP, NOT INTRACTABLE, WITHOUT STATUS EPILEPTICUS Active 10-30 00:00: 00 VASCULAR DEMENTIA, MODERATE, WITH ANXIETY Active 10-30 00:00: 00 VASCULAR DEMENTIA, MODERATE, WITH MOOD DISTURBANCE Active 10-30 00:00: 00 DEPRESSION, UNSPECIFIED Active 10-30 00:00: 00 URINARY TRACT INFECTION, SITE NOT SPECIFIED Active 10-30 00:00: 00 HYPERLIPIDEM IA, UNSPECIFIED Active 10-30 00:00: 00 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 ESOPHAGITIS Active 10-30 00:00: 00 PRSNL HX OF TIA (TIA), AND CEREB INFRC W/O RESID DEFICITS Active 10-30 00:00: 00 ACQUIRED ABSENCE OF OTHER SPECIFIED PARTS OF DIGESTIVE TRACT Active 10-30 00:00: 00 Problems related to health literacy Active 10-30 00:00: 00 HISTORY OF FALLING Active 10-30 00:00: 00 Allergies, Adverse Reactions, Alerts Allergy Name Allergy Type Status Severity Reaction(s) Onset Date Inactive Date Treating Clinician Comments NKA Propensity to adverse reactions Active 2024-11 09:30:4 7 Medications Ordered Medication Name Filled Medication Name Start Date Stop Date Current Medication? Ordering Clinician Indication Dosage Frequency Signature (SIG) Comments Components amlodipine 2.5 mg tablet 11-19 00:00: 00 Yes [id number] Per instruc tions DAILY FOR 90 DAYS Per instructio ns DAILY FOR 90 DAYS (route: oral) Med Classific ation: Cardiovas cular Therapy Agents atorvastati n 20 mg tablet 11-19 00:00: 00 Yes [id number] Per instruc tions BEDTIME FOR 90 DAYS Per instructio ns BEDTIME FOR 90 DAYS (route: oral) Med Classific ation: Cardiovas cular Therapy Agents clonazepam 0.25 mg disintegrat ing tablet 11-13 00:00: 00 Yes [id number] Per instruc tions 30 MINUTES BEFORE BEDTIME NEEDED FOR 30 DAYS Per instructio ns 30 MINUTES BEFORE BEDTIME NEEDED FOR 30 DAYS (route: oral) Med Classific ation: Central Nervous System Agents cholecalcif jerilyn (vitamin D3) 25 mcg (1,000 unit) tablet 12-14 00:00: 00 Yes [id number] 1 tablet DAILY 1 tablet DAILY (route: oral) Med Classific ation: Electroly te Balance-N utritiona l Products latanoprost 0.005 % eye drops 12-14 00:00: 00 Yes [id number] 1 drops DAILY 1 drops DAILY (route: ophthalmic (eye)) Med Classific ation: Ophthalmi c Agents memantine 28 mg capsule sprinkle,ex tended release 24hr 12-14 00:00: 00 Yes [id number] 1 capsule DAILY 1 capsule DAILY (route: oral) Med Classific ation: Cognitive Disorder Therapy omeprazole 20 mg capsule,del ayed release 12-14 00:00: 00 Yes [id number] 1 capsule DAILY 1 capsule DAILY (route: oral) Med Classific ation: Gastroint estinal Therapy Agents Xolair 150 mg/mL subcutaneou s auto-inject or 12-14 00:00: 00 Yes [id number] 150 mg MONTHLY 150 mg MONTHLY (route: subcutaneo us) Med Classific ation: Respirato ry Therapy Agents Immunizations Ordered Immunization Name Filled Immunization Name Date Status Comments Refusal Reason INFLUENZA, TIV (INACTIVATED) 2024-07-17 00:00:00 Vital Signs Vital Name Observation Time Observation Value Commen ts Temperature 2025-01-01 10:05:00.000 98.2 [degF] Temperature 2024-12-25 09:43:00.000 97.8 [degF] Temperature 2024-12-20 10:16:00.000 98.3 [degF] Temperature 2024-12-19 11:15:00.000 98 [degF] Temperature 2024-12-14 09:46:00.000 97.8 [degF] BMI (%) 2024-12-14 09:34:37.000 21 kg/m2 Height 2024-12-14 09:34:01.000 59 [in_us] Pulse 2025-01-01 10:05:00.000 65 /min Pulse 2024-12-25 09:43:00.000 70 /min Pulse 2024-12-20 10:16:00.000 70 /min Pulse 2024-12-19 11:15:00.000 72 /min Pulse 2024-12-14 09:46:00.000 68 /min O2 Saturation (%) 2025-01-01 10:05:00.000 99 % O2 Saturation (%) 2024-12-25 09:44:00.000 97 % O2 Saturation (%) 2024-12-20 10:16:00.000 97 % O2 Saturation (%) 2024-12-19 11:15:00.000 97 % O2 Saturation (%) 2024-12-14 09:46:00.000 98 % Respirations 2025-01-01 10:05:00.000 18 /min Respirations 2024-12-25 09:43:00.000 18 /min Respirations 2024-12-20 10:16:00.000 18 /min Respirations 2024-12-19 11:15:00.000 18 /min Respirations 2024-12-14 09:46:00.000 18 /min Weight (lbs) 2024-12-14 09:34:37.000 108 [lb_av] Systolic Blood Pressure 2025-01-01 10:05:00.000 160 mm [Hg] Systolic Blood Pressure 2024-12-25 09:43:00.000 138 mm [Hg] Systolic Blood Pressure 2024-12-20 10:16:00.000 126 mm [Hg] Systolic Blood Pressure 2024-12-19 11:15:00.000 120 mm [Hg] Systolic Blood Pressure 2024-12-14 09:46:00.000 158 mm [Hg] Diastolic Blood Pressure 2025-01-01 10:05:00.000 72 mm [Hg] Diastolic Blood Pressure 2024-12-25 09:43:00.000 71 mm [Hg] Diastolic Blood Pressure 2024-12-20 10:16:00.000 62 mm [Hg] Diastolic Blood Pressure 2024-12-19 11:15:00.000 60 mm [Hg] Diastolic Blood Pressure 2024-12-14 09:46:00.000 84 mm [Hg] Plan of Treatment Planned Activity Planned Date Details Comments Future Scheduled Test SKILLED NU RSE TO EVALUATE PATIENT, IDENTIFY PRIMARY AND CO-MORBID CONDITIONS CODED PER CODING GUIDELINES, AND DEVELOP PATIENT SPECIFIC PLAN OF CARE THAT INCLUDES PATIENT GOAL FOR HOME HEALTH. [code = SKILLED NURSE TO EVALUATE PATIENT, IDENTIFY PRIMARY AND CO-MORBID CONDITIONS CODED PER CODING GUIDELINES, AND DEVELOP PATIENT SPECIFIC PLAN OF CARE THAT INCLUDES PATIENT GOAL FOR HOME HEALTH.] Future Scheduled Test SKILLED NU RSE TO REVIEW PATIENT MEDICATIONS. INSTRUCT PATIENT/CAREGIVER ON MONITORING OF EFFECTIVENESS, ADVERSE DRUG REACTIONS, SIDE EFFECTS OF ALL MEDICATIONS (PRESCRIPTION/-OTC), AND HOW AND WHEN TO REPORT PROBLEMS. [code = SKILLED NURSE TO REVIEW PATIENT MEDICATIONS. INSTRUCT PATIENT/CAREGIVER ON MONITORING OF EFFECTIVENESS, ADVERSE DRUG REACTIONS, SIDE EFFECTS OF ALL MEDICATIONS (PRESCRIPTION/-OTC), AND HOW AND WHEN TO REPORT PROBLEMS.] Future Scheduled Test SKILLED NU RSE TO ASSESS ANXIETY AND PROVIDE ASSISTANCE TO PATIENT FOR UNDERSTANDING AND MANAGEMENT OF FEELINGS. [code = SKILLED NURSE TO ASSESS ANXIETY AND PROVIDE ASSISTANCE TO PATIENT FOR UNDERSTANDING AND MANAGEMENT OF FEELINGS.] Future Scheduled Test SKILLED NU RSE MAY COLLECT URINE SAMPLE FOR URINE REAGENT STRIP TESTING AND/OR URINALYSIS WITH CS 1-3 PRN IF INDICATED FOR SIGNS AND SYMPTOMS OF UTI. IF REAGENT STRIP TEST IS POSITIVE FOR UTI, SKILLED NURSE TO TAKE URINE SAMPLE TO LAB FOR URINE CS AND REPORT RESULTS TO PHYSICIAN. [code = SKILLED NURSE MAY COLLECT URINE SAMPLE FOR URINE REAGENT STRIP TESTING AND/OR URINALYSIS WITH CS 1-3 PRN IF INDICATED FOR SIGNS AND SYMPTOMS OF UTI. IF REAGENT STRIP TEST IS POSITIVE FOR UTI, SKILLED NURSE TO TAKE URINE SAMPLE TO LAB FOR URINE CS AND REPORT RESULTS TO PHYSICIAN.] Future Scheduled Test SKILLED NU RSE FOR O/A, TEACHING AND MANAGEMENT OF UTI FOR EARLY IDENTIFICATION OF EXACERBATION OF DISEASE PROCESS [code = SKILLED NURSE FOR O/A, TEACHING AND MANAGEMENT OF UTI FOR EARLY IDENTIFICATION OF EXACERBATION OF DISEASE PROCESS] Future Scheduled Test SKILLED NU RSE FOR O/A OF RESPIRATORY SYSTEM TO IDENTIFY CHANGES ASSOCIATED WITH EXACERBATION AND TO PROVIDE SKILLED TEACHING ON MANAGEMENT OF ASTHMA PROCESS. [code = SKILLED NURSE FOR O/A OF RESPIRATORY SYSTEM TO IDENTIFY CHANGES ASSOCIATED WITH EXACERBATION AND TO PROVIDE SKILLED TEACHING ON MANAGEMENT OF ASTHMA PROCESS.] Future Scheduled Test SKILLED NU RSE FOR O/A AND SKILLED TEACHING RELATED TO SIGNS AND SYMPTOMS OF INFECTION AND INFECTION CONTROL MEASURES. [code = SKILLED NURSE FOR O/A AND SKILLED TEACHING RELATED TO SIGNS AND SYMPTOMS OF INFECTION AND INFECTION CONTROL MEASURES.] Future Scheduled Test SKILLED NU RSE TO INSTRUCT/REINFORCE MEASURES TO PREVENT BARRIERS TO CARE. [code = SKILLED NURSE TO INSTRUCT/REINFORCE MEASURES TO PREVENT BARRIERS TO CARE.] Future Scheduled Test SKILLED NU RSE FOR O/A OF SELF-CARE DEFICITS AND TO PROVIDE TEACHING RELATED TO SAFE PROVISION OF ADLS. [code = SKILLED NURSE FOR O/A OF SELF-CARE DEFICITS AND TO PROVIDE TEACHING RELATED TO SAFE PROVISION OF ADLS.] Future Scheduled Test SKILLED NU RSE TO ASSESS PATIENTS PSYCHOSOCIAL STATUS TO IDENTIFY POTENTIAL ISSUES THAT MAY COMPLICATE THE PROVISION OF THE PLAN OF CARE INCLUDING THE PATIENTS ABILITY TO ACCESS COMMUNITY RESOURCES AND PSYCHOSOCIAL SUPPORT SERVICES. [code = SKILLED NURSE TO ASSESS PATIENTS PSYCHOSOCIAL STATUS TO IDENTIFY POTENTIAL ISSUES THAT MAY COMPLICATE THE PROVISION OF THE PLAN OF CARE INCLUDING THE PATIENTS ABILITY TO ACCESS COMMUNITY RESOURCES AND PSYCHOSOCIAL SUPPORT SERVICES.] Future Scheduled Test PHYSICAL T HERAPIST TO EVALUATE PATIENT FOR GAIT STABILITY AND STRENGTH ... [code = PHYSICAL THERAPIST TO EVALUATE PATIENT FOR GAIT STABILITY AND STRENGTH ...] Future Scheduled Test SKILLED NU RSE TO INSTRUCT ON SAFETY MEASURES TO PREVENT INJURY SECONDARY TO SEIZURE DISORDER/IMPAIRED NEUROLOGICAL STATUS. [code = SKILLED NURSE TO INSTRUCT ON SAFETY MEASURES TO PREVENT INJURY SECONDARY TO SEIZURE DISORDER/IMPAIRED NEUROLOGICAL STATUS.] Future Scheduled Test SKILLED NU RSE TO PROVIDE TEACHING ON SIGNS AND SYMPTOMS AND MANAGEMENT OF HYPERTENSION. [code = SKILLED NURSE TO PROVIDE TEACHING ON SIGNS AND SYMPTOMS AND MANAGEMENT OF HYPERTENSION.] Future Scheduled Test SKILLED NU RSE FOR OBSERVATION AND ASSESSMENT TO IDENTIFY CHANGES ASSOCIATED WITH VASCULAR DEMENTIA AND TEACHING RELATED TO SAFETY MEASURES TO PREVENT INJURY, ELOPEMENT RISKS, BEHAVIOR CHANGES, ACTIVITIES, AND ENVIRONMENTAL CHANGES ALL SECONDARY TO IMPAIRED COGNITIVE STATUS. [code = SKILLED NURSE FOR OBSERVATION AND ASSESSMENT TO IDENTIFY CHANGES ASSOCIATED WITH VASCULAR DEMENTIA AND TEACHING RELATED TO SAFETY MEASURES TO PREVENT INJURY, ELOPEMENT RISKS, BEHAVIOR CHANGES, ACTIVITIES, AND ENVIRONMENTAL CHANGES ALL SECONDARY TO IMPAIRED COGNITIVE STATUS. ] Future Scheduled Test SKILLED NU RSE TO INSTRUCT PATIENT/CAREGIVER ON COPD TO INCLUDE TEACHING AND SELF-MANAGEMENT RELATED TO COPD DISEASE PROCESS, SIGNS AND SYMPTOMS, AND COMPLICATIONS. [code = SKILLED NURSE TO INSTRUCT PATIENT/CAREGIVER ON COPD TO INCLUDE TEACHING AND SELF-MANAGEMENT RELATED TO COPD DISEASE PROCESS, SIGNS AND SYMPTOMS, AND COMPLICATIONS.] Future Scheduled Test SKILLED NU RSE TO INSTRUCT PATIENT/CAREGIVER ON WARNING SIGNS OF CVA, RISK FACTORS, AND METHODS TO MANAGE [employer] EFFECTS OF CVA. [code = SKILLED NURSE TO INSTRUCT PATIENT/CAREGIVER ON WARNING SIGNS OF CVA, RISK FACTORS, AND METHODS TO MANAGE RETIREMENT EFFECTS OF CVA.] Future Scheduled Test SKILLED NU RSE FOR O/A AND TEACHING OF DIABETIC MANAGEMENT INCLUDING BLOOD SUGAR MONITORING/USE OF GLUCOMETER, DIABETIC DIET, LOWER EXTREMITY SKIN INSPECTION, PROPER SKIN/FOOT CARE, AND SIGNS AND SYMPTOMS HYPO/HYPERGLYCEMIA TO REPORT. [code = SKILLED NURSE FOR O/A AND TEACHING OF DIABETIC MANAGEMENT INCLUDING BLOOD SUGAR MONITORING/USE OF GLUCOMETER, DIABETIC DIET, LOWER EXTREMITY SKIN INSPECTION, PROPER SKIN/FOOT CARE, AND SIGNS AND SYMPTOMS HYPO/HYPERGLYCEMIA TO REPORT.] Future Scheduled Test SKILLED NU RSE FOR O/A AND SKILLED TEACHING RELATED TO SIGNS AND SYMPTOMS AND MANAGEMENT OF OA. [code = SKILLED NURSE FOR O/A AND SKILLED TEACHING RELATED TO SIGNS AND SYMPTOMS AND MANAGEMENT OF OA.] Future Scheduled Test PATIENT RASMUSSEN S A RISK OF HOSPITALIZATION AND ED USE. SKILLED NURSE TO ESTABLISH SUPPORT MEASURES TO MINIMIZE RISK OF HOSPITALIZATION AND ED USE, AND INSTRUCT PATIENT/CAREGIVER ON METHODS TO REDUCE AVOIDABLE HOSPITALIZATION AND ED USE. [code = PATIENT HAS A RISK OF HOSPITALIZATION AND ED USE. SKILLED NURSE TO ESTABLISH SUPPORT MEASURES TO MINIMIZE RISK OF HOSPITALIZATION AND ED USE, AND INSTRUCT PATIENT/CAREGIVER ON METHODS TO REDUCE AVOIDABLE HOSPITALIZATION AND ED USE.] Future Scheduled Test SKILLED NU RSE TO PROVIDE INSTRUCTION TO PATIENT/CAREGIVER RELATED TO DISCHARGE PLANNING. [code = SKILLED NURSE TO PROVIDE INSTRUCTION TO PATIENT/CAREGIVER RELATED TO DISCHARGE PLANNING.] Future Scheduled Test SKILLED NU RSE TO PERFORM ENVIRONMENTAL SAFETY RISK ASSESSMENT AND FALL RISK ASSESSMENT AND PROVIDE INSTRUCTION TO IMPLEMENT ENVIRONMENTAL SAFETY AND FALL PREVENTION STRATEGIES THROUGHOUT THE CERTIFICATION PERIOD. SKILLED NURSE WILL MAINTAIN SITUATIONAL AWARENESS AND WILL NOTIFY CLINICAL MAINTENANCE OF WAY CLERK AND PHYSICIAN/PROVIDER WITH ANY CHANGE IN CONDITION. [code = SKILLED NURSE TO PERFORM ENVIRONMENTAL SAFETY RISK ASSESSMENT AND FALL RISK ASSESSMENT AND PROVIDE INSTRUCTION TO IMPLEMENT ENVIRONMENTAL SAFETY AND FALL PREVENTION STRATEGIES THROUGHOUT THE CERTIFICATION PERIOD. SKILLED NURSE WILL MAINTAIN SITUATIONAL AWARENESS AND WILL NOTIFY CLINICAL MAINTENANCE OF WAY CLERK AND PHYSICIAN/PROVIDER WITH ANY CHANGE IN CONDITION.] Future Scheduled Test SKILLED NU RSE FOR OBSERVATION AND ASSESSMENT OF PATIENTS PAIN LEVEL AND EFFECTIVENESS OF PAIN MANAGEMENT REGIMEN. SKILLED NURSE TO INSTRUCT PATIENT/CAREGIVER REGARDING PHARMACOLOGIC AND NON-PHARMACOLOGIC PAIN CONTROL MEASURES. SKILLED NURSE TO REPORT TO PHYSICIAN IF PAIN IS UNCONTROLLED WITH CURRENT PAIN MANAGEMENT REGIMEN. [code = SKILLED NURSE FOR OBSERVATION AND ASSESSMENT OF PATIENTS PAIN LEVEL AND EFFECTIVENESS OF PAIN MANAGEMENT REGIMEN. SKILLED NURSE TO INSTRUCT PATIENT/CAREGIVER REGARDING PHARMACOLOGIC AND NON-PHARMACOLOGIC PAIN CONTROL MEASURES. SKILLED NURSE TO REPORT TO PHYSICIAN IF PAIN IS UNCONTROLLED WITH CURRENT PAIN MANAGEMENT REGIMEN.] Future Scheduled Test SKILLED NU RSE TO ASSESS PATIENT'S SKIN INTEGRITY AND INSTRUCT PATIENT/CAREGIVER ON MEASURES TO PREVENT PRESSURE ULCERS. [code = SKILLED NURSE TO ASSESS PATIENT'S SKIN INTEGRITY AND INSTRUCT PATIENT/CAREGIVER ON MEASURES TO PREVENT PRESSURE ULCERS.] Future Scheduled Test SKILLED NU RSE TO PROVIDE ASSESSMENT AND TEACHING/REINFORCEMENT OF MANAGEMENT OF DEPRESSION INCLUDING DISEASE PROCESS, MEDICATION MANAGEMENT, COPING SKILLS AND IDENTIFY CHANGES ASSOCIATED WITH DEPRESSIVE DISORDERS FOR EARLY INTERVENTION. [code = SKILLED NURSE TO PROVIDE ASSESSMENT AND TEACHING/REINFORCEMENT OF MANAGEMENT OF DEPRESSION INCLUDING DISEASE PROCESS, MEDICATION MANAGEMENT, COPING SKILLS AND IDENTIFY CHANGES ASSOCIATED WITH DEPRESSIVE DISORDERS FOR EARLY INTERVENTION. ] Future Scheduled Test PHYSICAL T HERAPY TO EVALUATE AND TREAT. PHYSICAL THERAPY EVALUATION PERFORMED. NO ADDITIONAL VISITS REQUIRED. PHYSICAL THERAPY EVALUATION ONLY (12/20/24) PATIENT IS A PRIMARILY ESTONIAN SPEAKING 79 YEAR OLD FEMALE WITH PHYSICAL THERAPY REFERRAL AFTER [facility] HOSPITALIZATION AND SNF STAY ([place] 11/25/24) DUE TO FALL ON 11/23/24 AND MD DX: UTI. PAST MD HX: HTN, VASCULAR DEMENTIA, HLD, COPD, T2DM, CVA, SZ DO, ANXIETY, SEIZURE DISORDER. FALL HISTORY: FALL ON 11/23/24 RESULTING IN HOSPITALIZATION PLOF: PATIENT ABLE TO AMB MOD I WITH AD (FWW/ROLLATOR) IN APARTMENT, SUPERVISION AMB OUTSIDE APARTMENT DUE TO DEMENTIA. PATIENT LIVES IN ELDERLY APARTMENT WITH SUPPORTIVE DAUGHTER NEARBY. PATIENT HAS 35 HRS WEEKLY DIRECTOR LIFE SPLIT INTO AM AND PM. HE DAY AND THE PHONE REPRESENTATIVE. PATIENT HAS MOW. CLOF: DME: FWW, ROLLATOR, SHOWER CHAIR, BEDSIDE COMMODE, BILAT LEG LUSTERER/PEDDLAR, TUB SEAT, TUB TRANSFER BENCH, LIFE ALERT SAFETY RECOMMENDATIONS: BED RAIL ACQUISITION WITH PATIENT AND CG RECEPTIVE. BILAT LE ROM WFL, BILAT LE STRENGTH 4+/5. TO INCREASE BILAT LE STRENGTH: PLANTAR/DORSI FLEX, ANKLE CIRCLES, MARCHING, KNEE EXT. DISPENSED ESTONIAN BILAT THER EXER AND REVIEWED WITH PATIENT AND CG. PATIENT INDEP WITH PEDDLAR USAGE AND SETUP ABLE TO PEDDLE 10 MIN. PATIENT ABLE TO TRANSFER WITH ROLLATOR MOD I. DEMO GOOD SAFETY AWARNESS WITH LOCKING BRAKES WITH TRANSFERS. PATIENT AMB 20', 40, WITH ROLLATOR MOD I, DEMO BILAT LE STEP LENGTHS WITH ADEQUATE FEET CLEARANCE, 0 LOB. TUG = 14 SEC. PATIENT AND CG DECLINED PATIENT ATTEMPTING TO AMB INCREASED DISTANCE IN HALLWAY. PHYSICAL THERAPY EVALUATION ONLY PATIENT IS AT PLOF. PATIENT AND CG DTR LIBERTY INFORMED PHYSICAL THERAPY EVALUATION ONLY AT THIS TIME WITH BOTH VERBALIZING ACCEPTANCE. INFORMED PATIENT AND LIBERTY THAT IF PATIENT EXPERIENCES A FUNCTIONAL DECLINE OR NEED FOR [facility] TO INFORM GUMARO CASTILLO RN. MD MONSON INFORMED ABOUT PATIENT STATUS AND PHYSICAL THERAPY EVAL ONLY, REQUESTED MD FAX SCRIPT FOR BED RAIL TO [facility]. PHYSICAL THERAPIST TO ASSESS BEST PRACTICE INTERVENTIONS TO ASSIST PATIENTS TO IMPROVE OR STABILIZE MEDICAL STATUS AND PREVENT RE-HOSPITALIZATION. MEASURES INCLUDING REVIEW AND IDENTIFICATION OF CONCERNS FOR THE FOLLOWING AREAS: DEPRESSION, DRUG REGIMEN, DIABETIC FOOT CARE, ENVIRONMENTAL SAFETY ISSUES AND FALLS, PRESSURE ULCERS, PAIN, AND DISEASE MANAGEMENT. [code = PHYSICAL THERAPY TO EVALUATE AND TREAT. PHYSICAL THERAPY EVALUATION PERFORMED. NO ADDITIONAL VISITS REQUIRED. PHYSICAL THERAPY EVALUATION ONLY (12/20/24) PATIENT IS A PRIMARILY ESTONIAN SPEAKING 79 YEAR OLD FEMALE WITH PHYSICAL THERAPY REFERRAL AFTER [facility] HOSPITAL[facility] AND SNF STAY ([place] 11/25/24) DUE TO FALL ON 11/23/24 AND MD DX: UTI. PAST MD HX: HTN, VASCULAR DEMENTIA, HLD, COPD, T2DM, CVA, SZ DO, ANXIETY, SEIZURE DISORDER. FALL HISTORY: FALL ON 11/23/24 RESULTING IN HOSPITALIZATION PLOF: PATIENT ABLE TO AMB MOD I WITH AD (FWW/ROLLATOR) IN APARTMENT, SUPERVISION AMB OUTSIDE APARTMENT DUE TO DEMENTIA. PATIENT LIVES IN ELDERLY APARTMENT WITH SUPPORTIVE DAUGHTER NEARBY. PATIENT HAS 35 HRS WEEKLY DIRECTOR LIFE SPLIT INTO AM AND PM. HE DAY AND THE PHONE REPRESENTATIVE. PATIENT HAS MOW. CLOF: DME: FWW, ROLLATOR, SHOWER CHAIR, BEDSIDE COMMODE, BILAT LEG LUSTERER/PEDDLAR, TUB SEAT, TUB TRANSFER BENCH, LIFE ALERT SAFETY RECOMMENDATIONS: BED RAIL ACQUISITION WITH PATIENT AND CG RECEPTIVE. BILAT LE ROM WFL, BILAT LE STRENGTH 4+/5. TO INCREASE BILAT LE STRENGTH: PLANTAR/DORSI FLEX, ANKLE CIRCLES, MARCHING, KNEE EXT. DISPENSED ESTONIAN BILAT THER EXER AND REVIEWED WITH PATIENT AND CG. PATIENT INDEP WITH PEDDLAR USAGE AND SETUP ABLE TO PEDDLE 10 MIN. PATIENT ABLE TO TRANSFER WITH ROLLATOR MOD I. DEMO GOOD SAFETY AWARNESS WITH LOCKING BRAKES WITH TRANSFERS. PATIENT AMB 20', 40, WITH ROLLATOR MOD I, DEMO BILAT LE STEP LENGTHS WITH ADEQUATE FEET CLEARANCE, 0 LOB. TUG = 14 SEC. PATIENT AND CG DECLINED PATIENT ATTEMPTING TO AMB INCREASED DISTANCE IN HALLWAY. PHYSICAL THERAPY EVALUATION ONLY PATIENT IS AT PLOF. PATIENT AND CG DTR LIBRETY INFORMED PHYSICAL THERAPY EVALUATION ONLY AT THIS TIME WITH BOTH VERBALIZING ACCEPTANCE. INFORMED PATIENT AND LIBERTY THAT IF PATIENT EXPERIENCES A FUNCTIONAL DECLINE OR NEED FOR SKILLED [facility] TO INFORM GUMARO CASTILLO RN. MD MONSON INFORMED ABOUT PATIENT STATUS AND PHYSICAL THERAPY EVAL ONLY, REQUESTED MD FAX SCRIPT FOR BED RAIL TO [facility]. PHYSICAL THERAPIST TO ASSESS BEST PRACTICE INTERVENTIONS TO ASSIST PATIENTS TO IMPROVE OR STABILIZE MEDICAL STATUS AND PREVENT RE-HOSPITALIZATION. MEASURES INCLUDING REVIEW AND IDENTIFICATION OF CONCERNS FOR THE FOLLOWING AREAS: DEPRESSION, DRUG REGIMEN, DIABETIC FOOT CARE, ENVIRONMENTAL SAFETY ISSUES AND FALLS, PRESSURE ULCERS, PAIN, AND DISEASE MANAGEMENT.] Goal Patient Goal - FEEL WELL Goal Provider Goal - A PLAN OF CARE WILL BE ESTABLISHED THAT MEETS PATIENT'S ALF NEEDS AND INCLUDES PATIENT GOAL FOR HOME HEALTH. Goal Provider Goal - PATIENT/CAREGIVER WILL VERBALIZE UNDERSTANDING OF EDUCATION PROVIDED ON MEDICATIONS BY THE END OF THE CERTIFICATION PERIOD. Goal Provider Goal - SYMPTOMS OF ANXIETY ARE IDENTIFIED AND INTERVENTIONS INITIATED TO ENABLE PATIENT TO UNDERSTAND AND MANAGE FEELINGS THROUGHOUT EPISODE. Goal Provider Goal - URINE SPECIMEN WILL BE OBTAINED PRN FOR SIGNS AND SYMPTOMS OF UTI AND RESULTS WILL BE REPORTED TO PHYSICIAN THROUGHOUT THE CERTIFICATION PERIOD. Goal Provider Goal - PATIENT/CAREGIVER WILL VERBALIZE UNDERSTANDING OF GENITOURINARY DISEASE PROCESS, AND EXACERBATIONS OF GENITOURINARY DISEASE WILL BE PROMPTLY IDENTIFIED FOR EARLY INTERVENTION THROUGHOUT THE CERTIFICATION PERIOD. Goal Provider Goal - PATIENT/CAREGIVER WILL VERBALIZE/DEMONSTRATE MANAGEMENT OF RESPIRATORY DISEASE PROCESS. CHANGES IN RESPIRATORY STATUS WILL BE IDENTIFIED AND REPORTED TO PHYSICIAN FOR PROMPT INTERVENTION THROUGHOUT THE CERTIFICATION PERIOD. Goal Provider Goal - PATIENT/CAREGIVER WILL VERBALIZE/DEMONSTRATE UNDERSTANDING OF S/S OF INFECTION AND INFECTION CONTROL MEASURES. SIGNS AND SYMPTOMS OF INFECTION WILL BE IDENTIFIED AND PHYSICIAN NOTIFIED FOR PROMPT INTERVENTION THROUGHOUT THE CERTIFICATION PERIOD. Goal Provider Goal - PATIENT / CAREGIVER WILL VERBALIZE UNDERSTANDING OF BARRIERS PREVENTING PROPER CARE AND DEMONSTRATE MEASURES TO ELIMINATE THOSE BARRIERS DURING THIS EPISODE. Goal Provider Goal - PATIENT/CAREGIVER WILL VERBALIZE/DEMONSTRATE UNDERSTANDING OF SAFE PROVISION OF ADLS BY THE END OF THE CERTIFICATION PERIOD. Goal Provider Goal - CHANGES IN PSYCHOSOCIAL STATUS WILL BE IDENTIFIED AND PLAN IMPLEMENTED TO MINIMIZE PATIENT RISKS THROUGHOUT THE CERTIFICATION PERIOD. Goal Provider Goal - A PHYSICAL THERAPY EVALUATION TO BE COMPLETED WITH RECOMMENDATIONS AND/OR WRITTEN PLAN OF TREATMENT ESTABLISHED FOR PHYSICIANS SIGNATURE. Goal Provider Goal - PATIENT/CAREGIVER WILL VERBALIZE/DEMONSTRATE SEIZURE PRECAUTIONS AND CARE OF PATIENT TO PROMOTE SAFETY AND PREVENT INJURY BY THE END OF THE CERTIFICATION PERIOD. Goal Provider Goal - PATIENT/CAREGIVER WILL VERBALIZE SIGNS AND SYMPTOMS OF HYPERTENSION AND WILL BE ABLE TO DEMONSTRATE ABILITY TO MANAGE EXACERBATION BY END OF THE EPISODE. Goal Provider Goal - PATIENT/CAREGIVER WILL VERBALIZE /DEMONSTRATE APPROPRIATE ENVIRONMENTAL/SAFETY MODIFICATIONS IN RESPONSE TO BEHAVIOR/COGNITIVE CHANGES ASSOCIATED WITH DEMENTIA DIAGNOSIS THROUGHOUT THE CERTIFICATION PERIOD. Goal Provider Goal - PATIENT/CAREGIVER WILL VERBALIZE/DEMONSTRATE KNOWLEDGE AND MANAGEMENT OF COPD BY END OF EPISODE. Goal Provider Goal - PATIENT/CAREGIVER WILL DEMONSTRATE COMPLIANCE WITH TREATMENT REGIME AND VERBALIZE SIGNS AND SYMPTOMS TO REPORT WELL POSSIBLE COMPLICATIONS OF CVA BY END OF EPISODE. Goal Provider Goal - PATIENT/CAREGIVER WILL VERBALIZE/DEMONSTRATE KNOWLEDGE OF DIABETIC MANAGEMENT. CHANGES IN DIABETIC STATUS WILL BE IDENTIFIED AND REPORTED TO PHYSICIAN FOR PROMPT INTERVENTION THROUGHOUT THE CERTIFICATION PERIOD. Goal Provider Goal - PATIENT/CAREGIVER WILL VERBALIZE UNDERSTANDING OF MUSCULOSKELETAL DISEASE INCLUDING SIGNS AND SYMPTOMS, MANAGEMENT, AND PRESCRIBED TREATMENT REGIMEN BY END OF EPISODE. Goal Provider Goal - PATIENT WILL HAVE SUPPORT MEASURES ESTABLISHED TO PREVENT HOSPITALIZATION AND ED USE AND PATIENT/CAREGIVER WILL VERBALIZE/DEMONSTRATE METHODS TO REDUCE AVOIDABLE HOSPITALIZATION AND ED USE BY END OF EPISODE. Goal Provider Goal - PATIENT/CAREGIVER WILL VERBALIZE UNDERSTANDING OF DISCHARGE PLANNING INSTRUCTIONS BY DATE OF DISCHARGE. Goal Provider Goal - PATIENT/CAREGIVER WILL VERBALIZE/DEMONSTRATE EFFECTIVE ENVIRONMENTAL SAFETY AND FALL PREVENTION STRATEGIES, WILL REMAIN SAFE IN THE COMMUNITY, AND WILL BE FREE OF DANGER TO SELF AND OTHERS THROUGHOUT THE CERTIFICATION PERIOD. Goal Provider Goal - PATIENT/CAREGIVER WILL DEMONSTRATE UNDERSTANDING OF PHARMACOLOGIC AND NONPHARMACOLOGIC PAIN CONTROL MEASURES AND PATIENT WILL HAVE IMPROVEMENT IN PAIN INTERFERING WITH ACTIVITY EVIDENCED BY PAIN CONTROLLED AT LEVEL OF 7 OR LESS BY END OF CERTIFICATION PERIOD. Goal Provider Goal - PATIENT/CAREGIVER WILL VERBALIZE UNDERSTANDING OF PRESSURE ULCER PREVENTION BY END OF THE EPISODE. Goal Provider Goal - PATIENT/CAREGIVER WILL VERBALIZE/DEMONSTRATE UNDERSTANDING OF THE MANAGEMENT OF DEPRESSION THROUGHOUT THE CERTIFICATION PERIOD AND SYMPTOMS ARE IDENTIFIED AND MANAGED TO MAINTAIN PATIENT SAFETY IN THE HOME. Goal Provider Goal - NONE Progress Notes Progress Notes <paragraph>[Visit Date: 2024 by BRETT RAPP RN, ADMISSION NURSE]:</paragraph><paragraph>SNV 01/01/25 1. ABNORMAL FINDINGS/SIGNIFICANT CHANGES: ELEVATED BP 2. CARE COORDINATION DETAILS: PCP TO REPORT BLOOD PRESSURE READING 3. SKILLED PROCEDURE PERFORMED THIS VISIT: NONE NEEDED 4. NEXT PHYSICIAN/PROVIDER APPT: TBD 5. PLAN/FOLLOW-UP NEEDED FOR NEXT VISIT: PHYSICAL ASSESSMENT VITAL SIGNS MEDICATIONS REVIEW ADDRESS ABOVE APPROPRIATE IN NARRATIVE BELOW: PATIENT ALERT ORIENTATED X3 PATIENT'S CAREGIVER PRESENT PATIENT REPORTED WRITING DOWN BP THIS NURSE NOTED THAT BP ARE ELEVATED PCP NOTIFIED. PATIENT DENIES ANY HEADACHES DIZZINESS NAUSEA VOMITING CHEST PAIN PATIENT EDUCATED ON MEDICATIONS. PATIENT'S LUNG SOUNDS CLEAR NO CRACKLES OR WHEEZING BOWEL SOUNDS X4 LAST BOWEL MOVEMENT TODAY PATIENT AND CAREGIVER EDUCATED ON CALLING [facility] FOR ANY CONCERNS OR CHANGE IN CONDITION BOTH VERBALIZED UNDERSTANDING.REPORTED BY PTS READING 12/30 164/82, 155/74, USES [facility]</paragraph> Encounters Start Date/Time End Date/Time Encounter Type Admission Type Attending Clinicians Care Facility Care Department Encounter ID Discharge Date Discharge Status Discharge Condition Discharge Reason Percent Goals Met 2024-12-14 00:00:00 2025-02-11 00:00:00 Outpatient NEW ADMISSION [facility] [id number] 57.45
--- OUTSIDE RECORDS SUMMARY | 2025-01-03 16:49 | XMS_ITS | Encounter Summary ---
Author Organization [facility] Address [address] [place] [address] Care Team Providers Care Deck Engineer Name Role Phone Jose Juan Rendon MD Primary Care Provider + [phone] Encounter Details Date Type Department Care Team (Latest Contact Info) Description 11/26/2024 Lab Requisition [facility] - Main Lab [address] [facility] [place] [address] Eva Ivan MD [address] [place] [phone] Other seizures (CMS/HCC); Type 2 diabetes mellitus [...] * Hemoglobin A1c (11/26/2024 5:00 AM EST) [facility] Signature Hemoglobin A1C 6.3 <6.5 % LAB CHEMISTRY METHOD 11/26/2024 1:54 PM EST [facility] Mean Bld Glu Estim. 134 mg/dL LAB CHEMISTRY METHOD 11/26/2024 1:54 PM [facility] Blood Venous blood specimen / Unknown Venipuncture / Unknown 11/26/2024 5:00 AM EST 11/26/2024 10:13 AM EST us Eva Ivan MD LAB BLOOD ORDERABLES Final Resu lt [facility] [address] [place] [address], [place] [phone] * (ABNORMAL) Basic metabolic panel (11/26/2024 5:00 AM EST) Sodium 132(L) 133 - 145 mmol/L LAB CHEMISTRY METHOD 11/26/2024 10:58 AM [facility] Potassium 5.1 3.5 - 5.5 mmol/L LAB CHEMISTRY METHOD 11/26/2024 10:58 AM [facility] Chloride 101 96 - 110 mmol/L LAB CHEMISTRY METHOD 11/26/2024 10:58 AM [facility] CO2 28 21 - 32 mmol/L LAB CHEMISTRY METHOD 11/26/2024 10:58 AM [facility] Anion Gap 3 3 - 11 LAB CHEMISTRY METHOD 11/26/2024 10:58 AM [facility] Glucose 102(H) 70 - 100 mg/dL LAB CHEMISTRY METHOD 11/26/2024 10:58 AM [facility] BUN 10 5 - 25 mg/dL LAB CHEMISTRY METHOD 11/26/2024 10:58 AM [facility] Creatinine 0.52 0.50 - 1.10 mg/dL LAB CHEMISTRY METHOD 11/26/2024 10:58 AM [facility] eGFR 95 >=60 mL/min/1. 73m2 LAB CHEMISTRY METHOD 11/26/2024 10:58 AM [facility] Comment:Calculation based on the??Chronic Kidney Disease Epidemiology Collaboration (CKD-EPI) equation refit??without adjustment for race. BUN/Creatinine Ratio 19.2 LAB CHEMISTRY METHOD 11/26/2024 10:58 AM [facility] Calcium 8.5 8.5 - 10.5 mg/dL LAB CHEMISTRY METHOD 11/26/2024 10:58 AM [facility] Blood Venous blood specimen / Unknown Venipuncture / Unknown 11/26/2024 5:00 AM EST 11/26/2024 10:13 AM EST us Eva Ivan MD LAB BLOOD ORDERABLES Final Resu lt [facility] [address] [place] [address], [place] [phone] * (ABNORMAL) Complete blood count (11/26/2024 5:00 AM EST) WBC 4.9 4.8 - 10.8 K/mcL LAB HEMETOLOGY METHOD 11/26/2024 11:11 AM [facility] RBC 3.70(L) 3.80 - 4.80 M/mcL LAB HEMETOLOGY METHOD 11/26/2024 11:11 AM [facility] Hemoglobin 11.4(L) 11.5 - 16.0 g/dL LAB HEMETOLOGY METHOD 11/26/2024 11:11 AM [facility] Hematocrit 35.5 35.0 - 47.0 % LAB HEMETOLOGY METHOD 11/26/2024 11:11 AM [facility] MCV 96.2 79.0 - 98.0 FL LAB HEMETOLOGY METHOD 11/26/2024 11:11 AM [facility] MCH 30.9 27.0 - 32.0 pcg LAB HEMETOLOGY METHOD 11/26/2024 11:11 AM [facility] MCHC 32.1 32.0 - 37.0 g/dL LAB HEMETOLOGY METHOD 11/26/2024 11:11 AM EST [facility] RDW 13.0 11.0 - 15.0 % LAB HEMETOLOGY METHOD 11/26/2024 11:11 AM [facility] Platelets 269 130 - 400 K/mcL LAB HEMETOLOGY METHOD 11/26/2024 11:11 AM [facility] MPV 9.1 7.0 - 11.0 FL LAB HEMETOLOGY METHOD 11/26/2024 11:11 AM EST [facility] NRBC 0.0 <1.0 % LAB HEMETOLOGY METHOD 11/26/2024 11:11 AM [facility] NRBC Absolute 0.00 <0.10 K/mcL LAB HEMETOLOGY METHOD 11/26/2024 11:11 AM [facility] Blood Venous blood specimen / Unknown Venipuncture / Unknown 11/26/2024 5:00 AM EST 11/26/2024 10:13 AM EST us Eva Ivan MD LAB BLOOD ORDERABLES Final Resu lt [facility] [address] [place] [address], documented in this encounter Visit Diagnoses Diagnosis Other seizures (CMS/HCC) Type 2 diabetes mellitus without complications (CMS/HCC) Unspecified convulsions (CMS/HCC) Chronic obstructive pulmonary disease, unspecified (CMS/HCC) Essential (primary) hypertension Unspecified essential hypertension documented in this encounter Care Teams Deck Engineer Relationship Specialty Start Date End Date Jose Juan Rendon MD [address] [place] [address] Dr [facility] [place] PCP - General 01/29/24 documented as of this encounter
--- OUTSIDE RECORDS SUMMARY | 2025-01-03 16:49 | XMS_ITS | Encounter Summary ---
Author Organization [facility] Address [address] [place] [address] Care Team Providers Care Guest Room Attendant Name Role Phone Unavailable Primary Care Provider [...]
--- OUTSIDE RECORDS SUMMARY | 2025-01-03 16:49 | XMS_ITS | Clinical Summary ---
Author Organization [facility] Address [address] [place] [address] Phone Care Team Providers Care Concrete Block Layer Name Role Phone Jose Juan Rendon MD Primary Care Provider + [phone] Allergies Active Allergy Reactions Criticality Noted Date Comments Meperidine Low blood pressure 11/23/2024 Penicillins Unknown 11/23/2024 Medications amLODIPine (NORVASC) 2.5 mg tablet Take 1 tablet (2.5 mg total) by mouth 1 (one) time each day. for 90 days 5 Active atorvastatin (LIPITOR) 20 mg tablet Take 1 tablet (20 mg total) by mouth at bedtime. 5 Active clonazePAM (KlonoPIN) 0.25 mg disintegrating tablet [...] by mouth 1 (one) time each day. 4 Active valACYclovir (VALTREX) 500 mg tablet Take 1 tablet (500 mg total) by mouth 1 (one) time each day. Per daughter Angelica Active omeprazole (PriLOSEC) [address] capsule Take 1 capsule (20 mg total) by mouth 1 (one) time each day. Per daughter Angelica 4 Active aspirin 81 mg EC tablet Take [...] into both eyes at bedtime. at bedtime 4 Active Encounters Date Type Department Care Team Description 11/26/2024 Lab Requisition [facility] - Main Lab [address] [place] [id number] Eva Ivan MD Other seizures (CMS/HCC); Type 2 diabetes mellitus without complications (CMS/HCC); Unspecified convulsions ([facility]/HCC); Chronic obstructive pulmonary disease, unspecified ([facility]/HCC); Essential (primary) hypertension 11/23/2024 4:07 AM EST - 11/25/2024 3:24 PM EST Emergency [facility] Emergency [address] [place] [id number] Tim Saleem MD Patel, Parth B, MD [...] Hypertension Osteoarthritis COPD (chronic obstructive pulmonary disease) ( S/HCC) Seizures (CMS/HCC) Stroke (CMS/HCC) Cancer (CMS/HCC) [...] Urine Albumin-Creatinine Ratio (uACR) 05/23/2024 COVID-19 Vaccine (1 - 2023-2 5 season) 2024 Influenza Vaccine [...] Complete blood count (11/26/2024 5:00 AM EST) [facility] Signature WBC 4.9 4.8 - 10.8 K/mcL LAB HEMETOLOGY METHOD 11/26/2024 11:[address] [facility] RBC 3.70(L) 3.80 - 4.80 M/mcL LAB HEMETOLOGY METHOD 11/26/2024 11:[address] [facility] Hemoglobin 11.4(L) 11.5 - 16.0 g/dL LAB HEMETOLOGY METHOD 11/26/2024 11:[address] [facility] Hematocrit 35.5 35.0 - 47.0 % LAB HEMETOLOGY METHOD 11/26/2024 11:[address] [facility] MCV 96.2 79.0 - 98.0 FL LAB HEMETOLOGY METHOD 11/26/2024 11:[address] [facility] MCH 30.9 27.0 - 32.0 pcg LAB HEMETOLOGY METHOD 11/26/2024 11:[address] [facility] MCHC 32.1 32.0 - 37.0 g/dL LAB HEMETOLOGY METHOD 11/26/2024 11:[address] [facility] RDW 13.0 11.0 - 15.0 % LAB HEMETOLOGY METHOD 11/26/2024 11:[address] [facility] Platelets 269 130 - 400 K/mcL LAB HEMETOLOGY METHOD 11/26/2024 11:[address] [facility] MPV 9.1 7.0 - 11.0 FL LAB HEMETOLOGY METHOD 11/26/2024 11:[address] [facility] NRBC 0.0 <1.0 % LAB HEMETOLOGY METHOD 11/26/2024 11:[address] [facility] NRBC Absolute 0.00 <0.10 K/mcL LAB HEMETOLOGY METHOD 11/26/2024 11:11 AM EST [facility] Blood Venous blood specimen / Unknown Venipuncture / Unknown 11/26/2024 5:00 AM EST 11/26/2024 10:13 AM EST us Eva Ivan MD LAB BLOOD ORDERABLES Final Resu lt Performing Organization Address City/[facility]/ZIP Co de Phone Number [facility] [address] [place] [address], [place] [phone] * Hemoglobin A1c (11/26/2024 5:00 AM EST) Hemoglobin A1C 6.3 <6.5 % LAB CHEMISTRY METHOD 11/26/2024 1:[address] [facility] Mean Bld Glu Estim. 134 mg/dL LAB CHEMISTRY METHOD 11/26/2024 1:54 PM EST [facility] Blood Venous blood specimen / Unknown Venipuncture / Unknown 11/26/2024 5:00 AM EST 11/26/2024 10:13 AM EST us Eva vIan MD LAB BLOOD ORDERABLES Final Resu lt Performing Organization Address [facility]/ZIP Co de Phone Number [facility] [address] [place] [address], [place] [phone] * (ABNORMAL) Basic metabolic panel (11/26/2024 5:00 AM EST) Pathologist [facility] Sodium 132(L) 133 - 145 mmol/L LAB CHEMISTRY METHOD 11/26/2024 10:58 AM EST [facility] Potassium 5.1 3.5 - 5.5 mmol/L LAB CHEMISTRY METHOD 11/26/2024 10:58 AM EST [facility] Chloride 101 96 - 110 mmol/L LAB CHEMISTRY METHOD 11/26/2024 10:58 AM EST [facility] CO2 28 21 - 32 mmol/L LAB CHEMISTRY METHOD 11/26/2024 10:[address] [facility] Anion Gap 3 3 - 11 LAB CHEMISTRY METHOD 11/26/2024 10:[address] [facility] Glucose 102(H) 70 - 100 mg/dL LAB CHEMISTRY METHOD 11/26/2024 10:[address] [facility] BUN 10 5 - 25 mg/dL LAB CHEMISTRY METHOD 11/26/2024 10:[address] [facility] Creatinine 0.52 0.50 - 1.10 mg/dL LAB CHEMISTRY METHOD 11/26/2024 10:[address] [facility] eGFR 95 >=60 mL/min/1. 73m2 LAB CHEMISTRY METHOD 11/26/2024 10:[address] [facility] Comment:Calculation based on the??Chronic Kidney Disease Epidemiology Collaboration (CKD-EPI) equation refit??without adjustment for race. BUN/Creatinine Ratio 19.2 LAB CHEMISTRY METHOD 11/26/2024 10:[address] [facility] Calcium 8.5 8.5 - 10.5 mg/dL LAB CHEMISTRY METHOD 11/26/2024 10:[address] [facility] Blood Venous blood specimen / Unknown Venipuncture / Unknown 11/26/2024 5:00 AM EST 11/26/2024 10:13 AM EST us Eva Ivan MD LAB BLOOD ORDERABLES Final Resu lt [facility] [address] [place] [address], * (ABNORMAL) POCT Glucose, blood (11/23/2024 12:17 PM EST) Only the most recent of2 resultswithin the time period is included. Glucose POCT 211(H) 70 - 100 mg/dL 11/23/2024 12:[address] [facility] Blood Capillary blood specimen / Unknown 11/23/2024 12:17 PM EST 11/23/2024 12:19 PM EST Tim Saleem MD LAB POINT OF CARE T EST DOCKED DEVICE UNSOLICITED RESULTS Final Result [facility] [address] [place] [address], * Respiratory virus panel molecular study (11/23/2024 9:52 AM EST) Pathologist [facility] Adenovirus Detection by PCR Not Detected Not Detected LAB MICROBIOLOGY METHOD 11/23/2024 11:[address] [facility] Influenza A PCR Not Detected Not Detected LAB MICROBIOLOGY METHOD 11/23/2024 11:[address] [facility] Influenza B PCR Not Detected Not Detected LAB MICROBIOLOGY METHOD 11/23/2024 11:[address] [facility] Coronavirus 229E Not Detected Not Detected LAB MICROBIOLOGY METHOD 11/23/2024 11:[address] [facility] Coronavirus HKU1 Not Detected Not Detected LAB MICROBIOLOGY METHOD 11/23/2024 11:[address] [facility] Coronavirus OC43 Not Detected Not Detected LAB MICROBIOLOGY METHOD 11/23/2024 11:[address] [facility] Coronavirus NL63 Not Detected Not Detected LAB MICROBIOLOGY METHOD 11/23/2024 11:[address] [facility] Parainfluenza Virus 1 Not Detected Not Detected LAB MICROBIOLOGY METHOD 11/23/2024 11:[address] [facility] Parainfluenza Virus 2 Not Detected Not Detected LAB MICROBIOLOGY METHOD 11/23/2024 11:[address] [facility] Parainfluenza Virus 3 Not Detected Not Detected LAB MICROBIOLOGY METHOD 11/23/2024 11:[address] [facility] Parainfluenza Virus 4 Not Detected Not Detected LAB MICROBIOLOGY METHOD 11/23/2024 11:[address] [facility] RSV PCR Not Detected Not Detected LAB MICROBIOLOGY METHOD 11/23/2024 11:[address] [facility] Human Metapneumovirus A and B Not Detected Not Detected LAB MICROBIOLOGY METHOD 11/23/2024 11:[address] [facility] Rhinovirus/Entero virus Not Detected Not Detected LAB MICROBIOLOGY METHOD 11/23/2024 11:[address] [facility] Bordetella pertussis Not Detected Not Detected LAB MICROBIOLOGY METHOD 11/23/2024 11:[address] [facility] Bordetella parapertussis Not Detected Not Detected LAB MICROBIOLOGY METHOD 11/23/2024 11:[address] [facility] Mycoplasma pneumo by PCR Not Detected Not Detected LAB MICROBIOLOGY METHOD 11/23/2024 11:[address] [facility] Chlamydia pneumoniae Not Detected Not Detected LAB MICROBIOLOGY METHOD 11/23/2024 11:[address] [facility] SARS COV-2 Not Detected Not Detected LAB MICROBIOLOGY METHOD 11/23/2024 11:[address] [facility] Swab Both anterior nares / Unknown Non-blood Collection / Unknown 11/23/2024 9:52 AM EST 11/23/2024 10:07 AM [facility] - 11/23/2024 11:05 AM EST Testing was performed using the [employer] Respiratory Pathogen PCR Assay. All results must [...] LAB MICROBIOLOGY - GENERAL ORDERABLES Final Result [facility] [address] [place] [address], * CT Chest/Abdomen/Pelvis w Contrast (11/23/2024 6:15 [...] intact. Procedure Note Emmett Hayes MD - 01/25/2025 CT chest, abdomen and pelvis with IV [...] Hayes MD on 11/23/2024 06:55:54 Chris LEONG [facility] CT PROCEDURES Edited Result - Final * [...] Hayes MD on 11/23/2024 06:02:[address] PROCEDURES Final Result * CT Head [...] Hayes MD on 11/23/2024 05:57:[address] PROCEDURES Final Result * (ABNORMAL) Urinalysis with reflex microscopic and culture (11/23/2024 5:25 AM EST) Specific [place] Urine 1.009 1.003 - 1.030 LAB URINALYSIS - AUTOMATED METHOD 11/23/2024 7:[address] [facility] pH, Urine 8.0 5.0 - 8.0 pH LAB URINALYSIS - AUTOMATED METHOD 11/23/2024 7:[address] [facility] Leukocytes, Urine Moderate(A) Negative LAB URINALYSIS - AUTOMATED METHOD 11/23/2024 7:[address] [facility] Nitrite, Urine Positive(A) Negative LAB URINALYSIS - AUTOMATED METHOD 11/23/2024 7:[address] [facility] Protein, Urine Negative <=Trace mg/dL LAB URINALYSIS - AUTOMATED METHOD 11/23/2024 7:[address] [facility] Glucose, Urine Negative Negative mg/dL LAB URINALYSIS - AUTOMATED METHOD 11/23/2024 7:[address] [facility] Ketones, Urine Negative Negative mg/dL LAB URINALYSIS - AUTOMATED METHOD 11/23/2024 7:[address] [facility] Urobilinogen , Urine 0.2 0.2 - 1.0 mg/dL LAB URINALYSIS - AUTOMATED METHOD 11/23/2024 7:[address] [facility] Bilirubin, Urine Negative Negative LAB URINALYSIS - AUTOMATED METHOD 11/23/2024 7:[address] [facility] Blood, Urine Negative Negative LAB URINALYSIS - AUTOMATED METHOD 11/23/2024 7:[address] [facility] RBC, Urine 1.4 0 - 4 /HPF LAB URINALYSIS - AUTOMATED METHOD 11/23/2024 7:[address] [facility] WBC, Urine 6.6(H) 0 - 4 /HPF LAB URINALYSIS - AUTOMATED METHOD 11/23/2024 7:[address] [facility] Squamous Epithelial, Urine 20 0 - 60 /LPF LAB URINALYSIS - AUTOMATED METHOD 11/23/2024 7:[address] [facility] Bacteria, Urine Many(A) Negative /HPF LAB URINALYSIS - AUTOMATED METHOD 11/23/2024 7:[address] [facility] Hyaline Casts, Urine 0.0 0 - 3 /LPF LAB URINALYSIS - AUTOMATED METHOD 11/23/2024 7:[address] [facility] Urine Urinary bladder structure / Unknown Non-blood Collection / Unknown 11/23/2024 5:25 AM EST 11/23/2024 7:01 AM EST us Chris LEONG LAB URINE ORDERABLES Final Resul t Performing Organization Address City/[facility]/ZIP Co de Phone Number [facility] [address] [place] [address], [place] [phone] * Orozco urine culture tube (11/23/2024 5:25 AM EST) Extra Tube Hold for add-ons. 11/23/2024 9:[address] [facility] Comment:Auto resulted. Urine Urinary bladder structure / Unknown Non-blood Collection / Unknown 11/23/2024 5:25 AM EST 11/23/2024 7:01 AM EST us Chris LEONG LAB URINE ORDERABLES Final Resul t Performing Organization Address City/[facility]/ZIP Co de Phone Number [facility] [address] [place] [address], [place] [phone] * (ABNORMAL) Culture urine (11/23/2024 5:25 AM EST) Culture, Urine >100,000 CFU/mL Klebsiella pneumoniae ssp pneumoniae(A) BRENDA 11/25/2024 10:16 AM EST [facility] Comment: This is an edited [...] ug/ml: Susceptible Klebsiella pneumoniae ssp pneumoniae Levofloxacin BREDNA <=0.12 ug/ml: Susceptible Klebsiella pneumoniae ssp pneumoniae Nitrofurantoin BRENDA 32 ug/ml: Susceptible Klebsiella pneumoniae ssp pneumoniae Trimethoprim/Sulfamethoxazo le BRENDA <=20 ug/ml: Susceptible Chris LEONG LAB MICROBIOLOGY - GENERAL ORDER BESSIE Final Result [facility] ([email or web address] [address] [place] [address], * ECG 12 lead (11/23/2024 5:21 AM EST) Only the most recent of2 resultswithin the time period is included. Ventricular Rate ECG 70 BPM GEMUSE Atrial Rate 70 BPM GEMUSE P-R Interval 150 ms GEMUSE QRS Duration 76 ms GEMUSE Q-T Interval 376 ms GEMUSE QTc 406 ms GEMUSE P Wave [place] 75 degrees GEMUSE R [place] 25 degrees GEMUSE T [place] 48 degrees GEMUSE ECG Interpretation Normal sinus rhythm Normal ECG When compared with ECG of 23-NOV-2024 04:17, (unconfirmed) No significant change was found Confirmed by KORI ANNE ([id number]) on 11/23/2024 4:50:31 PM GEMUSE 11/23/2024 5:21 AM EST 11/23/2024 4:50 PM EST us Tim Saleem MD ECG ORDERABLES Final Resul t Performing Organization Address City/[facility]/[place] Co de Phone Number GEMUSE * Troponin I high sensitivity (11/23/2024 4:23 AM EST) [facility] High Sensitivity Troponin I 10 <=54 ng/L LAB CHEMISTRY METHOD 11/23/2024 5:00 AM EST [facility] Blood Venous blood specimen / Unknown Venipuncture / Unknown 11/23/2024 4:23 AM EST 11/23/2024 4:33 AM EST Narrative [facility] - 11/23/2024 5:00 AM EST High levels of biotin in samples may falsely decrease hsTroponin values. ??Use caution when interpreting hsTroponin results in patients taking biotin who exhibit renal impairment (eGFR <60) or in patients taking more than 20 mg/day of biotin. us Tim Saleem MD LAB BLOOD ORDERABLES Final Result [facility] [address] [place] [address], [place] [phone] * (ABNORMAL) CBC auto differential (11/23/2024 4:23 AM EST) [facility] WBC 9.0 4.8 - 10.8 K/mcL LAB HEMETOLOGY METHOD 11/23/2024 4:[address] [facility] RBC 4.30 3.80 - 4.80 M/mcL LAB HEMETOLOGY METHOD 11/23/2024 4:[address] [facility] Hemoglobin 13.2 11.5 - 16.0 g/dL LAB HEMETOLOGY METHOD 11/23/2024 4:[address] [facility] Hematocrit 40.3 35.0 - 47.0 % LAB HEMETOLOGY METHOD 11/23/2024 4:[address] [facility] MCV 94.4 79.0 - 98.0 FL LAB HEMETOLOGY METHOD 11/23/2024 4:[address] [facility] MCH 30.9 27.0 - 32.0 pcg LAB HEMETOLOGY METHOD 11/23/2024 4:[address] [facility] MCHC 32.8 32.0 - 37.0 g/dL LAB HEMETOLOGY METHOD 11/23/2024 4:[address] [facility] RDW 12.7 11.0 - 15.0 % LAB HEMETOLOGY METHOD 11/23/2024 4:[address] [facility] Platelets 276 130 - 400 K/mcL LAB HEMETOLOGY METHOD 11/23/2024 4:[address] [facility] MPV 8.3 7.0 - 11.0 FL LAB HEMETOLOGY METHOD 11/23/2024 4:[address] [facility] NRBC 0.0 <1.0 % LAB HEMETOLOGY METHOD 11/23/2024 4:[address] [facility] NRBC Absolute 0.00 <0.10 K/mcL LAB HEMETOLOGY METHOD 11/23/2024 4:[address] [facility] Neutrophils Relative 81.0 % LAB HEMETOLOGY METHOD 11/23/2024 4:[address] [facility] Lymphocytes Relative 10.2 % LAB HEMETOLOGY METHOD 11/23/2024 4:[address] [facility] Monocytes Relative 7.0 % LAB HEMETOLOGY METHOD 11/23/2024 4:[address] [facility] Eosinophils Relative 1.2 % LAB HEMETOLOGY METHOD 11/23/2024 4:[address] [facility] Basophils Relative 0.2 % LAB HEMETOLOGY METHOD 11/23/2024 4:[address] [facility] Immature Granulocytes Relative 0.4 % LAB HEMETOLOGY METHOD 11/23/2024 4:[address] [facility] Neutrophils Absolute 7.32(H) 1.50 - 7.00 K/mcL LAB HEMETOLOGY METHOD 11/23/2024 4:[address] [facility] Lymphocytes Absolute 0.92(L) 1.00 - 5.00 K/mcL LAB HEMETOLOGY METHOD 11/23/2024 4:[address] [facility] Monocytes Absolute 0.63 0.20 - 1.00 K/mcL LAB HEMETOLOGY METHOD 11/23/2024 4:[address] [facility] Eosinophils Absolute 0.11 0.00 - 0.50 K/mcL LAB HEMETOLOGY METHOD 11/23/2024 4:[address] [facility] Basophils Absolute 0.02 0.00 - 0.20 K/mcL LAB HEMETOLOGY METHOD 11/23/2024 4:[address] [facility] Immature Granulocytes Absolute 0.04(H) 0.00 - 0.03 K/mcL LAB HEMETOLOGY METHOD 11/23/2024 4:[address] [facility] Blood Venous blood specimen / Unknown Venipuncture / Unknown 11/23/2024 4:23 AM EST 11/23/2024 4:33 AM EST Tim Saleem MD LAB BLOOD ORDERABLES Final Result Performing Organization Address [facility]/ZIP Co de Phone Number [facility] [address] [place] [address], [place] [phone] * Magnesium (11/23/2024 4:23 AM EST) Pathologist [facility] Magnesium 2.6 1.9 - 2.6 mg/dL LAB CHEMISTRY METHOD 11/23/2024 5:09 AM EST [facility] Blood Venous blood specimen / Unknown Venipuncture / Unknown 11/23/2024 4:23 AM EST 11/23/2024 4:33 AM EST Tim Saleem MD LAB BLOOD ORDERABLES Final Result Performing Organization Address [facility] de Phone Number [facility] [address] [place] [address], [place] [phone] * Lipase (11/23/2024 4:23 AM EST) [facility] Lipase 35 13 - 75 unit/L LAB CHEMISTRY METHOD 11/23/2024 5:09 AM EST [facility] Blood Venous blood specimen / Unknown Venipuncture / Unknown 11/23/2024 4:23 AM EST 11/23/2024 4:33 AM EST Tim Saleem MD LAB BLOOD ORDERABLES Final Result Performing Organization Address [facility]/ZIP Co de Phone Number [facility] [address] [place] [address], [place] [phone] * Cardiac Enzymes - CPK (11/23/2024 4:23 AM EST) Total CK 109 22 - 269 unit/L LAB CHEMISTRY METHOD 11/23/2024 5:09 AM EST [facility] Blood Venous blood specimen / Unknown Venipuncture / Unknown 11/23/2024 4:23 AM EST 11/23/2024 4:33 AM EST Tim Saleem MD LAB BLOOD ORDERABLES Final Result [facility] [address] [place] [address], * (ABNORMAL) Comprehensive metabolic panel (11/23/2024 4:23 AM EST) Sodium 135 133 - 145 mmol/L LAB CHEMISTRY METHOD 11/23/2024 5:[address] [facility] Potassium 4.2 3.5 - 5.5 mmol/L LAB CHEMISTRY METHOD 11/23/2024 5:[address] [facility] Chloride 103 96 - 110 mmol/L LAB CHEMISTRY METHOD 11/23/2024 5:[address] [facility] CO2 27 21 - 32 mmol/L LAB CHEMISTRY METHOD 11/23/2024 5:[address] [facility] Anion Gap 5 3 - 11 LAB CHEMISTRY METHOD 11/23/2024 5:[address] [facility] Glucose 117(H) 70 - 100 mg/dL LAB CHEMISTRY METHOD 11/23/2024 5:[address] [facility] BUN 10 5 - 25 mg/dL LAB CHEMISTRY METHOD 11/23/2024 5:[address] [facility] Creatinine 0.51 0.50 - 1.10 mg/dL LAB CHEMISTRY METHOD 11/23/2024 5:[address] [facility] eGFR 96 >=60 mL/min/1. 73m2 LAB CHEMISTRY METHOD 11/23/2024 5:[address] [facility] Comment:Calculation based on the??Chronic Kidney Disease Epidemiology Collaboration (CKD-EPI) equation refit??without adjustment for race. BUN/Creatinine Ratio 19.6 LAB CHEMISTRY METHOD 11/23/2024 5:[address] [facility] Calcium 9.1 8.5 - 10.5 mg/dL LAB CHEMISTRY METHOD 11/23/2024 5:[address] [facility] AST (SGOT) 11 10 - 42 unit/L LAB CHEMISTRY METHOD 11/23/2024 5:[address] [facility] ALT (SGPT) 20 10 - 60 unit/L LAB CHEMISTRY METHOD 11/23/2024 5:[address] [facility] Alkaline Phosphatase 93 42 - 121 unit/L LAB CHEMISTRY METHOD 11/23/2024 5:[address] [facility] Total Protein 6.8 6.0 - 8.0 g/dL LAB CHEMISTRY METHOD 11/23/2024 5:[address] [facility] Albumin 3.8 3.2 - 5.0 g/dL LAB CHEMISTRY METHOD 11/23/2024 5:[address] [facility] Total Bilirubin 0.5 0.0 - 1.4 mg/dL LAB CHEMISTRY METHOD 11/23/2024 5:[address] [facility] Blood Venous blood specimen / Unknown Venipuncture / Unknown 11/23/2024 4:23 AM EST 11/23/2024 4:33 AM EST Tim Saleem MD LAB BLOOD ORDERABLES Final Result [facility] [address] [place] [address], * ECG-Annotated (11/23/2024) us Provider Onbase ECG ORDERABLES Final Result from Last 3 Months Insurance MEDICAID - [place] MEDICARE Advance Directives Documents on File Type Date Recorded Patient Commissary Officer Expl anation Health Care Decision (hx) 02/18/2024 HE ALTH CARE PROXY * Full Code - Confirmed (Latest Code Status on File) Date Activated Date Inactivated Comments 11/23/2024 7:28 AM 11/25/2024 5:[address] [facility] was ascertained in the following way: Code status discussion: discussion with healthcare sales representative groceries To update the patient's code status, place a code status order. Do not modify or discontinue any currently active code status orders. Care Teams Concrete Block Layer Relationship Specialty Start Date End Date Jose Juan Rendon MD [address] [place] [address] [address] [place] PCP - General 01/29/24
--- OUTSIDE RECORDS SUMMARY | 2025-01-03 16:49 | XMS_ITS | Encounter Summary ---
Author Organization [facility] Address [address] [place] [address] Care Team Providers Care Information Systems Professor Name Role Phone Unavailable Primary Care Provider [...]
--- OUTSIDE RECORDS SUMMARY | 2025-01-03 16:49 | XMS_ITS | Clinical Summary ---
Author Organization Unknown Care Team Providers Care Cutting And Creasing Press Operator Name Role Phone ERMIAS PADILLA, ROSALBA Unavailable Unavailable TAMELA RN, ADMISSION NURSE, BRETT Unavail able Unavailable Payers Payer Name Policy Type Policy Number Effective Date Expira tion Date MEDICARE - [place] [id number] MEDICAID [facility] [id number] Problems Condition Name Condition Details Condition Category [...] 2.5 mg tablet 11-19 00:00: 00 Yes [id number] Per instruc tions DAILY FOR 90 DAYS Per instructio ns DAILY FOR 90 DAYS (route: oral) Med Classific ation: Cardiovas cular Therapy Agents atorvastati n 20 mg tablet 11-19 00:00: 00 Yes [id number] Per instruc tions BEDTIME FOR 90 DAYS Per instructio ns BEDTIME FOR 90 DAYS (route: oral) Med Classific ation: Cardiovas cular Therapy Agents clonazepam 0.25 mg disintegrat ing tablet 11-13 00:00: 00 Yes [id number] Per instruc tions 30 MINUTES BEFORE BEDTIME NEEDED FOR 30 DAYS Per instructio ns 30 MINUTES BEFORE BEDTIME NEEDED FOR 30 DAYS (route: oral) Med Classific ation: Central Nervous System Agents cholecalcif jerilyn (vitamin D3) 25 mcg (1,000 unit) tablet 12-14 00:00: 00 Yes [id number] 1 tablet DAILY 1 tablet DAILY (route: oral) Med Classific ation: Electroly te Balance-N utritiona l Products latanoprost 0.005 % eye drops 12-14 00:00: 00 Yes [id number] 1 drops DAILY 1 drops DAILY (route: ophthalmic (eye)) Med Classific ation: Ophthalmi c Agents memantine 28 mg capsule sprinkle,ex tended release 24hr 12-14 00:00: 00 Yes [id number] 1 capsule DAILY 1 capsule DAILY (route: oral) Med Classific ation: Cognitive Disorder Therapy omeprazole 20 mg capsule,del ayed release 12-14 00:00: 00 Yes [id number] 1 capsule DAILY 1 capsule DAILY (route: oral) Med Classific ation: Gastroint estinal Therapy Agents Xolair 150 mg/mL subcutaneou s auto-inject or 12-14 00:00: 00 Yes [id number] 150 mg MONTHLY 150 mg MONTHLY (route: [...] CVA, RISK FACTORS, AND METHODS TO MANAGE TECHNICAL SOLUTIONS DIRECTOR EFFECTS OF CVA. [code = SKILLED NURSE TO INSTRUCT PATIENT/CAREGIVER ON WARNING SIGNS OF CVA, RISK FACTORS, AND METHODS TO MANAGE SNF EFFECTS OF CVA.] Future Scheduled Test SKILLED [...] MAINTAIN SITUATIONAL AWARENESS AND WILL NOTIFY CLINICAL DOMESTIC VIOLENCE COUNSELOR AND PHYSICIAN/PROVIDER WITH ANY CHANGE IN CONDITION. [code = SKILLED NURSE TO PERFORM ENVIRONMENTAL SAFETY RISK ASSESSMENT AND FALL RISK ASSESSMENT AND PROVIDE INSTRUCTION TO IMPLEMENT ENVIRONMENTAL SAFETY AND FALL PREVENTION STRATEGIES THROUGHOUT THE CERTIFICATION PERIOD. SKILLED NURSE WILL MAINTAIN SITUATIONAL AWARENESS AND WILL NOTIFY CLINICAL DOMESTIC VIOLENCE COUNSELOR AND PHYSICIAN/PROVIDER WITH ANY CHANGE IN CONDITION.] [...] EVALUATION ONLY (12/20/24) PATIENT IS A PRIMARILY AUSTRALIAN SPEAKING 79 YEAR OLD FEMALE WITH PHYSICAL THERAPY REFERRAL AFTER [facility]ENT [facility] HOSPITALIZ[facility] AND SNF STAY ([place] 11/25/24) DUE TO FALL ON 11/23/24 AND [...] DAUGHTER NEARBY. 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 PATIENT HAS MOW. CLOF: DME: FWW, ROLLATOR, SHOWER CHAIR, BEDSIDE COMMODE, BILAT LEG PROCESSING SPEC/PEDDLAR, TUB SEAT, TUB TRANSFER BENCH, LIFE ALERT SAFETY RECOMMENDATIONS: BED RAIL ACQUISITION WITH PATIENT AND CG RECEPTIVE. BILAT LE ROM WFL, BILAT LE STRENGTH 4+/5. TO INCREASE BILAT LE STRENGTH: PLANTAR/DORSI FLEX, ANKLE CIRCLES, MARCHING, KNEE EXT. DISPENSED AUSTRALIAN BILAT THER EXER AND REVIEWED WITH PATIENT [...] EVALUATION ONLY (12/20/24) PATIENT IS A PRIMARILY AUSTRALIAN SPEAKING 79 YEAR OLD FEMALE WITH PHYSICAL THERAPY REFERRAL AFTER RECENT [facility] HOSPITAL[facility] AND SNF STAY ([place] 11/25/24) DUE TO FALL ON 11/23/24 AND [...] DAUGHTER NEARBY. 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 PATIENT HAS MOW. CLOF: DME: FWW, ROLLATOR, SHOWER CHAIR, BEDSIDE COMMODE, BILAT LEG PROCESSING SPEC/PEDDLAR, TUB SEAT, TUB TRANSFER BENCH, LIFE ALERT SAFETY RECOMMENDATIONS: BED RAIL ACQUISITION WITH PATIENT AND CG RECEPTIVE. BILAT LE ROM WFL, BILAT LE STRENGTH 4+/5. TO INCREASE BILAT LE STRENGTH: PLANTAR/DORSI FLEX, ANKLE CIRCLES, MARCHING, KNEE EXT. DISPENSED AUSTRALIAN BILAT THER EXER AND REVIEWED WITH PATIENT [...] CARE WILL BE ESTABLISHED THAT MEETS PATIENT'S [facility]CI NEEDS AND INCLUDES PATIENT GOAL FOR HOME [...] 2025-02-11 00:00:00 Outpatient NEW ADMISSION BRETT RAPP [facility] [id number] 57.45
== END 2025-01-03 15:59 | disposition home or self-care (01) ==
PROVIDERS: PCP Internal Medicine; Visit Provider Internal Medicine
DX: K20.90 Esophagitis, unspecified without bleeding (principal); R13.10 Dysphagia, unspecified; Q39.4 Esophageal web
CPT/HCPCS: 99204

== ENCOUNTER → 2025-01-03 15:14 | Outpatient (BNVA) | payer MEDICARE, MEDICAID, SELFPAY | PROVIDERS: PCP Internal Medicine; Visit Provider Internal Medicine | DX: K20.90 Esophagitis, unspecified without bleeding (principal); R13.10 Dysphagia, unspecified; Q39.4 Esophageal web; J44.9 Chronic obstructive pulmonary disease, unspecified; I10 Essential (primary) hypertension; E11.9 Type 2 diabetes mellitus without complications; M81.0 Age-related osteoporosis without current pathological fracture | CPT/HCPCS: 99202 ==

== ENCOUNTER 2025-01-27 12:42 | Outpatient (AMB) | payer MEDICARE, MEDICAID, SELFPAY ==
--- NOTE | 2025-01-27 12:43 | A.OFFVIS_ITS ---
Vital Signs 01/27/25 12:44 Height 5 ft Weight 111 lb BMI 21.7 Pulse 86 Pulse Source Pulse Oximeter Pulse Oximetry (%) 98 Oxygen Delivery Method Room Air Intake Visit Reasons: Follow Up Intake Note: Patient presents follow up Dementia. Labs/barium swallow/ Speech eval in chart Clinical Quality Assurance Specialist Services: Clinical Quality Assurance Specialist Offered & Declined Clinical Quality Assurance Specialist Name: her dtr- Angelica Allergies meperidine [From DEMEROL] Allergy (Severe, Verified 01/27/25 12:53) HYPOTENSION Penicillins [PENICILLINS] Allergy (Severe, Verified 01/27/25 12:53) HIVES,SWELLING influenza virus vaccine, specific [Influenza Virus Vacc,Specific] Adverse Reaction (Intermediate, Verified 01/27/25 12:53) ASTHMA EXACERBATION Anesthetic Maximum Strength Allergy (Severe, Uncoded 01/27/25 12:53) anaphylaxis Bee Sting Allergy (Unknown, Uncoded 01/27/25 12:53) unknown Medication List - Last Reconciled 01/27/25 by SOFIE Gonzalez [ADULT PULL-UPS (medium) As directed] albuterol sulfate 2.5 mg continuous nebulization Q6H PRN albuterol sulfate 90 mcg/actuation 2 puffs PO Q6H PRN amlodipine 2.5 mg PO BID 90 days aspirin 81 mg PO DAILY atorvastatin 20 mg PO BEDTIME 90 days [Bed rail As directed] blood pressure monitor As directed blood sugar diagnostic (FreeStyle Test strips) test bs once a day blood-glucose meter (FreeStyle Lite Meter kit) As directed- To test Blood sugar blood-glucose meter (FreeStyle Lite Meter kit) As directed ONCE A DAY cholecalciferol (vitamin D3) 50 mcg PO DAILY clonazepam 0.25 mg PO BEDTIME PRN 30 days fluticasone propion-salmeterol 500-50 mcg/dose (Advair Diskus) 1 ea PO BID fluticasone propionate 50 mcg/actuation 1 spray intranasal DAILY [FreeStyle LANCETS As directed] [FreeStyle TEST STRIPS As directed] lancets (FreeStyle Lancets) 28 gauge miscellaneous .QD latanoprost 0.005% 1 drp ophthalmic (eye) BEDTIME loratadine 10 mg PO DAILY PRN memantine 28 mg PO DAILY omalizumab (Xolair) 300 mg subcut Q4W 28 days omeprazole 20 mg PO DAILY PRN polyethylene glycol 3350 (Miralax) 17 grams PO DAILY 30 days sennosides (Senna Lax) Take 1 to 2 tablets orally daily PRN; 30 days valacyclovir 500 mg PO DAILY HPI Comments Details: 79-yr-old female presents for f/u visit for dementia and for follow-up of interval lab workup in swallow study results.. Pt is accompanied by her dtr Angelica, who asists w/ history. Patient has had memory issues for many yrs, since at least 1999, however the memory issues had begun to worsen in the last year. However, since the last visit, there have been no marked worsening of her cognitive symptoms. EEG- not yet completed, daughter states she did not receive a call or maybe they did I was forgotten about it in the other called and appointments. Lab workup including B12, folate, vitamin-D, TSH, RPR, HIV must CBC/CMP for overall within normal limits. Thin globin A1c was 6.1% Barium swallow and follow-up GI consult completed- Pt and dtr note she continues to easily forget things very Pt lives by herself- and has rescheduled a.m. and evening FLOORING PROFESSIONAL care. Her daughter continues to supervise remotely via tremors that have been installed in her house. Patient states that she is still able to cook for herself-however other people help her about this. She has had a fall in October- was diagnosed w/ UTI around the same time. Dtr clarifies previous mention of seizure dx- pt had a fall which was possible attributed to seizure. Pt also is prone to not right in space dizziness with movement. Tried vestibular tx ~ 4 yrs ago but worsened dizziness so stopped. After a fall last yr, work-up revealed a chronic right cerebellar lacunar infarct. Pt's mother and her siblings all have memory difficulties. 05/2023, MRI Brain W/O Contrast, 1. No acute/subacute infarct, mass, hemorrhage, or other acute intracranial abnormality. 2. Possible small chronic lacunar infarct in the right cerebellar hemisphere. Mild scattered T2/FLAIR hyperintense foci in the white matter, nonspecific but most likely reflecting chronic small vessel disease. 05/2023, CT Angio Head Hyperacute Stroke, CT Angio Neck Hyperacute Stroke, 1. There is no large vessel occlusion or high-grade stenosis in the little traverse of [place]. 2. Narrowing of both subclavian artery origins, moderate on the right and severe on the left. 3. Nonspecific right upper lobe lung nodule. [facility] Medical History Dementia Osteoporosis Post-menopausal Cellulitis Overweight (BMI 25.0-29.9) Depression Anxiety Nocturnal leg cramps Vitamin D deficiency Genital herpes in women Ductal carcinoma in situ of right breast Osteoarthritis of knee GERD (gastroesophageal reflux disease) Allergic rhinitis Diabetic neuropathy COPD (chronic obstructive pulmonary disease) Benign essential hypertension Pure hypercholesterolemia Diabetes mellitus Surgical History History of colonoscopy History of total hysterectomy H/O breast surgery Family History Father CVD (cardiovascular disease) Stroke Mother Cancer Other Mental health disorder Social History Housing: Apartment Alcohol intake: never Patient Tobacco Use Status: Never used Tobacco e-Cigarette/Vaping Use: Never Used Second Hand Smoke Exposure: Yes service: No Current occupational status: disabled Cognitive needs: No Hearing needs: Yes Vision needs: Yes Physical Exam Vital Signs: Last Vital Signs Pulse 86 01/27/25 12:44 Pulse Ox 98 01/27/25 12:44 Oxygen Delivery Method Room Air 01/27/25 12:44 BMI result Body Mass Index 21.7 Const General: cooperative and no acute distress Orientation/consciousness: oriented to person Resp Effort & Inspection: normal respiratory effort and able to speak in complete sentences Neuro Other: Pt alert, oriented to person. STM lapses noted. Answers simple questions appropriately. General: oriented to person Cranial nerves: Yes CN's II-XII intact bilaterally Psych Appearance: grossly normal Mental Status: mental status grossly normal Speech and movement: Normal speech and movement present Affect: normal affect Attitude: cooperative Assessment & Plan Assessment & Plan (1) Dementia: Code(s): F03.90 - Unspecified dementia, unspecified severity, without behavioral disturbance, psychotic disturbance, mood disturbance, and anxiety Category: Medical Qualifiers: Dementia behavioral or psychological symptom: with other behavioral di sturbance Dementia severity: moderate Dementia type: unspecified type Qualified Code(s): F03.B18 - Unspecified dementia, moderate, with other behavioral disturbance (2) Difficulty swallowing: Code(s): R13.10 - Dysphagia, unspecified Category: Medical (3) Vertigo: Code(s): R42 - Dizziness and giddiness Category: Medical (4) Memory impairment: Code(s): R41.3 - Other amnesia Category: Medical Plan Continue supportive care- pt to require FLOORING PROFESSIONAL and supervised care. Pt should not cook on her own. Continue Menatine ER 28mg qd. Reviewed results of interval swallow study in GI consult- patient denies any current swallowing issues, and had declined further GI workup. Patient is again advised to undergo EEG to assess for epileptic etiologies of cognitive difficulties. Reviewed labs- vitamin-D, folate, TSH, B12 WNL. HgA1c 6.1%- current diabetic treatment plan per PCP. Mild elevated LDL/total cholesterol- continue aspirin, anti HTN Tx, Statin Tx. Offered to refer patient back for vestibular eval & tx- patient declines at this time Pt to follow-up in 6 months or sooner prn. Orders: Orders EEG electroencephalogram Today F03.B18 - Unspecified dementia, moderate, with other behavioral disturbance, R41.3 - Other amnesia Coding Level of Care Code Est Pt Level 4 (86142) Diagnoses Moderate dementia with other behavioral disturbance, unspecified dementia type F03.B18 Dementia behavioral or psychological symptom: with other behavioral disturbance Dementia severity: moderate Dementia type: unspecified type Difficulty swallowing R13.10 Vertigo R42 Memory impairment R41.3
[2025-01-27 12:44] VITALS: PULSE 86; O2SAT 98; BMI 21.7
--- OUTSIDE RECORDS SUMMARY | 2025-01-27 14:19 | XMS_ITS | Clinical Summary ---
Author Organization Unknown Care Team Providers Care Student Counselor Name Role Phone ERMIAS PADILLA, ROSALBA Unavailable Unavailable TAMELA RN, ADMISSION NURSE, BRETT Unavail able Unavailable RHIANNON RN, REINA Unavailable Unavailable Payers Payer Name Policy Type Policy Number Effective Date Expira tion Date [facility]IC[facility] [id number] MEDICAID [facility] [id number] Problems Condition Name Condition Details Condition Category [...] 2.5 mg tablet 11-19 00:00: 00 Yes [id number] Per instruc tions DAILY FOR 90 DAYS Per instructio ns DAILY FOR 90 DAYS (route: oral) Med Classific ation: Cardiovas cular Therapy Agents atorvastati n 20 mg tablet 11-19 00:00: 00 Yes [id number] Per instruc tions BEDTIME FOR 90 DAYS Per instructio ns BEDTIME FOR 90 DAYS (route: oral) Med Classific ation: Cardiovas cular Therapy Agents clonazepam 0.25 mg disintegrat ing tablet 11-13 00:00: 00 Yes [id number] Per instruc tions 30 MINUTES BEFORE BEDTIME NEEDED FOR 30 DAYS Per instructio ns 30 MINUTES BEFORE BEDTIME NEEDED FOR 30 DAYS (route: oral) Med Classific ation: Central Nervous System Agents cholecalcif jerilyn (vitamin D3) 25 mcg (1,000 unit) tablet 12-14 00:00: 00 Yes [id number] 1 tablet DAILY 1 tablet DAILY (route: oral) Med Classific ation: Electroly te Balance-N utritiona l Products latanoprost 0.005 % eye drops 12-14 00:00: 00 Yes [id number] 1 drops DAILY 1 drops DAILY (route: ophthalmic (eye)) Med Classific ation: Ophthalmi c Agents memantine 28 mg capsule sprinkle,ex tended release 24hr 12-14 00:00: 00 Yes [id number] 1 capsule DAILY 1 capsule DAILY (route: oral) Med Classific ation: Cognitive Disorder Therapy omeprazole 20 mg capsule,del ayed release 12-14 00:00: 00 Yes [id number] 1 capsule DAILY 1 capsule DAILY (route: oral) Med Classific ation: Gastroint estinal Therapy Agents Xolair 150 mg/mL subcutaneou s auto-inject or 12-14 00:00: 00 Yes [id number] 150 mg MONTHLY 150 mg MONTHLY (route: subcutaneo us) Med Classific ation: Respirato ry Therapy Agents amlodipine 2.5 mg tablet 3-06 00:00: 00 01-06 23:59 :00 No [id number] 2 tablet DAILY 2 tablet DAILY (route: oral) Med Classific ation: Cardiovas cular Therapy Agents Immunizations Ordered Immunization Name Filled Immunization Name Date Status Comments Refusal Reason INFLUENZA, TIV (INACTIVATED) 2024-07-17 00:00:00 Vital Signs Vital Name Observation Time Observation Value Commen ts Temperature 2025-01-24 09:50:00.000 97.8 [degF] Temperature 2025-01-15 10:39:00.000 97.6 [degF] Temperature 2025-01-08 11:25:00.000 98 [degF] Temperature 2025-01-01 10:05:00.000 98.2 [degF] Temperature 2024-12-25 09:43:00.000 97.8 [degF] Temperature 2024-12-20 10:16:00.000 98.3 [degF] Temperature 2024-12-19 11:15:00.000 98 [degF] Temperature 2024-12-14 09:46:00.000 97.8 [degF] BMI (%) 2024-12-14 09:34:37.000 21 kg/m2 Height 2024-12-14 09:34:01.000 59 [in_us] Pulse 2025-01-24 09:50:00.000 86 /min Pulse 2025-01-15 10:39:00.000 72 /min Pulse 2025-01-08 11:25:00.000 70 /min Pulse 2025-01-01 10:05:00.000 65 /min Pulse 2024-12-25 09:43:00.000 70 /min Pulse 2024-12-20 10:16:00.000 70 /min Pulse 2024-12-19 11:15:00.000 72 /min Pulse 2024-12-14 09:46:00.000 68 /min O2 Saturation (%) 2025-01-24 09:50:00.000 98 % O2 Saturation (%) 2025-01-08 11:25:00.000 97 % O2 Saturation (%) 2025-01-01 10:05:00.000 99 % O2 Saturation (%) 2024-12-25 09:44:00.000 97 % O2 Saturation (%) 2024-12-20 10:16:00.000 97 % O2 Saturation (%) 2024-12-19 11:15:00.000 97 % O2 Saturation (%) 2024-12-14 09:46:00.000 98 % Respirations 2025-01-24 09:50:00.000 18 /min Respirations 2025-01-15 10:39:00.000 18 /min Respirations 2025-01-08 11:25:00.000 18 /min Respirations 2025-01-01 10:05:00.000 18 /min Respirations 2024-12-25 09:43:00.000 18 /min Respirations 2024-12-20 10:16:00.000 18 /min Respirations 2024-12-19 11:15:00.000 18 /min Respirations 2024-12-14 09:46:00.000 18 /min Weight (lbs) 2024-12-14 09:34:37.000 108 [lb_av] Systolic Blood Pressure 2025-01-24 09:50:00.000 140 mm [Hg] Systolic Blood Pressure 2025-01-15 10:39:00.000 118 mm [Hg] Systolic Blood Pressure 2025-01-08 11:25:00.000 130 mm [Hg] Systolic Blood Pressure 2025-01-01 10:05:00.000 160 mm [Hg] Systolic Blood Pressure 2024-12-25 09:43:00.000 138 mm [Hg] Systolic Blood Pressure 2024-12-20 10:16:00.000 126 mm [Hg] Systolic Blood Pressure 2024-12-19 11:15:00.000 120 mm [Hg] Systolic Blood Pressure 2024-12-14 09:46:00.000 158 mm [Hg] Diastolic Blood Pressure 2025-01-24 09:50:00.000 72 mm [Hg] Diastolic Blood Pressure 2025-01-15 10:39:00.000 62 mm [Hg] Diastolic Blood Pressure 2025-01-08 11:25:00.000 62 mm [Hg] Diastolic Blood Pressure 2025-01-01 10:05:00.000 [...] CVA, RISK FACTORS, AND METHODS TO MANAGE JAIL EFFECTS OF CVA. [code = SKILLED NURSE TO INSTRUCT PATIENT/CAREGIVER ON WARNING SIGNS OF CVA, RISK FACTORS, AND METHODS TO MANAGE JAIL EFFECTS OF CVA.] Future Scheduled Test SKILLED [...] MAINTAIN SITUATIONAL AWARENESS AND WILL NOTIFY CLINICAL WIND ENERGY MECHANIC AND PHYSICIAN/PROVIDER WITH ANY CHANGE IN CONDITION. [code = SKILLED NURSE TO PERFORM ENVIRONMENTAL SAFETY RISK ASSESSMENT AND FALL RISK ASSESSMENT AND PROVIDE INSTRUCTION TO IMPLEMENT ENVIRONMENTAL SAFETY AND FALL PREVENTION STRATEGIES THROUGHOUT THE CERTIFICATION PERIOD. SKILLED NURSE WILL MAINTAIN SITUATIONAL AWARENESS AND WILL NOTIFY CLINICAL WIND ENERGY MECHANIC AND PHYSICIAN/PROVIDER WITH ANY CHANGE IN CONDITION.] [...] EVALUATION ONLY (12/20/24) PATIENT IS A PRIMARILY TONGAN SPEAKING 79 YEAR OLD FEMALE WITH PHYSICAL THERAPY REFERRAL AFTER RECENT [facility] HOSPITALIZATION AND SNF STAY ([place] 11/25/24) DUE TO FALL ON 11/23/24 AND [...] DAUGHTER NEARBY. 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 HE DAY AND THE OIL AND GAS RECRUITER. PATIENT HAS MOW. CLOF: DME: FWW, ROLLATOR, SHOWER CHAIR, BEDSIDE COMMODE, BILAT LEG DRYWALL HANGER FRAMER/PEDDLAR, TUB SEAT, TUB TRANSFER BENCH, LIFE ALERT SAFETY RECOMMENDATIONS: BED RAIL ACQUISITION WITH PATIENT AND CG RECEPTIVE. BILAT LE ROM WFL, BILAT LE STRENGTH 4+/5. TO INCREASE BILAT LE STRENGTH: PLANTAR/DORSI FLEX, ANKLE CIRCLES, MARCHING, KNEE EXT. DISPENSED TONGAN BILAT THER EXER AND REVIEWED WITH PATIENT [...] EVALUATION ONLY (12/20/24) PATIENT IS A PRIMARILY TONGAN SPEAKING 79 YEAR OLD FEMALE WITH PHYSICAL THERAPY REFERRAL AFTER RECENT [facility] HOSPITALIZATION AND SNF STAY ([place] 11/25/24) DUE TO FALL ON 11/23/24 AND [...] DAUGHTER NEARBY. 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 HE DAY AND THE OIL AND GAS RECRUITER. PATIENT HAS MOW. CLOF: DME: FWW, ROLLATOR, SHOWER CHAIR, BEDSIDE COMMODE, BILAT LEG DRYWALL HANGER FRAMER/PEDDLAR, TUB SEAT, TUB TRANSFER BENCH, LIFE ALERT SAFETY RECOMMENDATIONS: BED RAIL ACQUISITION WITH PATIENT AND CG RECEPTIVE. BILAT LE ROM WFL, BILAT LE STRENGTH 4+/5. TO INCREASE BILAT LE STRENGTH: PLANTAR/DORSI FLEX, ANKLE CIRCLES, MARCHING, KNEE EXT. DISPENSED TONGAN BILAT THER EXER AND REVIEWED WITH PATIENT [...] SKILLED [facility] TO INFORM GUMARO CASTILOL RN. MD MONSON INFORMED ABOUT PATIENT STATUS [...] CARE WILL BE ESTABLISHED THAT MEETS PATIENT'S ASSISTED NEEDS AND INCLUDES PATIENT GOAL FOR HOME [...] Notes Progress Notes <paragraph>[Visit Date: 2024 by RICHI LLANES LPN]:</paragraph><paragraph>SNV 01/24 ABNORMAL VITALS: WITHIN ESTABLISHED PARAMETERS FALLS: NO FALLS MEDICATION CHANGES: NONE OBSERVATION AND ASSESSMENT PROVIDED: PATIENT WAS ALERT AND ORIENTED X2, FORGETFUL, PLEASANT AND COOPERATIVE DURING VISIT. DAUGHTER WAS PRESENT. PATIENT AMBULATES IN HOME WITH USE OF WALKER. HOME IS NRAT AND TIDY, PATHWAYS ARE CLEAR OF ANY FALL HAZARDS. PATIENT KEEPS A LOG OF BLOOD PRESSURES. NO GLUCOMETER TO CHECK BLOOD SUGAR. VSS, PATIENT SPEAKS IN FULL SENTENCES WITH NAD, LS DIM THROUGHOUT BUT CLEAR, DENIES PAIN. NOISES WITH BOWELS OR BLADDER. APPETITE ADEQUATE. EDUCATION: P.R.N. USE OF ALBUTEROL INHALER FOR SHORTNESS OF BREATH, WHEEZING/COUGH, CARDIAC DIET DISCUSSED INTERVENTIONS NEEDED AT NEXT VISIT: ASSESSMENT TEACHING COMMUNICATION WITH MD: Rosa NAVARRETE MD APPOINTMENT: PCP 02/17 AT 115 PT AND CAREGIVER INSTRUCTED TO CALL [facility] WITH ANY QUESTIONS OR CONCERNS AND/OR CHANGES IN CONDITION. CAREGIVER VERBALIZED UNDERSTANDING</paragraph> Encounters Start Date/Time End Date/Time Encounter Type Admission Type Attending Clinicians Care Facility Care Department Encounter ID Discharge Date Discharge Status Discharge Condition Discharge Reason Percent Goals Met 2024-12-14 00:00:00 2025-02-11 00:00:00 Outpatient [facility] [id number] 59.57
--- OUTSIDE RECORDS SUMMARY | 2025-01-27 14:19 | XMS_ITS | Encounter Summary ---
Author Organization [facility] Address [address] [place] [address] Care Team Providers Care Internet Researcher Name Role Phone Jose Juan Rendon MD Primary Care Provider + [phone] Encounter Details Date Type Department Care Team (Latest Contact Info) Description 11/26/2024 Lab Requisition [facility] - Main Lab [address] [facility] [place] [address] Eva Ivan MD [address] [place] [id number] Other seizures (CMS/HCC); Type 2 diabetes mellitus [...] * Hemoglobin A1c (11/26/2024 5:00 AM EST) [facility] Signature Hemoglobin A1C 6.3 <6.5 % LAB CHEMISTRY METHOD 11/26/2024 1:54 PM EST [facility] Mean Bld Glu Estim. 134 mg/dL LAB CHEMISTRY METHOD 11/26/2024 1:54 PM [facility] Blood Venous blood specimen / Unknown Venipuncture / Unknown 11/26/2024 5:00 AM EST 11/26/2024 10:13 AM EST us Eva Ivan MD LAB BLOOD ORDERABLES Final Resu lt [facility] [address] [place] [address], [place] [phone] * (ABNORMAL) Basic metabolic panel (11/26/2024 5:00 AM EST) Sodium 132(L) 133 - 145 mmol/L LAB CHEMISTRY METHOD 11/26/2024 10:58 AM [facility] Potassium 5.1 3.5 - 5.5 mmol/L LAB CHEMISTRY METHOD 11/26/2024 10:58 AM [facility] Chloride 101 96 - 110 mmol/L LAB CHEMISTRY METHOD 11/26/2024 10:58 AM [facility] CO2 28 21 - 32 mmol/L LAB CHEMISTRY METHOD 11/26/2024 10:58 AM [facility] Anion Gap 3 3 - 11 LAB CHEMISTRY METHOD 11/26/2024 10:58 AM [facility] Glucose 102(H) 70 - 100 mg/dL LAB CHEMISTRY METHOD 11/26/2024 10:58 AM [facility] BUN 10 5 - 25 mg/dL LAB CHEMISTRY METHOD 11/26/2024 10:58 AM [facility] Creatinine 0.52 0.50 - 1.10 mg/dL LAB CHEMISTRY METHOD 11/26/2024 10:58 AM [facility] eGFR 95 >=60 mL/min/1. 73m2 LAB CHEMISTRY METHOD 11/26/2024 10:58 AM [facility] Comment:Calculation based on the??Chronic Kidney Disease Epidemiology Collaboration (CKD-EPI) equation refit??without adjustment for race. BUN/Creatinine Ratio 19.2 LAB CHEMISTRY METHOD 11/26/2024 10:58 AM [facility] Calcium 8.5 8.5 - 10.5 mg/dL LAB CHEMISTRY METHOD 11/26/2024 10:58 AM [facility] Blood Venous blood specimen / Unknown Venipuncture / Unknown 11/26/2024 5:00 AM EST 11/26/2024 10:13 AM EST us Eva Ivan MD LAB BLOOD ORDERABLES Final Resu lt [facility] [address] [place] [address], [place] [phone] * (ABNORMAL) Complete blood count (11/26/2024 5:00 AM EST) WBC 4.9 4.8 - 10.8 K/mcL LAB HEMETOLOGY METHOD 11/26/2024 11:11 AM [facility] RBC 3.70(L) 3.80 - 4.80 M/mcL LAB HEMETOLOGY METHOD 11/26/2024 11:11 AM [facility] Hemoglobin 11.4(L) 11.5 - 16.0 g/dL LAB HEMETOLOGY METHOD 11/26/2024 11:11 AM [facility] Hematocrit 35.5 35.0 - 47.0 % LAB HEMETOLOGY METHOD 11/26/2024 11:11 AM [facility] MCV 96.2 79.0 - 98.0 FL LAB HEMETOLOGY METHOD 11/26/2024 11:11 AM [facility] MCH 30.9 27.0 - 32.0 pcg LAB HEMETOLOGY METHOD 11/26/2024 11:11 AM [facility] MCHC 32.1 32.0 - 37.0 g/dL LAB HEMETOLOGY METHOD 11/26/2024 11:[address] [facility] RDW 13.0 11.0 - 15.0 % LAB HEMETOLOGY METHOD 11/26/2024 11:11 AM [facility] Platelets 269 130 - 400 K/mcL LAB HEMETOLOGY METHOD 11/26/2024 11:11 AM [facility] MPV 9.1 7.0 - 11.0 FL LAB HEMETOLOGY METHOD 11/26/2024 11:[address] [facility] NRBC 0.0 <1.0 % LAB HEMETOLOGY METHOD 11/26/2024 11:11 AM [facility] NRBC Absolute 0.00 <0.10 K/mcL LAB HEMETOLOGY METHOD 11/26/2024 11:11 AM [facility] Blood Venous blood specimen / Unknown Venipuncture / Unknown 11/26/2024 5:00 AM EST 11/26/2024 10:13 AM EST us Eva Ivan MD LAB BLOOD ORDERABLES Final Resu lt [facility] [address] [place] [address], documented in this encounter Visit Diagnoses Diagnosis Other seizures (CMS/HCC) Type 2 diabetes mellitus without complications Unspecified convulsions (CMS/HCC) Chronic obstructive pulmonary disease, unspecified Essential (primary) hypertension Unspecified essential hypertension documented in this encounter Care Teams Internet Researcher Relationship Specialty Start Date End Date Jose Juan Rendon MD [address] [place] [address] Dr Cope Ale Martinez ID PCP - General 01/29/24 documented as of this encounter
--- OUTSIDE RECORDS SUMMARY | 2025-01-27 14:19 | XMS_ITS | Encounter Summary ---
Author Organization [facility] Address [address] [place] [address] Care Team Providers Care Sewer Pipe Layer Helper Name Role Phone Unavailable Primary Care Provider [...]
--- OUTSIDE RECORDS SUMMARY | 2025-01-27 14:19 | XMS_ITS | Clinical Summary ---
Author Organization [facility] Address [address] [place] [address] Care Team Providers Care Skilled Nursing Facility Counselor Name Role Phone Unavailable Primary Care Provider [...]
--- OUTSIDE RECORDS SUMMARY | 2025-01-27 14:19 | XMS_ITS | Encounter Summary ---
Author Organization [facility] Address [address] [address] [place] [address] Care Team Providers Care Elastic Assembler Name Role Phone Unavailable Primary Care Provider [...]
--- OUTSIDE RECORDS SUMMARY | 2025-01-27 14:19 | XMS_ITS | Clinical Summary ---
Author Organization Unknown Care Team Providers Care Tool/Die Maker Name Role Phone ERMIAS PADILLA, ROSALBA Unavailable Unavailable TAMELA RN, ADMISSION NURSE, BRETT Unavail able Unavailable RHIANNON RN, REINA Unavailable Unavailable Payers Payer Name Policy Type Policy Number Effective Date Expira tion Date [facility] [facility] [place] [id number] MEDICAID [facility] [id number] Problems Condition Name Condition Details Condition Category [...] 2.5 mg tablet 11-19 00:00: 00 Yes [id number] Per instruc tions DAILY FOR 90 DAYS Per instructio ns DAILY FOR 90 DAYS (route: oral) Med Classific ation: Cardiovas cular Therapy Agents atorvastati n 20 mg tablet 11-19 00:00: 00 Yes [id number] Per instruc tions BEDTIME FOR 90 DAYS Per instructio ns BEDTIME FOR 90 DAYS (route: oral) Med Classific ation: Cardiovas cular Therapy Agents clonazepam 0.25 mg disintegrat ing tablet 11-13 00:00: 00 Yes [id number] Per instruc tions 30 MINUTES BEFORE BEDTIME NEEDED FOR 30 DAYS Per instructio ns 30 MINUTES BEFORE BEDTIME NEEDED FOR 30 DAYS (route: oral) Med Classific ation: Central Nervous System Agents cholecalcif jerilyn (vitamin D3) 25 mcg (1,000 unit) tablet 12-14 00:00: 00 Yes [id number] 1 tablet DAILY 1 tablet DAILY (route: oral) Med Classific ation: Electroly te Balance-N utritiona l Products latanoprost 0.005 % eye drops 12-14 00:00: 00 Yes [id number] 1 drops DAILY 1 drops DAILY (route: ophthalmic (eye)) Med Classific ation: Ophthalmi c Agents memantine 28 mg capsule sprinkle,ex tended release 24hr 12-14 00:00: 00 Yes [id number] 1 capsule DAILY 1 capsule DAILY (route: oral) Med Classific ation: Cognitive Disorder Therapy omeprazole 20 mg capsule,del ayed release 12-14 00:00: 00 Yes [id number] 1 capsule DAILY 1 capsule DAILY (route: oral) Med Classific ation: Gastroint estinal Therapy Agents Xolair 150 mg/mL subcutaneou s auto-inject or 12-14 00:00: 00 Yes [id number] 150 mg MONTHLY 150 mg MONTHLY (route: subcutaneo us) Med Classific ation: Respirato ry Therapy Agents amlodipine 2.5 mg tablet 3-06 00:00: 00 01-06 23:59 :00 No [id number] 2 tablet DAILY 2 tablet DAILY (route: [...] CVA, RISK FACTORS, AND METHODS TO MANAGE PRISON EFFECTS OF CVA. [code = SKILLED NURSE TO INSTRUCT PATIENT/CAREGIVER ON WARNING SIGNS OF CVA, RISK FACTORS, AND METHODS TO MANAGE PRISON EFFECTS OF CVA.] Future Scheduled Test SKILLED [...] MAINTAIN SITUATIONAL AWARENESS AND WILL NOTIFY CLINICAL SUPERVISOR TWISTING DEPARTMENT AND PHYSICIAN/PROVIDER WITH ANY CHANGE IN CONDITION. [code = SKILLED NURSE TO PERFORM ENVIRONMENTAL SAFETY RISK ASSESSMENT AND FALL RISK ASSESSMENT AND PROVIDE INSTRUCTION TO IMPLEMENT ENVIRONMENTAL SAFETY AND FALL PREVENTION STRATEGIES THROUGHOUT THE CERTIFICATION PERIOD. SKILLED NURSE WILL MAINTAIN SITUATIONAL AWARENESS AND WILL NOTIFY CLINICAL SUPERVISOR TWISTING DEPARTMENT AND PHYSICIAN/PROVIDER WITH ANY CHANGE IN CONDITION.] [...] EVALUATION ONLY (12/20/24) PATIENT IS A PRIMARILY CAMEROONIAN SPEAKING 79 YEAR OLD FEMALE WITH PHYSICAL THERAPY REFERRAL AFTER [facility] ([place] 11[place]) DUE TO FALL ON 11/23/24 AND [...] DAUGHTER NEARBY. 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 HE DAY AND THE LINEMAN. PATIENT HAS MOW. CLOF: DME: FWW, ROLLATOR, SHOWER CHAIR, BEDSIDE COMMODE, BILAT LEG TRESTLE MECHANIC/PEDDLAR, TUB SEAT, TUB TRANSFER BENCH, LIFE ALERT SAFETY RECOMMENDATIONS: BED RAIL ACQUISITION WITH PATIENT AND CG RECEPTIVE. BILAT LE ROM WFL, BILAT LE STRENGTH 4+/5. TO INCREASE BILAT LE STRENGTH: PLANTAR/DORSI FLEX, ANKLE CIRCLES, MARCHING, KNEE EXT. DISPENSED CAMEROONIAN BILAT THER EXER AND REVIEWED WITH PATIENT [...] EVALUATION ONLY (12/20/24) PATIENT IS A PRIMARILY CAMEROONIAN SPEAKING 79 YEAR OLD FEMALE WITH PHYSICAL THERAPY REFERRAL AFTER RECENT [facility] AND [facility] ST[facility] ([place] 11[place]) DUE TO FALL ON 11/23/24 AND [...] DAUGHTER NEARBY. 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 HE DAY AND THE LINEMAN. PATIENT HAS MOW. CLOF: DME: FWW, ROLLATOR, SHOWER CHAIR, BEDSIDE COMMODE, BILAT LEG TRESTLE MECHANIC/PEDDLAR, TUB SEAT, TUB TRANSFER BENCH, LIFE ALERT SAFETY RECOMMENDATIONS: BED RAIL ACQUISITION WITH PATIENT AND CG RECEPTIVE. BILAT LE ROM WFL, BILAT LE STRENGTH 4+/5. TO INCREASE BILAT LE STRENGTH: PLANTAR/DORSI FLEX, ANKLE CIRCLES, MARCHING, KNEE EXT. DISPENSED CAMEROONIAN BILAT THER EXER AND REVIEWED WITH PATIENT [...] 00:00:00 2025-02-11 00:00:00 Outpatient NEW ADMISSION [facility] [id number] 59.57
--- OUTSIDE RECORDS SUMMARY | 2025-01-27 14:20 | XMS_ITS | Clinical Summary ---
Author Organization [facility] Address [address] [place] [address] Phone Care Team Providers Care Litigation Paralegal Name Role Phone Jose Juan Rendon MD Primary Care Provider + [phone] Allergies Active Allergy Reactions Criticality Noted Date [...] Department Care Team Description 11/26/2024 Lab Requisition [facility] - Main Lab [address] [place] [id number] Eva Ivan MD Other seizures (CMS/HCC); Type 2 diabetes mellitus without complications (CMS/HCC); Unspecified convulsions (CMS/HCC); Chronic obstructive pulmonary disease, unspecified (CMS/HCC); Essential (primary) hypertension 11/23/2024 4:07 AM EST - 11/25/2024 3:24 PM EST Emergency [facility] Emergency [address] [place] [id number] Tim Saleem MD Patel, Parth B, MD Dunbar, Kevin F, MD Cheng, Megan Hearn, DO Failure to thrive in adult (Primary Dx); Acute UTI (urinary tract infection) Discharge Disposition: Home or Self Care from Last 3 Months Surgical History Surgery Date Site/Laterality Comments HYSTERECTOMY GALLBLADDER SURGERY N/A Medical History Medical History Date Comments Arthritis Vascular dementia Asthma Diabetes mellitus (CMS/HCC) Hypertension Osteoarthritis COPD [...] Complete blood count (11/26/2024 5:00 AM EST) [facility] Signature WBC 4.9 4.8 - 10.8 K/mcL LAB HEMETOLOGY METHOD 11/26/2024 11:11 AM [facility] LAB RBC 3.70(L) 3.80 - 4.80 M/mcL LAB HEMETOLOGY METHOD 11/26/2024 11:11 AM [facility] LAB Hemoglobin 11.4(L) 11.5 - 16.0 g/dL LAB HEMETOLOGY METHOD 11/26/2024 11:11 AM [facility] LAB Hematocrit 35.5 35.0 - 47.0 % LAB HEMETOLOGY METHOD 11/26/2024 11:11 AM [facility] LAB MCV 96.2 79.0 - 98.0 FL LAB HEMETOLOGY METHOD 11/26/2024 11:11 AM [facility] LAB MCH 30.9 27.0 - 32.0 pcg LAB HEMETOLOGY METHOD 11/26/2024 11:11 AM [facility] LAB MCHC 32.1 32.0 - 37.0 g/dL LAB HEMETOLOGY METHOD 11/26/2024 11:11 AM [facility] LAB RDW 13.0 11.0 - 15.0 % LAB HEMETOLOGY METHOD 11/26/2024 11:11 AM [facility] LAB Platelets 269 130 - 400 K/mcL LAB HEMETOLOGY METHOD 11/26/2024 11:11 AM [facility] LAB MPV 9.1 7.0 - 11.0 FL LAB HEMETOLOGY METHOD 11/26/2024 11:11 AM [facility] LAB NRBC 0.0 <1.0 % LAB HEMETOLOGY METHOD 11/26/2024 11:11 AM [facility] LAB NRBC Absolute 0.00 <0.10 K/mcL LAB HEMETOLOGY METHOD 11/26/2024 11:11 AM EST [facility] Blood Venous blood specimen / Unknown Venipuncture / Unknown 11/26/2024 5:00 AM EST 11/26/2024 10:13 AM EST Eva Ivan MD LAB BLOOD ORDERABLES Final Resu lt Performing Organization Address [facility]/ZIP Co de Phone Number [facility] [address] [place] [address], [place] [phone] * Hemoglobin A1c (11/26/2024 5:00 AM EST) Pathologist [facility] Hemoglobin A1C 6.3 <6.5 % LAB CHEMISTRY METHOD 11/26/2024 1:54 PM EST [facility] Mean Bld Glu Estim. 134 mg/dL LAB CHEMISTRY METHOD 11/26/2024 1:54 PM [facility] Blood Venous blood specimen / Unknown Venipuncture / Unknown 11/26/2024 5:00 AM EST 11/26/2024 10:13 AM EST Eva Ivan MD LAB BLOOD ORDERABLES Final Resu lt Performing Organization Address [facility]/ZIP Co de Phone Number [facility] [address] [place] [address], [place] [phone] * (ABNORMAL) Basic metabolic panel (11/26/2024 5:00 AM EST) Pathologist [facility] Sodium 132(L) 133 - 145 mmol/L LAB CHEMISTRY METHOD 11/26/2024 10:58 AM EST [facility] Potassium 5.1 3.5 - 5.5 mmol/L LAB CHEMISTRY METHOD 11/26/2024 10:58 AM EST [facility] Chloride 101 96 - 110 mmol/L LAB CHEMISTRY METHOD 11/26/2024 10:58 AM EST [facility] CO2 28 21 - 32 mmol/L LAB CHEMISTRY METHOD 11/26/2024 10:58 AM [facility] Anion Gap 3 3 - 11 LAB CHEMISTRY METHOD 11/26/2024 10:58 AM [facility] Glucose 102(H) 70 - 100 mg/dL LAB CHEMISTRY METHOD 11/26/2024 10:58 AM [facility] BUN 10 5 - 25 mg/dL LAB CHEMISTRY METHOD 11/26/2024 10:58 AM [facility] Creatinine 0.52 0.50 - 1.10 mg/dL LAB CHEMISTRY METHOD 11/26/2024 10:58 AM [facility] LAB eGFR 95 >=60 mL/min/1. 73m2 LAB CHEMISTRY METHOD 11/26/2024 10:58 AM [facility] LAB Comment:Calculation based on the??Chronic Kidney Disease Epidemiology Collaboration (CKD-EPI) equation refit??without adjustment for race. BUN/Creatinine Ratio 19.2 LAB CHEMISTRY METHOD 11/26/2024 10:58 AM [facility] Calcium 8.5 8.5 - 10.5 mg/dL LAB CHEMISTRY METHOD 11/26/2024 10:58 AM [facility] Blood Venous blood specimen / Unknown Venipuncture / Unknown 11/26/2024 5:00 AM EST 11/26/2024 10:13 AM EST us Eva Ivan MD LAB BLOOD ORDERABLES Final Resu lt [facility] [address] [place] [address], * (ABNORMAL) POCT Glucose, blood (11/23/2024 12:17 PM EST) Only the most recent of2 resultswithin the time period is included. Glucose POCT 211(H) 70 - 100 mg/dL 11/23/2024 12:18 PM [facility] Blood Capillary blood specimen / Unknown 11/23/2024 12:17 PM EST 11/23/2024 12:19 PM EST Tim Saleem MD LAB POINT OF CARE T EST DOCKED DEVICE UNSOLICITED RESULTS Final Result [facility] [address] [place] [address], [place] [phone] * Respiratory virus panel molecular study (11/23/2024 9:52 AM EST) Adenovirus Detection by PCR Not Detected Not Detected LAB MICROBIOLOGY METHOD 11/23/2024 11:05 AM EST [facility] Influenza A PCR Not Detected Not Detected LAB MICROBIOLOGY METHOD 11/23/2024 11:05 AM [facility] Influenza B PCR Not Detected Not Detected LAB MICROBIOLOGY METHOD 11/23/2024 11:05 AM [facility] Coronavirus 229E Not Detected Not Detected LAB MICROBIOLOGY METHOD 11/23/2024 11:05 AM [facility] Coronavirus HKU1 Not Detected Not Detected LAB MICROBIOLOGY METHOD 11/23/2024 11:05 AM [facility] Coronavirus OC43 Not Detected Not Detected LAB MICROBIOLOGY METHOD 11/23/2024 11:05 AM [facility] Coronavirus NL63 Not Detected Not Detected LAB MICROBIOLOGY METHOD 11/23/2024 11:05 AM [facility] Parainfluenza Virus 1 Not Detected Not Detected LAB MICROBIOLOGY METHOD 11/23/2024 11:05 AM [facility] Parainfluenza Virus 2 Not Detected Not Detected LAB MICROBIOLOGY METHOD 11/23/2024 11:05 AM [facility] Parainfluenza Virus 3 Not Detected Not Detected LAB MICROBIOLOGY METHOD 11/23/2024 11:05 AM [facility] Parainfluenza Virus 4 Not Detected Not Detected LAB MICROBIOLOGY METHOD 11/23/2024 11:05 AM [facility] RSV PCR Not Detected Not Detected LAB MICROBIOLOGY METHOD 11/23/2024 11:05 AM [facility] Human Metapneumovirus A and B Not Detected Not Detected LAB MICROBIOLOGY METHOD 11/23/2024 11:05 AM [facility] Rhinovirus/Entero virus Not Detected Not Detected LAB MICROBIOLOGY METHOD 11/23/2024 11:05 AM [facility] Bordetella pertussis Not Detected Not Detected LAB MICROBIOLOGY METHOD 11/23/2024 11:05 AM [facility] Bordetella parapertussis Not Detected Not Detected LAB MICROBIOLOGY METHOD 11/23/2024 11:05 AM [facility] Mycoplasma pneumo by PCR Not Detected Not Detected LAB MICROBIOLOGY METHOD 11/23/2024 11:05 AM [facility] Chlamydia pneumoniae Not Detected Not Detected LAB MICROBIOLOGY METHOD 11/23/2024 11:05 AM [facility] SARS COV-2 Not Detected Not Detected LAB MICROBIOLOGY METHOD 11/23/2024 11:05 AM [facility] Swab Both anterior nares / Unknown Non-blood Collection / Unknown 11/23/2024 9:52 AM EST 11/23/2024 10:07 AM EST [facility] - 11/23/2024 11:05 AM EST Testing was performed using the [employer] Respiratory Pathogen PCR Assay. All results must [...] that are below the limit of detection. Tim Saleem MD LAB MICROBIOLOGY - GENERAL ORDERABLES Final Result [facility] [address] [place] [address], * CT Chest/Abdomen/Pelvis w Contrast (11/23/2024 6:15 [...] Hayes MD on 11/23/2024 06:55:54 Chris LEONG [facility] PROCEDURES Edited Result - Final * [...] by: Emmett Hayes MD on 11/23/2024 06:02:08 us Chris LEONG IMN[facility]ae[facility] CT PROCEDURES Final Result [...] Hayes MD on 11/23/2024 05:57:[address] PROCEDURES Final Result * (ABNORMAL) Urinalysis with reflex microscopic and culture (11/23/2024 5:25 AM EST) Specific [place] Urine 1.009 1.003 - 1.030 LAB URINALYSIS - AUTOMATED METHOD 11/23/2024 7:53 AM [facility] pH, Urine 8.0 5.0 - 8.0 pH LAB URINALYSIS - AUTOMATED METHOD 11/23/2024 7:53 AM [facility] Leukocytes, Urine Moderate(A) Negative LAB URINALYSIS - AUTOMATED METHOD 11/23/2024 7:53 AM [facility] Nitrite, Urine Positive(A) Negative LAB URINALYSIS - AUTOMATED METHOD 11/23/2024 7:53 AM [facility] Protein, Urine Negative <=Trace mg/dL LAB URINALYSIS - AUTOMATED METHOD 11/23/2024 7:53 AM [facility] Glucose, Urine Negative Negative mg/dL LAB URINALYSIS - AUTOMATED METHOD 11/23/2024 7:53 AM [facility] Ketones, Urine Negative Negative mg/dL LAB URINALYSIS - AUTOMATED METHOD 11/23/2024 7:53 AM [facility] Urobilinogen , Urine 0.2 0.2 - 1.0 mg/dL LAB URINALYSIS - AUTOMATED METHOD 11/23/2024 7:53 AM [facility] Bilirubin, Urine Negative Negative LAB URINALYSIS - AUTOMATED METHOD 11/23/2024 7:53 AM [facility] Blood, Urine Negative Negative LAB URINALYSIS - AUTOMATED METHOD 11/23/2024 7:53 AM [facility] RBC, Urine 1.4 0 - 4 /HPF LAB URINALYSIS - AUTOMATED METHOD 11/23/2024 7:53 AM [facility] WBC, Urine 6.6(H) 0 - 4 /HPF LAB URINALYSIS - AUTOMATED METHOD 11/23/2024 7:53 AM [facility] Squamous Epithelial, Urine 20 0 - 60 /LPF LAB URINALYSIS - AUTOMATED METHOD 11/23/2024 7:53 AM [facility] Bacteria, Urine Many(A) Negative /HPF LAB URINALYSIS - AUTOMATED METHOD 11/23/2024 7:53 AM [facility] Hyaline Casts, Urine 0.0 0 - 3 /LPF LAB URINALYSIS - AUTOMATED METHOD 11/23/2024 7:53 AM [facility] Urine Urinary bladder structure / Unknown Non-blood Collection / Unknown 11/23/2024 5:25 AM EST 11/23/2024 7:01 AM EST Chris LEONG LAB URINE ORDERABLES Final Resul t Performing Organization Address City/[facility]/ZIP Co de Phone Number [facility] [address] [place] [address], [place] [phone] * Orozco urine culture tube (11/23/2024 5:25 AM EST) Extra Tube Hold for add-ons. 11/23/2024 9:01 AM [facility] Comment:Auto resulted. Urine Urinary bladder structure / Unknown Non-blood Collection / Unknown 11/23/2024 5:25 AM EST 11/23/2024 7:01 AM EST us Chris LEONG LAB URINE ORDERABLES Final Resul t Performing Organization Address [facility]/ZIP Co de Phone Number [facility] [address] [place] [address], [place] [phone] * (ABNORMAL) Culture urine (11/23/2024 5:25 AM EST) Culture, Urine >100,000 CFU/mL Klebsiella pneumoniae ssp pneumoniae(A) BRENDA 11/25/2024 10:16 AM EST [facility] Comment: This is an edited result. [...] pneumoniae Trimethoprim/Sulfamethoxazo le BRENDA <=20 ug/ml: Susceptible us Chris LEONG LAB MICROBIOLOGY - GENERAL ORDER BESSIE Final Result [facility] [address] [place] [address], * ECG 12 lead (11/23/2024 5:21 AM EST) Only the most recent of2 resultswithin the time period is included. [facility] Ventricular Rate ECG 70 BPM GEMUSE Atrial Rate 70 BPM GEMUSE P-R Interval 150 ms GEMUSE QRS Duration 76 ms GEMUSE Q-T Interval 376 ms GEMUSE QTc 406 ms GEMUSE P Wave Norris 75 degrees GEMUSE R Norris 25 degrees GEMUSE T Norris 48 degrees GEMUSE ECG Interpretation Normal sinus rhythm Normal ECG When compared with ECG of 23-NOV-2024 04:17, (unconfirmed) No significant change was found Confirmed by KORI ANNE ([id number]) on 11/23/2024 4:50:31 PM GEMUSE 11/23/2024 5:21 AM EST 11/23/2024 4:50 PM EST Tim Saleem MD ECG ORDERABLES Final Resul t Performing Organization Address [facility] de Phone Number GEMUSE * Troponin I high sensitivity (11/23/2024 4:23 AM EST) [facility] High Sensitivity Troponin I 10 <=54 ng/L LAB CHEMISTRY METHOD 11/23/2024 5:00 AM EST [facility] Blood Venous blood specimen / Unknown Venipuncture / Unknown 11/23/2024 4:23 AM EST 11/23/2024 4:33 AM EST Narrative [facility] - 11/23/2024 5:00 AM EST High levels of biotin in samples may falsely decrease hsTroponin values. ??Use caution when interpreting hsTroponin results in patients taking biotin who exhibit renal impairment (eGFR <60) or in patients taking more than 20 mg/day of biotin. us Tim Saleem MD LAB BLOOD ORDERABLES Final Result Performing Organization Address City/[facility]/ZIP Co de Phone Number [facility] [address] [place] [address], [place] [phone] * (ABNORMAL) CBC auto differential (11/23/2024 4:23 AM EST) [facility] WBC 9.0 4.8 - 10.8 K/[facility] LAB HEMETOLOGY METHOD 11/23/2024 4:38 AM [facility] RBC 4.30 3.80 - 4.80 M/[facility] LAB HEMETOLOGY METHOD 11/23/2024 4:38 AM [facility] Hemoglobin 13.2 11.5 - 16.0 g/dL LAB HEMETOLOGY METHOD 11/23/2024 4:38 AM [facility] Hematocrit 40.3 35.0 - 47.0 % LAB HEMETOLOGY METHOD 11/23/2024 4:38 AM [facility] MCV 94.4 79.0 - 98.0 FL LAB HEMETOLOGY METHOD 11/23/2024 4:38 AM [facility] MCH 30.9 27.0 - 32.0 pcg LAB HEMETOLOGY METHOD 11/23/2024 4:38 AM [facility] MCHC 32.8 32.0 - 37.0 g/dL LAB HEMETOLOGY METHOD 11/23/2024 4:38 AM [facility] RDW 12.7 11.0 - 15.0 % LAB HEMETOLOGY METHOD 11/23/2024 4:38 AM [facility] Platelets 276 130 - 400 K/[facility] LAB HEMETOLOGY METHOD 11/23/2024 4:38 AM [facility] MPV 8.3 7.0 - 11.0 FL LAB HEMETOLOGY METHOD 11/23/2024 4:38 AM [facility] NRBC 0.0 <1.0 % LAB HEMETOLOGY METHOD 11/23/2024 4:38 AM [facility] NRBC Absolute 0.00 <0.10 K/[facility] LAB HEMETOLOGY METHOD 11/23/2024 4:38 AM [facility] Neutrophils Relative 81.0 % LAB HEMETOLOGY METHOD 11/23/2024 4:38 AM [facility] Lymphocytes Relative 10.2 % LAB HEMETOLOGY METHOD 11/23/2024 4:38 AM [facility] Monocytes Relative 7.0 % LAB HEMETOLOGY METHOD 11/23/2024 4:38 AM [facility] Eosinophils Relative 1.2 % LAB HEMETOLOGY METHOD 11/23/2024 4:38 AM [facility] Basophils Relative 0.2 % LAB HEMETOLOGY METHOD 11/23/2024 4:38 AM [facility] Immature Granulocytes Relative 0.4 % LAB HEMETOLOGY METHOD 11/23/2024 4:38 AM [facility] Neutrophils Absolute 7.32(H) 1.50 - 7.00 K/mcL LAB HEMETOLOGY METHOD 11/23/2024 4:38 AM [facility] Lymphocytes Absolute 0.92(L) 1.00 - 5.00 K/mcL LAB HEMETOLOGY METHOD 11/23/2024 4:38 AM [facility] Monocytes Absolute 0.63 0.20 - 1.00 K/mcL LAB HEMETOLOGY METHOD 11/23/2024 4:38 AM [facility] Eosinophils Absolute 0.11 0.00 - 0.50 K/mcL LAB HEMETOLOGY METHOD 11/23/2024 4:38 AM [facility] Basophils Absolute 0.02 0.00 - 0.20 K/mcL LAB HEMETOLOGY METHOD 11/23/2024 4:38 AM [facility] Immature Granulocytes Absolute 0.04(H) 0.00 - 0.03 K/mcL LAB HEMETOLOGY METHOD 11/23/2024 4:38 AM [facility] Blood Venous blood specimen / Unknown Venipuncture / Unknown 11/23/2024 4:23 AM EST 11/23/2024 4:33 AM EST Tim Saleem MD LAB BLOOD ORDERABLES Final Result Performing Organization Address [facility] Co de Phone Number [facility] [address] [place] [address], [place] [phone] * Magnesium (11/23/2024 4:23 AM EST) Pathologist [facility] Magnesium 2.6 1.9 - 2.6 mg/dL LAB CHEMISTRY METHOD 11/23/2024 5:09 AM EST [facility] Blood Venous blood specimen / Unknown Venipuncture / Unknown 11/23/2024 4:23 AM EST 11/23/2024 4:33 AM EST Tim Saleem MD LAB BLOOD ORDERABLES Final Result Performing Organization Address [facility] de Phone Number [facility] [address] [place] [address], [place] [phone] * Lipase (11/23/2024 4:23 AM EST) [facility] Lipase 35 13 - 75 unit/L LAB CHEMISTRY METHOD 11/23/2024 5:09 AM EST [facility] Blood Venous blood specimen / Unknown Venipuncture / Unknown 11/23/2024 4:23 AM EST 11/23/2024 4:33 AM EST Tim Saleem MD LAB BLOOD ORDERABLES Final Result Performing Organization Address [facility] Co de Phone Number [facility] [address] [place] [address], [place] [phone] * Cardiac Enzymes - CPK (11/23/2024 4:23 AM EST) Total CK 109 22 - 269 unit/L LAB CHEMISTRY METHOD 11/23/2024 5:09 AM EST [facility] Blood Venous blood specimen / Unknown Venipuncture / Unknown 11/23/2024 4:23 AM EST 11/23/2024 4:33 AM EST us Tim Saleem MD LAB BLOOD ORDERABLES Final Result [facility] [address] [place] [address], * (ABNORMAL) Comprehensive metabolic panel (11/23/2024 4:23 AM EST) Sodium 135 133 - 145 mmol/L LAB CHEMISTRY METHOD 11/23/2024 5:09 AM [facility] Potassium 4.2 3.5 - 5.5 mmol/L LAB CHEMISTRY METHOD 11/23/2024 5:09 AM [facility] Chloride 103 96 - 110 mmol/L LAB CHEMISTRY METHOD 11/23/2024 5:09 AM [facility] CO2 27 21 - 32 mmol/L LAB CHEMISTRY METHOD 11/23/2024 5:09 AM [facility] Anion Gap 5 3 - 11 LAB CHEMISTRY METHOD 11/23/2024 5:09 AM [facility] Glucose 117(H) 70 - 100 mg/dL LAB CHEMISTRY METHOD 11/23/2024 5:09 AM [facility] BUN 10 5 - 25 mg/dL LAB CHEMISTRY METHOD 11/23/2024 5:09 AM [facility] Creatinine 0.51 0.50 - 1.10 mg/dL LAB CHEMISTRY METHOD 11/23/2024 5:09 AM [facility] eGFR 96 >=60 mL/min/1. 73m2 LAB CHEMISTRY METHOD 11/23/2024 5:09 AM [facility] Comment:Calculation based on the??Chronic Kidney Disease Epidemiology Collaboration (CKD-EPI) equation refit??without adjustment for race. BUN/Creatinine Ratio 19.6 LAB CHEMISTRY METHOD 11/23/2024 5:09 AM [facility] Calcium 9.1 8.5 - 10.5 mg/dL LAB CHEMISTRY METHOD 11/23/2024 5:09 AM [facility] AST (SGOT) 11 10 - 42 unit/L LAB CHEMISTRY METHOD 11/23/2024 5:09 AM [facility] ALT (SGPT) 20 10 - 60 unit/L LAB CHEMISTRY METHOD 11/23/2024 5:09 AM [facility] Alkaline Phosphatase 93 42 - 121 unit/L LAB CHEMISTRY METHOD 11/23/2024 5:09 AM [facility] Total Protein 6.8 6.0 - 8.0 g/dL LAB CHEMISTRY METHOD 11/23/2024 5:09 AM [facility] Albumin 3.8 3.2 - 5.0 g/dL LAB CHEMISTRY METHOD 11/23/2024 5:09 AM [facility] Total Bilirubin 0.5 0.0 - 1.4 mg/dL LAB CHEMISTRY METHOD 11/23/2024 5:09 AM [facility] Blood Venous blood specimen / Unknown Venipuncture / Unknown 11/23/2024 4:23 AM EST 11/23/2024 4:33 AM EST Tim Saleem MD LAB BLOOD ORDERABLES Final Result [facility] [address] [place] [address], * ECG-Annotated (11/23/2024) us Provider Onbase ECG ORDERABLES Final Result from Last 3 Months Insurance MEDICAID - [place] MEDICARE Advance Directives Documents on File Type Date Recorded 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 Do not modify or discontinue any currently active code status orders. Care Teams Litigation Paralegal Relationship Specialty Start Date End Date Jose Juan Rendon MD [address] [place] [address] Dr [address] [place], [place] PCP - General 01/29/24
== END 2025-01-27 14:26 | disposition home or self-care (01) ==
LOC: HO.HSMS 12:42
PROVIDERS: PCP Internal Medicine; Visit Provider Nurse Practitioner Family
DX: F03.B18 Unspecified dementia, moderate, with other behavioral disturbance (principal); R13.10 Dysphagia, unspecified; R42 Dizziness and giddiness; R41.3 Other amnesia
CPT/HCPCS: 99214

== ENCOUNTER → 2025-01-27 12:42 | Outpatient (BNVA) | payer MEDICARE, MEDICAID, SELFPAY | PROVIDERS: PCP Internal Medicine; Visit Provider Nurse Practitioner Family | DX: F03.B18 Unspecified dementia, moderate, with other behavioral disturbance (principal); R13.10 Dysphagia, unspecified; R42 Dizziness and giddiness; R41.3 Other amnesia | CPT/HCPCS: 99212 ==

== ENCOUNTER 2025-02-17 12:51 | Outpatient (AMB) | payer MEDICARE, MEDICAID, SELFPAY ==
--- OUTSIDE RECORDS SUMMARY | 2025-02-17 12:53 | XMS_ITS | Encounter Summary ---
Author Organization [facility] Address [address] [place] [address] Care Team Providers Care Steam Room Attendant Name Role Phone Unavailable Primary [...]
--- OUTSIDE RECORDS SUMMARY | 2025-02-17 12:53 | XMS_ITS | Clinical Summary ---
Author Organization [facility] [employer] [facility] Address [address] [place] [address] Care Team Providers Care Wound Care Technician Name Role Phone Unavailable Primary Care Provider [...]
--- OUTSIDE RECORDS SUMMARY | 2025-02-17 12:53 | XMS_ITS | Encounter Summary ---
Author Organization [facility] Address [address] [place] [address] Care Team Providers Care Cath Lab Tech Name Role Phone Unavailable Primary Care Provider [...]
--- OUTSIDE RECORDS SUMMARY | 2025-02-17 12:53 | XMS_ITS | Clinical Summary ---
Author Organization [facility] Address [address] [place] [address] Phone Care Team Providers Care Building Service Worker Name Role Phone Jose Juan Rendon MD Primary Care Provider + [phone] Allergies Active Allergy Reactions Criticality Noted Date [...] Department Care Team Description 11/26/2024 Lab Requisition [facility] - Main Lab [address] [place] [id number] Eva Ivan MD Other seizures ([facility] V24, [facility] V28); Type 2 diabetes mellitus without complications ([facility] V24, [facility] V28); Unspecified convulsions ([facility] V24, [facility] V28); Chronic obstructive pulmonary disease, unspecified ([facility] V24, [facility] V28); Essential (primary) hypertension 11/23/2024 4:07 AM EST - 11/25/2024 3:24 PM [facility] Emergency [facility] Emergency [address] [place] [id number] Tim Saleem MD Patel, Parth B, MD Dunbar, Kevin F, MD Cheng, Ting Ho Danny, Failure to thrive in adult (Primary Dx); Acute UTI (urinary tract infection) Discharge Disposition: Home or Self Care from Last 3 Months Surgical History Surgery Date Site/Laterality Comments HYSTERECTOMY GALLBLADDER SURGERY N/A Medical History Medical History Date Comments Arthritis Vascular dementia ([facility] V24, [facility] V28) Asthma Diabetes mellitus ([facility] V24, [facility] V28) Hypertension Osteoarthritis COPD (chronic obstructive pulmonary disease) ( [facility] V24, [facility] V28) Seizures ([facility] V24, [facility] V28) Stroke ([facility] V24, [facility] V28) Cancer ([facility] V24, [facility] V28) Depression Anxiety Social History Tobacco Use Types [...] Vaccines (1 of 2) 1996 RSV Immunization Adult Patients (1 - 1-dose 75+ series) 2021 Cholesterol Screening (Lipid Panel) 11/24/2023 Depression Screening 11/24/2023 Falls Risk Assessment 11/24/2023 Hepatitis C Screening 11/24/2023 Medicare Annual Wellness Visit 11/24/2023 Osteoporosis Screening (Bone Density Screening) 11/24/2023 Social Influencers of Health Screening 11/24/2023 Diabetes: Annual Urine Albumin-Creatinine Ratio (uACR) 05/23/2024 COVID-19 Vaccine (1 - 2023-2 5 season) 2024 DTaP,Tdap,and Td Vaccines (2 - Td or Tdap) 04/05/2025 04/05/2015 Diabetes: Blood Sugar Contro l Test (HGBA1C) 05/26/2025 11/26/2024 Influenza Vaccine (Season Ended) 2025 Diabetes: Annual GFR (Glomerular Filtration Rate) 11/26/2025 [...] age to complete this topic Meningococcal B Vaccine Aged Out No l onger eligible based on patient's age to complete [...] Complete blood count (11/26/2024 5:00 AM EST) [facility] Signature WBC 4.9 4.8 - 10.8 K/mcL LAB HEMETOLOGY METHOD 11/26/2024 11:11 AM [facility] RBC 3.70(L) 3.80 - 4.80 M/mcL LAB HEMETOLOGY METHOD 11/26/2024 11:11 AM [facility] Hemoglobin 11.4(L) 11.5 - 16.0 g/dL LAB HEMETOLOGY METHOD 11/26/2024 11:11 AM [facility] Hematocrit 35.5 35.0 - 47.0 % LAB HEMETOLOGY METHOD 11/26/2024 11:11 AM [facility] MCV 96.2 79.0 - 98.0 FL LAB HEMETOLOGY METHOD 11/26/2024 11:11 AM [facility] MCH 30.9 27.0 - 32.0 pcg LAB HEMETOLOGY METHOD 11/26/2024 11:11 AM [facility] MCHC 32.1 32.0 - 37.0 g/dL LAB HEMETOLOGY METHOD 11/26/2024 11:11 AM [facility] RDW 13.0 11.0 - 15.0 % LAB HEMETOLOGY METHOD 11/26/2024 11:11 AM [facility] Platelets 269 130 - 400 K/mcL LAB HEMETOLOGY METHOD 11/26/2024 11:11 AM [facility] MPV 9.1 7.0 - 11.0 FL LAB HEMETOLOGY METHOD 11/26/2024 11:[address] [facility] NRBC 0.0 <1.0 % LAB HEMETOLOGY METHOD 11/26/2024 11:[address] [facility] NRBC Absolute 0.00 <0.10 K/mcL LAB HEMETOLOGY METHOD 11/26/2024 11:[address] [facility] Blood Venous blood specimen / Unknown Venipuncture / Unknown 11/26/2024 5:00 AM EST 11/26/2024 10:13 AM EST us Eva Ivan MD LAB BLOOD ORDERABLES Final Resu lt [facility] [address] [place] [address], [place] [phone] * Hemoglobin A1c (11/26/2024 5:00 AM EST) Hemoglobin A1C 6.3 <6.5 % LAB CHEMISTRY METHOD 11/26/2024 1:[address] [facility] Mean Bld Glu Estim. 134 mg/dL LAB CHEMISTRY METHOD 11/26/2024 1:[address] [facility] Blood Venous blood specimen / Unknown Venipuncture / Unknown 11/26/2024 5:00 AM EST 11/26/2024 10:13 AM EST us Eva Ivan MD LAB BLOOD ORDERABLES Final Resu lt [facility] [address] [place] [address], [place] [phone] * (ABNORMAL) Basic metabolic panel (11/26/2024 5:00 AM EST) Sodium 132(L) 133 - 145 mmol/L LAB CHEMISTRY METHOD 11/26/2024 10:[address] [facility] Potassium 5.1 3.5 - 5.5 mmol/L LAB CHEMISTRY METHOD 11/26/2024 10:58 AM [facility] Chloride 101 96 - 110 mmol/L LAB CHEMISTRY METHOD 11/26/2024 10:58 AM [facility] CO2 28 21 - 32 mmol/L LAB CHEMISTRY METHOD 11/26/2024 10:58 AM [facility] Anion Gap 3 3 - 11 LAB CHEMISTRY METHOD 11/26/2024 10:58 AM [facility] Glucose 102(H) 70 - 100 mg/dL LAB CHEMISTRY METHOD 11/26/2024 10:58 AM [facility] BUN 10 5 - 25 mg/dL LAB CHEMISTRY METHOD 11/26/2024 10:58 AM [facility] Creatinine 0.52 0.50 - 1.10 mg/dL LAB CHEMISTRY METHOD 11/26/2024 10:58 AM [facility] eGFR 95 >=60 mL/min/1. 73m2 LAB CHEMISTRY METHOD 11/26/2024 10:58 AM [facility] Comment:Calculation based on the??Chronic Kidney Disease Epidemiology Collaboration (CKD-EPI) equation refit??without adjustment for race. BUN/Creatinine Ratio 19.2 LAB CHEMISTRY METHOD 11/26/2024 10:58 AM [facility] Calcium 8.5 8.5 - 10.5 mg/dL LAB CHEMISTRY METHOD 11/26/2024 10:58 AM [facility] Blood Venous blood specimen / Unknown Venipuncture / Unknown 11/26/2024 5:00 AM EST 11/26/2024 10:13 AM EST us Eva Ivan MD LAB BLOOD ORDERABLES Final Resu lt [facility] [address] [place] [address], * (ABNORMAL) POCT Glucose, blood (11/23/2024 12:17 PM EST) Only the most recent of2 resultswithin the time period is included. [facility] Glucose POCT 211(H) 70 - 100 mg/dL 11/23/2024 12:[address] [facility] Blood Capillary blood specimen / Unknown 11/23/2024 12:17 PM EST 11/23/2024 12:19 PM EST Tim Saleem MD LAB POINT OF CARE T EST DOCKED DEVICE UNSOLICITED RESULTS Final Result [facility] [address] [place] [address], * Respiratory virus panel molecular study (11/23/2024 9:52 AM EST) [facility] Adenovirus Detection by PCR Not Detected Not Detected LAB MICROBIOLOGY METHOD 11/23/2024 11:05 AM [facility] Influenza A PCR Not Detected Not Detected LAB MICROBIOLOGY METHOD 11/23/2024 11:05 AM [facility] Influenza B PCR Not Detected Not Detected LAB MICROBIOLOGY METHOD 11/23/2024 11:05 AM [facility] Coronavirus 229E Not Detected Not Detected LAB MICROBIOLOGY METHOD 11/23/2024 11:05 AM [facility] Coronavirus HKU1 Not Detected Not Detected LAB MICROBIOLOGY METHOD 11/23/2024 11:05 AM [facility] Coronavirus OC43 Not Detected Not Detected LAB MICROBIOLOGY METHOD 11/23/2024 11:05 AM [facility] Coronavirus NL63 Not Detected Not Detected LAB MICROBIOLOGY METHOD 11/23/2024 11:05 AM [facility] Parainfluenza Virus 1 Not Detected Not Detected LAB MICROBIOLOGY METHOD 11/23/2024 11:05 AM [facility] Parainfluenza Virus 2 Not Detected Not Detected LAB MICROBIOLOGY METHOD 11/23/2024 11:05 AM [facility] Parainfluenza Virus 3 Not Detected Not Detected LAB MICROBIOLOGY METHOD 11/23/2024 11:05 AM [facility] Parainfluenza Virus 4 Not Detected Not Detected LAB MICROBIOLOGY METHOD 11/23/2024 11:05 AM [facility] RSV PCR Not Detected Not Detected LAB MICROBIOLOGY METHOD 11/23/2024 11:05 AM [facility] Human Metapneumovirus A and B Not Detected Not Detected LAB MICROBIOLOGY METHOD 11/23/2024 11:05 AM [facility] Rhinovirus/Entero virus Not Detected Not Detected LAB MICROBIOLOGY METHOD 11/23/2024 11:05 AM [facility] Bordetella pertussis Not Detected Not Detected LAB MICROBIOLOGY METHOD 11/23/2024 11:05 AM [facility] Bordetella parapertussis Not Detected Not Detected LAB MICROBIOLOGY METHOD 11/23/2024 11:05 AM [facility] Mycoplasma pneumo by PCR Not Detected Not Detected LAB MICROBIOLOGY METHOD 11/23/2024 11:05 AM [facility] Chlamydia pneumoniae Not Detected Not Detected LAB MICROBIOLOGY METHOD 11/23/2024 11:05 AM [facility] SARS COV-2 Not Detected Not Detected LAB MICROBIOLOGY METHOD 11/23/2024 11:05 AM [facility] Swab Both anterior nares / Unknown Non-blood Collection / Unknown 11/23/2024 9:52 AM EST 11/23/2024 10:07 AM [facility] - 11/23/2024 11:05 AM EST Testing was performed using the [employer] Respiratory Pathogen PCR Assay. All results must [...] LAB MICROBIOLOGY - GENERAL ORDERABLES Final Result [facility]) [facility] [address] [place] [address], [place] [phone] * CT Chest/Abdomen/Pelvis w Contrast (11/23/2024 6:15 [...] Hayes MD on 11/23/2024 06:55:54 Chris LEONG [facility] [place] PROCEDURES Edited Result - Final * [...] Hayes MD on 11/23/2024 05:57:51 Chris LEONG [facility] [place] PROCEDURES Final Result * (ABNORMAL) Urinalysis with reflex microscopic and culture (11/23/2024 5:25 AM EST) Specific [place] Urine 1.009 1.003 - 1.030 LAB URINALYSIS - AUTOMATED METHOD 11/23/2024 7:53 AM [facility] pH, Urine 8.0 5.0 - 8.0 pH LAB URINALYSIS - AUTOMATED METHOD 11/23/2024 7:53 AM [facility] Leukocytes, Urine Moderate(A) Negative LAB URINALYSIS - AUTOMATED METHOD 11/23/2024 7:53 AM [facility] Nitrite, Urine Positive(A) Negative LAB URINALYSIS - AUTOMATED METHOD 11/23/2024 7:53 AM [facility] Protein, Urine Negative <=Trace mg/dL LAB URINALYSIS - AUTOMATED METHOD 11/23/2024 7:53 AM [facility] Glucose, Urine Negative Negative mg/dL LAB URINALYSIS - AUTOMATED METHOD 11/23/2024 7:53 AM [facility] Ketones, Urine Negative Negative mg/dL LAB URINALYSIS - AUTOMATED METHOD 11/23/2024 7:53 AM [facility] Urobilinogen , Urine 0.2 0.2 - 1.0 mg/dL LAB URINALYSIS - AUTOMATED METHOD 11/23/2024 7:53 AM [facility] Bilirubin, Urine Negative Negative LAB URINALYSIS - AUTOMATED METHOD 11/23/2024 7:53 AM [facility] Blood, Urine Negative Negative LAB URINALYSIS - AUTOMATED METHOD 11/23/2024 7:53 AM [facility] RBC, Urine 1.4 0 - 4 /HPF LAB URINALYSIS - AUTOMATED METHOD 11/23/2024 7:53 AM [facility] WBC, Urine 6.6(H) 0 - 4 /HPF LAB URINALYSIS - AUTOMATED METHOD 11/23/2024 7:53 AM [facility] Squamous Epithelial, Urine 20 0 - 60 /LPF LAB URINALYSIS - AUTOMATED METHOD 11/23/2024 7:53 AM [facility] Bacteria, Urine Many(A) Negative /HPF LAB URINALYSIS - AUTOMATED METHOD 11/23/2024 7:53 AM [facility] Hyaline Casts, Urine 0.0 0 - 3 /LPF LAB URINALYSIS - AUTOMATED METHOD 11/23/2024 7:53 AM [facility] Urine Urinary bladder structure / Unknown Non-blood Collection / Unknown 11/23/2024 5:25 AM EST 11/23/2024 7:01 AM EST us Chris LEONG LAB URINE ORDERABLES Final Resul t [facility] [address] [place] [address], * Orozco urine culture tube (11/23/2024 5:25 AM EST) Extra Tube Hold for add-ons. 11/23/2024 9:01 AM [facility] Comment:Auto resulted. Urine Urinary bladder structure / Unknown Non-blood Collection / Unknown 11/23/2024 5:25 AM EST 11/23/2024 7:01 AM EST Chris LEONG LAB URINE ORDERABLES Final Resul t [facility] ([facility]) [facility] [address] [place] [address], [place] [phone] * (ABNORMAL) Culture urine (11/23/2024 5:25 AM EST) Culture, Urine >100,000 CFU/mL Klebsiella pneumoniae ssp pneumoniae(A) BRENDA 11/25/2024 10:16 AM EST [facility] ([facility]) [facility] Comment: This is an [...] ORDER BESSIE Final Result Performing Organization Address City/[facility]/ZIP Co de Phone Number [facility] [address] [place] [address], * ECG 12 lead (11/23/2024 5:21 AM EST) Only the most recent of2 resultswithin the time period is included. Pathologist [facility] Ventricular Rate ECG 70 BPM GEMUSE Atrial Rate 70 BPM GEMUSE P-R Interval 150 ms GEMUSE QRS Duration 76 ms GEMUSE Q-T Interval 376 ms GEMUSE QTc 406 ms GEMUSE P Wave [place] 75 degrees GEMUSE R [place] 25 degrees GEMUSE T [place] 48 degrees GEMUSE ECG Interpretation Normal sinus rhythm Normal ECG When compared with ECG of 23-NOV-2024 04:17, (unconfirmed) No significant change was found Confirmed by KORI ANNE ([id number]) on 11/23/2024 4:50:31 PM GEMUSE 11/23/2024 5:21 AM EST 11/23/2024 4:50 PM EST Tim Saleem MD ECG ORDERABLES Final Resul t Performing Organization Address City/[facility] Co de Phone Number GEMUSE * Troponin I high sensitivity (11/23/2024 4:23 AM EST) [facility] High Sensitivity Troponin I 10 <=54 ng/L LAB CHEMISTRY METHOD 11/23/2024 5:[address] [facility] Blood Venous blood specimen / Unknown Venipuncture / Unknown 11/23/2024 4:23 AM EST 11/23/2024 4:[address] [facility] - 11/23/2024 5:00 AM EST High levels of biotin in samples may falsely decrease hsTroponin values. ??Use caution when interpreting hsTroponin results in patients taking biotin who exhibit renal impairment (eGFR <60) or in patients taking more than 20 mg/day of biotin. us Tim Saleem MD LAB BLOOD ORDERABLES Final Result [facility] [address] [place] [address], * (ABNORMAL) CBC auto differential (11/23/2024 4:23 AM EST) [facility] Signature WBC 9.0 4.8 - 10.8 K/mcL LAB HEMETOLOGY METHOD 11/23/2024 4:38 AM [facility] RBC 4.30 3.80 - 4.80 M/mcL LAB HEMETOLOGY METHOD 11/23/2024 4:38 AM [facility] Hemoglobin 13.2 11.5 - 16.0 g/dL LAB HEMETOLOGY METHOD 11/23/2024 4:38 AM [facility] Hematocrit 40.3 35.0 - 47.0 % LAB HEMETOLOGY METHOD 11/23/2024 4:38 AM [facility] MCV 94.4 79.0 - 98.0 FL LAB HEMETOLOGY METHOD 11/23/2024 4:38 AM [facility] MCH 30.9 27.0 - 32.0 pcg LAB HEMETOLOGY METHOD 11/23/2024 4:38 AM [facility] MCHC 32.8 32.0 - 37.0 g/dL LAB HEMETOLOGY METHOD 11/23/2024 4:38 AM [facility] RDW 12.7 11.0 - 15.0 % LAB HEMETOLOGY METHOD 11/23/2024 4:38 AM [facility] Platelets 276 130 - 400 K/mcL LAB HEMETOLOGY METHOD 11/23/2024 4:38 AM [facility] MPV 8.3 7.0 - 11.0 FL LAB HEMETOLOGY METHOD 11/23/2024 4:38 AM [facility] NRBC 0.0 <1.0 % LAB HEMETOLOGY METHOD 11/23/2024 4:38 AM [facility] NRBC Absolute 0.00 <0.10 K/mcL LAB HEMETOLOGY METHOD 11/23/2024 4:38 AM [facility] Neutrophils Relative 81.0 % LAB HEMETOLOGY METHOD 11/23/2024 4:38 AM [facility] Lymphocytes Relative 10.2 % LAB HEMETOLOGY METHOD 11/23/2024 4:38 AM [facility] Monocytes Relative 7.0 % LAB HEMETOLOGY METHOD 11/23/2024 4:38 AM [facility] Eosinophils Relative 1.2 % LAB HEMETOLOGY METHOD 11/23/2024 4:38 AM [facility] Basophils Relative 0.2 % LAB HEMETOLOGY METHOD 11/23/2024 4:38 AM [facility] Immature Granulocytes Relative 0.4 % LAB HEMETOLOGY METHOD 11/23/2024 4:38 AM [facility] Neutrophils Absolute 7.32(H) 1.50 - 7.00 K/mcL LAB HEMETOLOGY METHOD 11/23/2024 4:38 AM [facility] Lymphocytes Absolute 0.92(L) 1.00 - 5.00 K/mcL LAB HEMETOLOGY METHOD 11/23/2024 4:38 AM [facility] Monocytes Absolute 0.63 0.20 - 1.00 K/mcL LAB HEMETOLOGY METHOD 11/23/2024 4:38 AM [facility] Eosinophils Absolute 0.11 0.00 - 0.50 K/mcL LAB HEMETOLOGY METHOD 11/23/2024 4:38 AM [facility] Basophils Absolute 0.02 0.00 - 0.20 K/mcL LAB HEMETOLOGY METHOD 11/23/2024 4:38 AM [facility] Immature Granulocytes Absolute 0.04(H) 0.00 - 0.03 K/mcL LAB HEMETOLOGY METHOD 11/23/2024 4:[address] [facility] Blood Venous blood specimen / Unknown Venipuncture / Unknown 11/23/2024 4:23 AM EST 11/23/2024 4:33 AM EST Tim Saleem MD LAB BLOOD ORDERABLES Final Result Performing Organization Address City/[facility]/ZIP Co de Phone Number [facility] [address] [place] [address], [place] [phone] * Magnesium (11/23/2024 4:23 AM EST) Magnesium 2.6 1.9 - 2.6 mg/dL LAB CHEMISTRY METHOD 11/23/2024 5:[address] [facility] Blood Venous blood specimen / Unknown Venipuncture / Unknown 11/23/2024 4:23 AM EST 11/23/2024 4:33 AM EST Tim Saleem MD LAB BLOOD ORDERABLES Final Result Performing Organization Address [facility] Co de Phone Number [facility] [address] [place] [address], [place] [phone] * Lipase (11/23/2024 4:23 AM EST) Lipase 35 13 - 75 unit/L LAB CHEMISTRY METHOD 11/23/2024 5:[address] [facility] Blood Venous blood specimen / Unknown Venipuncture / Unknown 11/23/2024 4:23 AM EST 11/23/2024 4:33 AM EST Tim Saleem MD LAB BLOOD ORDERABLES Final Result Performing Organization Address City/[facility]/ZIP Co de Phone Number [facility] [address] [place] [address], [place] [phone] * Cardiac Enzymes - CPK (11/23/2024 4:23 AM EST) Pathologist [facility] Total CK 109 22 - 269 unit/L LAB CHEMISTRY METHOD 11/23/2024 5:09 AM [facility] Blood Venous blood specimen / Unknown Venipuncture / Unknown 11/23/2024 4:23 AM EST 11/23/2024 4:33 AM EST us Tim Saleem MD LAB BLOOD ORDERABLES Final Result [facility] [address] [place] [address], [place] [phone] * (ABNORMAL) Comprehensive metabolic panel (11/23/2024 4:23 AM EST) [facility] Sodium 135 133 - 145 mmol/L LAB CHEMISTRY METHOD 11/23/2024 5:09 AM [facility] Potassium 4.2 3.5 - 5.5 mmol/L LAB CHEMISTRY METHOD 11/23/2024 5:09 AM [facility] Chloride 103 96 - 110 mmol/L LAB CHEMISTRY METHOD 11/23/2024 5:09 AM [facility] CO2 27 21 - 32 mmol/L LAB CHEMISTRY METHOD 11/23/2024 5:09 AM [facility] Anion Gap 5 3 - 11 LAB CHEMISTRY METHOD 11/23/2024 5:09 AM [facility] Glucose 117(H) 70 - 100 mg/dL LAB CHEMISTRY METHOD 11/23/2024 5:09 AM [facility] BUN 10 5 - 25 mg/dL LAB CHEMISTRY METHOD 11/23/2024 5:09 AM [facility] Creatinine 0.51 0.50 - 1.10 mg/dL LAB CHEMISTRY METHOD 11/23/2024 5:09 AM [facility] eGFR 96 >=60 mL/min/1. 73m2 LAB CHEMISTRY METHOD 11/23/2024 5:09 AM [facility] Comment:Calculation based on the??Chronic Kidney Disease Epidemiology Collaboration (CKD-EPI) equation refit??without adjustment for race. BUN/Creatinine Ratio 19.6 LAB CHEMISTRY METHOD 11/23/2024 5:09 AM [facility] Calcium 9.1 8.5 - 10.5 mg/dL LAB CHEMISTRY METHOD 11/23/2024 5:09 AM [facility] AST (SGOT) 11 10 - 42 unit/L LAB CHEMISTRY METHOD 11/23/2024 5:09 AM [facility] ALT (SGPT) 20 10 - 60 unit/L LAB CHEMISTRY METHOD 11/23/2024 5:09 AM [facility] Alkaline Phosphatase 93 42 - 121 unit/L LAB CHEMISTRY METHOD 11/23/2024 5:09 AM [facility] Total Protein 6.8 6.0 - 8.0 g/dL LAB CHEMISTRY METHOD 11/23/2024 5:09 AM [facility] Albumin 3.8 3.2 - 5.0 g/dL LAB CHEMISTRY METHOD 11/23/2024 5:09 AM [facility] Total Bilirubin 0.5 0.0 - 1.4 mg/dL LAB CHEMISTRY METHOD 11/23/2024 5:09 AM [facility] Blood Venous blood specimen / Unknown Venipuncture / Unknown 11/23/2024 4:23 AM EST 11/23/2024 4:33 AM EST us Tim Saleem MD LAB BLOOD ORDERABLES Final Result [facility] [address] [place] [address], * ECG-Annotated (11/23/2024) us Provider Onbase ECG ORDERABLES Final Result from Last 3 Months Insurance [place] Advance Directives Documents on File Type Date Recorded Patient Outdoor Pursuits Instructor Expl anation Health Care Decision (hx) 02/18/2024 HE ALTH CARE PROXY * Full Code - Confirmed (Latest Code Status on File) Date Activated Date Inactivated Comments 11/23/2024 7:28 AM 11/25/2024 5:[address] [facility] was ascertained in the following way: Code status discussion: discussion with healthcare guest service representative To update the patient's code status, place a code status order. Do not modify or discontinue any currently active code status orders. Care Teams Building Service Worker Relationship Specialty Start Date End Date Jose Juan Rendon MD [address] [place] [address] [address] JOSEF Henriquez PCP - General 01/29/24
--- OUTSIDE RECORDS SUMMARY | 2025-02-17 12:53 | XMS_ITS | Encounter Summary ---
Author Organization [facility] Address [address] [place] [address] Care Team Providers Care Mainframe Analyst Name Role Phone Jose Juan Rendon MD Primary Care Provider + [phone] Encounter Details Date Type Department Care Team (Latest Contact Info) Description 11/26/2024 Lab Requisition [facility] - Main Lab [address] [facility] [place] [address] Eva Ivan MD [address] [place] [id number] Other seizures (CMS/HCC V24, CMS/HCC V28); Type 2 diabetes mellitus without complications (CMS/HCC V24, CMS/HCC V28); Unspecified convulsions (CMS/HCC V24, CMS/HCC V28); Chronic obstructive pulmonary disease, unspecified (CMS/HCC V24, CMS/HCC V28); Essential (primary) hypertension Social History Tobacco Use [...] % LAB CHEMISTRY METHOD 11/26/2024 1:54 PM [facility] Mean Bld Glu Estim. 134 mg/dL LAB CHEMISTRY METHOD 11/26/2024 1:54 PM [facility] Blood Venous blood specimen / Unknown Venipuncture / Unknown 11/26/2024 5:00 AM EST 11/26/2024 10:13 AM EST us Eva Ivan MD LAB BLOOD ORDERABLES Final Resu lt [facility] [address] [place] [address], [place] [phone] * (ABNORMAL) Basic metabolic panel (11/26/2024 5:00 AM EST) [facility] Sodium 132(L) 133 - 145 mmol/L LAB CHEMISTRY METHOD 11/26/2024 10:58 AM [facility] Potassium 5.1 3.5 - 5.5 mmol/L LAB CHEMISTRY METHOD 11/26/2024 10:58 AM [facility] Chloride 101 96 - 110 mmol/L LAB CHEMISTRY METHOD 11/26/2024 10:58 AM [facility] CO2 28 21 - 32 mmol/L LAB CHEMISTRY METHOD 11/26/2024 10:58 AM [facility] Anion Gap 3 3 - 11 LAB CHEMISTRY METHOD 11/26/2024 10:58 AM [facility] Glucose 102(H) 70 - 100 mg/dL LAB CHEMISTRY METHOD 11/26/2024 10:58 AM [facility] BUN 10 5 - 25 mg/dL LAB CHEMISTRY METHOD 11/26/2024 10:58 AM [facility] Creatinine 0.52 0.50 - 1.10 mg/dL LAB CHEMISTRY METHOD 11/26/2024 10:58 AM EST [facility] eGFR 95 >=60 mL/min/1. 73m2 LAB CHEMISTRY METHOD 11/26/2024 10:58 AM EST [facility] Comment:Calculation based on the??Chronic Kidney Disease Epidemiology Collaboration (CKD-EPI) equation refit??without adjustment for race. BUN/Creatinine Ratio 19.2 LAB CHEMISTRY METHOD 11/26/2024 10:58 AM [facility] Calcium 8.5 8.5 - 10.5 mg/dL LAB CHEMISTRY METHOD 11/26/2024 10:58 AM [facility] Blood Venous blood specimen / Unknown Venipuncture / Unknown 11/26/2024 5:00 AM EST 11/26/2024 10:13 AM EST us Eva Ivan MD LAB BLOOD ORDERABLES Final Resu lt [facility] [address] [place] [address], * (ABNORMAL) Complete blood count (11/26/2024 5:00 AM EST) WBC 4.9 4.8 - 10.8 K/mcL LAB HEMETOLOGY METHOD 11/26/2024 11:11 AM [facility] RBC 3.70(L) 3.80 - 4.80 M/mcL LAB HEMETOLOGY METHOD 11/26/2024 11:11 AM [facility] Hemoglobin 11.4(L) 11.5 - 16.0 g/dL LAB HEMETOLOGY METHOD 11/26/2024 11:11 AM [facility] Hematocrit 35.5 35.0 - 47.0 % LAB HEMETOLOGY METHOD 11/26/2024 11:11 AM [facility] MCV 96.2 79.0 - 98.0 FL LAB HEMETOLOGY METHOD 11/26/2024 11:11 AM [facility] MCH 30.9 27.0 - 32.0 pcg LAB HEMETOLOGY METHOD 11/26/2024 11:11 AM EST [facility] MCHC 32.1 32.0 - 37.0 g/dL LAB HEMETOLOGY METHOD 11/26/2024 11:11 AM [facility] RDW 13.0 11.0 - 15.0 % LAB HEMETOLOGY METHOD 11/26/2024 11:11 AM EST [facility] Platelets 269 130 - 400 K/mcL LAB HEMETOLOGY METHOD 11/26/2024 11:11 AM [facility] MPV 9.1 7.0 - 11.0 FL LAB HEMETOLOGY METHOD 11/26/2024 11:11 AM [facility] NRBC 0.0 <1.0 % LAB HEMETOLOGY METHOD 11/26/2024 11:11 AM [facility] NRBC Absolute 0.00 <0.10 K/mcL LAB HEMETOLOGY METHOD 11/26/2024 11:11 AM [facility] Blood Venous blood specimen / Unknown Venipuncture / Unknown 11/26/2024 5:00 AM EST 11/26/2024 10:13 AM EST us Eva Ivan MD LAB BLOOD ORDERABLES Final Resu lt [facility] [address] [place] [address], documented in this encounter Visit Diagnoses Diagnosis Other seizures (CMS/HCC V24, CMS/HCC V28) Type 2 diabetes mellitus without complications (CMS/HCC V24, CMS/HCC V28) Unspecified convulsions (CMS/HCC V24, [facility]/HCC V28) Chronic obstructive pulmonary disease, unspecified (CMS/HCC V24, [facility]/HCC V28) Essential (primary) hypertension Unspecified essential hypertension documented in this encounter Care Teams Mainframe Analyst Relationship Specialty Start Date End Date Jose Juan Rendon MD [address] [place] [address] Dr [address] JOSEF Henriquez PCP - General 01/29/24 documented as of this encounter
[2025-02-17 13:07] VITALS: BP 134/52; PULSE 75; O2SAT 97; BMI 21.3
--- NOTE | 2025-02-17 13:07 | A.OFFPC_ITS ---
Vital Signs 02/17/25 13:07 Height 5 ft Weight 109 lb 4 oz BMI 21.3 BP 134/52 L Blood Pressure Location Lt brachial Position Sitting Pulse 75 Pulse Source Pulse Oximeter Pulse Oximetry (%) 97 Oxygen Delivery Method Room Air Intake Visit Reasons: hyperlipidemia, HTN, DM Switch Repairer Required: No Accompanied by: Self / Same As Patient Allergies meperidine [From DEMEROL] Allergy (Severe, Verified 02/17/25 13:47) HYPOTENSION Penicillins [PENICILLINS] Allergy (Severe, Verified 02/17/25 13:47) HIVES,SWELLING influenza virus vaccine, specific [Influenza Virus Vacc,Specific] Adverse Reaction (Intermediate, Verified 02/17/25 13:47) ASTHMA EXACERBATION Anesthetic Maximum Strength Allergy (Severe, Uncoded 02/17/25 13:47) anaphylaxis Bee Sting Allergy (Unknown, Uncoded 02/17/25 13:47) unknown Medication List - Last Reconciled 02/17/25 by Jose Juan Rendon MD [ADULT PULL-UPS (medium) As directed] albuterol sulfate 2.5 mg continuous nebulization Q6H PRN albuterol sulfate 90 mcg/actuation 2 puffs PO Q6H PRN amlodipine 2.5 mg PO BID 90 days aspirin 81 mg PO DAILY atorvastatin 20 mg PO BEDTIME 90 days [Bed rail As directed] blood pressure monitor As directed blood sugar diagnostic (FreeStyle Test strips) test bs once a day blood-glucose meter (FreeStyle Lite Meter kit) As directed- To test Blood sugar blood-glucose meter (FreeStyle Lite Meter kit) As directed ONCE A DAY cholecalciferol (vitamin D3) 50 mcg PO DAILY clonazepam 0.25 mg PO BEDTIME PRN 30 days fluticasone propion-salmeterol 500-50 mcg/dose (Advair Diskus) 1 ea PO BID fluticasone propionate 50 mcg/actuation 1 spray intranasal DAILY [FreeStyle LANCETS As directed] [FreeStyle TEST STRIPS As directed] lancets (FreeStyle Lancets) 28 gauge miscellaneous .QD latanoprost 0.005% 1 drp ophthalmic (eye) BEDTIME loratadine 10 mg PO DAILY PRN memantine 28 mg PO DAILY omalizumab (Xolair) 300 mg subcut Q4W 28 days omeprazole 20 mg PO DAILY PRN polyethylene glycol 3350 (Miralax) 17 grams PO DAILY 30 days sennosides (Senna Lax) Take 1 to 2 tablets orally daily PRN; 30 days valacyclovir 500 mg PO DAILY Tobacco use date assessed: 02/17/25 Fall risk assessment: No Falls in past year Last assessed Fall Risk: 02/17/25 Dental Screening Dental Screen Date: 02/17/25 Did you have a dental visit in the last 12 months?: No Did you have a dental problem in the last 6 months where you did not have access to dental care?: No Was dental information given to patient?: No HPI hyperlipidemia, HTN, DM HPI Details Patient comes in today for her follow up visit - is again accompanied by her CYBER DEFENSE INCIDENT RESPONDER Patient has dementia and is unable to fully participate in her office visit today and her CYBER DEFENSE INCIDENT RESPONDER provides most of her complaints and issues and any information requested for States that patient appears to be feeling okay lately Patient lives alone in her apartment and has CYBER DEFENSE INCIDENT RESPONDER services but this is only for a few hours during the day and at night Her CYBER DEFENSE INCIDENT RESPONDER states that she has installed cameras around her house to monitor patient remotely but she still spends a few hours a day and at night alone by herself in her apartment Her CYBER DEFENSE INCIDENT RESPONDER states that she often notices on the camera monitors that patient would be sitting up in her bed around 1 to 2 am in the morning often and would often not go back to sleep anymore She would then later be found in her kitchen or at the dining table drinking something (usually some coffee) She does take some naps during the day Patient denies any headaches or dizziness She denies any chest pains, no increased SOB No nausea/vomiting, no abdominal pain No change in bowel habits noted Needs a couple of her Rx refilled Her CYBER DEFENSE INCIDENT RESPONDER states that patient did not get her follow up labs done recently as she did not want to leave the house [facility] Medical History Dementia Osteoporosis Post-menopausal Cellulitis Overweight (BMI 25.0-29.9) Depression Anxiety Nocturnal leg cramps Vitamin D deficiency Genital herpes in women Ductal carcinoma in situ of right breast Osteoarthritis of knee GERD (gastroesophageal reflux disease) Allergic rhinitis Diabetic neuropathy COPD (chronic obstructive pulmonary disease) Benign essential hypertension Pure hypercholesterolemia Diabetes mellitus Surgical History History of colonoscopy History of total hysterectomy H/O breast surgery Family History Father CVD (cardiovascular disease) Stroke Mother Cancer Other Mental health disorder Social History Housing: Apartment Alcohol intake: never Patient Tobacco Use Status: Never used Tobacco e-Cigarette/Vaping Use: Never Used Second Hand Smoke Exposure: Yes service: No Current occupational status: disabled Cognitive needs: No Hearing needs: Yes Vision needs: Yes Questionnaire PHQ-9 Over the last 2 weeks, how often have you been bothered by any of the following problems? 1. Little interest or pleasure in doing things: not at all 2. Feeling down, depressed, or hopeless: not at all 3. Trouble falling or staying asleep, or sleeping too much: several days 4. Feeling tired or having little energy: not at all 5. Poor appetite or overeating: not at all 6. Feeling bad about yourself - or that you are a failure or have let yourself or your family down: not at all 7. Trouble concentrating on things, such as reading the newspaper or watching television: not at all 8. Moving or speaking so slowly that other people could have noticed. Or the opposite - being so fidgety or restless that you have been moving around a lot more than usual: not at all 9. Thoughts that you would be better off or of hurting yourself in some way: not at all Total score: 1 Depression Screening Interpretation: Negative Depression Screening Done: Yes 35657 - PHQ-9 Billing: Yes Source: Developed by Drs. Leonides Hamm, Rehana Tello, Harjinder Buitrago and colleagues, with an educational ronel from [employer]. Thrive Questionnaire Date Thrive assessed: 02/17/25 I am a: Patient What is your living situation today?: I have a place to live, but I am worried about losing it in the future Within the past 12 months, did the food you bought not last and you didn't have the money to get more?: Never true Within the past 12 months, did you worry whether your food would run out before you got money to buy more?: Never true Do you have trouble paying for medicines?: No Do you have trouble getting transportation to medical appointments?: No Do you have trouble paying your heating and electricity bill?: No Do you have trouble taking care of your child, family member or friend?: No Do you have trouble with day-to-day activities such as bathing, preparing meals, shopping, managing finances, etc.?: No Are you currently unemployed and looking for a job?: No Are you interested in more education?: No Please select the resources that you would like help with: None Currently or been in a relationship where the following occur: No concerns reported THRIVE Score: 1 AUDIT C Alcohol Use Questionnaire (AUDIT-C) 1. How often do you have a drink containing alcohol?: Never 3. How often do you have six or more drinks on one occasion?: Never Total Score: 0 Score Reviewed/Action Taken: Yes ESTEBAN-7 AMB Questionnaire ESTEBAN-7 Date ESTEBAN - 7 assessed: 02/17/25 Feeling nervous, anxious, or on edge: 0 = Not at all Not being able to stop or control worryin = Not at all Worrying too much about different things: 0 = Not at all Trouble relaxin = Not at all Being so restless that it is hard to sit still: 0 = Not at all Becoming easily annoyed or irritable: 0 = Not at all Feeling afraid as if something awful might happen: 0 = Not at all Total ESTEBAN-7 score (0-4 normal; 5-9 mild; 10-14 moderate; 15-21 severe): 0 Source: Developed by Drs. Leonides Hamm, Rehana Tello, Harjinder Buitrago and colleagues, with an educational ronel from [employer]. Review of Systems Const Details: Information here is obtained mostly from patient's CYBER DEFENSE INCIDENT RESPONDER as patient is unable to participate in her office visit actively today due to her cognitive issues Denies chills, Reports difficulty sleeping (see HPI), Reports fatigue, Denies fever(s) and Denies headache(s) ENT Denies dysphagia, Denies dizziness, Denies otalgia, Denies headache(s), Denies neck pain, Denies odynophagia and Denies sore throat Card Denies chest pain, Denies palpitations and Denies dyspnea Resp Denies chest congestion, Denies cough and Denies dyspnea GI Denies abdominal pain, Reports constipation (on and off), Denies dysphagia, Reports fecal incontinence (at times, per daughter), Denies diarrhea, Denies nausea, Denies odynophagia and Denies vomiting Denies difficulty voiding, Denies nocturia, Denies dysuria and Reports urinary incontinence Musc Denies back pain, Denies arthralgias and Denies neck pain Skin/Breast Denies rash Neuro Reports as per HPI, Reports behavioral changes (but improved from previous), Reports confusion (on and off; responds only in 1 to 2 word responses, does not talk otherwise), Denies dizziness, Denies headache(s) and Reports memory loss Psych Reports anxiety, Reports behavioral changes (but improved from previous), Reports confusion (on and off; responds only in 1 to 2 word responses, does not talk otherwise), Reports auditory hallucinations, Reports memory loss and Reports visual hallucinations Endo Reports fatigue and Denies palpitations Physical exam (Primary Care) Vital Signs: Last Vital Signs Pulse 75 02/17/25 13:07 BP 134/52 L 02/17/25 13:07 Pulse Ox 97 02/17/25 13:07 Oxygen Delivery Method Room Air 02/17/25 13:07 BMI result Body Mass Index 21.3 Tobacco/Smoking Status: Tobacco use Status Tobacco use date assessed 02/17/25 02/17/25 13:16 Patient Tobacco Use Status Never used Tobacco 02/17/25 13:16 e-Cigarette/Vaping Use Never Used 02/17/25 13:16 PHQ-9: PHQ-9 Score PHQ-9: Total score 0 02/17/25 13:54 Depression Screening Interpretation: Negative Thrive Assessment: Date of Thrive Assessment Date Thrive assessed 02/17/25 02/17/25 13:16 Currently or been in a relationship where the following occur: No concerns reported Const General: no acute distress and confusion (on and off; responds only in 1 to 2 word responses, does not talk otherwise) Orientation/consciousness: confusion (on and off; responds only in 1 to 2 word responses, does not talk otherwise) HENMT Ears: TM's normal bilaterally and EAC's normal Throat: Yes posterior oropharynx normal and Yes tonsils normal (no TP congestion) Neck Neck: Yes supple and No lymphadenopathy Thyroid: Thyroid normal Resp Auscultation: clear to auscultation bilaterally, no rales and no wheezes Cardio Rate: regular rate Rhythm: regular rhythm Heart sounds: no murmurs GI Palpation (GI): Soft to palpation and nontender Auscultation: normal bowel sounds General: Yes no CVA tenderness Back/Spine/Pelvis Back: no CVA tenderness Thoracic/Lumbar Spine: No lumbar spinal tenderness Skin Rashes: no rashes Neuro General: confusion (on and off; responds only in 1 to 2 word responses, does not talk otherwise) Gait exam (Neuro): Assistive device used (walker) Extrem General: Yes no clubbing, cyanosis or edema Coding Level of Care Code Est Pt Level 4 (28608) Complex EM visit Add On G2211 Diagnoses Pure hypercholesterolemia E78.00 Type 2 diabetes mellitus with diabetic polyneuropathy, without long-term current use of insulin E11.42 Diabetes mellitus complication detail: with polyneuropathy Diabetes mellitus complication status: with neurologic complications Diabetes mellitus terminal gauger supervisor insulin use: without terminal gauger supervisor use Diabetes mellitus type: type 2 Benign essential hypertension I10 Chronic obstructive pulmonary disease, unspecified COPD type J44.9 COPD type: unspecified COPD Diabetic polyneuropathy associated with type 2 diabetes mellitus E11.42 Diabetes mellitus complication detail: diabetic polyneuropathy Diabetes mellitus type: type 2 Moderate dementia with other behavioral disturbance, unspecified dementia type F03.B18 Dementia behavioral or psychological symptom: with other behavioral disturbance Dementia severity: moderate Dementia type: unspecified type Allergic rhinitis, unspecified seasonality, unspecified trigger J30.9 Allergic rhinitis seasonality: unspecified Allergic rhinitis trigger: unspecified Gastroesophageal reflux disease without esophagitis K21.9 Esophagitis presence: without esophagitis Primary osteoarthritis of knee, unspecified laterality M17.10 Laterality: unspecified laterality Osteoarthritis type: primary Ductal carcinoma in situ of right breast D05.11 Age-related osteoporosis without current pathological fracture M81.0 Osteoporosis type: age-related Presence of current pathological fracture: without current pathological fracture Vitamin D deficiency E55.9 Nocturnal leg cramps G47.62 Constipation, unspecified constipation type K59.00 Constipation type: unspecified constipation type Genital herpes in women A60.09 Unsteady gait R26.81 Anxiety F41.9 Depression, unspecified depression type F32.A Depression Type: unspecified Additional Codes PHQ-9 - 45372 - PHQ-9 Billing: Yes ([id number]) Assessment & Plan Assessment & Plan (1) Pure hypercholesterolemia: Code(s): E78.00 - Pure hypercholesterolemia, unspecified Category: Medical Plan: She did not get her follow up labs done prior to her appointment today as her CYBER DEFENSE INCIDENT RESPONDER states that patient has been refusing to get out of her apartment lately when she tried to bring her to the lab Reinforced low cholesterol diet Continue Atorvastatin 20 mg QD Will have her recheck her labs and fasting lipids in 3 months for follow up - will just have patient use her current orders (updated) for her next lab draw (2) Diabetes mellitus: Code(s): E11.9 - Type 2 diabetes mellitus without complications Category: Medical Qualifiers: Diabetes mellitus complication detail: with polyneuropathy Diabetes mellitus complication status: with neurologic complications Diabetes mellitus group home insulin use: without group home use Diabetes mellitus type: type 2 Qualified Code(s): E11.42 - Type 2 diabetes mellitus with diabetic polyneuropathy Plan: Her in-office HgbA1c done today is at 6.7% (her HgbA1c was at 6.1% on her labs done a few months ago) - goal is at least <7.0% but ideally <6.5% Reinforced diabetic diet Patient is still not taking any medications for her diabetes and preferred to continue with diet modification alone as much as possible before her cognition started declining due to her dementia We will recheck her FBS and HgbA1c in 3 months for follow up (3) Benign essential hypertension: Code(s): I10 - Essential (primary) hypertension Category: Medical Plan: Reinforced low-sodium diet - goal is systolic BP of at least 130 to 140 mm or less She appears to be tolerating Amlodipine 2.5 mg QD and her blood pressure today is much improved from previous Continue Amlodipine 2.5 mg QD Patient's CYBER DEFENSE INCIDENT RESPONDER is reminded to help monitor patient's blood pressure regularly (4) COPD (chronic obstructive pulmonary disease): Code(s): J44.9 - Chronic obstructive pulmonary disease, unspecified Category: Medical Qualifiers: COPD type: unspecified COPD Qualified Code(s): J44.9 - Chronic obstructive pulmonary disease, unspecified Plan: Appears controlled Continue Advair Diskus 500-50 mcg 1 inhalation BID. ProAir HFA 2 puffs 4 times a day as needed; she was also on Xolair injections 300 mg Q 4 weeks but patient has refused to go get her shots for a while now and completely stopped going since she was diagnosed with dementia Patient also has Albuterol solution that she uses with her updraft machine when needed Follow-up with pulmonary as scheduled (5) Diabetic neuropathy: Code(s): E11.40 - Type 2 diabetes mellitus with diabetic neuropathy, unspecified Category: Medical Qualifiers: Diabetes mellitus complication detail: diabetic polyneuropathy Diabetes mellitus type: type 2 Qualified Code(s): E11.42 - Type 2 diabetes mellitus with diabetic polyneuropathy Plan: Her neuropathic symptoms do not appear to be bothering her at all lately so no additional intervention or Rx is needed= (6) Dementia: Code(s): F03.90 - Unspecified dementia, unspecified severity, without behavioral disturbance, psychotic disturbance, mood disturbance, and anxiety Category: Medical Qualifiers: Dementia behavioral or psychological symptom: with other behavioral disturbance Dementia severity: moderate Dementia type: unspecified type Qualified Code(s): F03.B18 - Unspecified dementia, moderate, with other behavioral disturbance Plan: She was referred to and seen by neurology last year and was started on Memantine ER - she is currently still on Memantine ER 28 mg QD She was also experiencing some visual and auditory hallucinations last year with her declining cognition but these seem to have calmed down a lot lately Follow up [facility] neurology as scheduled Patient lives alone in her apartment and reportedly has CYBER DEFENSE INCIDENT RESPONDER services for 18 hours during the day and 2 hours at night but she is still left alone in her apartment for a few hours in the day and at night Have advised her CYBER DEFENSE INCIDENT RESPONDER that with her declining cognition, it is not safe for patient to be left alone in her apartment for any period of time and that they should get her agency to reevaluate patient - my opinion is that she should have 24/7 CYBER DEFENSE INCIDENT RESPONDER services (7) Allergic rhinitis: Code(s): J30.9 - Allergic rhinitis, unspecified Category: Medical Qualifiers: Allergic rhinitis seasonality: unspecified Allergic rhinitis trigger: unspecified Qualified Code(s): J30.9 - Allergic rhinitis, unspecified Plan: Continue Fluticasone 50 mcg nasal spray QD PRN and Loratadine 10 mg QD PRN (8) GERD (gastroesophageal reflux disease): Code(s): K21.9 - Gastro-esophageal reflux disease without esophagitis Category: Medical Qualifiers: Esophagitis presence: without esophagitis Qualified Code(s): K21.9 - Gastro-esophageal reflux disease without esophagitis Plan: Dietary? 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 Code(s): D05.11 - Intraductal carcinoma in situ of right breast Category: Medical Plan: S/P Tx with Tamoxifen x 5 years Follow-up with Oncology as scheduled for continuing surveillance (11) Osteoporosis: Code(s): M81.0 - Age-related osteoporosis without current pathological fracture Category: Medical Qualifiers: Osteoporosis type: age-related Presence of current pathological fracture: without current pathological fracture Qualified Code(s): M81.0 - Age- related osteoporosis without current pathological fracture Plan: BMD done in June 2021 revealed (+) osteoporosis, with a T score of -3.2 Patient is again encouraged to continue with daily calcium and vitamin-D supplements Reinforced fall precautions We have discussed considerations for treatment of her osteoporosis with oral bisphosphonates but patient was previously concerned about side effects due to her pre-existing GI issues, including GERD; she was also concerned about other treatment options and the potential side effects and asked to hold off on Rx just before her cognition started declining She will need repeat BMD ordered at her next follow up appt in the summer (12) Vitamin D deficiency: Code(s): E55.9 - Vitamin D deficiency, unspecified Category: Medical Plan: Continue Vitamin D3 2000 units QD (13) Nocturnal leg cramps: Code(s): G47.62 - Sleep related leg cramps Category: Medical Plan: Continue Tizanidine 4 mg daily at bedtime as needed (14) Constipation: Code(s): K59.00 - Constipation, unspecified Category: Medical Qualifiers: Constipation type: unspecified constipation type Qualified Code(s): K59.00 - Constipation, unspecified Plan: Reinforced increased oral fluids and dietary fiber Continue Senna 8.6 mg 1 to 2 tablets QD PRN (15) Genital herpes in women: Code(s): A60.09 - Herpesviral infection of other urogenital tract Category: Medical Plan: 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 She remains on chronic suppressive Tx with Valacyclovir 500mg QD (16) Unsteady gait: Code(s): R26.81 - Unsteadiness on feet Category: Medical Plan: Patient has been noted to be very unsteady over the past few years and has fallen a few times recently - this is most likely multifactorial, including her neuropathy, age, frailty and overall generalized weakness She uses a walker all the time now when ambulating She currently has CYBER DEFENSE INCIDENT RESPONDER services for 18 hours during the day and 2 hours at night Patient lives alone in her own apartment and does not wish to move out to an assisted living facility or a penitentiary Fall precautions reinforced to family (17) Anxiety: Code(s): F41.9 - Anxiety disorder, unspecified Category: Medical Plan: Continue Clonazepam? 0.25 mg 1/2 to 1 tablet once a day at bedtime as needed (18) Depression: Code(s): F32.9 - Major depressive disorder, single episode, unspecified Category: Medical Qualifiers: Depression Type: unspecified Qualified Code(s): F32.A - Depression, unspecified Plan: She used to see psychiatry but with her declining cognition over the past year or two, has stopped seeing psychiatry completely She does not appear to have had any issues lately related to her depression, including any unusual behavioral symptoms or agitation Plan Follow up in 3 months
== END 2025-02-17 13:55 | disposition home or self-care (01) ==
LOC: HO.HMCH 12:51
PROVIDERS: PCP Internal Medicine; Visit Provider Internal Medicine
DX: E78.00 Pure hypercholesterolemia, unspecified (principal); E11.42 Type 2 diabetes mellitus with diabetic polyneuropathy; J44.9 Chronic obstructive pulmonary disease, unspecified; F03.B18 Unspecified dementia, moderate, with other behavioral disturbance; I10 Essential (primary) hypertension; J30.9 Allergic rhinitis, unspecified; K21.9 Gastro-esophageal reflux disease without esophagitis; M17.10 Unilateral primary osteoarthritis, unspecified knee; D05.11 Intraductal carcinoma in situ of right breast; M81.0 Age-related osteoporosis without current pathological fracture; E55.9 Vitamin D deficiency, unspecified; G47.62 Sleep related leg cramps

== ENCOUNTER → 2025-02-17 12:51 | Outpatient (BNVA) | payer MEDICARE, MEDICAID, SELFPAY | PROVIDERS: PCP Internal Medicine; Visit Provider Internal Medicine | DX: E78.00 Pure hypercholesterolemia, unspecified (principal); E11.42 Type 2 diabetes mellitus with diabetic polyneuropathy; I10 Essential (primary) hypertension; J44.9 Chronic obstructive pulmonary disease, unspecified; F03.B18 Unspecified dementia, moderate, with other behavioral disturbance; J30.9 Allergic rhinitis, unspecified; K21.9 Gastro-esophageal reflux disease without esophagitis; M17.10 Unilateral primary osteoarthritis, unspecified knee; D05.11 Intraductal carcinoma in situ of right breast; M81.0 Age-related osteoporosis without current pathological fracture; E55.9 Vitamin D deficiency, unspecified; G47.62 Sleep related leg cramps; K59.00 Constipation, unspecified; A60.09 Herpesviral infection of other urogenital tract; R26.81 Unsteadiness on feet; F41.9 Anxiety disorder, unspecified; F32.A Depression, unspecified | CPT/HCPCS: 96127; 99212 ==

== ENCOUNTER → 2025-02-17 23:59 | Outpatient (BNV) | payer MEDICARE, MEDICAID, SELFPAY | PROVIDERS: PCP Internal Medicine; Visit Provider Internal Medicine | DX: J44.9 Chronic obstructive pulmonary disease, unspecified (principal); E11.9 Type 2 diabetes mellitus without complications; I10 Essential (primary) hypertension | CPT/HCPCS: G0179 ==

== ENCOUNTER 2025-03-20 10:29 | Outpatient (REF) | payer OTHER, MEDICARE, MEDICAID, SELFPAY ==
--- NOTE | 2025-03-20 10:33 | EEG_ITS ---
This is a 16-channel EEG with an EKG lead. The patient is reported awake during the tracing. Background EEG rhythm is low to medium amplitude; mixed theta, beta; with no obvious asymmetry or paroxysmal tendency. Photic stimulation does not produce any significant abnormality. Hyperventilation is not performed. Cardiac lead does not reveal any significant abnormality. No sharp wave spikes or paroxysmal tendency noted. IMPRESSION: Mild slowing with no evidence of seizure disorder. MD GARY Humphries/CECILY / [id number]
--- OUTSIDE RECORDS SUMMARY | 2025-03-20 11:01 | XMS_ITS | Clinical Summary ---
Author Organization [employer] Address [address] [place] [address] Care Team Providers Care Certified Massage Therapist Name Role Phone Unavailable Primary Care Provider [...]
--- OUTSIDE RECORDS SUMMARY | 2025-03-20 11:01 | XMS_ITS | Clinical Summary ---
Author Organization [facility] Address [address] [place] [address] Phone Care Team Providers Care Field Radio Operator Name Role Phone Jose Juan Rendon MD Primary Care Provider + [phone] Allergies Active Allergy Reactions Criticality Noted Date [...] eyes at bedtime. at bedtime 4 Active Surgical History Surgery Date Site/Laterality Comments HYSTERECTOMY GALLBLADDER SURGERY N/A Medical History Medical History Date Comments Arthritis Vascular dementia ([facility] V24, [facility] V28) Asthma Diabetes mellitus ([facility] V24, [facility] V28) Hypertension Osteoarthritis COPD (chronic obstructive pulmonary disease) ([facility] V24, [facility] V28) Seizures ([facility] V24, [facility] V28) Stroke ([facility] V24, [facility] V28) Cancer ([facility] V24, [facility] V28) Depression Anxiety Social History Tobacco Use [...] 11/23/2024 9:40 AM EST Plan of Treatment Upcoming Encounters Date Type Department Care Team (Late st Contact Info) Description 03/21/2025 5:00 PM EDT Appointment [facility] CT Scan [address] [place] [address] Health Maintenance Due Date Last Done Comments COVID-19 Vaccine (#1) 1950 Diabetes: Annual Foot Exam 1956 Diabetes: Annual [...] Diabetes: Annual Urine Albumin-Creatinine Ratio (uACR) 05/23/2024 DTaP,Tdap,and Td Vaccines (2 - Td or [...] Procedure Name Priority Date/Time Associated Diagnosis Comments BASIC METABOLIC PANEL Routine 11/26/2024 5:00 AM EST Other seizures (CMS/HCC) Type 2 diabetes mellitus without complications (CMS/HCC) Unspecified convulsions (CMS/HCC) Chronic obstructive pulmonary disease, unspecified (CMS/HCC) Essential (primary) hypertension HEMOGLOBIN A1C Routine 11/26/2024 5:00 AM EST Other seizures (CMS/HCC) Type 2 diabetes mellitus without complications (CMS/HCC) Unspecified convulsions (CMS/HCC) Chronic obstructive pulmonary disease, unspecified (CMS/HCC) Essential (primary) hypertension from Last 3 Months or Most Recently Relevant to Health Maintenance Results * Hemoglobin A1c (11/26/2024 5:00 AM [...] Resu lt [facility] [address] [place] [address], [place] [phone] * (ABNORMAL) Basic metabolic panel (11/26/2024 5:00 AM EST) Sodium 132(L) 133 - 145 mmol/L LAB CHEMISTRY METHOD 11/26/2024 10:58 AM [facility] Potassium 5.1 3.5 - 5.5 mmol/L LAB CHEMISTRY METHOD 11/26/2024 10:58 AM [facility] Chloride 101 96 - 110 mmol/L LAB CHEMISTRY METHOD 11/26/2024 10:58 AM [facility] CO2 28 21 - 32 mmol/L LAB CHEMISTRY METHOD 11/26/2024 10:58 AM [facility] Anion Gap 3 3 - 11 LAB CHEMISTRY METHOD 11/26/2024 10:58 AM [facility] Glucose 102(H) 70 - 100 mg/dL LAB CHEMISTRY METHOD 11/26/2024 10:58 AM [facility] BUN 10 5 - 25 mg/dL LAB CHEMISTRY METHOD 11/26/2024 10:58 AM [facility] Creatinine 0.52 0.50 - 1.10 mg/dL LAB CHEMISTRY METHOD 11/26/2024 10:58 AM [facility] eGFR 95 >=60 mL/min/1. 73m2 LAB CHEMISTRY METHOD 11/26/2024 10:58 AM [facility] Comment:Calculation based on the??Chronic Kidney Disease Epidemiology Collaboration (CKD-EPI) equation refit??without adjustment for race. BUN/Creatinine Ratio 19.2 LAB CHEMISTRY METHOD 11/26/2024 10:58 AM [facility] Calcium 8.5 8.5 - 10.5 mg/dL LAB CHEMISTRY METHOD 11/26/2024 10:58 AM [facility] Blood Venous blood specimen / Unknown Venipuncture / Unknown 11/26/2024 5:00 AM EST 11/26/2024 10:13 AM EST us Eva Ivan MD LAB BLOOD ORDERABLES Final [facility] [address] [place] [address], from Last 3 Months or Most Recently Relevant to Health Maintenance Insurance MEDICAID [facility] MEDICARE Advance Directives Documents on File Type Date Recorded 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 Do not modify or discontinue any currently active code status orders. Care Teams Field Radio Operator Relationship Specialty Start Date End Date Jose Juan Rendon MD [address] [place] [address] [address] [place] PCP - General 01/29/24
--- OUTSIDE RECORDS SUMMARY | 2025-03-20 11:01 | XMS_ITS | Encounter Summary ---
Author Organization [facility] Address [address] [place] [address] Care Team Providers Care Hat Blocking Operator Name Role Phone Jose Juan Rendon MD Primary Care Provider + [phone] Encounter Details Date Type Department Care Team (Latest Contact Info) Description 11/26/2024 Lab Requisition [facility] - Main Lab [address] [facility] [place] [address] Eva Ivan MD [address] [place] [id number] Other seizures (CMS/HCC V24, CMS/HCC V28); Type [...] documented in this encounter Plan of Treatment Upcoming Encounters Date Type Department Care Team (Late st Contact Info) Description 03/21/2025 5:00 PM EDT Appointment [facility] CT Scan [address] [place] [address] documented as of this encounter Procedures Procedure [...] Hemoglobin A1c (11/26/2024 5:00 AM EST) Pathologist [facility] Hemoglobin A1C 6.3 <6.5 % LAB CHEMISTRY METHOD 11/26/2024 1:54 PM EST [facility] Mean Bld Glu Estim. 134 mg/dL LAB CHEMISTRY METHOD 11/26/2024 1:54 PM [facility] Blood Venous blood specimen / Unknown Venipuncture / Unknown 11/26/2024 5:00 AM EST 11/26/2024 10:13 AM EST us Eva Ivan MD LAB BLOOD ORDERABLES Final Resu lt [facility] [address] [place] [address], * (ABNORMAL) Basic metabolic panel (11/26/2024 5:00 AM EST) Pathologist [facility] Sodium 132(L) 133 - 145 mmol/L LAB CHEMISTRY METHOD 11/26/2024 10:58 AM [facility] Potassium 5.1 3.5 - 5.5 mmol/L LAB CHEMISTRY METHOD 11/26/2024 10:58 AM [facility] Chloride 101 96 - 110 mmol/L LAB CHEMISTRY METHOD 11/26/2024 10:58 AM [facility] CO2 28 21 - 32 mmol/L LAB CHEMISTRY METHOD 11/26/2024 10:58 AM [facility] Anion Gap 3 3 - 11 LAB CHEMISTRY METHOD 11/26/2024 10:58 AM [facility] Glucose 102(H) 70 - 100 mg/dL LAB CHEMISTRY METHOD 11/26/2024 10:58 AM [facility] BUN 10 5 - 25 mg/dL LAB CHEMISTRY METHOD 11/26/2024 10:58 AM [facility] Creatinine 0.52 0.50 - 1.10 mg/dL LAB CHEMISTRY METHOD 11/26/2024 10:58 AM [facility] eGFR 95 >=60 mL/min/1. 73m2 LAB CHEMISTRY METHOD 11/26/2024 10:58 AM [facility] Comment:Calculation based on the??Chronic Kidney Disease Epidemiology Collaboration (CKD-EPI) equation refit??without adjustment for race. BUN/Creatinine Ratio 19.2 LAB CHEMISTRY METHOD 11/26/2024 10:58 AM [facility] Calcium 8.5 8.5 - 10.5 mg/dL LAB CHEMISTRY METHOD 11/26/2024 10:58 AM [facility] Blood Venous blood specimen / Unknown Venipuncture / Unknown 11/26/2024 5:00 AM EST 11/26/2024 10:13 AM EST us Eva Ivan MD LAB BLOOD ORDERABLES Final Resu lt [facility] [address] [place] [address], * (ABNORMAL) Complete blood count (11/26/2024 5:00 AM EST) WBC 4.9 4.8 - 10.8 K/mcL LAB HEMETOLOGY METHOD 11/26/2024 11:11 AM [facility] RBC 3.70(L) 3.80 - 4.80 M/mcL LAB HEMETOLOGY METHOD 11/26/2024 11:11 AM [facility] Hemoglobin 11.4(L) 11.5 - 16.0 g/dL LAB HEMETOLOGY METHOD 11/26/2024 11:11 AM [facility] Hematocrit 35.5 35.0 - 47.0 % LAB HEMETOLOGY METHOD 11/26/2024 11:11 AM EST [facility] MCV 96.2 79.0 - 98.0 FL LAB HEMETOLOGY METHOD 11/26/2024 11:11 AM EST [facility] MCH 30.9 27.0 - 32.0 pcg LAB HEMETOLOGY METHOD 11/26/2024 11:11 AM EST [facility] MCHC 32.1 32.0 - 37.0 g/dL LAB HEMETOLOGY METHOD 11/26/2024 11:11 AM EST [facility] RDW 13.0 11.0 - 15.0 % LAB HEMETOLOGY METHOD 11/26/2024 11:11 AM EST [facility] Platelets 269 130 - 400 K/mcL LAB HEMETOLOGY METHOD 11/26/2024 11:11 AM EST [facility] MPV 9.1 7.0 - 11.0 FL LAB HEMETOLOGY METHOD 11/26/2024 11:11 AM EST [facility] NRBC 0.0 <1.0 % LAB HEMETOLOGY METHOD 11/26/2024 11:11 AM EST [facility] NRBC Absolute 0.00 <0.10 K/mcL LAB HEMETOLOGY METHOD 11/26/2024 11:11 AM [facility] Blood Venous blood specimen / Unknown Venipuncture / Unknown 11/26/2024 5:00 AM EST 11/26/2024 10:13 AM EST us Eva Ivan MD LAB BLOOD ORDERABLES Final Resu lt [facility] [address] [place] [address], documented in this encounter Visit Diagnoses Diagnosis Other seizures (CMS/HCC V24, CMS/HCC V28) Type 2 diabetes mellitus without complications (CMS/HCC V24, CMS/HCC V28) Unspecified convulsions (CMS/HCC V24, [facility] V28) Chronic obstructive pulmonary disease, unspecified ([facility] V24, [facility] V28) Essential (primary) hypertension Unspecified essential hypertension documented in this encounter Care Teams Hat Blocking Operator Relationship Specialty Start Date End Date Jose Juan Rendon MD [address] [place] [address] [address] [place], [place] PCP - General 01/29/24 documented as of this encounter
--- OUTSIDE RECORDS SUMMARY | 2025-03-20 11:01 | XMS_ITS | Encounter Summary ---
Author Organization [employer] Address [address] [place] [address] Care Team Providers Care Nephrology Social Worker Name Role Phone Unavailable Primary Care Provider Unavailabl e Encounter Details Date Type Department Care Team (Latest Contact Info) Description 06/18/2019 Abstract C CONVERSIONS Dental, Provider, DDS Social History Tobacco [...]
--- OUTSIDE RECORDS SUMMARY | 2025-03-20 11:01 | XMS_ITS | Encounter Summary ---
Author Organization [employer] Address [address] [place] [address] Care Team Providers Care Energy Conservation Specialist Name Role Phone Unavailable Primary Care Provider [...]
== END 2025-03-20 10:30 | disposition home or self-care (01) ==
LOC: HO.NEURO 10:29
PROVIDERS: PCP Internal Medicine; Visit Provider Nurse Practitioner Family
DX: R41.3 Other amnesia (principal); F03.B18 Unspecified dementia, moderate, with other behavioral disturbance
CPT/HCPCS: 95816

== ENCOUNTER 2025-05-16 12:30 | Outpatient (RCR) | payer MEDICARE, MEDICAID, SELFPAY ==
--- NOTE | 2025-03-21 13:27 | MHC.SL.SOA ---
Referring Provider: Melia CARRIZALES Reason for Referral: Cognitive Impairment Date of Plan of Treatment:12/25/24 Onset of Symptoms/Illness:12/25/99 Date Treatment Started:12/25/24 Medical Diagnosis:dementia Primary Speech Language Diagnosis:R41.841 Cognitive communication disorder Reason for Visit:03448 Individual Treatment Other: Progress Note Background: Lianne Moreno is a 79 year old female with underlying dementia referred for a speech language cognitive evaluation by Melia CARRIZALES of the [facility] in [place], [place] due to ongoing concerns regarding her memory. Lianne was evaluated at [facility] in November 2024. She began weekly outpatient speech therapy for cognition in December 2024 and has attended 10 sessions. Lianne attends therapy consistently and always with family support. When given activities and assignments for home, they are always completed. Subjective: Lianne arrived on time to today's session accompanied by her daughter, Angelica. Angelica attended for the second portion of today's session. She was alert and oriented x4. Objective: STG 2.1: Lianne will use personalized external aids (dementia ID card, memory book) to accurately answer orientation questions with with 80% accuracy Lianne answered 100% of orientation questions independently without any external aids or support. STG 2.2: Lianne will use personalized external aids (dementia ID card, memory book) to accurately answer questions about self and family with with 80% accuracy Lianne answered approximately 80% of orientation questions independently without any external aids or support. When provided with minimal clinician support, Lianne accurately recalled her age. STG 1.4 Lianne will recall 5-item word list upon immediate recall when provided with minimal support by communication partner -Lianne recalled 4-5 items with approximately 75% accuracy when provided with minimal support When given 4-5 words then asked a question of word order (i.e. what was the last word?) Lianne accurately responded in 8/10 trials independently and 10/10 trials with minimal support When given 4-5 words then asked a question of word order (i.e. which are not soft?) Lianne accurately responded in 6/6 trials when provided with moderate-maximum support (i.e. repetitions of word list/question, critical thinking cues). STG 1.5 Lianne will recall 5-item word list upon delayed recall when provided with minimal support by communication partner -Delayed recall not targeted on this date Assessment: Lianne was also given cognitive tasks with cueing and prompting from the CLQT to gauge performance as compared to her initial evaluation. She was given informal instructions in Lithuanian. For these tasks, it is worth noting that Lianne did not wear her glasses during today's session. Lianne benefitted from minimal support to complete the small maze and maximum support to complete the larger maze. During the larger maze task she sometimes went through quinteros and did not seem to see the open spaces to explore as a possible path in the maze. Lianne was administered the symbol trails task. She did not require much if any support with the two trial tasks, however she did require moderate-maximum cueing and prompting to complete the target task. She seemed to recall the two main objectives of alternating shapes and moving from smallest to largest in size. She was able to find the target shape for the most part, however sometimes benefitted from minimal directional cues. At times she would locate the target shape and then draw the lines between incorrect shapes. Education was provided to Lianne's daughter on the role of attention, memory, and executive functioning such as planning and problem solving during these tasks. Plan: Next session is scheduled for Monday03/28/25 at 12:30pm. Lianne has 2 sessions left of her initially recommended 12 speech therapy sessions. It is recommended that Lianne attend speech therapy for an additional 6 sessions to continue targeting goals to support immediate memory and delayed memory. Goals: intermission coordinator goals: -LTG 1: With help of foster care worker, Lianne will create personalized tools to support memory and orientation -LTG 2: Lianne will use external support/prompting to support memory and orientation -LTG 3: Care partners will be familiar with strategies to support Lianne's memory Short term goals: STG 1.1: Lianne will create a memory book with 100% completion with support from clinician and foster care worker(s) to support her memory Status of Goal: Goal Continued STG 1.2: Lianne will create a dementia ID/emergency card with 100% completion with support from clinician and foster care worker(s) to support her memory Status of Goal: Goal Continued STG 1.3: When presented with a daily schedule, Lianne will be able to answer questions about the upcoming day accurately in 80% of opportunities when provided with minimal support by communication partner Status of Goal: Goal Continued STG 1.4 Lianne will recall 5-item word list upon immediate recall when provided with minimal support by communication partner Status of Goal: Goal Continued STG 1.5 Lianne will recall 5-item word list upon delayed recall when provided with minimal support by communication partner Status of Goal: Goal Continued STG 2.1: Lianne will use personalized external aids (dementia ID card, memory book) to accurately answer orientation questions with with 80% accuracy Status of Goal: Goal Revised; Revise goal to answer questions with 100% accuracy when provided with external aids STG 2.2: Lianne will use personalized external aids (dementia ID card, memory book) to accurately answer questions about self and family with with 80% accuracy Status of Goal: Goal Revised; Revise goal to answer questions with 100% accuracy when provided with external aids STG 3.1: Lianne's foster care worker will demonstrate use of strategies to support (i.e. semantic/phonemic cues, multiple choice, sentence completion) Lianne's memory in 80% of opportunities Status of Goal: Goal Continued Seen by: Graduate/Clinical Fellow: No Supervisory Statement: f_Reg Query Last Value , MHC.AU.SIGNAT Speech Language Pathologist: Namrata Noble M.A., CCC-RADIOCOMMUNICATIONS TECHNICIAN
--- NOTE | 2025-05-16 14:54 | MHC.SL.SOA ---
Referring Provider: Melia CARRIZALES Reason for Referral: Cognitive Impairment Date of Plan of Treatment:12/25/24 Onset of Symptoms/Illness:12/25/99 Date Treatment Started:12/25/24 Medical Diagnosis:dementia Primary Speech Language Diagnosis:R41.841 Cognitive communication disorder Secondary Speech Language Diagnosis: Reason for Visit:Non-billable Event Subjective: Lianne attended 1:1 outpatient speech therapy targeting cognitive skills for 11 sessions between December and March of 2025. Lianne was consistently accompanied to the sessions with family, either her daughter Angelica or her granddaughter Ewelina. Therapy targeted skills in the areas of orientation, personal facts, short term memory, and long term care pharmacist memory. During the majority of the first half of treatment, Lianne answered orientation and personal facts questions correctly with varying levels of cueing and prompting. At times, she recalled a 5-item word list with 100% accuracy upon immediate recall up to 1 minute delay. During the second half of treatment Lianne presented more confused during treatment sessions. She often was oriented to self, however presented with disorientation to situation and time. Objective: house moving supervisor support and education Assessment: This clinician met with Lianne's daughter, Angelica, to discuss floor care specialist strategies for communication and memory support. Angelica was provided with some resources for local support groups and more general floor care specialist support organizations. Notes: Lianne is to be discharged from speech therapy at this time. Lianne has met the goals that are appropriate at this time. Goals that are discontinued were no longer appropriate and/or did not see progress. Please see summary of goals below: senior living goals: -LTG 1: With help of floor care specialist, Lianne will create personalized tools to support memory and orientation -LTG 2: Lianne will use external support/prompting to support memory and orientation -LTG 3: Care partners will be familiar with strategies to support Lianne's memory Short term goals: STG 1.1: Lianne will create a memory book with 100% completion with support from clinician and floor care specialist(s) to support her memory GOAL MET STG 1.2: Lianne will create a dementia ID/emergency card with 100% completion with support from clinician and floor care specialist(s) to support her memory GOAL MET STG 1.3: When presented with a daily schedule, Lianne will be able to answer questions about the upcoming day accurately in 80% of opportunities when provided with minimal support by communication partner GOAL DISCONTINUED STG 1.4 Lianne will recall 5-item word list upon immediate recall when provided with minimal support by communication partner GOAL DISCONTINUED STG 1.5 Lianne will recall 5-item word list upon delayed recall when provided with minimal support by communication partner GOAL DISCONTINUED STG 2.1: Lianne will use personalized external aids (dementia ID card, memory book) to accurately answer orientation questions with with 80% accuracy GOAL DISCONTINUED STG 3.1: Lianne's floor care specialist will demonstrate use of strategies to support (i.e. semantic/phonemic cues, multiple choice, sentence completion) Lianne's memory in 80% of opportunities GOAL MET Seen by: Graduate/Clinical Fellow: No Supervisory Statement: f_Reg Query Last Value , MHC.AU.SIGNAT Speech Language Pathologist: Namrata Noble M.A., CCC-PRECISION LENS GRINDER APPRENTICE
== END 2025-05-19 13:33 | disposition home or self-care (01) ==
LOC: HO.SH 12:30
PROVIDERS: PCP Internal Medicine; Visit Provider Nurse Practitioner Family
DX: R41.841 Cognitive communication deficit (principal)
CPT/HCPCS: 92507

== ENCOUNTER 2025-06-13 10:33 | Outpatient (REF) | payer MEDICARE, MEDICAID, SELFPAY ==
--- OUTSIDE RECORDS SUMMARY | 2025-06-13 10:38 | XMS_ITS | Patient Health Record ---
Author Organization [facility] Address [address] [place] [address] Care Team Providers Care Group Counselor Name Role Phone Leonides Chatman Unavailable [phone] Reason For Referral No Information Plan Of Treatment No Information
--- OUTSIDE RECORDS SUMMARY | 2025-06-13 10:38 | XMS_ITS | Encounter Summary ---
Author Organization [employer] Address [address] [place] [address] Care Team Providers Care Head Bellhop Captain Name Role Phone Unavailable Primary Care Provider [...]
--- OUTSIDE RECORDS SUMMARY | 2025-06-13 10:38 | XMS_ITS | Encounter Summary ---
Author Organization [facility] Address [address] [place] [address] Care Team Providers Care Wood Crafter Name Role Phone Jose Juan Rendon MD Primary Care Provider + [phone] Encounter Details Date Type Department Care Team (Latest Contact Info) Description 11/26/2024 Lab Requisition [facility] - Main Lab [address] [facility] [place] [address] Eva Ivan MD [address] [place] [id number] Other seizures (CMS/HCC V24, CMS/HCC V28); Type [...] Hemoglobin A1c (11/26/2024 5:00 AM EST) Pathologist [facility] Hemoglobin A1C 6.3 <6.5 % LAB CHEMISTRY METHOD 11/26/2024 1:54 PM [facility] Mean Bld Glu Estim. 134 mg/dL LAB CHEMISTRY METHOD 11/26/2024 1:54 PM [facility] Blood Venous blood specimen / Unknown Venipuncture / Unknown 11/26/2024 5:00 AM EST 11/26/2024 10:13 AM EST us Eva Ivan MD LAB BLOOD ORDERABLES Final Resu lt [facility] [address] [place] [address], [place] [phone] * (ABNORMAL) Basic metabolic panel (11/26/2024 5:00 AM EST) [facility] Sodium 132(L) 133 - 145 mmol/L LAB CHEMISTRY METHOD 11/26/2024 10:58 AM [facility] Potassium 5.1 3.5 - 5.5 mmol/L LAB CHEMISTRY METHOD 11/26/2024 10:58 AM [facility] Chloride 101 96 - 110 mmol/L LAB CHEMISTRY METHOD 11/26/2024 10:58 AM [facility] CO2 28 21 - 32 mmol/L LAB CHEMISTRY METHOD 11/26/2024 10:58 AM [facility] Anion Gap 3 3 - 11 LAB CHEMISTRY METHOD 11/26/2024 10:58 AM [facility] Glucose 102(H) 70 - 100 mg/dL LAB CHEMISTRY METHOD 11/26/2024 10:58 AM [facility] BUN 10 5 - 25 mg/dL LAB CHEMISTRY METHOD 11/26/2024 10:58 AM [facility] Creatinine 0.52 0.50 - 1.10 mg/dL LAB CHEMISTRY METHOD 11/26/2024 10:58 AM EST [facility] eGFR 95 >=60 mL/min/1. 73m2 LAB CHEMISTRY METHOD 11/26/2024 10:58 AM [facility] Comment:Calculation based on the Chronic Kidney Disease Epidemiology Collaboration (CKD-EPI) equation refit without adjustment for race. BUN/Creatinine Ratio 19.2 LAB CHEMISTRY METHOD 11/26/2024 10:58 AM [facility] Calcium 8.5 8.5 - 10.5 mg/dL LAB CHEMISTRY METHOD 11/26/2024 10:58 AM [facility] Blood Venous blood specimen / Unknown Venipuncture / Unknown 11/26/2024 5:00 AM EST 11/26/2024 10:13 AM EST us Eva Ivan MD LAB BLOOD ORDERABLES Final Resu lt [facility] [address] [place] [address], * (ABNORMAL) Complete blood count (11/26/2024 5:00 AM EST) WBC 4.9 4.8 - 10.8 K/mcL LAB HEMETOLOGY METHOD 11/26/2024 11:11 AM [facility] RBC 3.70(L) 3.80 - 4.80 M/mcL LAB HEMETOLOGY METHOD 11/26/2024 11:11 AM [facility] Hemoglobin 11.4(L) 11.5 - 16.0 g/dL LAB HEMETOLOGY METHOD 11/26/2024 11:11 AM [facility] Hematocrit 35.5 35.0 - 47.0 % LAB HEMETOLOGY METHOD 11/26/2024 11:11 AM [facility] MCV 96.2 79.0 - 98.0 FL LAB HEMETOLOGY METHOD 11/26/2024 11:11 AM [facility] MCH 30.9 27.0 - 32.0 pcg LAB HEMETOLOGY METHOD 11/26/2024 11:11 AM EST [facility] MCHC 32.1 32.0 - 37.0 g/dL LAB HEMETOLOGY METHOD 11/26/2024 11:11 AM [facility] RDW 13.0 11.0 - 15.0 % LAB HEMETOLOGY METHOD 11/26/2024 11:11 AM [facility] Platelets 269 130 - 400 K/mcL LAB HEMETOLOGY METHOD 11/26/2024 11:11 AM [facility] MPV 9.1 7.0 - 11.0 FL LAB HEMETOLOGY METHOD 11/26/2024 11:11 AM [facility] NRBC 0.0 <1.0 % LAB HEMETOLOGY METHOD 11/26/2024 11:11 AM [facility] NRBC Absolute 0.00 <0.10 K/mcL LAB HEMETOLOGY METHOD 11/26/2024 11:11 AM [facility] Blood Venous blood specimen / Unknown Venipuncture / Unknown 11/26/2024 5:00 AM EST 11/26/2024 10:13 AM EST us Eva Ivan MD LAB BLOOD ORDERABLES Final Resu lt [facility] [address] [place] [address], [place] [phone] documented in this encounter Visit Diagnoses Diagnosis Other seizures (CMS/HCC V24, CMS/HCC V28) Type 2 diabetes mellitus without complications (CMS/HCC V24, CMS/[facility] V28) Unspecified convulsions (CMS/HCC V24, CMS/HCC V28) Chronic obstructive pulmonary disease, unspecified (CMS/HCC V24, CMS/HCC V28) Essential (primary) hypertension Unspecified essential hypertension documented in this encounter Care Teams Wood Crafter Relationship Specialty Start Date End Date Jose Juan Rendon MD [address] JOSEF Henriquez PCP - General 01/29/24 documented as of this encounter
[2025-06-13 10:48] LABS: MANUAL DIFF FLAG NO
[2025-06-13 11:21] LABS: Hematocrit 39.6 % (37.0-47.0); Hemoglobin 13.3 g/dl (12.0-16.0); Imm Gran Abs Auto 0.02 X10*3/uL (0.00-0.03); Imm Gran Pct Auto 0.3 % (0.0-0.4); Lymphocytes Absolute Auto 1.0 X10*3/uL (1.2-4.9); Mean Corpuscular HGB Conc 33.6 g/dl (31.0-35.0); Mean Corpuscular Hemoglobin 30.8 pg (27.0-33.0); Mean Corpuscular Volume 91.7 fL (80.0-98.0); NRBC Abs Auto 0.000 X10*3/uL (0.0-0.012); NRBC Pct Auto 0.0 /100WBC (0.0-0.2); Platelet Count 249 X10*3/uL (160-400); Red Blood Count 4.32 X10*6/uL (4.20-5.50); White Blood Count 6.5 X10*3/uL (4.8-10.8)
[2025-06-13 11:25] LABS: Appearance Urine Cloudy; Glucose Urine UA Negative (Negative); PH 7.0 (5.0-9.0); Specific Gravity - Urine 1.015 (1.005-1.025); UMIC TRIGGER UACC YES
[2025-06-13 11:29] LABS: Hemoglobin A1C 151.7891 umol/L; Total Hemoglobin (HGBA1C) 3582.7712 umol/L
[2025-06-13 11:40] LABS: UACC Culture Trigger YES
[2025-06-13 11:55] LABS: Microalbum/Creatinine Ratio Ur 11.2 ug/mg cr (<30)
[2025-06-13 11:57] LABS: Alanine Aminotransferase 25 U/L (0-31); Albumin Level 4.8 g/dL (3.5-5.0); Alkaline Phosphatase 108 U/L (39-117); Anion Gap 11 (12-20); Aspartate Amino Transferase 26 U/L (5-31); Blood Urea Nitrogen 8 mg/dL (9-16); Calcium 9.8 mg/dL (8.4-10.2); Carbon Dioxide 27 mmol/L (22-29); Chloride 97 mmol/L (96-108); Cholesterol 144 mg/dL (<200); Estimated Glomerular Filt Rate > 60; HDL Cholesterol 54 mg/dL (>40); Potassium 4.3 mmol/L (3.3-5.1); Sodium 131 mmol/L (135-145); Total Protein 7.5 g/dL (6.5-8.0); Triglycerides 70 mg/dL (<150)
== END 2025-06-13 10:34 | disposition home or self-care (01) ==
LOC: HO.LAB 10:33
PROVIDERS: Visit Provider Internal Medicine
DX: E11.9 Type 2 diabetes mellitus without complications (principal); E78.00 Pure hypercholesterolemia, unspecified; E55.9 Vitamin D deficiency, unspecified; D64.9 Anemia, unspecified; R30.0 Dysuria
CPT/HCPCS: 36415; 80053; 80061; 81001; 82043; 82306; 82570; 83036; 84443; 85025; 87086; 87088; 87186

== ENCOUNTER 2025-06-17 13:16 | Outpatient (AMB) | payer MEDICARE, MEDICAID, SELFPAY ==
--- NOTE | 2025-06-17 13:23 | A.OFFPC_ITS ---
Vital Signs 06/17/25 13:24 Height 5 ft Weight 102 lb 2 oz BMI 19.9 BP 120/82 Blood Pressure Location Lt brachial Position Sitting Pulse 79 Pulse Source Pulse Oximeter Pulse Oximetry (%) 98 Oxygen Delivery Method Room Air Intake Visit Reasons: dementia Industrial Cleaning Technician Required: No Accompanied by: Self / Same As Patient Allergies meperidine (From DEMEROL) Allergy (Severe, Verified 06/17/25 14:04) HYPOTENSION Penicillins (PENICILLINS) Allergy (Severe, Verified 06/17/25 14:04) HIVES,SWELLING influenza virus vaccine, specific (Influenza Virus Vacc,Specific) Adverse Reaction (Intermediate, Verified 06/17/25 14:04) ASTHMA EXACERBATION Anesthetic Maximum Strength Allergy (Severe, Uncoded 06/17/25 14:04) anaphylaxis Bee Sting Allergy (Unknown, Uncoded 06/17/25 14:04) unknown Medication List - Last Reconciled 06/17/25 by Jose Juan Rendon MD [ADULT PULL-UPS (medium) As directed] albuterol sulfate 2.5 mg continuous nebulization Q6H PRN albuterol sulfate 90 mcg/actuation 2 puffs PO Q6H PRN amlodipine 2.5 mg PO BID 90 days aspirin 81 mg PO DAILY atorvastatin 20 mg PO BEDTIME 90 days [Bed rail As directed] blood pressure monitor As directed blood sugar diagnostic (FreeStyle Test strips) test bs once a day blood-glucose meter (FreeStyle Lite Meter kit) As directed- To test Blood sugar blood-glucose meter (FreeStyle Lite Meter kit) As directed ONCE A DAY cholecalciferol (vitamin D3) 50 mcg PO DAILY clonazepam 0.25 mg PO BEDTIME PRN 30 days fluticasone propion-salmeterol 500-50 mcg/dose (Advair Diskus) 1 ea PO BID fluticasone propionate 50 mcg/actuation 1 spray intranasal DAILY [FreeStyle LANCETS As directed] [FreeStyle TEST STRIPS As directed] lancets (FreeStyle Lancets) 28 gauge miscellaneous .QD latanoprost 0.005% 1 drp ophthalmic (eye) BEDTIME loratadine 10 mg PO DAILY PRN memantine 28 mg PO DAILY omalizumab (Xolair) 300 mg subcut Q4W 28 days omeprazole 20 mg PO DAILY PRN polyethylene glycol 3350 (Miralax) 17 grams PO DAILY 30 days sennosides (Senna Lax) Take 1 to 2 tablets orally daily PRN; 30 days valacyclovir 500 mg PO DAILY Tobacco use date assessed: 06/17/25 Fall risk assessment: No Falls in past year Last assessed Fall Risk: 06/17/25 Dental Screening Dental Screen Date: 06/17/25 Did you have a dental visit in the last 12 months?: No Did you have a dental problem in the last 6 months where you did not have access to dental care?: No Was dental information given to patient?: No HPI dementia HPI Details Patient comes in today for her follow up visit - is accompanied by her WIND ENERGY TECHNICIAN as usual Patient has dementia and is unable to fully participate in her office visit today and her WIND ENERGY TECHNICIAN provides most of her complaints and issues and any information requested for Her WIND ENERGY TECHNICIAN states that patient has been doing okay but she seems to be obsessed with taking laxatives to make her go to the bathroom constantly lately as she keeps asking anyone for some laxatives, saying that she is constipated Her WIND ENERGY TECHNICIAN states that she would notice patient going to use the bathroom multiple times a day whenever she takes some laxatives and thinks that this is the main reason for the drop off in her weight since her last visit Patient lives alone in her apartment and has WIND ENERGY TECHNICIAN services for a few hours during the day and at night Her WIND ENERGY TECHNICIAN has installed cameras around her house to monitor patient remotely as she still spends a few hours a day and at night alone by herself in her apartment Her WIND ENERGY TECHNICIAN states that she often notices on the camera monitors that patient would be sitting up in her bed around 1 to 2 am in the morning often and would often not go back to sleep anymore She would then later be found in her kitchen or at the dining table drinking something (usually some coffee) She does take some naps during the day Patient denies any headaches or dizziness She denies any chest pains, no increased SOB No nausea/vomiting, no abdominal pain No change in bowel habits noted Her WIND ENERGY TECHNICIAN states that patient did get her follow up labs done a few days ago [facility] Medical History Dementia Osteoporosis Post-menopausal Cellulitis Overweight (BMI 25.0-29.9) Depression Anxiety Nocturnal leg cramps Vitamin D deficiency Genital herpes in women Ductal carcinoma in situ of right breast Osteoarthritis of knee GERD (gastroesophageal reflux disease) Allergic rhinitis Diabetic neuropathy COPD (chronic obstructive pulmonary disease) Benign essential hypertension Pure hypercholesterolemia Diabetes mellitus Surgical History History of colonoscopy History of total hysterectomy H/O breast surgery Family History Father CVD (cardiovascular disease) Stroke Mother Cancer Other Mental health disorder Social History Housing: Apartment Alcohol intake: never Patient Tobacco Use Status: Never used Tobacco e-Cigarette/Vaping Use: Never Used Second Hand Smoke Exposure: Yes service: No Current occupational status: disabled Cognitive needs: No Hearing needs: Yes Vision needs: Yes Questionnaire PHQ-9 Over the last 2 weeks, how often have you been bothered by any of the following problems? 1. Little interest or pleasure in doing things: not at all 2. Feeling down, depressed, or hopeless: not at all 3. Trouble falling or staying asleep, or sleeping too much: several days 4. Feeling tired or having little energy: not at all 5. Poor appetite or overeating: not at all 6. Feeling bad about yourself - or that you are a failure or have let yourself or your family down: not at all 7. Trouble concentrating on things, such as reading the newspaper or watching television: not at all 8. Moving or speaking so slowly that other people could have noticed. Or the opposite - being so fidgety or restless that you have been moving around a lot more than usual: not at all 9. Thoughts that you would be better off or of hurting yourself in some way: not at all Total score: 1 Depression Screening Interpretation: Negative Depression Screening Done: Yes 13945 - PHQ-9 Billing: Yes Source: Developed by Drs. Leonides Hamm, Rehana Tello, Harjinder Buitrago and colleagues, with an educational ronel from [employer]. Thrive Questionnaire Date Thrive assessed: 06/17/25 I am a: Patient What is your living situation today?: I have a steady place to live Within the past 12 months, did the food you bought not last and you didn't have the money to get more?: Never true Within the past 12 months, did you worry whether your food would run out before you got money to buy more?: Never true Do you have trouble paying for medicines?: No Do you have trouble getting transportation to medical appointments?: No Do you have trouble paying your heating and electricity bill?: No Do you have trouble taking care of your child, family member or friend?: I choose not to answer this question Do you have trouble with day-to-day activities such as bathing, preparing meals, shopping, managing finances, etc.?: Yes Are you currently unemployed and looking for a job?: I choose not to answer this question Are you interested in more education?: No Please select the resources that you would like help with: None Currently or been in a relationship where the following occur: No concerns reported THRIVE Score: 0 AUDIT C Alcohol Use Questionnaire (AUDIT-C) 1. How often do you have a drink containing alcohol?: Never 3. How often do you have six or more drinks on one occasion?: Never Total Score: 0 Score Reviewed/Action Taken: Yes ESTEBAN-7 AMB Questionnaire ESTEBAN-7 Date ESTEBAN - 7 assessed: 06/17/25 Feeling nervous, anxious, or on edge: 0 = Not at all Not being able to stop or control worryin = Not at all Worrying too much about different things: 0 = Not at all Trouble relaxin = Not at all Being so restless that it is hard to sit still: 0 = Not at all Becoming easily annoyed or irritable: 0 = Not at all Feeling afraid as if something awful might happen: 0 = Not at all Total ESTEBAN-7 score (0-4 normal; 5-9 mild; 10-14 moderate; 15-21 severe): 0 Source: Developed by Drs. Leonides Hamm, Rehana Tello, Harjinder Biutrago and colleagues, with an educational ronel from [employer]. Review of Systems Const Details: Information here is obtained mostly from patient's WIND ENERGY TECHNICIAN as patient is unable to participate in her office visit actively today due to her cognitive impairment Denies chills, Reports difficulty sleeping (see HPI), Reports fatigue, Denies fever(s) and Denies headache(s) ENT Denies dysphagia, Denies dizziness, Denies otalgia, Denies headache(s), Denies neck pain, Denies odynophagia and Denies sore throat Card Denies chest pain, Denies palpitations and Denies dyspnea Resp Denies chest congestion, Denies cough and Denies dyspnea GI Denies abdominal pain, Reports constipation (on and off), Denies dysphagia, Reports fecal incontinence (at times, per daughter), Denies diarrhea, Denies nausea, Denies odynophagia and Denies vomiting Denies difficulty voiding, Reports nocturia, Denies dysuria and Reports urinary incontinence Musc Denies back pain, Denies arthralgias and Denies neck pain Skin/Breast Denies rash Neuro Reports as per HPI, Reports behavioral changes (but improved from previous), Reports confusion (on and off; responds only in 1 to 2 word responses, does not talk otherwise), Denies dizziness, Denies headache(s) and Reports memory loss Psych Reports anxiety, Reports behavioral changes (but improved from previous), Reports confusion (on and off; responds only in 1 to 2 word responses, does not talk otherwise), Reports auditory hallucinations, Reports memory loss and Reports visual hallucinations Endo Reports fatigue and Denies palpitations Physical exam (Primary Care) Vital Signs: Last Vital Signs Pulse 79 06/17/25 13:24 BP 120/82 06/17/25 13:24 Pulse Ox 98 06/17/25 13:24 Oxygen Delivery Method Room Air 06/17/25 13:24 BMI result Body Mass Index 19.9 Tobacco/Smoking Status: Tobacco use Status Tobacco use date assessed 06/17/25 06/17/25 13:32 Patient Tobacco Use Status Never used Tobacco 06/17/25 13:32 e-Cigarette/Vaping Use Never Used 06/17/25 13:32 PHQ-9: PHQ-9 Score PHQ-9: Total score 1 06/17/25 14:07 Depression Screening Interpretation: Negative Thrive Assessment: Date of Thrive Assessment Date Thrive assessed 06/17/25 06/17/25 13:32 Currently or been in a relationship where the following occur: No concerns reported Const General: confusion (on and off; responds only in 1 to 2 word responses, does not talk otherwise) Orientation/consciousness: confusion (on and off; responds only in 1 to 2 word responses, does not talk otherwise) HENMT Ears: TM's normal bilaterally and EAC's normal Throat: Yes posterior oropharynx normal and Yes tonsils normal (no TP congestion) Neck Neck: Yes supple and No lymphadenopathy Thyroid: Thyroid normal Resp Auscultation: clear to auscultation bilaterally, no rales and no wheezes Cardio Rate: regular rate Rhythm: regular rhythm Heart sounds: no murmurs GI Palpation (GI): Soft to palpation and nontender Auscultation: normal bowel sounds General: Yes no CVA tenderness Back/Spine/Pelvis Back: no CVA tenderness Thoracic/Lumbar Spine: No lumbar spinal tenderness Skin Rashes: no rashes Neuro General: confusion (on and off; responds only in 1 to 2 word responses, does not talk otherwise) Gait exam (Neuro): Assistive device used (walker) Extrem General: Yes no clubbing, cyanosis or edema Results Reviewed Results Reviewed: Laboratory Tests 06/13/25 06/13/25 10:41 10:46 WBC 6.5 Hgb 13.3 Hct 39.6 Plt Count 249 Sodium 131 L Potassium 4.3 Creatinine 0.55 Estimated GFR > 60 Fasting Glucose 105 H Hemoglobin A1c % 6.0 Calcium 9.8 AST 26 ALT 25 Triglycerides 70 Cholesterol 144 LDL Cholesterol, Calc 76 HDL Cholesterol 54 25-OH Vitamin D Total 41.9 TSH 1.21 Ur Specific Purcell 1.015 Urine Protein Trace Urine Glucose (UA) Negative Urine Blood Negative Urine Nitrite Positive H Ur Leukocyte Esterase Large (3+) H Microalb/Creat Ratio 11.2 Coding Level of Care Code Est Pt Level 4 (97298) Diagnoses Pure hypercholesterolemia E78.00 Type 2 diabetes mellitus with diabetic polyneuropathy, without long-term current use of insulin E11.42 Diabetes mellitus complication detail: with polyneuropathy Diabetes mellitus complication status: with neurologic complications Diabetes mellitus shelter insulin use: without intermediate manager use Diabetes mellitus type: type 2 Benign essential hypertension I10 Chronic obstructive pulmonary disease, unspecified COPD type J44.9 COPD type: unspecified COPD Diabetic polyneuropathy associated with type 2 diabetes mellitus E11.42 Diabetes mellitus complication detail: diabetic polyneuropathy Diabetes mellitus type: type 2 Moderate dementia with other behavioral disturbance, unspecified dementia type F03.B18 Dementia behavioral or psychological symptom: with other behavioral disturbance Dementia severity: moderate Dementia type: unspecified type Allergic rhinitis, unspecified seasonality, unspecified trigger J30.9 Allergic rhinitis seasonality: unspecified Allergic rhinitis trigger: unspecified Gastroesophageal reflux disease without esophagitis K21.9 Esophagitis presence: without esophagitis Primary osteoarthritis of knee, unspecified laterality M17.10 Laterality: unspecified laterality Osteoarthritis type: primary Ductal carcinoma in situ of right breast D05.11 Age-related osteoporosis without current pathological fracture M81.0 Osteoporosis type: age-related Presence of current pathological fracture: without current pathological fracture Vitamin D deficiency E55.9 Nocturnal leg cramps G47.62 Constipation, unspecified constipation type K59.00 Constipation type: unspecified constipation type Genital herpes in women A60.09 Urinary tract infection due to Klebsiella species N39.0; B96.89 Unsteady gait R26.81 Anxiety F41.9 Depression, unspecified depression type F32.A Depression Type: unspecified Additional Codes PHQ-9 - 17748 - PHQ-9 Billing: Yes ([id number]) Assessment & Plan Assessment & Plan (1) Pure hypercholesterolemia: Code(s): E78.00 - Pure hypercholesterolemia, unspecified Category: Medical Plan: Results of her labs done last week reviewed and discussed with patient's WIND ENERGY TECHNICIAN as patient is cognitively impaired and is unable to participate in her visit today Reinforced low cholesterol diet Continue Atorvastatin 20 mg QD Will have her recheck her labs and fasting lipids in 3 months for follow up (2) Diabetes mellitus: Code(s): E11.9 - Type 2 diabetes mellitus without complications Category: Medical Qualifiers: Diabetes mellitus complication detail: with polyneuropathy Diabetes mellitus complication status: with neurologic complications Diabetes mellitus intermediate manager insulin use: without shelter use Diabetes mellitus type: type 2 Qualified Code(s): E11.42 - Type 2 diabetes mellitus with diabetic polyneuropathy Plan: Her HgbA1c was at 6.0% on her labs done a few days ago (in-office HgbA1c was previously at 6.7% a few months ago) - goal is at least <7.0% but ideally <6.5% Reinforced diabetic diet Patient is still not taking any medications for her diabetes and preferred to continue with diet modification alone as much as possible before her cognition started declining due to her dementia We will recheck her FBS and HgbA1c in 3 months for follow up (3) Benign essential hypertension: Code(s): I10 - Essential (primary) hypertension Category: Medical Plan: Reinforced low-sodium diet - goal is systolic BP of at least 130 to 140 mm or less She appears to be tolerating Amlodipine 2.5 mg QD and her blood pressure today is much improved from previous Continue Amlodipine 2.5 mg QD Patient's WIND ENERGY TECHNICIAN is reminded to help monitor patient's blood pressure regularly (4) COPD (chronic obstructive pulmonary disease): Code(s): J44.9 - Chronic obstructive pulmonary disease, unspecified Category: Medical Qualifiers: COPD type: unspecified COPD Qualified Code(s): J44.9 - Chronic obstructive pulmonary disease, unspecified Plan: Appears controlled Continue Advair Diskus 500-50 mcg 1 inhalation BID. ProAir HFA 2 puffs 4 times a day as needed; she was also on Xolair injections 300 mg Q 4 weeks but patient has refused to go get her shots for a while now and completely stopped going since she was diagnosed with dementia Patient also has Albuterol solution that she uses with her [employer] [place] machine when needed Follow-up with pulmonary as scheduled (5) Diabetic neuropathy: Code(s): E11.40 - Type 2 diabetes mellitus with diabetic neuropathy, unspecified Category: Medical Qualifiers: Diabetes mellitus complication detail: diabetic polyneuropathy Diabetes mellitus type: type 2 Qualified Code(s): E11.42 - Type 2 diabetes mellitus with diabetic polyneuropathy Plan: Her neuropathic symptoms do not appear to be bothering her at all lately so no additional intervention or Rx is needed (6) Dementia: Code(s): F03.90 - Unspecified dementia, unspecified severity, without behavioral disturbance, psychotic disturbance, mood disturbance, and anxiety Category: Medical Qualifiers: Dementia behavioral or psychological symptom: with other behavioral disturbance Dementia severity: moderate Dementia type: unspecified type Qualified Code(s): F03.B18 - Unspecified dementia, moderate, with other behavioral disturbance Plan: She was referred to and seen by neurology last year and was started on Memantine ER - she is currently still on Memantine ER 28 mg QD She was also experiencing some visual and auditory hallucinations last year with her declining cognition but these seem to have calmed down a lot lately Follow up [facility] neurology as scheduled Patient lives alone in her apartment and reportedly has WIND ENERGY TECHNICIAN services for 18 hours during the day and 2 hours at night but she is still left alone in her apartment for a few hours in the day and at night Her WIND ENERGY TECHNICIAN has installed cameras around her house to monitor patient remotely when she is alone by herself in her apartment Have again advised her WIND ENERGY TECHNICIAN that with her declining cognition, it is not safe for patient to be left alone in her apartment for any period of time and that they should get her agency to reevaluate patient if possible - my opinion is that she should have 22/05 WIND ENERGY TECHNICIAN services (7) Allergic rhinitis: Code(s): J30.9 - Allergic rhinitis, unspecified Category: Medical Qualifiers: Allergic rhinitis seasonality: unspecified Allergic rhinitis trigger: unspecified Qualified Code(s): J30.9 - Allergic rhinitis, unspecified Plan: Continue Fluticasone 50 mcg nasal spray QD PRN and Loratadine 10 mg QD PRN (8) GERD (gastroesophageal reflux disease): Code(s): K21.9 - Gastro-esophageal reflux disease without esophagitis Category: Medical Qualifiers: Esophagitis presence: without esophagitis Qualified Code(s): K21.9 - Gastro-esophageal reflux disease without esophagitis Plan: Dietary? 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 Code(s): D05.11 - Intraductal carcinoma in situ of right breast Category: Medical Plan: S/P Tx with Tamoxifen x 5 years Follow-up with Oncology as scheduled for continuing surveillance (11) Osteoporosis: Code(s): M81.0 - Age-related osteoporosis without current pathological fracture Category: Medical Qualifiers: Osteoporosis type: age-related Presence of current pathological fracture: without current pathological fracture Qualified Code(s): M81.0 - Age- related osteoporosis without current pathological fracture Plan: BMD done in June 2021 revealed (+) osteoporosis, with a T score of -3.2 Patient is again encouraged to continue with daily calcium and vitamin-D supplem ents Reinforced fall precautions We have discussed considerations for treatment of her osteoporosis with oral bisphosphonates but patient was previously concerned about side effects due to her pre-existing GI issues, including GERD; she was also concerned about other treatment options and the potential side effects and asked to hold off on Rx just before her cognition started declining She will need repeat BMD ordered next spring (2025) (12) Vitamin D deficiency: Code(s): E55.9 - Vitamin D deficiency, unspecified Category: Medical Plan: Continue Vitamin D3 2000 units QD (13) Nocturnal leg cramps: Code(s): G47.62 - Sleep related leg cramps Category: Medical Plan: Continue Tizanidine 4 mg daily at bedtime as needed (14) Constipation: Code(s): K59.00 - Constipation, unspecified Category: Medical Qualifiers: Constipation type: unspecified constipation type Qualified Code(s): K5 9.00 - Constipation, unspecified Plan: Reinforced increased oral fluids and dietary fiber Continue Senna 8.6 mg 1 to 2 tablets QD PRN (15) Genital herpes in women: Code(s): A60.09 - Herpesviral infection of other urogenital tract Category: Medical Plan: 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 She remains on chronic suppressive Tx with Valacyclovir 500mg QD (16) Urinary tract infection due to Klebsiella species: Code(s): N39.0 - Urinary tract infection, site not specified; B96.89 - Other specified bacterial agents as the cause of diseases classified elsewhere Category: Medical Plan: Patient's urine C/S done a few days ago grew (+) Klebsiella Will start her empirically on Bactrim DS 1 tablet BID x 7 days (17) Unsteady gait: Code(s): R26.81 - Unsteadiness on feet Category: Medical Plan: Patient has been noted to be very unsteady over the past few years and has fall en a few times recently - this is most likely multifactorial, including her neuropathy, age, frailty and overall generalized weakness She uses a walker all the time now when ambulating She currently has WIND ENERGY TECHNICIAN services for 18 hours during the day and 2 hours at night Patient lives alone in her own apartment and does not wish to move out to an assisted living facility or a fci Fall precautions reinforced to family (18) Anxiety: Code(s): F41.9 - Anxiety disorder, unspecified Category: Medical Plan: Continue Clonazepam? 0.25 mg 1/2 to 1 tablet once a day at bedtime as needed (19) Depression: Code(s): F32.9 - Major depressive disorder, single episode, unspecified Category: Medical Qualifiers: Depression Type: unspecified Qualified Code(s): F32.A - Depression, unspecified Plan: She used to see psychiatry but with her declining cognition over the past year or two, has stopped seeing psychiatry completely She does not appear to have had any issues lately related to her depression, including any unusual behavioral symptoms or agitation Plan Follow up in 3 months Orders: Orders Complete Blood Count Auto Diff 3 Months D64.9 - Anemia, unspecified Microalbumin, Random (w Creat) 3 Months E11.9 - Type 2 diabetes mellitus without complications TSH reflex Free T4 3 Months E78.00 - Pure hypercholesterolemia, unspecified Vitamin D 25-OH Total 3 Months E55.9 - Vitamin D deficiency, unspecified Hemoglobin A1c 3 Months E11.9 - Type 2 diabetes mellitus without complications Comprehensive Circle. Panel Fast 3 Months E78.00 - Pure hypercholesterolemia, unspecified Lipid Panel 3 Months E78.00 - Pure hypercholesterolemia, unspecified UA CC w/rflx Micro + Cult 3 Months R30.0 - Dysuria Medications: New sulfamethoxazole-trimethoprim 800-160 mg (Bactrim DS) 1 tab PO BID 14 tabs 0RF UTI 7 days Changed From sennosides Take 1 to 2 tablets orally daily PRN; 30 days 60 tabs 3RF constipation K59.00 - Constipation, unspecified To sennosides (Senna Lax) 8.6 mg PO BEDTIME PRN 30 tabs 3RF constipation 30 days K59.00 - Constipation, unspecified
[2025-06-17 13:24] VITALS: BP 120/82; PULSE 79; O2SAT 98; BMI 19.9
--- OUTSIDE RECORDS SUMMARY | 2025-06-17 14:28 | XMS_ITS | Patient Health Record ---
Author Organization [facility] Address [address] [place] [address] Care Team Providers Care Relocation Coordinator Name Role Phone Leonides Chatman Unavailable [phone] Reason For Referral No Information Plan Of Treatment No Information
--- OUTSIDE RECORDS SUMMARY | 2025-06-17 14:28 | XMS_ITS | Encounter Summary ---
Author Organization [facility] Address [address] [place] [address] Care Team Providers Care Sql Data Analyst Name Role Phone Jose Juan Rendon MD Primary Care Provider + [phone] Encounter Details Date Type Department Care Team (Latest Contact Info) Description 11/26/2024 Lab Requisition [facility] - Main Lab [address] [facility] [place] [address] Eva Ivan MD [address] [place] [id number] Other seizures (CMS/HCC V24, CMS/HCC V28); Type [...] % LAB CHEMISTRY METHOD 11/26/2024 1:54 PM [facility] Mean Bld Glu Estim. 134 mg/dL LAB CHEMISTRY METHOD 11/26/2024 1:54 PM [facility] Blood Venous blood specimen / Unknown Venipuncture / Unknown 11/26/2024 5:00 AM EST 11/26/2024 10:13 AM EST us Eva Ivan MD LAB BLOOD ORDERABLES Final Resu lt [facility] [address] [place] [address], [place] [phone] * (ABNORMAL) Basic metabolic panel (11/26/2024 5:00 AM EST) [facility] Sodium 132(L) 133 - 145 mmol/L LAB [...] LAB CHEMISTRY METHOD 11/26/2024 10:58 AM EST [facility] eGFR 95 >=60 mL/min/1. 73m2 LAB CHEMISTRY METHOD 11/26/2024 10:58 AM [facility] Comment:Calculation based on the [...] MD LAB BLOOD ORDERABLES Final Resu lt [facility] [address] [place] [address], * (ABNORMAL) Complete blood count (11/26/2024 5:00 AM EST) WBC 4.9 4.8 - 10.8 K/mcL LAB HEMETOLOGY METHOD 11/26/2024 11:11 AM [facility] RBC 3.70(L) 3.80 - 4.80 M/mcL LAB HEMETOLOGY METHOD 11/26/2024 11:11 AM [facility] Hemoglobin 11.4(L) 11.5 - 16.0 g/dL LAB HEMETOLOGY METHOD 11/26/2024 11:11 AM [facility] Hematocrit 35.5 35.0 - 47.0 % LAB HEMETOLOGY METHOD 11/26/2024 11:11 AM [facility] MCV 96.2 79.0 - 98.0 FL LAB HEMETOLOGY METHOD 11/26/2024 11:11 AM [facility] MCH 30.9 27.0 - 32.0 pcg LAB HEMETOLOGY METHOD 11/26/2024 11:11 AM EST [facility] MCHC 32.1 32.0 - 37.0 g/dL LAB HEMETOLOGY METHOD 11/26/2024 11:11 AM [facility] RDW 13.0 11.0 - 15.0 % LAB HEMETOLOGY METHOD 11/26/2024 11:11 AM [facility] Platelets 269 130 - 400 K/mcL LAB HEMETOLOGY METHOD 11/26/2024 11:11 AM [facility] MPV 9.1 7.0 - 11.0 FL LAB HEMETOLOGY METHOD 11/26/2024 11:11 AM [facility] NRBC 0.0 <1.0 % LAB HEMETOLOGY METHOD 11/26/2024 11:11 AM [facility] NRBC Absolute 0.00 <0.10 K/mcL LAB HEMETOLOGY METHOD 11/26/2024 11:11 AM [facility] Blood Venous blood specimen / Unknown Venipuncture / Unknown 11/26/2024 5:00 AM EST 11/26/2024 10:13 AM EST us Eva Ivan MD LAB BLOOD ORDERABLES Final Resu lt [facility] [address] [place] [address], [place] [phone] documented in this encounter Visit Diagnoses Diagnosis Other seizures (CMS/HCC V24, CMS/HCC V28) Type 2 diabetes mellitus without complications (CMS/HCC V24, CMS/[facility] V28) Unspecified convulsions (CMS/HCC V24, CMS/HCC V28) Chronic obstructive pulmonary disease, unspecified (CMS/HCC V24, CMS/HCC V28) Essential (primary) hypertension Unspecified essential hypertension documented in this encounter Care Teams Sql Data Analyst Relationship Specialty Start Date End Date Jose Juan Rendon MD [address] JOSEF Henriquez PCP - General 01/29/24 documented as of this encounter
--- OUTSIDE RECORDS SUMMARY | 2025-06-17 14:28 | XMS_ITS | Encounter Summary ---
Author Organization [employer] Address [address] [facility] [address] [place] [address] Care Team Providers Care Early Childhood Coordinator Name Role Phone Unavailable Primary Care Provider [...]
== END 2025-06-17 14:16 | disposition home or self-care (01) ==
LOC: HO.HMCH 13:17
PROVIDERS: PCP Internal Medicine; Visit Provider Internal Medicine
DX: E11.42 Type 2 diabetes mellitus with diabetic polyneuropathy (principal); J44.9 Chronic obstructive pulmonary disease, unspecified; F03.B18 Unspecified dementia, moderate, with other behavioral disturbance; E78.00 Pure hypercholesterolemia, unspecified; I10 Essential (primary) hypertension; J30.9 Allergic rhinitis, unspecified; K21.9 Gastro-esophageal reflux disease without esophagitis; M17.10 Unilateral primary osteoarthritis, unspecified knee; D05.11 Intraductal carcinoma in situ of right breast; M81.0 Age-related osteoporosis without current pathological fracture; E55.9 Vitamin D deficiency, unspecified; G47.62 Sleep related leg cramps; K59.00 Constipation, unspecified; A60.09 Herpesviral infection of other urogenital tract; N39.0 Urinary tract infection, site not specified; B96.89 Other specified bacterial agents as the cause of diseases classified elsewhere; R26.81 Unsteadiness on feet; F41.9 Anxiety disorder, unspecified; F32.A Depression, unspecified

== ENCOUNTER → 2025-06-17 13:16 | Outpatient (BNVA) | payer MEDICARE, MEDICAID, SELFPAY | PROVIDERS: PCP Internal Medicine; Visit Provider Internal Medicine | DX: E78.00 Pure hypercholesterolemia, unspecified (principal); E11.42 Type 2 diabetes mellitus with diabetic polyneuropathy; J44.9 Chronic obstructive pulmonary disease, unspecified; F03.B18 Unspecified dementia, moderate, with other behavioral disturbance; J30.9 Allergic rhinitis, unspecified; K21.9 Gastro-esophageal reflux disease without esophagitis; M17.10 Unilateral primary osteoarthritis, unspecified knee; D05.11 Intraductal carcinoma in situ of right breast; M81.0 Age-related osteoporosis without current pathological fracture; E55.9 Vitamin D deficiency, unspecified; G47.62 Sleep related leg cramps; K59.00 Constipation, unspecified; A60.09 Herpesviral infection of other urogenital tract; R26.81 Unsteadiness on feet; F41.9 Anxiety disorder, unspecified; F32.A Depression, unspecified | CPT/HCPCS: 96127; 99212 ==

== ENCOUNTER 2025-07-30 10:37 | Outpatient (AMB) | payer MEDICARE, MEDICAID, SELFPAY ==
[2025-07-30 10:51] VITALS: BP 192/92; PULSE 71; O2SAT 96; BMI 18.7
--- NOTE | 2025-07-30 10:51 | A.OFFVIS_ITS ---
Vital Signs 07/30/25 10:51 Height 5 ft Weight 96 lb BMI 18.7 BP 192/92 H Blood Pressure Location Lt brachial Position Sitting Pulse 71 Pulse Source Pulse Oximeter Pulse Oximetry (%) 96 Oxygen Delivery Method Room Air Intake Visit Reasons: 6 MO FU Intake Note: Patient presents follow up Dementia. Labs/barium swallow/ Speech eval in chart Shoe Sewing Machine Operator And Tender Required: No Shoe Sewing Machine Operator And Tender Services: Shoe Sewing Machine Operator And Tender Offered & Declined Shoe Sewing Machine Operator And Tender Name: her dtr- Angelica Accompanied by: Daughter Allergies meperidine (From DEMEROL) Allergy (Severe, Verified 06/17/25 14:04) HYPOTENSION Penicillins (PENICILLINS) Allergy (Severe, Verified 06/17/25 14:04) HIVES,SWELLING influenza virus vaccine, specific (Influenza Virus Vacc,Specific) Adverse Reaction (Intermediate, Verified 06/17/25 14:04) ASTHMA EXACERBATION Anesthetic Maximum Strength Allergy (Severe, Uncoded 06/17/25 14:04) anaphylaxis Bee Sting Allergy (Unknown, Uncoded 06/17/25 14:04) unknown Medication List - Last Reconciled 07/30/25 by SOFIE Gonzalez [ADULT PULL-UPS (medium) As directed] albuterol sulfate 2.5 mg continuous nebulization Q6H PRN albuterol sulfate 90 mcg/actuation 2 puffs PO Q6H PRN amlodipine 2.5 mg PO BID 90 days aspirin 81 mg PO DAILY atorvastatin 20 mg PO BEDTIME 90 days [Bed rail As directed] blood pressure monitor As directed blood sugar diagnostic (FreeStyle Test strips) test bs once a day blood-glucose meter (FreeStyle Lite Meter kit) As directed- To test Blood sugar blood-glucose meter (FreeStyle Lite Meter kit) As directed ONCE A DAY cholecalciferol (vitamin D3) 50 mcg PO DAILY clonazepam 0.25 mg PO BEDTIME PRN 30 days fluticasone propion-salmeterol 500-50 mcg/dose (Advair Diskus) 1 ea PO BID fluticasone propionate 50 mcg/actuation 1 spray intranasal DAILY [FreeStyle LANCETS As directed] [FreeStyle TEST STRIPS As directed] lancets (FreeStyle Lancets) 28 gauge miscellaneous .QD latanoprost 0.005% 1 drp ophthalmic (eye) BEDTIME loratadine 10 mg PO DAILY PRN memantine 28 mg PO DAILY omalizumab (Xolair) 300 mg subcut Q4W 28 days omeprazole 20 mg PO DAILY PRN polyethylene glycol 3350 (Miralax) 17 grams PO DAILY 30 days sennosides (Senna Lax) 8.6 mg PO BEDTIME PRN 30 days sulfamethoxazole-trimethoprim 800-160 mg (Bactrim DS) 1 tab PO BID 7 days valacyclovir 500 mg PO DAILY HPI Comments Details: 79-yr-old female presents for f/u visit for dementia and for follow-up of interval lab workup in swallow study results.. Pt is accompanied by her dtr Angelica, who asists w/ history. Patient has had memory issues for many yrs, since at least 1999, however the m belva issues had begun to worsen in the last year. However, since the last visit, there have been no marked worsening of her cognitive symptoms. EEG- not yet completed, daughter states she did not receive a call or maybe they did I was forgotten about it in the other called and appointments. Lab workup including B12, folate, vitamin-D, TSH, RPR, HIV must CBC/CMP for overall within normal limits. Thin globin A1c was 6.1% Barium swallow and follow-up GI consult completed- Pt and dtr note she continues to easily forget things. States she was doing better with cognitive therapy but then all of sudden forgot who the therapist was or why she was there. Patient is telling her daughter stories about people who are who are going to do something bad or bothersome, such as poison the food. She started repetitively nodding her head or tapping her feet. Sometimes has mild hand tremors. Patient has [id number], and her dtr or her granddtr, who is her raymond mill operator, cooks dinner. However, patient has lost some weight, as for some time she was not eating as well because she believed that there was glass in her food and that she had cuts on her fingers from this glass. Patient endorses waking up at night and seeing the film playing in her room. Patient states she has a decreased sense of smell, but typically can taste the food. Pt lives by herself- and has a.m. and evening MEAT TEAM LEAD care. Her daughter continues to supervise remotely via cameras that have been installed in her house. Has chronic buzzing tinnitus. Sometimes can feel lightheaded. Denies interval episodes of wandering or leaving the house. Denies interval falls. Denies interval seizure like activity, dizziness. Pt's mother and her siblings all have memory difficulties. Previous workup: February 2025, EEG: Mild slowing with no evidence of seizure disorder. 05/2023, MRI Brain W/O Contrast, 1. No acute/subacute infarct, mass, hemorrhage, or other acute intracranial abnormality. 2. Possible small chronic lacunar infarct in the right cerebellar hemisphere. Mild scattered T2/FLAIR hyperintense foci in the white matter, nonspecific but most likely reflecting chronic small vessel disease. 05/2023, CT Angio Head Hyperacute Stroke, CT Angio Neck Hyperacute Stroke, 1. There is no large vessel occlusion or high-grade stenosis in the [place]. 2. Narrowing of both subclavian artery origins, moderate on the right and severe on the left. 3. Nonspecific right upper lobe lung nodule. [facility] Medical History Dementia Osteoporosis Post-menopausal Cellulitis Overweight (BMI 25.0-29.9) Depression Anxiety Nocturnal leg cramps Vitamin D deficiency Genital herpes in women Ductal carcinoma in situ of right breast Osteoarthritis of knee GERD (gastroesophageal reflux disease) Allergic rhinitis Diabetic neuropathy COPD (chronic obstructive pulmonary disease) Benign essential hypertension Pure hypercholesterolemia Diabetes mellitus Surgical History History of colonoscopy History of total hysterectomy H/O breast surgery Family History Father CVD (cardiovascular disease) Stroke Mother Cancer Other Mental health disorder Social History Housing: Apartment Alcohol intake: never Patient Tobacco Use Status: Never used Tobacco e-Cigarette/Vaping Use: Never Used Second Hand Smoke Exposure: Yes service: No Current occupational status: disabled Cognitive needs: No Hearing needs: Yes Vision needs: Yes Physical Exam Vital Signs: Last Vital Signs Pulse 71 07/30/25 10:51 BP 192/92 H 07/30/25 10:51 Pulse Ox 96 07/30/25 10:51 Oxygen Delivery Method Room Air 07/30/25 10:51 BMI result Body Mass Index 18.7 Const General: cooperative and no acute distress Orientation/consciousness: oriented to person Resp Effort & Inspection: normal respiratory effort and able to speak in complete sentences Neuro Other: Pt alert, oriented to person. STM lapses noted. Answers simple questions appropriately. Soft voice. Nodding her head repetitively. Tapping the LLE repetitively. Rolling left 1st and 2nd fingers. BUE mild rigidity Patient was unable to perform fine finger movements, specifically was unable to tap the fingers. Foot taps: Impaired bilaterally, patient used her arms to lift her legs up and down. Slow to stand, steady with gait with 4 wheeled walker. General: oriented to person Cranial nerves: Yes CN's II-XII intact bilaterally Psych Appearance: well kempt Attitude: cooperative Assessment & Plan Assessment & Plan (1) Dementia: Code(s): F03.90 - Unspecified dementia, unspecified severity, without behavioral disturbance, psychotic disturbance, mood disturbance, and anxiety Category: Medical Qualifiers: Dementia behavioral or psychological symptom: with other behavioral disturbance Dementia severity: moderate Dementia type: unspecified type Qualified Code(s): F03.B18 - Unspecified dementia, moderate, with other behavioral disturbance (2) Vertigo: Code(s): R42 - Dizziness and giddiness Category: Medical (3) Memory impairment: Code(s): R41.3 - Other amnesia Category: Medical (4) Tremor: Code(s): R25.1 - Tremor, unspecified Category: Medical (5) Delusions: Code(s): F22 - Delusional disorders Category: Medical (6) Memory loss: Code(s): R41.3 - Other amnesia Category: Medical Plan Reviewed EEG results, which showed generalized slowing without epileptic activity. Patient is advised to undergo brain MRI with and without contrast and helen PET scan to assess for secondary underlying etiologies of worsening cognition, hallucinations/delusions/hypnagogic hallucinations, gait difficulties, tremor and involuntary movements. Continue supportive care- she requires MEAT TEAM LEAD and supervised care. Continue Menatine ER 28mg qd. Continue to optimize cardiovascular risk factors: Continue aspirin, anti HTN Tx, Statin Tx. Pt to follow-up in 6 months or sooner prn. Orders: Orders MR head/brain wo/w con Today F22 - Delusional disorders, R25.1 - Tremor, unspe cified, R29.6 - Repeated falls, R41.3 - Other amnesia DaTscan Today F22 - Delusional disorders, R25.1 - Tremor, unspecified, R29.6 - Repeated falls, R41.3 - Other amnesia Coding Level of Care Code Est Pt Level 4 (80886) Diagnoses Moderate dementia with other behavioral disturbance, unspecified dementia type F03.B18 Dementia behavioral or psychological symptom: with other behavioral disturbance Dementia severity: moderate Dementia type: unspecified type Vertigo R42 Memory impairment R41.3 Tremor R25.1 Delusions F22 Memory loss R41.3
--- OUTSIDE RECORDS SUMMARY | 2025-07-30 12:12 | XMS_ITS | Encounter Summary ---
Author Organization [employer] Address [address] [place] [address] Care Team Providers Care Cook Manager Name Role Phone Unavailable Primary Care Provider [...]
--- OUTSIDE RECORDS SUMMARY | 2025-07-30 12:12 | XMS_ITS | Encounter Summary ---
Author Organization [facility] Address [address] [place] [address] Care Team Providers Care Time Study Analyst Name Role Phone Jose Juan Rendon MD Primary Care Provider + [phone] Encounter Details Date Type Department Care Team (Latest Contact Info) Description 11/26/2024 Lab Requisition [facility] - Main Lab [address] [facility] [place] [address] Eva Ivan MD [address] [place] [id number] Other seizures (CMS/HCC V24, CMS/HCC V28); Type [...] A1c (11/26/2024 5:00 AM EST) Pathologist [facility] Hemoglobin A1C 6.3 <6.5 % LAB CHEMISTRY METHOD 11/26/2024 1:54 PM [facility] Mean Bld Glu Estim. 134 mg/dL LAB CHEMISTRY METHOD 11/26/2024 1:54 PM [facility] Blood Venous blood specimen / Unknown Venipuncture / Unknown 11/26/2024 5:00 AM EST 11/26/2024 10:13 AM EST us Eva Ivan MD LAB BLOOD ORDERABLES Final Resu lt [facility] [address] [place] [address], [place] [phone] * (ABNORMAL) Basic metabolic panel (11/26/2024 5:00 AM EST) [facility] Sodium 132(L) 133 - 145 mmol/L LAB CHEMISTRY METHOD 11/26/2024 10:58 AM [facility] Potassium 5.1 3.5 - 5.5 mmol/L LAB CHEMISTRY METHOD 11/26/2024 10:58 AM [facility] Chloride 101 96 - 110 mmol/L LAB CHEMISTRY METHOD 11/26/2024 10:58 AM [facility] CO2 28 21 - 32 mmol/L LAB CHEMISTRY METHOD 11/26/2024 10:58 AM [facility] Anion Gap 3 3 - 11 LAB CHEMISTRY METHOD 11/26/2024 10:58 AM [facility] Glucose 102(H) 70 - 100 mg/dL LAB CHEMISTRY METHOD 11/26/2024 10:58 AM [facility] BUN 10 5 - 25 mg/dL LAB CHEMISTRY METHOD 11/26/2024 10:58 AM [facility] Creatinine 0.52 0.50 - 1.10 mg/dL LAB CHEMISTRY METHOD 11/26/2024 10:58 AM EST [facility] eGFR 95 >=60 mL/min/1. 73m2 LAB CHEMISTRY METHOD 11/26/2024 10:58 AM [facility] Comment:Calculation based on the Chronic Kidney Disease Epidemiology Collaboration (CKD-EPI) equation refit without adjustment for race. BUN/Creatinine Ratio 19.2 LAB CHEMISTRY METHOD 11/26/2024 10:58 AM [facility] Calcium 8.5 8.5 - 10.5 mg/dL LAB CHEMISTRY METHOD 11/26/2024 10:58 AM [facility] Blood Venous blood specimen / Unknown Venipuncture / Unknown 11/26/2024 5:00 AM EST 11/26/2024 10:13 AM EST us Eva Ivan MD LAB BLOOD ORDERABLES Final Resu lt [facility] [address] [place] [address], * (ABNORMAL) Complete blood count (11/26/2024 5:00 AM EST) WBC 4.9 4.8 - 10.8 K/mcL LAB HEMETOLOGY METHOD 11/26/2024 11:11 AM [facility] RBC 3.70(L) 3.80 - 4.80 M/mcL LAB HEMETOLOGY METHOD 11/26/2024 11:11 AM [facility] Hemoglobin 11.4(L) 11.5 - 16.0 g/dL LAB HEMETOLOGY METHOD 11/26/2024 11:11 AM [facility] Hematocrit 35.5 35.0 - 47.0 % LAB HEMETOLOGY METHOD 11/26/2024 11:11 AM [facility] MCV 96.2 79.0 - 98.0 FL LAB HEMETOLOGY METHOD 11/26/2024 11:11 AM [facility] MCH 30.9 27.0 - 32.0 pcg LAB HEMETOLOGY METHOD 11/26/2024 11:11 AM EST [facility] MCHC 32.1 32.0 - 37.0 g/dL LAB HEMETOLOGY METHOD 11/26/2024 11:11 AM [facility] RDW 13.0 11.0 - 15.0 % LAB HEMETOLOGY METHOD 11/26/2024 11:11 AM [facility] Platelets 269 130 - 400 K/mcL LAB HEMETOLOGY METHOD 11/26/2024 11:11 AM [facility] MPV 9.1 7.0 - 11.0 FL LAB HEMETOLOGY METHOD 11/26/2024 11:11 AM [facility] NRBC 0.0 <1.0 % LAB HEMETOLOGY METHOD 11/26/2024 11:11 AM [facility] NRBC Absolute 0.00 <0.10 K/mcL LAB HEMETOLOGY METHOD 11/26/2024 11:11 AM [facility] Blood Venous blood specimen / Unknown Venipuncture / Unknown 11/26/2024 5:00 AM EST 11/26/2024 10:13 AM EST us Eva Ivan MD LAB BLOOD ORDERABLES Final Resu lt [facility] [address] [place] [address], [place] [phone] documented in this encounter Visit Diagnoses Diagnosis Other seizures (CMS/HCC V24, CMS/HCC V28) Type 2 diabetes mellitus without complications (CMS/HCC V24, CMS/[facility] V28) Unspecified convulsions (CMS/HCC V24, CMS/HCC V28) Chronic obstructive pulmonary disease, unspecified (CMS/HCC V24, CMS/HCC V28) Essential (primary) hypertension Unspecified essential hypertension documented in this encounter Care Teams Time Study Analyst Relationship Specialty Start Date End Date Jose Juan Rednon MD [address] [facility] [address] JOSEF Henriquez PCP - General 01/29/24 documented as of this encounter
--- OUTSIDE RECORDS SUMMARY | 2025-07-30 12:12 | XMS_ITS | Clinical Summary ---
Author Organization [employer] Address [address] [facility] [address] [place] [address] Care Team Providers Care Driver Lifter Of Sanitation Truck Name Role Phone Unavailable Primary Care Provider [...] - 1-dose 75+ series) 2021 COVID-19 Vaccine (1 - 2023-2 5 season) 2025 Influenza Vaccine (#1) 2025 HIB Vaccines Aged Out No longer eligi [...]
--- OUTSIDE RECORDS SUMMARY | 2025-07-30 12:12 | XMS_ITS | Patient Health Record ---
Author Organization [facility] Address [address] [place] [address] Care Team Providers Care Family Support Specialist Name Role Phone Leonides Chatman Unavailable [phone] Reason For Referral No Information Plan Of Treatment No Information
--- OUTSIDE RECORDS SUMMARY | 2025-07-30 12:12 | XMS_ITS | Clinical Summary ---
Author Organization [facility] Address [address] [place] [address] Phone Care Team Providers Care Genomics Scientist Name Role Phone Jose Juan Rendon MD Primary Care Provider + [phone] Allergies Active Allergy Reactions Criticality Noted Date [...] Medical History Date Comments Arthritis Vascular dementia ([facility] V24, [facility] V28) Asthma Diabetes mellitus ([facility] V24, [facility] V28) Hypertension Osteoarthritis COPD (chronic obstructive pulmonary disease) ([facility] V24, [facility] V28[facility] Seizures ([facility] V24, [facility] V28) Stroke ([facility] V24, [facility] V28) Cancer ([facility] V24, [facility] V28) Depression Anxiety Social History Tobacco Use [...] 77 11/25/2024 9:25 AM EST Temperature 36.7 C (98.1 F) 11/25/2024 9:25 AM EST Respiratory Rate 16 11/25/2024 9:25 AM EST [...] PCV) 1965 Zoster Vaccines (1 of 2) 1965 RSV Immunization Adult Patients (1 - 1-dose 75+ series) 2021 Cholesterol Screening (Lipid Panel) 11/24/2023 Falls Risk Assessment 11/24/2023 Hepatitis C Screening 11/24/2023 Medicare Annual Wellness Visit 11/24/2023 Osteoporosis Screening (Bone Density Screening) 11/24/2023 Social Influencers of Health Screening 11/24/2023 Diabetes: Annual Urine Albumin-Creatinine Ratio (uACR) 05/23/2024 Depression Screening 10/30/2024 DTaP,Tdap,and Td Vaccines (2 - Td or Tdap) 04/05/2025 04/05/2015 Diabetes: Blood Sugar Contro l Test (HGBA1C) 05/26/2025 11/26/2024 Influenza Vaccine (#1) 2025 Diabetes: Annual GFR (Glomerular Filtration Rate) 03/25/2026 03/25/2025, 11/26/2024, 11/23/2024 Hypertension/CHF/CAD Annual BMP Blood Test 03/25/2026 03/25/2025, 11/26/2024, 11/23/2024 HIB Vaccines Aged Out No [...] Procedure Name Priority Date/Time Associated Diagnosis Comments CREATININE, SERUM Routine 03/25/2025 10: 49 AM EDT Superior mesenteric artery stenosis (CMS/HCC V24) HEMOGLOBIN A1C Routine 11/26/2024 5:00 AM EST Other seizures (CMS/HCC) Type 2 diabetes mellitus without complications (CMS/HCC) Unspecified convulsions (CMS/HCC) Chronic obstructive pulmonary disease, unspecified (CMS/HCC) Essential (primary) hypertension from Last 3 Months or Most Recently Relevant to Health Maintenance Results * (ABNORMAL) Creatinine (03/25/2025 10:49 AM EDT) Creatinine 0.46(L) 0.50 - 1.10 mg/dL LAB CHEMISTRY METHOD 03/25/2025 3:10 PM EDT [facility] eGFR 98 >=60 mL/min/1. 73m2 LAB CHEMISTRY METHOD 03/25/2025 3:10 PM EDT [facility] Comment:Calculation based on the Chronic Kidney Disease Epidemiology Collaboration (CKD-EPI) equation refit without adjustment for race. Blood Venous blood specimen / Unknown Venipuncture / Unknown 03/25/2025 10:49 AM EDT 03/25/2025 10:49 AM EDT us Kavin Denny MD LAB BLOOD ORDERABLES Final Resu lt [facility] [address] [place] [address], * Hemoglobin A1c (11/26/2024 5:00 AM EST) Hemoglobin A1C 6.3 <6.5 % LAB CHEMISTRY METHOD 11/26/2024 1:54 PM EST [facility] Mean Bld Glu Estim. 134 mg/dL LAB CHEMISTRY METHOD 11/26/2024 1:54 PM EST [facility] Blood Venous blood specimen / Unknown Venipuncture / Unknown 11/26/2024 5:00 AM EST 11/26/2024 10:13 AM EST us Eva Ivan MD LAB BLOOD ORDERABLES Final Resu lt [facility] ([facility] [address] [place] [address], from Last 3 Months or Most Recently Relevant to Health Maintenance Insurance [place] - [place] MEDICARE Advance Directives Documents on File Type Date Recorded Patient Channel Machine Operator Expl anation Health Care Decision (hx) 02/18/2024 HE ALTH CARE PROXY * Full Code - Confirmed (Latest Code Status on File) Date Activated Date Inactivated Comments 11/23/2024 7:28 AM 11/25/2024 5:[address] [facility] was ascertained in the following way: Code status discussion: discussion with healthcare welding equipment sales representative To update the patient's code status, place a code status order. Do not modify or discontinue any currently active code status orders. Care Teams Genomics Scientist Relationship Specialty Start Date End Date Jose Juan Rendon MD [address] [place] [address] [address] [place], [place] PCP - General 01/29/24
--- OUTSIDE RECORDS SUMMARY | 2025-07-30 12:12 | XMS_ITS | Encounter Summary ---
Author Organization [employer] Address [address] [facility] 7t [place] [address] Care Team Providers Care Chemical Process Project Engineer Name Role Phone Unavailable Primary Care Provider [...]
== END 2025-07-30 12:09 | disposition home or self-care (01) ==
LOC: HO.HSMS 10:37
PROVIDERS: PCP Internal Medicine; Visit Provider Nurse Practitioner Family
DX: F03.B18 Unspecified dementia, moderate, with other behavioral disturbance (principal); R42 Dizziness and giddiness; R41.3 Other amnesia; R25.1 Tremor, unspecified; F22 Delusional disorders
CPT/HCPCS: 99214

== ENCOUNTER → 2025-07-30 10:37 | Outpatient (BNVA) | payer MEDICARE, MEDICAID, SELFPAY | PROVIDERS: PCP Internal Medicine; Visit Provider Nurse Practitioner Family | DX: F01.B18 Vascular dementia, moderate, with other behavioral disturbance (principal); R42 Dizziness and giddiness; R41.3 Other amnesia; R25.1 Tremor, unspecified; F22 Delusional disorders | CPT/HCPCS: 99212 ==

== ENCOUNTER 2025-09-07 13:40 | Outpatient (REF) | payer MEDICARE, MEDICAID, SELFPAY ==
--- NOTE | ~2025-09-07 | MR_ITS ---
EXAMINATION: MR BRAIN WITHOUT AND WITH CONTRAST CLINICAL INFORMATION: F 22. Delusional disorders. COMPARISON: Correlated to CT dated February 26, 2019 and MRA brain dated March 01, 2019. TECHNIQUE: Multiplanar, multisequence MRI of the brain was obtained before and after the intravenous administration of 5.0 mL gadolinium based (Gadavist) without reported immediate complications.. FINDINGS: No restricted diffusion. No acute intracranial hemorrhage, mass effect, midline shift, hydrocephalus or herniation. Bilateral multifocal patchy and punctate deep periventricular white matter hyperintense T2 FLAIR signal involving centrum semiovale and kerr radiata. Old lacunar infarcts, basal ganglia, kerr radiata white matter and right cerebellum. Flow-void signal within the main cerebral vessels is normal. No signal abnormality within the substantia nigra. Prominence of the extra-axial CSF spaces cerebral sulci and ventricles. No signal abnormality within the hippocampi. Sellar/suprasellar region is normal. Craniocervical junction is intact with normal position of the cerebellar tonsils. No abnormal enhancement within the intra-axial or the extra-axial compartment of the cranium. MR/MR head/brain wo/w con IMPRESSION: No acute brain abnormality. Small vessel occlusive disease. No abnormal enhancement. Global cerebral atrophy. Electronically signed by: Vic Dent MD 09/08/2025 07:13 AM YESI
--- OUTSIDE RECORDS SUMMARY | 2025-09-07 13:49 | XMS_ITS | Patient Health Record ---
Author Organization [facility] Address [address] [place] [address] Care Team Providers Care Anatomy And Physiology Instructor Name Role Phone Leonides Chatman Unavailable [phone] Reason For Referral No Information Plan Of Treatment No Information
--- OUTSIDE RECORDS SUMMARY | 2025-09-07 13:49 | XMS_ITS | Encounter Summary ---
Author Organization [employer] Address [address] [facility] 7t [place] [address] Care Team Providers Care Machine Applicator Cementer Name Role Phone Unavailable Primary Care Provider [...]
--- OUTSIDE RECORDS SUMMARY | 2025-09-07 13:50 | XMS_ITS | Clinical Summary ---
Author Organization [employer] Address [address] [facility] [address] [place] [address] Care Team Providers Care Noc Technician Name Role Phone Unavailable Primary Care [...]
--- OUTSIDE RECORDS SUMMARY | 2025-09-07 13:50 | XMS_ITS | Encounter Summary ---
Author Organization [employer] Address [address] [place] [address] Care Team Providers Care Social Staff Worker Name Role Phone Unavailable Primary Care [...]
--- OUTSIDE RECORDS SUMMARY | 2025-09-07 13:50 | XMS_ITS | Clinical Summary ---
Author Organization [facility] Address [address] [place] [address] Phone Care Team Providers Care Bungy Jump Master Name Role Phone Jose Juan Rendon MD Primary Care Provider + [phone] Allergies Active Allergy Reactions Criticality Noted Date [...] Medical History Date Comments Arthritis Vascular dementia ([facility]24, [facility] V28) Asthma Diabetes mellitus ([facility] V24, [facility] V28) Hypertension Osteoarthritis COPD (chronic obstructive pulmonary disease) ([facility] V24, [facility] [...] (Glomerular Filtration Rate) 03/25/2026 03/25/2025, 11/26/2024, 11/23/2024 HIB Vaccines Aged [...] 49 AM EDT Superior mesenteric artery stenosis ([facility] V24) HEMOGLOBIN A1C Routine 11/26/2024 5:00 AM EST Other seizures ([facility]) Type 2 diabetes mellitus without complications ([facility]) Unspecified convulsions ([facility]) Chronic obstructive pulmonary disease, unspecified ([facility]) Essential (primary) hypertension from Last 3 Months or Most Recently Relevant to Health Maintenance Results * (ABNORMAL) Creatinine (03/25/2025 10:49 AM EDT) Creatinine 0.46(L) 0.50 - 1.10 mg/dL LAB CHEMISTRY METHOD 03/25/2025 3:10 PM EDT [facility] eGFR 98 >=60 mL/min/1. 73m2 LAB CHEMISTRY METHOD 03/25/2025 3:10 PM EDT [facility] Comment:Calculation based on the Chronic Kidney Disease Epidemiology Collaboration (CKD-EPI) equation refit without adjustment for race. Blood Venous blood specimen / Unknown Venipuncture / Unknown 03/25/2025 10:49 AM EDT 03/25/2025 10:49 AM EDT us Kavin Denny MD LAB BLOOD ORDERABLES Final Resu lt [facility] [address] [place] [address], * Hemoglobin A1c (11/26/2024 5:00 AM EST) Hemoglobin A1C 6.3 <6.5 % LAB CHEMISTRY METHOD 11/26/2024 1:54 PM EST [facility] Mean Bld Glu Estim. 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 Do not modify or discontinue any currently active code status orders. Care Teams Bungy Jump Master Relationship Specialty Start Date End Date Jose Juan Rendon MD [address] [place] [address] [address] JOSEF Henriquez PCP - General 01/29/24
--- OUTSIDE RECORDS SUMMARY | 2025-09-07 13:50 | XMS_ITS | Encounter Summary ---
Author Organization [facility] Address [address] [place] [address] Care Team Providers Care Parts Processor Name Role Phone Jose Juan Rendon MD Primary Care Provider + [phone] Encounter Details Date Type Department Care Team (Latest Contact Info) Description 11/26/2024 Lab Requisition [facility] [address] [facility] [place] [address] Eva Ivan MD [address] [place] [phone] Other seizures (CMS/HCC V24, CMS/HCC V28); Type [...] Hemoglobin A1c (11/26/2024 5:00 AM EST) Pathologist [facility] Hemoglobin A1C 6.3 <6.5 % LAB CHEMISTRY METHOD 11/26/2024 1:54 PM [facility] Mean Bld Glu Estim. 134 mg/dL LAB CHEMISTRY METHOD 11/26/2024 1:54 PM [facility] Blood Venous blood specimen / Unknown Venipuncture / Unknown 11/26/2024 5:00 AM EST 11/26/2024 10:13 AM EST us Eva Ivan MD LAB BLOOD ORDERABLES Final Resu lt [facility] [address] [place] [address], [place] [phone] * (ABNORMAL) Basic metabolic panel (11/26/2024 5:00 AM EST) [facility] Sodium 132(L) 133 - 145 mmol/L LAB CHEMISTRY METHOD 11/26/2024 10:58 AM [facility] Potassium 5.1 3.5 - 5.5 mmol/L LAB CHEMISTRY METHOD 11/26/2024 10:58 AM [facility] Chloride 101 96 - 110 mmol/L LAB CHEMISTRY METHOD 11/26/2024 10:58 AM [facility] CO2 28 21 - 32 mmol/L LAB CHEMISTRY METHOD 11/26/2024 10:58 AM [facility] Anion Gap 3 3 - 11 LAB CHEMISTRY METHOD 11/26/2024 10:58 AM [facility] Glucose 102(H) 70 - 100 mg/dL LAB CHEMISTRY METHOD 11/26/2024 10:58 AM [facility] BUN 10 5 - 25 mg/dL LAB CHEMISTRY METHOD 11/26/2024 10:58 AM [facility] Creatinine 0.52 0.50 - 1.10 mg/dL LAB CHEMISTRY METHOD 11/26/2024 10:58 AM EST [facility] eGFR 95 >=60 mL/min/1. 73m2 LAB CHEMISTRY METHOD 11/26/2024 10:58 AM [facility] Comment:Calculation based on the Chronic Kidney Disease Epidemiology Collaboration (CKD-EPI) equation refit without adjustment for race. BUN/Creatinine Ratio 19.2 LAB CHEMISTRY METHOD 11/26/2024 10:58 AM [facility] Calcium 8.5 8.5 - 10.5 mg/dL LAB CHEMISTRY METHOD 11/26/2024 10:58 AM [facility] Blood Venous blood specimen / Unknown Venipuncture / Unknown 11/26/2024 5:00 AM EST 11/26/2024 10:13 AM EST us Eva Ivan MD LAB BLOOD ORDERABLES Final Resu lt [facility] [address] [place] [address], * (ABNORMAL) Complete blood count (11/26/2024 5:00 AM EST) WBC 4.9 4.8 - 10.8 K/mcL LAB HEMETOLOGY METHOD 11/26/2024 11:11 AM [facility] RBC 3.70(L) 3.80 - 4.80 M/mcL LAB HEMETOLOGY METHOD 11/26/2024 11:11 AM [facility] Hemoglobin 11.4(L) 11.5 - 16.0 g/dL LAB HEMETOLOGY METHOD 11/26/2024 11:11 AM [facility] Hematocrit 35.5 35.0 - 47.0 % LAB HEMETOLOGY METHOD 11/26/2024 11:11 AM [facility] MCV 96.2 79.0 - 98.0 FL LAB HEMETOLOGY METHOD 11/26/2024 11:11 AM [facility] MCH 30.9 27.0 - 32.0 pcg LAB HEMETOLOGY METHOD 11/26/2024 11:11 AM EST [facility] MCHC 32.1 32.0 - 37.0 g/dL LAB HEMETOLOGY METHOD 11/26/2024 11:11 AM [facility] RDW 13.0 11.0 - 15.0 % LAB HEMETOLOGY METHOD 11/26/2024 11:11 AM [facility] Platelets 269 130 - 400 K/mcL LAB HEMETOLOGY METHOD 11/26/2024 11:11 AM [facility] MPV 9.1 7.0 - 11.0 FL LAB HEMETOLOGY METHOD 11/26/2024 11:11 AM [facility] NRBC 0.0 <1.0 % LAB HEMETOLOGY METHOD 11/26/2024 11:11 AM [facility] NRBC Absolute 0.00 <0.10 K/mcL LAB HEMETOLOGY METHOD 11/26/2024 11:11 AM [facility] Blood Venous blood specimen / Unknown Venipuncture / Unknown 11/26/2024 5:00 AM EST 11/26/2024 10:13 AM EST us Eva Ivan MD LAB BLOOD ORDERABLES Final Resu lt [facility] [address] [place] [address], [place] [phone] documented in this encounter Visit Diagnoses Diagnosis Other seizures (CMS/HCC V24, CMS/HCC V28) Type 2 diabetes mellitus without complications (CMS/HCC V24, [facility]) Unspecified convulsions (CMS/HCC V24, CMS/HCC V28) Chronic obstructive pulmonary disease, unspecified (CMS/HCC V24, CMS/HCC V28) Essential (primary) hypertension Unspecified essential hypertension documented in this encounter Care Teams Parts Processor Relationship Specialty Start Date End Date Jose Juan Rendon MD [address] JOSEF Henriquez PCP - General 01/29/24 documented as of this encounter
== END 2025-09-07 13:41 | disposition home or self-care (01) ==
LOC: HO.MRI 13:40
PROVIDERS: PCP Internal Medicine; Visit Provider Nurse Practitioner Family
DX: F22 Delusional disorders (principal); R25.1 Tremor, unspecified; R41.3 Other amnesia; R29.6 Repeated falls
CPT/HCPCS: 70553; A9585

== ENCOUNTER → 2025-09-07 13:51 | Outpatient (BNV) | payer MEDICARE, MEDICAID, SELFPAY | PROVIDERS: PCP Internal Medicine; Visit Provider Radiology Diagnostic Radiology | DX: I67.82 Cerebral ischemia (principal); G31.9 Degenerative disease of nervous system, unspecified | CPT/HCPCS: 70553 ==

== ENCOUNTER 2025-09-26 09:30 | Outpatient (REF) | payer MEDICARE, MEDICAID, SELFPAY ==
--- OUTSIDE RECORDS SUMMARY | 2025-09-26 09:34 | XMS_ITS | Encounter Summary ---
Author Organization [employer] Address [address] [facility] [address]t [place] [address] Care Team Providers Care Sales And Marketing Professional Name Role Phone Unavailable Primary Care Provider [...]
--- OUTSIDE RECORDS SUMMARY | 2025-09-26 09:34 | XMS_ITS | Patient Health Record ---
Author Organization [facility] Address [address] [place] [address] Care Team Providers Care Billiard Table Mechanic Name Role Phone Leonides Chatman Unavailable [phone] Reason For Referral No Information Plan Of Treatment No Information
--- OUTSIDE RECORDS SUMMARY | 2025-09-26 09:34 | XMS_ITS | Clinical Summary ---
Author Organization [employer] Address [address] [facility] 7t [place] [address] Care Team Providers Care Actimize Architect Name Role Phone Unavailable Primary Care Provider [...] 75+ series) 2021 COVID-19 Vaccine (1 - 2024-2 6 season) 2025 Influenza Vaccine (#1) 2025 HIB [...]
--- OUTSIDE RECORDS SUMMARY | 2025-09-26 09:34 | XMS_ITS | Encounter Summary ---
Author Organization [employer] Address [address] [facility] 7t [place] [address] Care Team Providers Care Horticultural Services Supervisor Name Role Phone Unavailable Primary Care Provider [...]
--- OUTSIDE RECORDS SUMMARY | 2025-09-26 09:35 | XMS_ITS | Clinical Summary ---
Author Organization [facility] Address [address] [place] [address] Phone Care Team Providers Care Rn Acls Name Role Phone Jose Juan Rendon MD Primary Care Provider + [phone] Allergies Active Allergy Reactions Criticality Noted Date [...] Medical History Date Comments Arthritis Vascular dementia ([facility] V24, [facility] V28) Asthma Diabetes mellitus ([facility] V24, [facility] V28) Hypertension Osteoarthritis COPD (chronic obstructive pulmonary disease) ([facility] V24, [facility] V28) Seizures ([facility] V24, [facility] V28) Stroke ([facility] V24, [facility] V28) Cancer ([facility] V24, [facility] V28) Depression Anxiety Social History Tobacco Use [...] 49 AM EDT Superior mesenteric artery stenosis ([facility] V24) HEMOGLOBIN A1C Routine 11/26/2024 5:00 AM EST Other seizures ([facility]) Type 2 diabetes mellitus without complications ([facility]) Unspecified convulsions ([facility]) Chronic obstructive pulmonary disease, unspecified ([facility]) Essential (primary) hypertension from Last 3 Months or Most Recently Relevant to Health Maintenance Results * (ABNORMAL) Creatinine (03/25/2025 10:49 AM EDT) Creatinine 0.46(L) 0.50 - 1.10 mg/dL LAB CHEMISTRY METHOD 03/25/2025 3:10 PM EDT [facility] eGFR 98 >=60 mL/min/1. 73m2 LAB CHEMISTRY METHOD 03/25/2025 3:10 PM EDT [facility] Comment:Calculation based on the Chronic Kidney Disease Epidemiology Collaboration (CKD-EPI) equation refit without adjustment for race. Blood Venous blood specimen / Unknown Venipuncture / Unknown 03/25/2025 10:49 AM EDT 03/25/2025 10:49 AM EDT us Kavin Denny MD LAB BLOOD ORDERABLES Final Resu lt [facility] [address] [place] [address], * Hemoglobin A1c (11/26/2024 5:00 AM EST) Hemoglobin A1C 6.3 <6.5 % LAB CHEMISTRY METHOD 11/26/2024 1:54 PM EST [facility] Mean Bld Glu Estim. 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 Do not modify or discontinue any currently active code status orders. Care Teams Rn Acls Relationship Specialty Start Date End Date Jose Juan Rendon MD [address] [place] [address] [address] OJSEF Henriquez PCP - General 01/29/24
--- OUTSIDE RECORDS SUMMARY | 2025-09-26 09:35 | XMS_ITS | Encounter Summary ---
Author Organization [facility] Address [address] [place] [address] Care Team Providers Care Superintendent Meters Name Role Phone Jose Juan Rendon MD Primary Care Provider + [phone] Encounter Details Date Type Department Care Team (Latest Contact Info) Description 11/26/2024 Lab Requisition [facility] - Main Lab [address] [facility] [place] [address] Eva Ivan MD [address] [place] [id number] Other seizures (CMS/HCC V24, CMS/HCC V28); Type [...] Hemoglobin A1c (11/26/2024 5:00 AM EST) Pathologist [facility] Hemoglobin A1C 6.3 <6.5 % LAB CHEMISTRY METHOD 11/26/2024 1:54 PM [facility] Mean Bld Glu Estim. 134 mg/dL LAB CHEMISTRY METHOD 11/26/2024 1:54 PM [facility] Blood Venous blood specimen / Unknown Venipuncture / Unknown 11/26/2024 5:00 AM EST 11/26/2024 10:13 AM EST us Eva Ivan MD LAB BLOOD ORDERABLES Final Resu lt [facility] [address] [place] [address], [place] [phone] * (ABNORMAL) Basic metabolic panel (11/26/2024 5:00 AM EST) [facility] Sodium 132(L) 133 - 145 mmol/L [...] LAB CHEMISTRY METHOD 11/26/2024 10:58 AM EST [facility] eGFR 95 >=60 mL/min/1. 73m2 LAB CHEMISTRY METHOD 11/26/2024 10:58 AM [facility] Comment:Calculation based on the Chronic [...] MD LAB BLOOD ORDERABLES Final Resu lt [facility] [address] [place] [address], * (ABNORMAL) Complete blood count (11/26/2024 5:00 [...] LAB HEMETOLOGY METHOD 11/26/2024 11:11 AM EST [facility] MCHC 32.1 32.0 - 37.0 g/dL LAB HEMETOLOGY METHOD 11/26/2024 11:11 AM [facility] RDW 13.0 11.0 - 15.0 % LAB HEMETOLOGY METHOD 11/26/2024 11:11 AM [facility] Platelets 269 130 - 400 K/mcL LAB HEMETOLOGY METHOD 11/26/2024 11:11 AM [facility] MPV 9.1 7.0 - 11.0 FL LAB HEMETOLOGY METHOD 11/26/2024 11:11 AM [facility] NRBC 0.0 <1.0 % LAB HEMETOLOGY METHOD 11/26/2024 11:11 AM [facility] NRBC Absolute 0.00 <0.10 K/mcL LAB HEMETOLOGY METHOD 11/26/2024 11:11 AM [facility] Blood Venous blood specimen / Unknown Venipuncture / Unknown 11/26/2024 5:00 AM EST 11/26/2024 10:13 AM EST us Eva Ivan MD LAB BLOOD ORDERABLES Final Resu lt [facility] [address] [place] [address], [place] [phone] documented in this encounter Visit Diagnoses Diagnosis Other seizures (CMS/HCC V24, CMS/HCC V28) Type 2 diabetes mellitus without complications (CMS/HCC V24, CMS/[facility] V28) Unspecified convulsions (CMS/HCC V24, CMS/HCC V28) Chronic obstructive pulmonary disease, unspecified (CMS/HCC V24, CMS/HCC V28) Essential (primary) hypertension Unspecified essential hypertension documented in this encounter Care Teams Superintendent Meters Relationship Specialty Start Date End Date Jose Juan Rendon MD [address] JOSEF Henriquez PCP - General 01/29/24 documented as of this encounter
[2025-09-26 09:50] LABS: MANUAL DIFF FLAG NO
[2025-09-26 10:05] LABS: Hematocrit 37.8 % (37.0-47.0); Hemoglobin 12.6 g/dl (12.0-16.0); Imm Gran Abs Auto 0.01 X10*3/uL (0.00-0.03); Imm Gran Pct Auto 0.2 % (0.0-0.4); Lymphocytes Absolute Auto 1.1 X10*3/uL (1.2-4.9); Mean Corpuscular HGB Conc 33.3 g/dl (31.0-35.0); Mean Corpuscular Hemoglobin 30.1 pg (27.0-33.0); Mean Corpuscular Volume 90.2 fL (80.0-98.0); NRBC Abs Auto 0.000 X10*3/uL (0.0-0.012); NRBC Pct Auto 0.0 /100WBC (0.0-0.2); Platelet Count 264 X10*3/uL (160-400); Red Blood Count 4.19 X10*6/uL (4.20-5.50); White Blood Count 6.1 X10*3/uL (4.8-10.8)
[2025-09-26 10:41] LABS: Alanine Aminotransferase 24 U/L (0-31); Albumin Level 4.7 g/dL (3.5-5.0); Alkaline Phosphatase 106 U/L (39-117); Anion Gap 15 (12-20); Aspartate Amino Transferase 20 U/L (5-31); Blood Urea Nitrogen 8 mg/dL (9-16); Calcium 9.9 mg/dL (8.4-10.2); Carbon Dioxide 26 mmol/L (22-29); Chloride 102 mmol/L (96-108); Cholesterol 135 mg/dL (<200); Estimated Glomerular Filt Rate > 60; HDL Cholesterol 54 mg/dL (>40); Potassium 4.7 mmol/L (3.3-5.1); Sodium 138 mmol/L (135-145); Total Protein 7.3 g/dL (6.5-8.0); Triglycerides 41 mg/dL (<150)
[2025-09-26 10:50] LABS: Appearance Urine Cloudy; Glucose Urine UA Negative (Negative); PH 7.0 (5.0-9.0); Specific Gravity - Urine 1.015 (1.005-1.025); UMIC TRIGGER UACC YES
[2025-09-26 10:53] LABS: UACC Culture Trigger YES
[2025-09-26 10:58] LABS: Microalbum/Creatinine Ratio Ur 11.9 ug/mg cr (<30)
== END 2025-09-26 09:31 | disposition home or self-care (01) ==
LOC: HO.LAB 09:30
PROVIDERS: PCP Internal Medicine; Visit Provider Internal Medicine
DX: E11.9 Type 2 diabetes mellitus without complications (principal); E78.00 Pure hypercholesterolemia, unspecified; E55.9 Vitamin D deficiency, unspecified; D64.9 Anemia, unspecified; R30.0 Dysuria
CPT/HCPCS: 36415; 80053; 80061; 81001; 82043; 82306; 82570; 83036; 84443; 85025; 87086; 87088; 87186

== ENCOUNTER 2025-10-01 14:48 | Outpatient (AMB) | payer MEDICARE, MEDICAID, SELFPAY ==
[2025-10-01 14:54] VITALS: BP 130/90; PULSE 86; O2SAT 99; BMI 19.2
--- NOTE | 2025-10-01 14:54 | A.OFFPC_ITS ---
Vital Signs 10/01/25 14:54 Height 5 ft Weight 98 lb 6 oz BMI 19.2 BP 130/90 H Blood Pressure Location Lt brachial Position Sitting Pulse 86 Pulse Source Pulse Oximeter Pulse Oximetry (%) 99 Oxygen Delivery Method Room Air Intake Visit Reasons: 3 mo dementia, DM, hyperlipidemia Filler Shredding Machine Loader Required: No Accompanied by: Self / Same As Patient Allergies meperidine (From DEMEROL) Allergy (Severe, Verified 10/01/25 15:48) HYPOTENSION Penicillins (PENICILLINS) Allergy (Severe, Verified 10/01/25 15:48) HIVES,SWELLING influenza virus vaccine, specific (Influenza Virus Vacc,Specific) Adverse Reaction (Intermediate, Verified 10/01/25 15:48) ASTHMA EXACERBATION Anesthetic Maximum Strength Allergy (Severe, Uncoded 10/01/25 15:48) anaphylaxis Bee Sting Allergy (Unknown, Uncoded 10/01/25 15:48) unknown Medication List - Last Reconciled 10/01/25 by Jose Juan Rendon MD [ADULT PULL-UPS (medium) As directed] albuterol sulfate 2.5 mg continuous nebulization Q6H PRN albuterol sulfate 90 mcg/actuation 2 puffs PO Q6H PRN amlodipine 2.5 mg PO BID 90 days aspirin 81 mg PO DAILY atorvastatin 20 mg PO BEDTIME 90 days [Bed rail As directed] blood pressure monitor As directed blood sugar diagnostic (FreeStyle Test strips) test bs once a day blood-glucose meter (FreeStyle Lite Meter kit) As directed- To test Blood sugar blood-glucose meter (FreeStyle Lite Meter kit) As directed ONCE A DAY cholecalciferol (vitamin D3) 50 mcg PO DAILY clonazepam 0.25 mg PO BEDTIME PRN 30 days fluticasone propion-salmeterol 500-50 mcg/dose (Advair Diskus) 1 ea PO BID fluticasone propionate 50 mcg/actuation 1 spray intranasal DAILY [FreeStyle LANCETS As directed] [FreeStyle TEST STRIPS As directed] lancets (FreeStyle Lancets) 28 gauge miscellaneous .QD latanoprost 0.005% 1 drp ophthalmic (eye) BEDTIME loratadine 10 mg PO DAILY PRN memantine 28 mg PO DAILY omalizumab (Xolair) 300 mg subcut Q4W 28 days omeprazole 20 mg PO DAILY PRN polyethylene glycol 3350 (Miralax) 17 grams PO DAILY 30 days sennosides (Senna Lax) 8.6 mg PO BEDTIME PRN 30 days sulfamethoxazole-trimethoprim 800-160 mg (Bactrim DS) 1 tab PO BID 7 days valacyclovir 500 mg PO DAILY Tobacco use date assessed: 10/01/25 Fall risk assessment: No Falls in past year Last assessed Fall Risk: 10/01/25 Dental Screening Dental Screen Date: 10/01/25 Did you have a dental visit in the last 12 months?: No Did you have a dental problem in the last 6 months where you did not have access to dental care?: No Was dental information given to patient?: No HPI 3 mo dementia, DM, hyperlipidemia HPI Details Patient comes in today for her follow up visit - she is as usual accompanied by her TASSEL MAKING MACHINE OPERATOR States that she feels okay She denies any headaches or dizziness Denies any chest pains, no increased SOB No nausea/vomiting, no abdominal pain No change in bowel habits noted Her TASSEL MAKING MACHINE OPERATOR adds that patient did mention to her yesterday that she was experiencing some issues (mild dysuria, urinary frequency) with her urine recently Will need her Clonazepam Rx refilled She had her follow up labs done last week - to discuss her results [facility] Medical History Dementia Osteoporosis Post-menopausal Cellulitis Overweight (BMI 25.0-29.9) Depression Anxiety Nocturnal leg cramps Vitamin D deficiency Genital herpes in women Ductal carcinoma in situ of right breast Osteoarthritis of knee GERD (gastroesophageal reflux disease) Allergic rhinitis Diabetic neuropathy COPD (chronic obstructive pulmonary disease) Benign essential hypertension Pure hypercholesterolemia Diabetes mellitus Surgical History History of colonoscopy History of total hysterectomy H/O breast surgery Family History Father CVD (cardiovascular disease) Stroke Mother Cancer Other Mental health disorder Social History Housing: Apartment Alcohol intake: never Patient Tobacco Use Status: Never used Tobacco e-Cigarette/Vaping Use: Never Used Second Hand Smoke Exposure: Yes service: No Current occupational status: disabled Cognitive needs: No Hearing needs: Yes Vision needs: Yes Questionnaire PHQ-9 Over the last 2 weeks, how often have you been bothered by any of the following problems? 1. Little interest or pleasure in doing things: more than half the days 2. Feeling down, depressed, or hopeless: not at all 3. Trouble falling or staying asleep, or sleeping too much: more than half the days 4. Feeling tired or having little energy: more than half the days 5. Poor appetite or overeating: not at all 6. Feeling bad about yourself - or that you are a failure or have let yourself or your family down: not at all 7. Trouble concentrating on things, such as reading the newspaper or watching television: several days 8. Moving or speaking so slowly that other people could have noticed. Or the opposite - being so fidgety or restless that you have been moving around a lot more than usual: more than half the days 9. Thoughts that you would be better off or of hurting yourself in some way: not at all Total score: 9 Depression Screening Interpretation: Positive Depression Screening Follow-up: Follow-up Visit Requested Depression Screening Done: Yes 26766 - PHQ-9 Billing: Yes Source: Developed by Drs. Leonides Hamm, Rehana Tello, Harjinder Buitrago and colleagues, with an educational ronel from [employer]. Thrive Questionnaire Date Thrive assessed: 10/01/25 I am a: Patient What is your living situation today?: I have a steady place to live Within the past 12 months, did the food you bought not last and you didn't have the money to get more?: Never true Within the past 12 months, did you worry whether your food would run out before you got money to buy more?: Never true Do you have trouble paying for medicines?: No Do you have trouble getting transportation to medical appointments?: No Do you have trouble paying your heating and electricity bill?: No Do you have trouble taking care of your child, family member or friend?: I choose not to answer this question Do you have trouble with day-to-day activities such as bathing, preparing meals, shopping, managing finances, etc.?: Yes Are you currently unemployed and looking for a job?: I choose not to answer this question Are you interested in more education?: No Please select the resources that you would like help with: None Currently or been in a relationship where the following occur: I choose not to answer THRIVE Score: 0 AUDIT C Alcohol Use Questionnaire (AUDIT-C) 1. How often do you have a drink containing alcohol?: Never 3. How often do you have six or more drinks on one occasion?: Never Total Score: 0 Score Reviewed/Action Taken: Yes ESTEBAN-7 AMB Questionnaire ESTEBAN-7 Date ESTEBAN - 7 assessed: 10/01/25 Feeling nervous, anxious, or on edge: 0 = Not at all Not being able to stop or control worryin = Not at all Worrying too much about different things: 0 = Not at all Trouble relaxin = More than half the days Being so restless that it is hard to sit still: 2 = More than half the days Becoming easily annoyed or irritable: 1 = Several days Feeling afraid as if something awful might happen: 1 = Several days Total ESTEBAN-7 score (0-4 normal; 5-9 mild; 10-14 moderate; 15-21 severe): 6 Source: Developed by Drs. Leonides Hamm, Rehana Tello, Harjinder Buitrago and colleagues, with an educational ronel from [employer]. Review of Systems Const Details: Information here is obtained partly from patient's TASSEL MAKING MACHINE OPERATOR as patient is unable to participate fully in her office visit today due to some cognitive impairment Denies chills, Reports difficulty sleeping (at times although this has improved somewhat, per her TASSEL MAKING MACHINE OPERATOR), Reports fatigue, Denies fever(s) and Denies headache(s) ENT Denies dysphagia, Denies dizziness, Denies otalgia, Denies headache(s), Denies neck pain, Denies odynophagia and Denies sore throat Card Denies chest pain, Denies palpitations and Denies dyspnea Resp Denies chest congestion, Denies cough and Denies dyspnea GI Denies abdominal pain, Reports constipation (on and off), Denies dysphagia, Reports fecal incontinence (at times, per daughter), Denies diarrhea, Denies nausea, Denies odynophagia and Denies vomiting Denies difficulty voiding, Reports nocturia, Reports dysuria (TASSEL MAKING MACHINE OPERATOR states patient complained about this yesterday) and Reports urinary incontinence Musc Denies back pain, Denies arthralgias and Denies neck pain Skin/Breast Denies rash Neuro Reports behavioral changes (but improved from previous), Reports confusion (on and off), Denies dizziness, Denies headache(s) and Reports memory loss Psych Reports anxiety, Reports behavioral changes (but improved from previous), Reports confusion (on and off), Reports auditory hallucinations, Reports memory loss and Reports visual hallucinations Endo Reports fatigue and Denies palpitations Physical exam (Primary Care) Vital Signs: Last Vital Signs Pulse 86 10/01/25 14:54 BP 130/90 H 10/01/25 14:54 Pulse Ox 99 10/01/25 14:54 Oxygen Delivery Method Room Air 10/01/25 14:54 BMI result Body Mass Index 19.2 Tobacco/Smoking Status: Tobacco use Status Tobacco use date assessed 10/01/25 10/01/25 14:55 Patient Tobacco Use Status Never used Tobacco 10/01/25 14:55 e-Cigarette/Vaping Use Never Used 10/01/25 14:55 PHQ-9: PHQ-9 Score PHQ-9: Total score 9 10/01/25 17:37 Depression Screening Interpretation: Positive Depression Screening Follow-up: Follow-up Visit Requested Thrive Assessment: Date of Thrive Assessment Date Thrive assessed 10/01/25 10/01/25 14:55 Currently or been in a relationship where the following occur: I choose not to answer Const General: no acute distress and confusion (on and off) Orientation/consciousness: confusion (on and off) HENMT Ears: TM's normal bilaterally and EAC's normal Throat: Yes posterior oropharynx normal and Yes tonsils normal (no TP congestion) Neck Neck: Yes supple and No lymphadenopathy Thyroid: Thyroid normal Resp Auscultation: clear to auscultation bilaterally, no rales and no wheezes Cardio Rate: regular rate Rhythm: regular rhythm Heart sounds: no murmurs GI Palpation (GI): Soft to palpation and nontender Auscultation: normal bowel sounds General: Yes no CVA tenderness Back/Spine/Pelvis Back: no CVA tenderness Thoracic/Lumbar Spine: No lumbar spinal tenderness Skin Rashes: no rashes Neuro General: confusion (on and off) Gait exam (Neuro): Assistive device used (walker) Extrem General: Yes no clubbing, cyanosis or edema Results Reviewed Results Reviewed: Laboratory Tests 09/26/25 09/26/25 09:39 09:48 WBC 6.1 Hgb 12.6 Hct 37.8 Plt Count 264 Sodium 138 Potassium 4.7 Creatinine 0.55 Estimated GFR > 60 Fasting Glucose 121 H Hemoglobin A1c % 5.9 Calcium 9.9 AST 20 ALT 24 Triglycerides 41 Cholesterol 135 LDL Cholesterol, Calc 73 HDL Cholesterol 54 25-OH Vitamin D Total 39.3 TSH 1.16 Ur Specific [place] 1.015 Urine Protein Negative Urine Glucose (UA) Negative Urine Blood Negative Urine Nitrite Positive H Ur Leukocyte Esterase Large (3+) H Microalb/Creat Ratio 11.9 Coding Level of Care Code Est Pt Level 4 (32490) Diagnoses Pure hypercholesterolemia E78.00 Type 2 diabetes mellitus with diabetic polyneuropathy, without long-term current use of insulin E11.42 Diabetes mellitus complication detail: with polyneuropathy Diabetes mellitus complication status: with neurologic complications Diabetes mellitus joint terminal attack controller insulin use: without joint terminal attack controller use Diabetes mellitus type: type 2 Benign essential hypertension I10 Chronic obstructive pulmonary disease, unspecified COPD type J44.9 COPD type: unspecified COPD Diabetic polyneuropathy associated with type 2 diabetes mellitus E11.42 Diabetes mellitus complication detail: diabetic polyneuropathy Diabetes mellitus type: type 2 Moderate dementia with other behavioral disturbance, unspecified dementia type F03.B18 Dementia behavioral or psychological symptom: with other behavioral disturbance Dementia severity: moderate Dementia type: unspecified type Allergic rhinitis, unspecified seasonality, unspecified trigger J30.9 Allergic rhinitis seasonality: unspecified Allergic rhinitis trigger: unspecified Gastroesophageal reflux disease without esophagitis K21.9 Esophagitis presence: without esophagitis Primary osteoarthritis of knee, unspecified laterality M17.10 Laterality: unspecified laterality Osteoarthritis type: primary Ductal carcinoma in situ of right breast D05.11 Age-related osteoporosis without current pathological fracture M81.0 Osteoporosis type: age-related Presence of current pathological fracture: without current pathological fracture Vitamin D deficiency E55.9 Nocturnal leg cramps G47.62 Constipation, unspecified constipation type K59.00 Constipation type: unspecified constipation type Genital herpes in women A60.09 Urinary tract infection due to Klebsiella species N39.0; B96.89 Unsteady gait R26.81 Anxiety F41.9 Depression, unspecified depression type F32.A Depression Type: unspecified Additional Codes PHQ-9 - 59540 - PHQ-9 Billing: Yes ([id number]) Assessment & Plan Assessment & Plan (1) Pure hypercholesterolemia: Code(s): E78.00 - Pure hypercholesterolemia, unspecified Category: Medical Plan: Results of her labs done last week reviewed and discussed with patient and her TASSEL MAKING MACHINE OPERATOR as patient is somewhat cognitively impaired and is unable to fully participate in her visits Reinforced low cholesterol diet Continue Atorvastatin 20 mg QD Will have her recheck her labs and fasting lipids in 3 months for follow up (2) Diabetes mellitus: Code(s): E11.9 - Type 2 diabetes mellitus without complications Category: Medical Qualifiers: Diabetes mellitus complication detail: with polyneuropathy Diabetes mellitus complication status: with neurologic complications Diabetes mellitus joint terminal attack controller insulin use: without mcc use Diabetes mellitus type: type 2 Qualified Code(s): E11.42 - Type 2 diabetes mellitus with diabetic polyneuropathy Plan: Her HgbA1c was at 5.9% on her labs done last week (was previously at 6.0% a few months ago) - goal is at least <7.0% but ideally <6.5% Reinforced diabetic diet Patient is still not taking any medications for her diabetes and preferred to continue with diet modification alone as much as possible before her cognition started declining due to her dementia We will recheck her FBS and HgbA1c in 3 months for follow up (3) Benign essential hypertension: Code(s): I10 - Essential (primary) hypertension Category: Medical Plan: Reinforced low-sodium diet - goal is systolic BP of at least 130 to 140 mm or l ess She appears to be tolerating Amlodipine 2.5 mg QD and her blood pressure today is much improved from previous Continue Amlodipine 2.5 mg QD Patient's TASSEL MAKING MACHINE OPERATOR is reminded to help monitor patient's blood pressure regularly (4) COPD (chronic obstructive pulmonary disease): Code(s): J44.9 - Chronic obstructive pulmonary disease, unspecified Category: Medical Qualifiers: COPD type: unspecified COPD Qualified Code(s): J44.9 - Chronic obstructive pulmonary disease, unspecified Plan: Appears controlled Continue Advair Diskus 500-50 mcg 1 inhalation BID. ProAir HFA 2 puffs 4 times a day as needed; she was also on Xolair injections 300 mg Q 4 weeks but patient has refused to go get her shots for a while now and completely stopped going since she was diagnosed with dementia Patient also has Albuterol solution that she uses with her updraft machine when needed Follow-up with pulmonary as scheduled (5) Diabetic neuropathy: Code(s): E11.40 - Type 2 diabetes mellitus with diabetic neuropathy, unspecified Category: Medical Qualifiers: Diabetes mellitus complication detail: diabetic polyneuropathy Diabetes mellitus type: type 2 Qualified Code(s): E11.42 - Type 2 diabetes mellitus with diabetic polyneuropathy Plan: Her neuropathic symptoms do not appear to be bothering her at all lately so no additional intervention or Rx is needed (6) Dementia: Code(s): F03.90 - Unspecified dementia, unspecified severity, without behavioral disturbance, psychotic disturbance, mood disturbance, and anxiety Category: Medical Qualifiers: Dementia behavioral or psychological symptom: with other behavioral disturbance Dementia severity: moderate Dementia type: unspecified type Qualified Code(s): F03.B18 - Unspecified dementia, moderate, with other behavioral disturbance Plan: She was referred to and seen by neurology last year and was started on Memantine ER - she is currently still on Memantine ER 28 mg QD She was also experiencing some visual and auditory hallucinations last year with her declining cognition but these seem to have calmed down a lot lately [facility] as scheduled Patient lives alone in her apartment and reportedly has TASSEL MAKING MACHINE OPERATOR services for 18 hours during the day and 2 hours at night but she is still left alone in her apartment for a few hours in the day and at night Her TASSEL MAKING MACHINE OPERATOR has installed cameras around her house to monitor patient remotely when she is alone by herself in her apartment Have again advised her TASSEL MAKING MACHINE OPERATOR that with her declining cognition, it is not safe for patient to be left alone in her apartment for any period of time and that they should get her agency to reevaluate patient if possible - my opinion is that she should have 24/7 TASSEL MAKING MACHINE OPERATOR services (7) Allergic rhinitis: Code(s): J30.9 - Allergic rhinitis, unspecified Category: Medical Qualifiers: Allergic rhinitis seasonality: unspecified Allergic rhinitis trigger: unspecified Qualified Code(s): J30.9 - Allergic rhinitis, unspecified Plan: Continue Fluticasone 50 mcg nasal spray QD PRN and Loratadine 10 mg QD PRN (8) GERD (gastroesophageal reflux disease): Code(s): K21.9 - Gastro-esophageal reflux disease without esophagitis Category: Medical Qualifiers: Esophagitis presence: without esophagitis Qualified Code(s): K21.9 - Gastro-esophageal reflux disease without esophagitis Plan: Dietary? 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 Code(s): D05.11 - Intraductal carcinoma in situ of right breast Category: Medical Plan: S/P Tx with Tamoxifen x 5 years Follow-up with Oncology as scheduled for continuing surveillance (11) Osteoporosis: Code(s): M81.0 - Age-related osteoporosis without current pathological fracture Category: Medical Qualifiers: Osteoporosis type: age-related Presence of current pathological fracture: without current pathological fracture Qualified Code(s): M81.0 - Age- related osteoporosis without current pathological fracture Plan: BMD done in June 2021 revealed (+) osteoporosis, with a T score of -3.2 Patient is again encouraged to continue with daily calcium and vitamin-D supplements Reinforced fall precautions We have discussed considerations for treatment of her osteoporosis with oral bisphosphonates but patient was previously concerned about side effects due to her pre-existing GI issues, including GERD; she was also concerned about other treatment options and the potential side effects and asked to hold off on Rx just before her cognition started declining She will need repeat BMD ordered next spring (2025) (12) Vitamin D deficiency: Code(s): E55.9 - Vitamin D deficiency, unspecified Category: Medical Plan: Continue Vitamin D3 2000 units QD (13) Nocturnal leg cramps: Code(s): G47.62 - Sleep related leg cramps Category: Medical Plan: Continue Tizanidine 4 mg daily at bedtime as needed (14) Constipation: Code(s): K59.00 - Constipation, unspecified Category: Medical Qualifiers: Constipation type: unspecified constipation type Qualified Code(s): K59.00 - Constipation, unspecified Plan: Reinforced increased oral fluids and dietary fiber intake Continue Senna 8.6 mg 1 to 2 tablets QD PRN (15) Genital herpes in women: Code(s): A60.09 - Herpesviral infection of other urogenital tract Category: Medical Plan: 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 She remains on chronic suppressive Tx with Valacyclovir 500mg QD (16) Urinary tract infection due to Klebsiella species: Code(s): N39.0 - Urinary tract infection, site not specified; B96.89 - Other specified bacterial agents as the cause of diseases classified elsewhere Category: Medical Plan: Patient's urine C/S done last week again grew (+) Klebsiella We started her empirically on Bactrim DS 1 tablet BID x 7 days at her last visit but it did not seem to have made any difference to her findings Will start her back for now on Bactrim DS x 7 days again With her significant and persistent pyuria and bacteriuria, will send her for renal US for further evaluation and if her renal US are completely normal, she may need a bladder US OR a referral to urology for further evaluation (17) Unsteady gait: Code(s): R26.81 - Unsteadiness on feet Category: Medical Plan: Patient has been noted to be very unsteady over the past few years and has fallen a few times recently - this is most likely multifactorial, including her neuropathy, age, frailty and overall generalized weakness She uses a walker all the time now when ambulating She currently has TASSEL MAKING MACHINE OPERATOR services for 18 hours during the day and 2 hours at night Patient lives alone in her own apartment and does not wish to move out to an assisted living facility or a prison Fall precautions reinforced to family (18) Anxiety: Code(s): F41.9 - Anxiety disorder, unspecified Category: Medical Plan: Continue Clonazepam? 0.25 mg 1/2 to 1 tablet once a day at bedtime as needed - Rx refilled (19) Depression: Code(s): F32.9 - Major depressive disorder, single episode, unspecified Category: Medical Qualifiers: Depression Type: unspecified Qualified Code(s): F32.A - Depression, unspecified Plan: She used to see psychiatry but with her declining cognition over the past year or two, has stopped seeing psychiatry completely She does not appear to have had any issues lately related to her depression, including any unusual behavioral symptoms or agitation Plan Follow up in 3 months Orders: Orders US renal BI Today R82.71 - Bacteriuria, R82.81 - Pyuria Complete Blood Count Auto Diff 3 Months D64.9 - Anemia, unspecified Comprehensive [place]. Panel Fast 3 Months E78.00 - Pure hypercholesterolemia, unspecified UA CC w/rflx Micro + Cult 3 Months R30.0 - Dysuria Vitamin B12 and Folate 3 Months E53.8 - Deficiency of other specified B group vitamins Vitamin D 25-OH Total 3 Months E55.9 - Vitamin D deficiency, unspecified Lipid Panel 3 Months E78.00 - Pure hypercholesterolemia, unspecified Microalbumin, Random (w Creat) 3 Months E11.9 - Type 2 diabetes mellitus without complications Hemoglobin A1c 3 Months E11.9 - Type 2 diabetes mellitus without complications TSH reflex Free T4 3 Months E78.00 - Pure hypercholesterolemia, unspecified Medications: New sulfamethoxazole-trimethoprim 800-160 mg (Bactrim DS) 1 tab PO BID 14 tabs 0RF 7 days Refilled clonazepam administer 30 minutes before bedtime 0.25 mg PO BEDTIME PRN 30 tabs 1RF anxiety 30 days F41.9 - Anxiety disorder, unspecified Discontinued sulfamethoxazole-trimethoprim 800-160 mg (Bactrim DS) Discontinued Reason: Patient Completed Course 1 tab PO BID 7 days 14 tabs 0RF UTI
--- OUTSIDE RECORDS SUMMARY | 2025-10-01 17:43 | XMS_ITS | Encounter Summary ---
Author Organization [facility] Address [address] [place] [address] Care Team Providers Care Harvesting Manager Name Role Phone Jose Juan Rendon MD Primary Care Provider + [phone] Encounter Details Date Type Department Care Team (Latest Contact Info) Description 11/26/[address] [facility] - Main Lab [address] [facility] [place] [address] Eva Ivan MD [address] [place] [id number] Other seizures (CMS/HCC V24, CMS/HCC V28); Type [...] Hemoglobin A1c (11/26/2024 5:00 AM EST) Pathologist [facility] Hemoglobin A1C 6.3 <6.5 % LAB CHEMISTRY METHOD 11/26/2024 1:54 PM [facility] Mean Bld Glu Estim. 134 mg/dL LAB CHEMISTRY METHOD 11/26/2024 1:54 PM [facility] Blood Venous blood specimen / Unknown Venipuncture / Unknown 11/26/2024 5:00 AM EST 11/26/2024 10:13 AM EST us Eva Ivan MD LAB BLOOD ORDERABLES Final Resu lt [facility] [address] [place] [address], [place] [phone] * (ABNORMAL) Basic metabolic panel (11/26/2024 5:00 [...] LAB CHEMISTRY METHOD 11/26/2024 10:58 AM EST [facility] eGFR 95 >=60 mL/min/1. 73m2 [...] MD LAB BLOOD ORDERABLES Final Resu lt [facility] [address] [place] [address], * (ABNORMAL) Complete blood count (11/26/2024 5:00 [...] LAB HEMETOLOGY METHOD 11/26/2024 11:11 AM EST [facility] MCHC 32.1 32.0 - 37.0 [...] MD LAB BLOOD ORDERABLES Final Resu lt [facility] [address] [place] [address], [place] [phone] documented in this encounter Visit Diagnoses Diagnosis Other seizures (CMS/HCC V24, CMS/HCC V28) Type 2 diabetes mellitus without complications (CMS/HCC V24, CMS/[facility] V28) Unspecified convulsions (CMS/HCC V24, CMS/HCC V28) Chronic obstructive pulmonary disease, unspecified (CMS/HCC V24, CMS/HCC V28) Essential (primary) hypertension Unspecified essential hypertension documented in this encounter Care Teams Harvesting Manager Relationship Specialty Start Date End Date Jose Juan Rendon MD [address] JOSEF Henriquez PCP - General 01/29/24 documented as of this encounter
--- OUTSIDE RECORDS SUMMARY | 2025-10-01 17:43 | XMS_ITS | Encounter Summary ---
Author Organization [employer] Address [address] [facility] [address] [facility] [address] [place] [address] Care Team Providers Care Outboard Motor Assembler Name Role Phone Unavailable Primary Care [...]
--- OUTSIDE RECORDS SUMMARY | 2025-10-01 17:43 | XMS_ITS | Patient Health Record ---
Author Organization [facility] Address [address] [place] [address] Care Team Providers Care Lens Inspector Name Role Phone Leonides Chatman Unavailable [phone] Reason For Referral No Information Plan Of Treatment No Information
--- OUTSIDE RECORDS SUMMARY | 2025-10-01 17:43 | XMS_ITS | Encounter Summary ---
Author Organization [employer] Address [address] [place] [address] Care Team Providers Care Drafter Assistant Name Role Phone Unavailable Primary Care Provider [...]
--- OUTSIDE RECORDS SUMMARY | 2025-10-01 17:43 | XMS_ITS | Clinical Summary ---
Author Organization [employer] Address [address] [facility] [address] [place] [address] Care Team Providers Care Supervisor Respiratory Name Role Phone Unavailable Primary Care Provider [...]
--- OUTSIDE RECORDS SUMMARY | 2025-10-01 17:44 | XMS_ITS | Clinical Summary ---
Author Organization [facility] Address [address] [place] [address] Phone Care Team Providers Care Draw Fire Operator Name Role Phone Jose Juan Rendon MD Primary Care Provider + [phone] Allergies Active Allergy Reactions Criticality Noted Date [...] Medical History Date Comments Arthritis Vascular dementia ([facility] V24, [facility] V28) Asthma Diabetes mellitus ([facility] [place], [facility] V28) Hypertension Osteoarthritis COPD (chronic obstructive pulmonary disease) ([facility] V24, [facility] V28) Seizures ([facility] V24, [facility] V28) Stroke ([facility] V24, [facility] V28) Cancer ([facility] V24, [facility] V28) Depression Anxiety Social History Tobacco Use [...] 49 AM EDT Superior mesenteric artery stenosis ([facility] V24) HEMOGLOBIN A1C Routine 11/26/2024 5:00 AM EST Other seizures ([facility]) Type 2 diabetes mellitus without complications ([facility]) Unspecified convulsions ([facility]) Chronic obstructive pulmonary disease, unspecified ([facility]) Essential (primary) hypertension from Last 3 Months or Most Recently Relevant to Health Maintenance Results * (ABNORMAL) Creatinine (03/25/2025 10:49 AM EDT) Creatinine 0.46(L) 0.50 - 1.10 mg/dL LAB CHEMISTRY METHOD 03/25/2025 3:10 PM EDT [facility] eGFR 98 >=60 mL/min/1. 73m2 LAB CHEMISTRY METHOD 03/25/2025 3:10 PM EDT [facility] Comment:Calculation based on the Chronic Kidney Disease Epidemiology Collaboration (CKD-EPI) equation refit without adjustment for race. Blood Venous blood specimen / Unknown Venipuncture / Unknown 03/25/2025 10:49 AM EDT 03/25/2025 10:49 AM EDT us Kavin Denny MD LAB BLOOD ORDERABLES Final Resu lt [facility] [address] [place] [address], * Hemoglobin A1c (11/26/2024 5:00 AM EST) Hemoglobin A1C 6.3 <6.5 % LAB CHEMISTRY METHOD 11/26/2024 1:54 PM EST [facility] Mean Bld Glu Estim. 134 mg/dL LAB CHEMISTRY METHOD 11/26/2024 1:54 PM EST [facility] Blood Venous blood specimen / Unknown Venipuncture / Unknown 11/26/2024 5:00 AM EST 11/26/2024 10:13 AM EST us Eva Ivan MD LAB BLOOD ORDERABLES Final Resu lt [facility] [address] [place] [address], from Last 3 Months or Most Recently Relevant to Health Maintenance Insurance MEDICAID - [place] MEDICARE Advance Directives Documents on File Type Date Recorded Patient Seed Cleaning Manager Expl anation Health Care Decision (hx) 02/18/2024 HE ALTH CARE PROXY * Full Code - Confirmed (Latest Code Status on File) Date Activated Date Inactivated Comments 11/23/2024 7:28 AM 11/25/2024 5:[address] [facility] was ascertained in the following way: Code status discussion: discussion with healthcare volunteer patient representative To update the patient's code status, place a code status order. Do not modify or discontinue any currently active code status orders. Care Teams Draw Fire Operator Relationship Specialty Start Date End Date Jose Juan Rendon MD [address] [place] [address] [address] JOSEF Henriquez PCP - General 01/29/24
== END 2025-10-01 15:58 | disposition home or self-care (01) ==
LOC: HO.HMCH 14:49
PROVIDERS: PCP Internal Medicine; Visit Provider Internal Medicine
DX: E11.42 Type 2 diabetes mellitus with diabetic polyneuropathy (principal); J44.9 Chronic obstructive pulmonary disease, unspecified; F03.B18 Unspecified dementia, moderate, with other behavioral disturbance; E78.00 Pure hypercholesterolemia, unspecified; I10 Essential (primary) hypertension; J30.9 Allergic rhinitis, unspecified; K21.9 Gastro-esophageal reflux disease without esophagitis; M17.10 Unilateral primary osteoarthritis, unspecified knee; D05.11 Intraductal carcinoma in situ of right breast; M81.0 Age-related osteoporosis without current pathological fracture; E55.9 Vitamin D deficiency, unspecified; G47.62 Sleep related leg cramps; K59.00 Constipation, unspecified; A60.09 Herpesviral infection of other urogenital tract; N39.0 Urinary tract infection, site not specified; B96.89 Other specified bacterial agents as the cause of diseases classified elsewhere; R26.81 Unsteadiness on feet; F41.9 Anxiety disorder, unspecified; F32.A Depression, unspecified

== ENCOUNTER → 2025-10-01 14:48 | Outpatient (BNVA) | payer MEDICARE, MEDICAID, SELFPAY | PROVIDERS: PCP Internal Medicine; Visit Provider Internal Medicine | DX: E11.42 Type 2 diabetes mellitus with diabetic polyneuropathy (principal); I10 Essential (primary) hypertension; J44.9 Chronic obstructive pulmonary disease, unspecified; J30.9 Allergic rhinitis, unspecified; K21.9 Gastro-esophageal reflux disease without esophagitis; M17.10 Unilateral primary osteoarthritis, unspecified knee; D05.11 Intraductal carcinoma in situ of right breast; M81.0 Age-related osteoporosis without current pathological fracture; E55.9 Vitamin D deficiency, unspecified; G47.62 Sleep related leg cramps; K59.00 Constipation, unspecified; N39.0 Urinary tract infection, site not specified; A60.09 Herpesviral infection of other urogenital tract; B96.89 Other specified bacterial agents as the cause of diseases classified elsewhere; R26.81 Unsteadiness on feet; F41.9 Anxiety disorder, unspecified; F32.A Depression, unspecified; Z13.31 Encounter for screening for depression; Z13.39 Encounter for screening examination for other mental health and behavioral disorders | CPT/HCPCS: 96127; 99212 ==